=== PATIENT | male | born 1955 | race Caucasian/White ===

== ENCOUNTER → 2016-02-12 19:19 | Outpatient (CLI) | payer MEDICARE ==
[2016-01-29 10:35] VITALS: BMI 32.5
[~2016-02-12 19:19] MED LIST: ACETAMINOPHEN500 M1 PO; ALTACE5 MG PO; ASPIRIN EC81 M1 PO; ASPIRIN EC81 MG PO; ASPIRIN325 MG PO; CARAFATE1 G PO; DULERA 200 MCG8.8 GM INH; DURAGESIC1 PATCH .7 TD; EDARBYCLOR 40-1 EACH PO; EFFIENT10 MG PO; FLORAJEN3 CAPS460 MG PO; FLOVENT DI50 MCG/DIS INH; FLUTICASONE PRO16 GM NASAL; GLUCOPHAGE850 MG PO; HYDROCODONE-APA1 TAB PO; LAMICTAL200 MG PO; LINEZOLID600 MG PO; LOPID600 MG PO; LOPRESSOR25 MG PO; MACROBID100 MG PO; MERREM 1 GM/NS 11 G1 IV; METOPROLOL TART50 MG PO; MULTI-DAY VITAM1 TAB PO; NEURONTIN 300300 MG PO; NITROSTAT0.4 MG; NORCO 10/325 TA1 TA1 PO; NORVASC10 MG PO; PLAVIX75 MG PO; PRAVACHOL40 MG PO; PROTONIX40 MG PO; PROZAC10 MG PO; RANEXA500 MG PO; SINGULAIR10 MG PO; TENORMIN50 MG PO; TRIGLIDE160 MG PO; ZOCOR20 MG PO; ZYLOPRIM100 MG PO
[2016-02-13 09:21] LABS: BASOPHILS 0.2 % (0.0-2.0); EOSINOPHILS 9.2 % (0-7); HEMATOCRIT 37.9 % (42.0-54.0); IMMATURE GRANULOCYTES 0.2 % (0-5); LYMPHOCYTES 25.3 % (15-50); MCH 29.6 pg (26.0-34.0); MCHC 31.7 g/dL (31.0-37.0); MCV 93.6 fL (80.0-100.0); MONOCYTES 9.1 % (2-11); RBC 4.05 10x6/uL (4.20-6.10); RDW 14.3 % (11.5-14.5); WBC 5.7 10x3/uL (4.8-10.8)
[2016-02-13 09:40] LABS: PLATELET COUNT 197 10x3/uL (130-400)
== END | disposition home or self-care (01) ==
LOC: D.LABREF 19:19
PROVIDERS: Student in an Organized Health Care Education/Training Program
DX: N41.0 Acute prostatitis (principal)

== ENCOUNTER 2016-02-13 09:15 | Outpatient (CLI) | payer MEDICARE ==
[~2016-02-13] VITALS: Ht 185.4 cm; Wt 111.4 kg
[~2016-02-13 09:15] MED LIST changes: -EDARBYCLOR 40-1 EACH PO
[2016-02-13] MEDS ORDERED: LOPRESSOR25 MG PO (09:59)
[2016-02-13] MEDS ORDERED: SINGULAIR10 MG PO (10:00)
[2016-02-13 10:06] VITALS: Ht 185.4 cm; Wt 111.4 kg
== END 2016-02-13 10:20 | disposition home or self-care (01) ==
LOC: D.OPS 09:15
DX: N41.0 Acute prostatitis (principal)

== ENCOUNTER 2016-03-02 10:07 | Outpatient (CLI) | payer MEDICARE ==
[~2016-03-02] VITALS: Ht 185.4 cm; Wt 111.4 kg
--- NOTE | ~2016-03-02 | HEMODYNAMI ---
PATIENT:MIN LEWIS MEDICAL RECORD: [id number] : 53 LOCATION:[facility] ADMISSION DATE: 03/02/16 Generatedon:03/02/201613:11 Patient name: MIN LEWIS Patient #: [id number] SSN: [id number] : 1955 Date of study: 03/02/2016 Page: Of Hemodynamic Procedure Report Patient Data Patient Demographics Procedure consent was obtained First Name: MIN Gender: Male Last Name: DEBBIE : 1955 [facility] Initial: Owen Age: 60 year(s) Patient #: [id number] Race: SSN: [id number] Additional ID: [id number] Contact details Address: [place] [address] State: [place] City: [place] Zip code: [address] Past Medical History Allergies Allergen Reaction Date Comments Reported Sulfa drugs 05/26/2014 Penicillins 05/26/2014 Other allergy 03/28/2015 nitroglycerin paste, erthromycin base, Darvocet Sulfa drugs 11/21/2015 Penicillins 11/21/2015 Erythromycin 11/21/2015 Other allergy 11/21/2015 Darvocet Admission Admission Data Admission Date: 03/02/2016 Admission Time: 10:07 Arrival Date: 03/02/2016 Arrival Time: 12:00 Admit Source: Other Insurance Payor: Medicare Height (in.): 73 BSA: 2.35 (m2) Height (cm.): 185.42 BMI: 32.32 (kg/m2) Weight (lbs.): 245 Weight (kg.): 111.13 Lab Results Lab Result Date: 03/02/2016 Lab Result Time: 0:00 Biochemistry Name Units Result Min Max BUN mg/dl 19 --(----)*- 7 18 Creatinine mg/dl 1.3 --(---*)-- 0.6 1.3 CBC Name Units Result Min Max Hemoglobin g/dl 11.8 *-(----)-- 13.5 17.5 Procedure Procedure Types Cath Procedure Diagnostic Procedure [facility] w/Coronaries w/Grafts Procedure Description Procedure Date Procedure Date: 03/02/2016 Procedure Start Time: 13:01 Procedure End Time: 13:08 Procedure Staff Name Function Lv Bradshaw MD Performing Physician Carmen Lange RT Scrub Nydia Mckeon RN Nurse Roberto Seaman RT Line Mover Elizabeth Reynolds RT Monitor Indication Angina Procedure Data Cath Procedure Fluoroscopy Diagnostic fluoroscopy Total fluoroscopy Time: 1 time: 1 min min Diagnostic fluoroscopy Total fluoroscopy dose: 512 dose: 512 mGy mGy Contrast Material Contrast Material Type Amount (ml) Isovue 370 62 Entry Location Entry Primary Successful Side Size Upsize Upsize Entry Closure Succes sful Closure Location (Fr) 1 (Fr) 2 (Fr) Remarks Device Remarks Femoral Right 5 Fr Vascade artery Closure System Estimated blood loss: 5 ml Diagnostic catheters Device Type Used For End Catheter Placement Cordis 5Fr Pigtail LV Angiography Catheter (MP) Cordis 5Fr JL 4.0 Left Coronary Catheter (MP) Angiography Cordis Infinity 5Fr AR 2 Multi-vessel MOD catheter Angiography Procedure Complications No complications Procedure Medications Medication Administration Route Dosage Oxygen NC 2 l/min Heparin Flush Bag added to field 2 bags (1000units/500ml NS) Lidocaine 2% added to field 20 Benadryl I.V. 50 mg Versed I.V. 1 mg Fentanyl I.V. 50 mcg Versed I.V. 1 mg Fentanyl I.V. 50 mcg Hemodynamics Rest BSA: 2.35 (m2) HGB: 11.8 (g/dl) O2 Consumption: Estimated: 266.83 (ml/min) O2 Co nsumption indexed: Estimated:113.54 (ml/min/m) Heart Rate: 60 (bpm) Snapshots Pre Cath Intra NCS Post Cath Vital Signs Time Heart Resp SPO2 NIBP (mmHg) Rhythm Pain Status Sedation Rate (ipm) (%) Level (bpm) 12:48:05 60 16 97 135/81(91) NSR 5 (11) , 10(A) Very distressing 12:52:24 67 16 95 128/76(95) NSR 5 (11) , 10(A) Very distressing 12:56:42 69 16 95 127/76(96) NSR 5 (11) , 10(A) Very distressing 13:00:56 68 16 95 120/68(104) NSR 3 (11) , 10(A) Tolerable 13:05:10 72 16 97 139/81(101) NSR 0 (11) , No 9(A) pain 13:09:07 74 14 97 143/78(112) NSR 0 (11) , No 9(A) pain Medications Time Medication Route Dose Verified Delivered Reason Notes Effec tiveness by by 12:47:11 Oxygen NC 2 Lv Nydia Per l/min Augustine Mckeon RN physician 12:47:26 Heparin Flush added 2 Lv Awan used for Bag to bags Augustine Bradshaw MD procedure (1000units/500ml field NS) 12:47:32 Lidocaine 2% added 20ml Lv Awan used for to vial Augustine Bradshaw MD procedure field 12:47:38 Benadryl I.V. 50 mg Lv [place] Per Augustine Mckeon RN physician 13:00:14 Versed I.V. 1 mg Lv Nydia for Augustine Mckeon RN sedation 13:00:19 Fentanyl I.V. 50 Lv Nydia for mcg Augustine Mckeon RN sedation 13:03:13 Versed I.V. 1 mg Lv Nydia for Augustine Mckeon RN sedation 13:03:21 Fentanyl I.V. 50 Lv Nydia for mcg Augustine Mckeon RN sedation Procedure Log Time Note 12:30:44 Roberto Seaman RT(R) sent for patient. Start room use. 12:46:59 Vital chart was started 12:47:03 Diagnostic Cath Status : Elective 12:47:11 Oxygen 2 l/min NC was given by Nydia Mckeon RN; Per physician; 12:47:22 Indication : Angina 12:47:26 Heparin Flush Bag (1000units/500ml NS) 2 bags added to field was given by Lv Bradshaw MD; used for procedure; 12:47:32 Lidocaine 2% 20ml vial added to field was given by Lv Bradshaw MD; used for procedure; 12:47:37 Informed consent obtained and on chart 12:47:38 Benadryl 50 mg I.V. was given by Nydia Mckeon RN; Per physician; 12:47:52 Time tracking: Regular hours 12:47:56 Plan of Care:Hemodynamics will remain stable., Cardiac rhythm will remain stable., Comfort level will be maintained., Respiratory function will remain adequate., Patient/ family verbilizes understanding of procedure., Procedure tolerated without complication., Recovers from procedure without complications.. 12:48:11 Patient received from Outpatients to CCL 1 Alert and oriented. Tansferred to table in Supine position. 12:48:12 Warm blankets applied, and luisa hugger turned on for patient comfort. 12:48:12 Correct patient and procedure confirmed by team. 12:48:13 ECG and BP/O2 sat monitors applied to patient. 12:48:14 Baseline sample Acquired. 12:48:17 Rhythm: sinus rhythm 12:48:19 Full Disclosure recording started 12:48:49 H&P Date Dictated: 02/27/2016 Within 30 days and on chart., H&P Addendum completed by physician on day of procedure. (MUST COMPLETE FOR ALL OUTPATIENTS). 12:48:56 Pre-procedure instructions explained to patient. 12:48:56 Pre-op teaching completed and patient verbalized understanding. 12:48:58 Family in waiting room. 12:48:59 Patient NPO since Midnight. 12:49:13 Is the patient allergic to Iodine/contrast media? No. 12:49:15 Was the patient premedicated? No 12:49:15 Is patient on blood thinner?Yes 12:49:19 ACC The patient was administered the following blood thiners within the last 24 hours: ACCEffient 12:49:32 Patient diabetic? No. 12:49:41 Previous problem with sedation/anesthesia? No ? 12:49:43 Snore? Yes 12:49:44 Sleep apnea? No 12:49:47 Deviated septum? No 12:49:49 Opens mouth fully? Yes 12:49:51 Sticks out tongue? Yes 12:50:00 Airway obstruction? Yes bronchiectasis 12:50:03 Dentures? No ? 12:50:39 Pre procedure: right dorsailis pedis pulse 1+ Palpable, but thready & weak; easily obliterated 12:50:42 Patient pain scale 0/10 ?. 12:51:07 IV patent on arrival in left forearm with 0.9% NaCl at [facility]. 12:54:36 Lab Result : BUN 19 mg/dl 12:54:36 Lab Result : Creatinine 1.3 mg/dl 12:54:36 Lab Result : Hemoglobin 11.8 g/dl 12:54:42 Lab results completed and on chart. 12:54:48 Right groin area was prepped with chlora-prep and draped in sterile fashion 12:54:49 Alarms reviewed by R. N. 12:54:49 Sharps counted by scrub and verified by R.N. 12:57:54 Zero performed for pressure channel P1 12:57:58 Zero performed for pressure channel P1 12:59:03 Physician arrived 12:59:03 --------ALL STOP TIME OUT------ 12:59:03 Final Timeout: patient, procedure, and site verified with staff and physician. All members of the team are in agreement. 12:59:05 Right groin site verified by team. 12:59:08 Physical assessment completed. ASA score P 2 - A patient with mild systemic disease as per Lv Bradshaw MD. 12:59:11 Sedation plan: IV Moderate Sedation Versed, Fentanyl 12:59:15 Use device set Femoral Dx 12:59:16 Acist Syringe opened to sterile field. 12:59:17 Bag Decanter opened to sterile field. 12:59:17 Cardinal Cath Pack opened to sterile field. 12:59:18 Terumo 5Fr [place] Sheath opened to sterile field. 12:59:18 St Michel 260cm J .035 wire opened to sterile field. 12:59:19 Acist Hand Control opened to sterile field. 12:59:19 Acist Manifold opened to sterile field. 12:59:20 Cordis Infinity 5Fr Multipack catheter opened to sterile field. 12:59:20 Tegaderm 4 x 4 opened to sterile field. 13:00:14 Versed 1 mg I.V. was given by Nydia Mckeon RN; for sedation; 13:00:19 Fentanyl 50 mcg I.V. was given by Nydia Mckeon RN; for sedation; 13:01:38 Procedure started. 13:01:41 Local anesthetic to right femoral artery with Lidocaine 2% by Lv Bradshaw MD.INITIAL ACCESS ONLY 13:01:49 A 5 Fr sheath was inserted into the Right Femoral artery 13:01:54 A Cordis 5Fr Pigtail Catheter (MP) was advanced over the wire and used for LV Angiography. 13:01:57 LV gram done using FRAUSTO 13:02:00 Injector settings: Ml/sec: 5, Volume: 15, 13:02:05 EF : 60 % 13:02:06 Catheter removed. 13:02:13 A Cordis 5Fr JL 4.0 Catheter (MP) was advanced over the wire and used for Left Coronary Angiography. 13:02:16 LCA angiography performed. 13:02:18 Injector settings: Ml/sec: 3, Volume: 6, 13:03:13 Versed 1 mg I.V. was given by Nydia Mckeon RN; for sedation; 13:03:21 Fentanyl 50 mcg I.V. was given by Nydia Mckeon RN; for sedation; 13:03:22 Catheter removed. 13:03:48 A Cordis Infinity 5Fr AR 2 MOD catheter was advanced over the wire and used for Multi-vessel Angiography. 13:03:52 RCA angiography performed. 13:04:10 Injector settings: Ml/sec: 3, Volume: 6, 13:04:46 Catheter removed. 13:06:22 Vascade 5Fr Closure Device opened to sterile field. 13:06:34 Sheath removed intact; hemostasis achieved with Vascade Closure System to the Right Femoral artery. 13:06:36 Procedure ended.(Physican Out) 13:07:10 Fluoroscopy time 01.00 minutes. 13:07:16 Flurop Dose total: 512 13:07:16 Fluoroscopy dose: 512 mGy 13:07:25 Contrast amount:Isovue 370 62ml. 13:07:26 Sharps counted by scrub and verified by R.N. 13:07:34 Insertion/operative site no bleeding no hematoma. 13:07:37 Post-op/insertion site Right Femoral artery dressed using a 4 x 4 and Tegaderm. 13:07:41 Post right femoral artery:stable 13:07:42 Post Procedure Pulses reassessed and unchanged 13:07:45 Post procedure rhythm: unchanged. 13:07:47 Estimated blood loss: 5 ml 13:07:58 Post procedure instruction explained to patient.Patient verbalizes understanding. 13:07:58 Patient needs reinforcement of post procedure teaching. 13:08:08 Procedure type changed to Cath procedure, Diagnostic procedure, LHC, LHC w/Coronaries w/Grafts 13:08:08 Procedure and supply charges have been captured, reviewed, submitted and are correct. 13:08:12 Procedure Complication : No complications 13:08:14 Vital chart was stopped 13:08:15 See physician's report for complete and final results. 13:08:19 Report given to Outpatients. 13:08:22 Patient transfered to Outpatients with Stretcher. 13:08:24 Procedure ended. 13:08:24 Full Disclosure recording stopped 13:08:28 End room use (Document Last) 13:10:22 Admit Source: Other 13:10:32 Patient Height : 185.42 inches 13:10:38 Patient Weight : 111.13 lbs 13:10:39 Insurance Payor : Medicare 13:10:43 Arrival Date: 03/02/2016 12:00:00 PM Device Usage Item Name Manufacture Quantity Catalog Number Hospital Part Current Minimal Lot# / Charge Number Stock Stock Serial# Code Acist Acist 1 [id number] 097250 [id number] 20 Syringe Medical Systems Inc Bag Microtek 1 [id number] [id number] 10707 893102 5 Decanter Medical Inc. Cardinal Cardinal 1 [id number] 970977 31671 001486 5 Cath Pack Health Terumo Terumo 1 [id number] 302183 789395 980662 [address] [facility] Michel 1 [id number] 722256 999533 333977 30 260cm J .035 wire Acist Acist 1 93250 583372 619670 906262 5 Hand Medical Control Systems Inc Acist Acist 1 45194 909299 985850 582075 5 Manifold Medical Systems Inc Cordis Cardinal 1 [id number] 110446 48576 934521 30 Estoreify 5Fr Multipack catheter Tegaderm 3M 1 [id number] 648152 215583 373180 5 4 x 4 Cordis Cardinal 1 [id number] 5 5Fr Health Pigtail Catheter (MP) Cordis Cardinal 1 [id number] 5 5Fr JL Health 4.0 Catheter (MP) Cordis Cardinal 1 [id number] 590834 577069 383942 20 Estoreify 5Fr AR 2 MOD catheter Vascade Cardiva 1 [id number] 034553 43407 [id number] 10 5Fr Medical, Closure Inc. Device Signature Audit [place] Stage Time Signature Unsigned Intra-Procedure 03/02/2016 Elizabeth Reynolds 1:11:32 PM RT(R) Signatures Monitor : Elizabeth Reynolds RT Signature : Date : Time : [address] [place] [address]
[2016-03-02] MEDS ORDERED: EDARBYCLOR 40-1 EACH PO ×2 (10:53→10:54)
[2016-03-02 11:00] VITALS: BP 118/75; Ht 185.4 cm; Wt 111.4 kg
[2016-03-02 11:07] LABS: BASOPHILS 1.2 % (0.0-2.0); EOSINOPHILS 8.9 % (0-7); HEMATOCRIT 37.1 % (42.0-54.0); HEMOGLOBIN 11.8 g/dL (13.5-17.5); IMMATURE GRANULOCYTES 0.2 % (0-5); LYMPHOCYTES 30.8 % (15-50); MCH 28.8 pg (26.0-34.0); MCHC 31.8 g/dL (31.0-37.0); MCV 90.5 fL (80.0-100.0); MEAN PLATELET VOLUME 9.2 fL (7.4-10.4); MONOCYTES 12.4 % (2-11); NEUTROPHILS 46.5 % (40-80); PLATELET COUNT 215 10x3/uL (130-400); RDW 13.8 % (11.5-14.5); WBC 5.7 10x3/uL (4.8-10.8)
[2016-03-02 11:14] LABS: CALCIUM 9.2 mg/dL (8.5-10.1); CARBON DIOXIDE 28.3 mmol/L (21.0-32.0); CREATININE - SERUM 1.3 mg/dL (0.6-1.3); POTASSIUM - SERUM 4.3 mmol/L (3.5-5.1)
--- NOTE | 2016-03-02 12:15 | NUR ---
1130 patient states is having mild chest pain, uses o2 at home when he needs it. will place patient on 2.5l nasal prongs and recheck in a few minutes. 1145 patient states chest pain is better. told to inform if it worsens. 1215 patient called at and states chest pain is worse at #5-6. called laboratory mechanical technician to inform dr wiley, was told he would be informed. o2 increased to 3l. no acute distress noted.
--- NOTE | 2016-03-02 14:13 | NUR ---
Called to outpatient for midline removal. On arival, patient well known to this nurse with left upper arm midline. Line removed with cath intact at 17 cm. Pressure to area x 5 minutes and tegaderm dressing. Site without redness. Coby Gage RN
--- NOTE | 2016-03-02 15:16 | NUR ---
1515 MIDLINE IV HAS BEEN DC'D INTACT PER SHANEL FOUNTAIN RN
--- NOTE | 2016-03-02 18:58 | NUR ---
1535 HI INSTS. 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
--- NOTE | 2016-03-09 14:16 | OP ---
PATIENT NAME: MIN LEWIS MEDICAL RECORD: [id number] :53 LOCATION:D.CAT ADMISSION DATE: SURGEON: FOX GUPTA MD DATE OF OPERATION: 03/02/2016 PROCEDURES: 1. Left heart catheterization. 2. Selective coronary angiography. 3. Left ventriculogram. 4. Vein graft angiography. INDICATION: Angina, coronary artery disease, previous multivessel PTCA stent and bypass surgery. PROCEDURE IN DETAIL: After informed consent was obtained and after detailed explanation of risks, benefits, as well as alternative therapies, the patient elected to proceed with angiogram and heart catheterization. The right femoral area was prepped and draped in normal sterile fashion. The right femoral artery was cannulated via modified Seldinger technique with placement of 5-Kiswahili sheath. All catheters exchanged through this sheath. FINDINGS: Left ventriculogram was performed in the standard 30-degree FRAUSTO view reveals good cardiac wall motion throughout all segments. Overall ejection fraction estimated at 55%. SELECTIVE CORONARY ANGIOGRAPHY: 1. Left main showed no significant angiographic disease. 2. Left anterior descending has moderate irregularities. Previously placed stents are widely patent, no significant restenosis. 3. Vein graft to the LAD diagonal has previously placed stent. This is widely patent with no significant restenosis. No disease elsewise. 4. The left circumflex has moderate irregularities, but no flow-limiting stenosis. 5. The right coronary has moderate irregularities, but no flow-limiting stenosis. OVERALL IMPRESSION: No significant restenosis of any of the previously placed stents, wide patency of the vein graft to the left anterior descending diagonal. Continue medical management of the coronary artery disease and cardiac risk factors. TRANSINT:[id number] Voice Confirmation ID: [id number] DOCUMENT ID: [id number] FOX GUPTA MD at 1416 CC: [id number] DICTATION DATE: 03/02/16 1309 FORESTRY SUPPORT SPECIALIST: 03/02/16 1335 DEP CLI 03/02/[address] [address]
== END 2016-03-02 15:35 | disposition home or self-care (01) ==
LOC: D.CATH 10:07
PROVIDERS: Internal Medicine Interventional Cardiology
DX: I25.119 Atherosclerotic heart disease of native coronary artery with unspecified angina pectoris (principal); Z95.1 Presence of aortocoronary bypass graft; Z95.5 Presence of coronary angioplasty implant and graft

== ENCOUNTER → 2016-03-09 08:48 | Outpatient (CLI) | payer MEDICARE ==
[2016-03-02 11:00] VITALS: BMI 32.3
[~2016-03-09 08:48] MED LIST changes: +EDARBYCLOR 40-1 EACH PO
== END | disposition home or self-care (01) ==
LOC: D.CT 03-06 13:00
DX: R91.1 Solitary pulmonary nodule (principal)

== ENCOUNTER → 2016-03-11 17:24 | Outpatient (CLI) | payer MEDICARE ==
[2016-03-02 11:00] VITALS: BMI 32.3
[2016-03-11 19:07] LABS: APPEARANCE CLEAR (CLEAR); BILIRUBIN NEGATIVE (NEGATIVE); COLOR YELLOW (YELLOW); GLUCOSE NEGATIVE (NEGATIVE); KETONE NEGATIVE (NEGATIVE); LEUKOCYTE ESTERASE NEGATIVE (NEGATIVE); NITRITE NEGATIVE (NEGATIVE); PROTEIN NEGATIVE (NEGATIVE); SPECIFIC GRAVITY 1.015 (1.005-1.020); UROBILINOGEN NORMAL (NORMAL)
== END | disposition home or self-care (01) ==
LOC: D.LABREF 17:24
PROVIDERS: Student in an Organized Health Care Education/Training Program
DX: R30.0 Dysuria (principal)

== ENCOUNTER → 2016-05-28 15:41 | Outpatient (CLI) | payer MEDICARE ==
[2016-03-02 11:00] VITALS: BMI 32.3
== END | disposition home or self-care (01) ==
LOC: D.MRI 15:30
DX: R41.3 Other amnesia (principal)

== ENCOUNTER 2016-07-22 15:51 | Outpatient (CLI) | payer MEDICARE ==
[~2016-07-22] VITALS: Ht 185.4 cm; Wt 127.4 kg
--- NOTE | ~2016-07-22 | HEMODYNAMI ---
PATIENT:MIN LEWIS MEDICAL RECORD: [id number] : 53 LOCATION:[facility].211 ADMISSION DATE: 07/22/16 Generatedon:07/23/20168:21 Patient name: MIN LEWIS Patient #: [id number] SSN: [id number] : 1955 Date of study: 07/23/2016 Page: Of Hemodynamic Procedure Report Patient Data Patient Demographics Procedure consent was obtained First Name: MIN Gender: Male Last Name: DEBBIE : 1955 [facility] Initial: Owen Age: 61 year(s) Patient #: [id number] Race: SSN: [id number] Additional ID: [id number] Contact details Address: [place] [address] State: [place] City: [place] Zip code: [address] Past Medical History Allergies Allergen Reaction Date Comments Reported Sulfa drugs 05/26/2014 Penicillins 05/26/2014 Other allergy 03/28/2015 nitroglycerin paste, erthromycin base, Darvocet Sulfa drugs 11/21/2015 Penicillins 11/21/2015 Erythromycin 11/21/2015 Other allergy 11/21/2015 Darvocet Admission Admission Data Admission Date: 07/22/2016 Admission Time: 16:15 Room #: 2117 Procedure Procedure Types Cath Procedure Diagnostic Procedure LHC LHC w/Coronaries w/Grafts PCI Procedure Coronary Stent Initial Miscellaneous Procedures Moderate Sedation up to 30 minutes Procedure Description Procedure Date Procedure Date: 07/23/2016 Procedure Start Time: 8:03 Procedure End Time: 8:20 Procedure Staff Name Function Lv Bradshaw MD Performing Physician Nydia Mckeon RN Nurse Yg Castillo RT Scrub Yony Ramos RT Monitor Procedure Data Cath Procedure Fluoroscopy Diagnostic fluoroscopy Total fluoroscopy Time: 2 time: 2 min min Diagnostic fluoroscopy Total fluoroscopy dose: 710 dose: 710 mGy mGy Contrast Material Contrast Material Type Amount (ml) Isovue 300 106 Entry Location Entry Primary Successful Side Size Upsize Upsize Entry Closure Succes sful Closure Location (Fr) 1 (Fr) 2 (Fr) Remarks Device Remarks Femoral Right 5 Fr 6 Fr artery Short Estimated blood loss: 10 ml Diagnostic catheters Device Type Used For End Catheter Placement Cordis 5Fr Pigtail Procedure Catheter (MP) Cordis 5Fr JL 4.0 Procedure Catheter (MP) Cordis 5Fr 3DRC Catheter Procedure (MP) Diagnostic Infinity 5Fr Procedure AR 2 MOD catheter Procedure Complications No complications Procedure Medications Medication Administration Route Dosage Effient P.O. 5 mg Oxygen NC 2 l/min Heparin Flush Bag added to field 2 bags (1000units/500ml NS) Lidocaine 2% added to field 20 Fentanyl I.V. 50 mcg Fentanyl I.V. 50 mcg Versed I.V. 0.5 mg Versed I.V. 0.5 mg Fentanyl I.V. 50 mcg Heparin Bolus I.V. 4000 units Hemodynamics Rest Heart Rate: 63 (bpm) Snapshots Pre Cath Intra NCS Post Cath Vital Signs Time Heart Resp SPO2 etCO2 [id number] NIBP (mmHg) Rhythm Pain Status Rosita tion Rate (ipm) (%) (mmHg) (mmHg) Level (bpm) 7:16:18 62 14 96 0 0 173/96(147) NSR 0 (11) , No 10(A ) pain 7:20:38 58 16 95 0 0 150/83(135) NSR 5 (11) , 10(A ) Very distressing 7:24:58 60 17 95 0 0 162/91(109) NSR 0 (11) , No 10(A ) pain 7:29:23 65 19 96 0 0 157/95(128) NSR 0 (11) , No 10(A ) pain 7:33:36 65 18 96 0 0 148/97(123) NSR 0 (11) , No 10(A ) pain 7:37:53 67 17 88 0 0 152/94(125) NSR 0 (11) , No 10(A ) pain 7:42:07 66 17 89 0 0 152/89(130) NSR 0 (11) , No 10(A ) pain 7:46:27 68 16 96 0 0 168/96(141) NSR 0 (11) , No 10(A ) pain 7:50:47 73 16 95 0 0 166/107(123) NSR 0 (11) , No 10(A ) pain 7:55:13 70 17 95 0 0 159/93(140) NSR 0 (11) , No 10(A ) pain 7:59:33 72 14 98 0 0 170/100(114) NSR 0 (11) , No 9(A) pain 8:04:32 72 15 96 0 0 Measuring NSR 0 (11) , No 9(A) pain 8:04:55 71 16 97 0 0 156/93(128) NSR 0 (11) , No 9(A) pain 8:09:11 79 15 95 0 0 162/102(143) NSR 0 (11) , No 9(A) pain 8:13:35 78 16 95 0 0 164/102(135) NSR 0 (11) , No 9(A) pain 8:15:19 77 16 95 0 0 160/109(128) NSR 0 (11) , No 9(A) pain 8:19:29 75 10 92 0 0 144/98(126) NSR 0 (11) , No 9(A) pain Medications Time Medication Route Dose Verified Delivered Reason Notes Effectiveness by by 7:15:09 Effient P.O. 5 mg Lv Nydia for Augustine Mckeon RN antiplatelet therapy 7:20:54 Oxygen NC 2 Lv Nydia Per physician l/min Augustine Mckeon RN 7:21:04 Heparin Flush added 2 Lv Lv used for Bag to bags Augustine Bradshaw MD procedure (1000units/500ml field NS) 7:21:13 Lidocaine 2% added 20ml Lv Lv used for to vial Augustine Bradshaw MD procedure field 7:21:37 Fentanyl I.V. 50 Lv Nydia for back pain mcg Augustine Mckeon RN 7:52:00 Fentanyl I.V. 50 Lv Nydia for sedation mcg Augustine Mckeon RN 7:52:08 Versed I.V. 0.5 Lv Nydia for sedation mg Augustine Mckeon RN 8:00:01 Versed I.V. 0.5 Lv Nydia for sedation mg Augustine Mckeon RN 8:04:57 Fentanyl I.V. 50 Lv Nydia for sedation mcg Augustine Mckeon RN 8:10:23 Heparin Bolus I.V. Cindy Stafford for dose units Augustine Mckeon RN anticoagulation verified [facility] dr bradshaw Procedure Log Time Note 6:50:38 Yony Ramos RT(R) sent for patient. Start room use. 6:53:16 Time tracking: Regular hours 6:53:21 Plan of Care:Hemodynamics will remain stable., Cardiac rhythm will remain stable., Comfort level will be maintained., Respiratory function will remain adequate., Patient/ family verbilizes understanding of procedure., Procedure tolerated without complication., Recovers from procedure without complications.. 7:09:32 Diagnostic Cath status Elective 7:09:55 Patient received from Med II to CCL 1 Alert and oriented. Tansferred to table in Supine position. 7:09:56 Warm blankets applied, and luisa hugger turned on for patient comfort. 7:09:57 Correct patient and procedure confirmed by team. 7:09:58 Signed procedure consent form obtained from patient. 7:09:59 ECG and BP/O2 sat monitors applied to patient. 7:10:08 H&P Date Dictated: 07/22/2016 Within 30 days and on chart.. 7:10:10 Pre-procedure instructions explained to patient. 7:10:10 Pre-op teaching completed and patient verbalized understanding. 7:10:12 Family in patients room. 7:10:13 Patient NPO since Midnight. 7:10:16 Is the patient allergic to Iodine/contrast media? No. 7:10:17 Is patient on blood thinner?Yes 7:10:20 ACC The patient was administered the following blood thiners within the last 24 hours: ACCEffient 7:10:22 Patient diabetic? Yes. 7:10:23 If diabetic: On Metformin? Yes 7:10:26 If on Metformin: Last Dose? 07/22/2016 7:10:30 Previous problem with sedation/anesthesia? No ? 7:10:32 Snore? Yes 7:10:35 Sleep apnea? Yes 7:10:36 Deviated septum? No 7:10:37 Opens mouth fully? Yes 7:10:38 Sticks out tongue? Yes 7:10:40 Airway obstruction? Yes copd 7:10:42 Dentures? No ? 7:15:03 Vital chart was started 7:15:09 Effient 5 mg P.O. was administered by Nydia Mckeon RN; for antiplatelet therapy; 7:20:54 Oxygen 2 l/min NC was administered by Nydia Mckeon RN; Per physician; 7:21:04 Heparin Flush Bag (1000units/500ml NS) 2 bags added to field was administered by Lv Bradshaw MD; used for procedure; 7:21:13 Lidocaine 2% 20ml vial added to field was administered by Lv Bradshaw MD; used for procedure; 7:21:37 Fentanyl 50 mcg I.V. was administered by Nydia Mckeon RN; for back pain; 7:22:02 Pre procedure: right dorsailis pedis pulse 1+ Palpable, but thready & weak; easily obliterated 7:22:04 Patient pain scale 0/10 ?. 7:22:09 IV patent on arrival in right forearm with 0.9% NaCl at [facility]. 7:23:26 Lab Result : Creatinine 1.2 mg/dl 7:23:26 Lab Result : BUN 15 mg/dl 7:23:26 Lab Result : Hemoglobin 12 g/dl 7:23:26 Lab Result : Hematocrit 36.6 % 7:24:04 Lab results completed and on chart. 7:24:08 Right groin area was prepped with chlora-prep and draped in sterile fashion 7:24:10 Alarms reviewed by R. N. 7:24:10 Sharps counted by scrub and verified by R.N. 7:24:13 Use device set Femoral Dx 7:24:14 Tegaderm 4 x 4 opened to sterile field. 7:24:15 Acist Manifold opened to sterile field. 7:24:15 Acist Hand Control opened to sterile field. 7:24:17 Acist Syringe opened to sterile field. 7:24:17 Bag Decanter opened to sterile field. 7:24:18 Medline Cath Pack opened to sterile field. 7:24:18 Terumo 5Fr [place] Sheath opened to sterile field. 7:24:18 St Michel 260cm J .035 wire opened to sterile field. 7:24:20 Diagnostic Infinity 5Fr Multipack catheter opened to sterile field. 7:24:26 Baseline sample Acquired. 7:24:29 Rhythm: sinus rhythm 7:24:32 Full Disclosure recording started 7:24:39 Physician paged 7:43:57 Zero performed for pressure channel P1 7:51:07 Physician arrived 7:51:08 --------ALL STOP TIME OUT------ 7:51:09 Final Timeout: patient, procedure, and site verified with staff and physician. All members of the team are in agreement. 7:51:10 Right groin site verified by team. 7:51:12 Physical assessment completed. ASA score P 2 - A patient with mild systemic disease as per Lv Bradshaw MD. 7:51:17 Sedation plan: IV Moderate Sedation Versed, Fentanyl 7:52:00 Fentanyl 50 mcg I.V. was administered by Nydia Mckeon RN; for sedation; 7:52:08 Versed 0.5 mg I.V. was administered by Nydia Mckeon RN; for sedation; 8:00:01 Versed 0.5 mg I.V. was administered by Nydia Mckeon RN; for sedation; 8:03:21 Procedure started. 8:03:23 Local anesthetic to right femoral artery with Lidocaine 2% by Lv Bradshaw MD.INITIAL ACCESS ONLY 8:03:31 A 5 Fr sheath was inserted into the Right Femoral artery 8:04:47 A Cordis 5Fr Pigtail Catheter (MP) was advanced over the wire and used for Procedure. 8:04:57 Fentanyl 50 mcg I.V. was administered by Nydia Mckeon RN; for sedation; 8:05:05 LV gram done using FRAUSTO 8:05:08 Injector settings: Ml/sec: 10, Volume: 20, 8:05:32 EF : 55 % 8:05:34 Catheter exchanged over wire. 8:05:39 A Cordis 5Fr JL 4.0 Catheter (MP) was advanced over the wire and used for Procedure. 8:05:40 LCA angiography performed. 8:06:41 Gamida Cell BasixCompak Inflation Kit opened to sterile field. 8:06:48 Ayala Whisper J 300cm 0.014 guide wire opened to sterile field. 8:06:48 Merit BasixCompak Inflation Kit opened to sterile field. 8:06:49 Terumo 6Fr [place] Sheath opened to sterile field. 8:07:26 A Cordis 5Fr 3DRC Catheter (MP) was advanced over the wire and used for Procedure. 8:07:30 RCA angiography performed. 8:08:13 Catheter exchanged over wire. 8:08:22 A Diagnostic Infinity 5Fr AR 2 MOD catheter was advanced over the wire and used for Procedure. 8:08:58 SVG to Diag occluded. 8:09:13 Cordis 6FR XBLAD 3.5 guide catheter opened to sterile field. 8:09:50 Sheath upsized to a 6 Fr Short. 8:09:57 6 Fr XBLAD 3.5 guide catheter was inserted over the wire 8:10:23 Heparin Bolus 4000 units I.V. was administered by Nydia Mckeon RN; for anticoagulation; dose verified wt dr bradshaw 8:10:51 WHISPER wire advanced. 8:12:05 Wire advanced across lesion. 8:12:08 Inflation Number: 1 A Medtronic Resolute 3.5 X 12 stent was prepped and advanced across the Mid LAD. The stent was deployed at 21 MONICA for 0:10 (min:sec). 8:12:14 Cordis 6Fr Exoseal opened to sterile field. 8:12:17 Stent catheter was removed intact over wire. 8:12:18 Wire removed. 8:12:18 Guide catheter removed. 8:12:39 Procedure ended.(Physican Out) 8:16:10 Fluoroscopy time 02.00 minutes. 8:16:13 Flurop Dose total: 710 8:16:13 Fluoroscopy dose: 710 mGy 8:16:19 Contrast amount:Isovue 300 106ml. 8:16:20 Sharps counted by scrub and verified by R.N. 8:16:21 Insertion/operative site no bleeding no hematoma. 8:16:23 Post-op/insertion site Right Femoral artery dressed using a 4 x 4 and Tegaderm. 8:16:27 Post right femoral artery:stable, soft, clean and dry 8:16:29 Post Procedure Pulses reassessed and unchanged 8:16:32 Post-procedure physical assessment completed. ASA score P 2 - A patient with mild systemic disease as per Lv Bradshaw MD. 8:16:34 Post procedure rhythm: unchanged. 8:16:36 Estimated blood loss: 10 ml 8:16:37 Post procedure instruction explained to patient.Patient verbalizes understanding. 8:16:39 Patient needs reinforcement of post procedure teaching. 8:18:25 Procedure type changed to Cath procedure, Diagnostic procedure, [facility], [facility] w/Coronaries w/Grafts, PCI procedure, Coronary Stent Initial, Miscellaneous Procedures, Moderate Sedation up to 30 minutes 8:20:04 Procedure and supply charges have been captured, reviewed, submitted and are correct. 8:20:06 Procedure Complication : No complications 8:20:10 Vital chart was stopped 8:20:12 See physician's report for complete and final results. 8:20:17 Report given to PCU. 8:20:20 Patient transfered to PCU with Stretcher. 8:20:22 Procedure ended. 8:20:22 Full Disclosure recording stopped 8:20:28 End room use (Document Last) Intervention Summary Intervention Notes Time ActionType Lesion and Equipment Action# Pressure Duration Attributes Used 8:12:08 Place stent Mid LAD Medtronic 1 21 00:10 Resolute 3.5 X 12 stent Device Usage Item Name Manufacture Quantity Catalog Hospital Part Current Minimal Lot# / Number Charge Number Stock Stock Serial# Code Tegaderm 4 1 1626W 374393 174186 765071 5 x 4 Acist Acist 1 35554 526018 327515 902651 5 Manifold Medical Systems Urbantech Acist Hand Acist 1 70489 257664 666979 883596 5 Control Medical Systems Inc Acist Acist 1 26795 397826 718897 211455 20 Syringe Medical Systems Inc Bag Microtek 1 2002S 588111 01177 802505 5 DecStartup Wise Gu[employer] Inc. Medline Cardinal 1 [id number] 870930 54376 607755 5 Cath Pack Health Terumo 5Fr Terumo 1 [id number] 241199 316733 838390 [address] [facility] Michel 1 425008 221547 490168 336884 30 260cm J .035 wire Diagnostic Cardinal 1 [id number] 846501 78147 119874 30 Infinity Health 5Fr Multipack catheter Cordis 5Fr Cardinal 1 001342 5 Pigtail Health Catheter (MP) Cordis 5Fr Cardinal 1 777601 5 JL 4.0 Health Catheter (MP) Merit Merit 2 EP0758 365524 796014 217687 15 BasixCompak Medical Inflation Kit Ayala Ayala 1 [id number] 354145 500194 081934 5 Whisper J Vascular 300cm 0.014 guide wire Terumo 6Fr Terumo 1 [id number] 414558 158072 566917 40 [place] Sheath Cordis 5Fr Cardinal 1 065938 5 3D Health Catheter (MP) Diagnostic Cardinal 1 [id number] 667682 700884 052563 20 Kriyari Health 5Fr AR 2 MOD catheter Cordis 6FR Cardinal 1 [id number] 052894 967713 706011 10 XBLAD 3.5 Health guide catheter Medtronic Medtronic 1 [id number] 866426 932015 7 [id number] Resolute 3.5 X 12 stent Cordis 6Fr Cardinal 1 EX600 916050 901848 964710 10 [facility] Signature Audit [place] Stage Time Signature Unsigned Intra-Procedure 07/23/2016 Yony Ramos 8:21:00 AM RT(R) Signatures Monitor : Yony Ramos RT Signature : Date : Time : [id number] [place] [address]
[2016-07-22 16:01] LABS: BASOPHILS 0.3 % (0-2); EOSINOPHILS 5.2 % (0-7); HEMATOCRIT 36.6 % (42.0-54.0); IMMATURE GRANULOCYTES 0.1 % (0-5); LYMPHOCYTES 35.8 % (15-50); MCH 29.8 pg (26.0-34.0); MCHC 32.8 g/dL (31.0-37.0); MCV 90.8 fL (80.0-100.0); MEAN PLATELET VOLUME 9.6 fL (7.4-10.4); MONOCYTES 7.8 % (2-11); NEUTROPHILS 50.8 % (40-80); PLATELET COUNT 224 10x3/uL (130-400); RBC 4.03 10x6/uL (4.20-6.10); RDW 12.8 % (11.5-14.5); WBC 7.5 10x3/uL (4.8-10.8)
[2016-07-22 16:15] LABS: ALBUMIN 3.8 g/dL (3.4-5.0); ALKALINE PHOSPHATASE 53 U/L (46-116); ALT (SGPT) 67 U/L (10-68); BILIRUBIN - TOTAL 0.39 mg/dL (0.2-1.3); CALC OSMOLALITY 280 mosm/kg (275-300); CALCIUM 9.6 mg/dL (8.5-10.1); CHLORIDE - SERUM 103 mmol/L (98-107); CREATININE - SERUM 1.2 mg/dL (0.6-1.3); GLUCOSE 167 mg/dL (74-106); POTASSIUM - SERUM 4.3 mmol/L (3.5-5.1); PROTEIN - SERUM 7.7 g/dL (6.4-8.2); SODIUM 138 mmol/L (136-145); UREA NITROGEN 15 mg/dL (7-18); eGFR NON AFRICAN AMERICAN 65 mL/min (90-120)
[2016-07-22 16:27] LABS: CKMB 0.8 U/L (0.0-3.6); CREATINE KINASE 169 UL (21-232); PRO BNP 315 pg/mL (0-125)
[2016-07-22 16:30] LABS: TROPONIN-I < 0.017 ng/mL (0.000-0.060)
--- NOTE | 2016-07-22 17:12 | NUR ---
TRANSFER FROM ER BY W/C. MICHAELINTED TO ROOM. CALL LIGHT IN REACH. WILL CONT. PLAN OF CARE.
[2016-07-22] MEDS ORDERED: ALTACE5 MG PO (17:22)
[2016-07-22 17:33] VITALS: BP 125/86; BMI 33.4
--- NOTE | 2016-07-22 19:15 | NUR ---
RESUMED CARE OF PT, LYING IN BED RESPIRATIONS EVEN AND UNLABORED ON 2LPM VIA NC. 74 SR ON TELEMETRY. RIGHT FOREARM INFUSING NS @ 20. STATES CHEST PAIN IS STARTING TO COME BACK. WILL CONTINUE TO MONITOR. SEE NURSE ASSESSMENT.
[2016-07-22 21:40] VITALS: BP 138/96
--- NOTE | 2016-07-23 01:09 | NUR ---
PINKING MACHINE OPERATOR AT BEDSIDE TO OBTAIN VITALS, CALL LIGHT IN REACH. WILL CONTINUE WITH PLAN OF CARE.
[2016-07-23 01:21] VITALS: BP 119/69
[2016-07-23 04:47] VITALS: BP 106/49
--- NOTE | 2016-07-23 06:42 | NUR ---
PREOP MEDS GIVEN, NPO. CALL LIGHT IN REACH.
--- NOTE | 2016-07-23 07:05 | NUR ---
LEAVING FOR PROPERTY DEVELOPER BY BED. WILL CONT. PLAN OF CARE.
[2016-07-23 07:19] VITALS: Ht 185.4 cm; Wt 127.4 kg
[2016-07-23 08:40] VITALS: BP 174/84
--- NOTE | 2016-07-23 08:49 | HP ---
PATIENT: MIN LEWIS MEDICAL RECORD: [id number] ACCOUNT: [id number] LOCATION:[facility].2117 : 53 ADMISSION DATE: 07/22/16 HISTORY AND PHYSICAL EXAMINATION ADMITTING DIAGNOSES: 1. Angina. 2. Coronary artery disease. 3. Status post multivessel angioplasty. 4. Hypertension. 5. Hyperlipidemia. HISTORY OF PRESENT ILLNESS: This is a gentleman well known to us with multivessel angioplasty, last being 10 months ago, presents with anginal symptomatology since 4:00 a.m., unrelieved with multiple sublingual nitros, unrelieved with multiple GI medications. PHYSICAL EXAMINATION: GENERAL APPEARANCE: Well-nourished, well-developed, appears stated age. Level of distress, comfortable. PSYCHIATRIC: Mental status, alert, normal affect. Orientation, oriented to time, place and person. EYES: Lids and conjunctiva, noninjected. No discharge, no pallor. ENT: Lips, teeth, gums, normal dentition. Oropharynx, no cyanosis, no pallor. NECK: Carotid arteries, bilateral normal upstroke, no bruits, no thrills. JUGULAR VEINS: No jugular venous pressure or distention. CERVICAL LYMPH NODES: Nontender, nonenlarged. THYROID: Not enlarged. Nontender. No nodules. LUNGS: Respiratory effort, unlabored. CHEST: Normal curvature. No thoracic deformity. No chest wall tenderness. Percussion, resonant. Auscultation, clear. No wheezes, no rales, no rhonchi. CARDIOVASCULAR: Precordial exam, nondisplaced. No heaves or pericardial thrills. Rate and rhythm, regular. Heart sounds, normal S1, normal S2. No S3, no gallop, no rub. Systolic murmur, not heard. Diastolic murmur, not heard. EXTREMITIES: No cyanosis, no edema. Peripheral pulses, full and equal in all extremities, except as noted. No bruits appreciated. ABDOMEN: Soft, nondistended. Normal aorta. No bruit. Nontender. No masses. Liver, nontender, no hepatomegaly. Spleen, nontender, no splenomegaly. MUSCULOSKELETAL: No joint tenderness. No joint swelling. No erythema. NEUROLOGICAL: Normal gait, normal strength, normal tone. SKIN: Warm and dry. REVIEW OF SYSTEMS: The patient reports easy bruising but reports no swollen glands. The patient reports no fever, no night sweats, no significant weight gain, no significant weight loss. No significant exercise tolerance. The patient reports no dry eyes, no irritation, no vision change. Patient reports no difficulty hearing and no ear pain. Patient reports no frequent nose bleeds or nose and sinus problems. Patient reports on arm pain on exertion. No shortness of breath while lying down. No history of heart murmur. Patient reports no cough, no wheezing or coughing up blood. Patient reports no abdominal pain, no vomiting. Normal appetite. No diarrhea and not vomiting blood. No nausea and no constipation. Patient reports no incontinence. No difficulty urinating. No hematuria. No increased frequency. Patient reports no muscle aches. No weakness, no arthralgias, no back pain. No swelling of the extremities. Patient reports no abnormal mole, no jaundice, no rashes. Reports HISTORY AND PHYSICAL [id number] LEWIS,DON G no loss of consciousness. No weakness and no numbness. No seizures, dizziness, or headaches. The patient reports no depression, no sleep disturbance, feeling safe in a relationship and no alcohol abuse. Patient reports on fatigue. Reports no runny nose or sinus pressure. No itching, no hives, and no frequent sneezing. OVERALL IMPRESSION: Anginal symptomatology in an unstable fashion, most likely significant coronary artery disease. We will proceed with coronary angiography in the a.m. Further care depends upon the findings of the angiography. TRANSINT:[id number] Voice Confirmation ID: [id number] DOCUMENT ID: [id number] FOX GUPTA MD at 0849 CC: [id number] DICTATION DATE: 07/22/16 1552 CAPSULE INSPECTOR: 07/22/16 1614 [facility] [place] [id number] [place] [id number]
--- NOTE | 2016-07-23 08:50 | NUR ---
BACK FROM NAILHEAD SETTER. VS WNL. RIGHT GROIN STABLE WITHOUT BLEEDING OR HEMATOMA NOTED. WILL MONITOR.
--- NOTE | 2016-07-23 11:59 | NUR ---
BED REST UP. GROIN STABLE.
--- NOTE | 2016-07-23 12:24 | NUR ---
IV AND TELEMETRY DCD. DC PLANS GIVEN. UNDERSTANDING VOICED. ESCORTED TO CAR BY W/C.
--- NOTE | 2016-07-27 10:11 | OP ---
PATIENT NAME: MIN LEWIS MEDICAL RECORD: [id number] :53 LOCATION:D.M2 D.2117 ADMISSION DATE:07/22/16 SURGEON: FOX GUPTA MD DATE OF OPERATION: 07/23/2016 PROCEDURES: 1. PTCA stent LAD. 2. Left heart catheterization. 3. Selective coronary angiography. 4. Vein graft angiography. 5. Left ventriculogram. INDICATION: Angina and coronary artery disease. PROCEDURE IN DETAIL: After informed consent was obtained and after detailed explanation of risks, benefits as well as alternative therapies, the patient elected to proceed with angiogram and angioplasty. The right femoral area was prepped and draped in normal sterile fashion. The right femoral artery was cannulated via modified Seldinger technique with placement of 6-Turkish sheath. All catheters exchanged through this sheath. FINDINGS: Left ventriculogram was performed in standard 30-degree FRAUSTO view, reveals preserved cardiac wall motion, ejection fraction 55%. SELECTIVE CORONARY ANGIOGRAPHY: 1. Left main is with no significant angiographic disease. 2. Left anterior descending has previously placed stents. There is 80% in-stent restenosis in the mid vessel. 3. Vein graft to the LAD diagonal is widely patent. 4. Left circumflex has moderate irregularities, but no flow-limiting stenosis. 5. The right coronary has moderate irregularities, but no flow-limiting stenosis. PTCA STENT OF THE LAD: The stent used is a 3.5 x 12 mm Resolute. Result was 0% residual stenosis. OVERALL IMPRESSION: Successful percutaneous transluminal coronary angioplasty stent of the left anterior descending going from 80% in-stent restenosis to 0% residual. TRANSINT:[id number] Voice Confirmation ID: [id number] DOCUMENT ID: [id number] FOX GUPTA MD at 1011 CC: [id number] DICTATION DATE: 07/23/16 0818 MANUFACTURING INSPECTOR: 07/23/16 1311 DIS IN 07/23/16 [place] [address] [place] [address]
--- NOTE | 2016-07-27 10:11 | DS ---
PATIENT:MIN LEWIS :53 MEDICAL RECORD: [id number] DISCHARGE SUMMARY ADMISSION DATE: 07/22/16 DISCHARGE DATE: 07/23/16 DISCHARGE DIAGNOSES: 1. Unstable angina. 2. Coronary artery disease. 3. Percutaneous transluminal coronary angioplasty stent left anterior descending this admission. HISTORY: This is a gentleman who presents with unstable anginal symptomatology, was found to have significant in-stent restenosis to the LAD, underwent successful PTCA stent of the LAD, was discharged home with no change in medications as he is already on Effient and aspirin. He will follow up with [facility] in 1 month. TRANSINT:[id number] Voice Confirmation ID: [id number] DOCUMENT ID: [id number] FOX GUPTA MD at 1011 CC: [id number] DICTATION DATE: 07/23/16815 LEAD SHAREPOINT DEVELOPER: 07/24/16 0546 DIS IN 07/23/16 [facility] [address] [place] [address]
== END 2016-07-23 12:33 | disposition home or self-care (01) ==
LOC: OBSVTIME → D.OPS 15:51 → D.M2 16:15 → OBSVTIME 16:15 → D.ER 16:15 → D.M2 16:15 → EDSTATUS 07-23 08:30 → D.M2 07-23 12:33 → D.OPS 07-23 12:33
PROVIDERS: Emergency Medicine
DX: I25.110 Atherosclerotic heart disease of native coronary artery with unstable angina pectoris (principal); I10 Essential (primary) hypertension; E78.5 Hyperlipidemia, unspecified
CPT/HCPCS: 93459; C9600

== ENCOUNTER → 2016-08-27 13:31 | Outpatient (CLI) | payer MEDICARE ==
[2016-07-23 07:19] VITALS: BMI 37.0
== END | disposition home or self-care (01) ==
LOC: D.CT 08:30
DX: R06.02 Shortness of breath (principal)

== ENCOUNTER 2016-10-18 16:00 | Observation (INO) | payer MEDICARE ==
[~2016-10-18] VITALS: Ht 185.4 cm; Wt 113.4 kg
--- NOTE | ~2016-10-18 | HEMODYNAMI ---
PATIENT:MIN LEWIS MEDICAL RECORD: [id number] : 53 LOCATION:[facility] D.2116 ADMISSION DATE: 10/18/16 Generatedon:10/19/201610:32 Patient name: MIN LEWIS Patient #: [id number] SSN: [id number] : 1955 Date of study: 10/19/2016 Page: Of Hemodynamic Procedure Report Patient Data Patient Demographics Procedure consent was obtained First Name: MIN Gender: Male Last Name: DEBBIE : 1955 [facility] Initial: Owen Age: 61 year(s) Patient #: [id number] Race: SSN: [id number] Additional ID: [id number] Contact details Address: [address] [address] State: [place] City: [place] Zip code: [address] Past Medical History Allergies Allergen Reaction Date Comments Reported Sulfa drugs 05/26/2014 Penicillins 05/26/2014 Other allergy 03/28/2015 nitroglycerin paste, erthromycin base, Darvocet Sulfa drugs 11/21/2015 Penicillins 11/21/2015 Erythromycin 11/21/2015 Other allergy 11/21/2015 Darvocet Other allergy 10/19/2016 Sulfa, Nitrobid, Penicillin, DCN, Isosorbide, Erythromycin Admission Admission Data Admission Date: 10/18/2016 Admission Time: 18:01 Room #: D.2116 Lab Results Lab Result Date: 10/19/2016 Lab Result Time: 0:00 Biochemistry Name Units Result Min Max BUN mg/dl 24 --(----)-* 7 18 Creatinine mg/dl 1.4 --(----)*- 0.6 1.3 CBC Name Units Result Min Max Hemoglobin g/dl 11.9 *-(----)-- 13.5 17.5 Procedure Procedure Types Cath Procedure Diagnostic Procedure LHC LHC w/Coronaries w/Grafts Miscellaneous Procedures Procedure Description Procedure Date Procedure Date: 10/19/2016 Procedure Start Time: 9:58 Procedure End Time: 10:29 Procedure Staff Name Function Blake Whitehead MD Performing Physician Carmen Lange RT Scrub Elizabeth Reynolds RT Monitor Natalie Parker RN Nurse Procedure Data Cath Procedure Fluoroscopy Diagnostic fluoroscopy Total fluoroscopy Time: 3.6 time: 3.6 min min Diagnostic fluoroscopy Total fluoroscopy dose: dose: 1547 mGy 1547 mGy Contrast Material Contrast Material Type Amount (ml) Isovue 300 99 Entry Location Entry Primary Successful Side Size Upsize Upsize Entry Closure Succes sful Closure Location (Fr) 1 (Fr) 2 (Fr) Remarks Device Remarks Femoral Right 5 Fr Exoseal artery Estimated blood loss: 5 ml Diagnostic catheters Device Type Used For End Catheter Placement Cordis 5Fr JL 4.0 Left Coronary Catheter (MP) Angiography Cordis 5Fr 3DRC Catheter Right Coronary (MP) Angiography Cordis 5Fr Pigtail LV Angiography Catheter (MP) Diagnostic Infinity 5Fr Multi-vessel JL 5 catheter Angiography Procedure Complications No complications Procedure Medications Medication Administration Route Dosage Oxygen NC 2 l/min Heparin Flush Bag added to field 2 bags (1000units/500ml NS) Lidocaine 2% added to field 20 Versed I.V. 1 mg Hemodynamics Rest HGB: 11.9 (g/dl) Heart Rate: 52 (bpm) Pressure Samples Time Site Value (mmHg) Purpose Heart Use Rate(bpm) 10:15 LV 135/7,26 Snapshot 72 10:15 LV 140/-1,17 EDP 75 10:15 AO 125/72(96) Pullback 77 10:15 LV 122/12,9 Pullback 77 Gradients Valve Time Site 1 Site 2 Mean SEP/DFP Peak To Heart Use (mmHg) (sec/min) Peak Rate (mmHg) (bpm) Aortic 10:15 LV AO 0 19 0 77 122/12,9 125/72(96) Calculations Valve P-P Mean Valve Index Valve Source Name Gradient Area Flow (cm2) Aortic 0 0 0 0 Snapshots Pre Cath Intra NCS Post Cath Vital Signs Time Heart Resp SPO2 NIBP (mmHg) Rhythm Pain Sedation Rate (ipm) (%) Status Level (bpm) 9:33:12 56 19 95 145/80(114) NSR 0 (11) 10(A) , No pain 9:37:36 74 16 97 154/80(135) NSR 0 (11) 10(A) , No pain 9:41:56 75 16 94 126/73(107) NSR 0 (11) 10(A) , No pain 9:46:19 65 19 92 127/65(91) NSR 0 (11) 10(A) , No pain 9:50:39 69 21 92 130/68(96) NSR 0 (11) 10(A) , No pain 9:54:57 63 21 92 131/68(91) NSR 0 (11) 10(A) , No pain 9:59:09 69 16 96 130/75(94) NSR 0 (11) 9(A) , No pain 10:03:31 72 18 93 133/69(104) NSR 0 (11) 9(A) , No pain 10:07:51 71 20 93 130/75(101) NSR 0 (11) 9(A) , No pain 10:12:07 73 16 94 137/84(112) NSR 0 (11) 9(A) , No pain 10:16:29 66 17 94 135/78(90) NSR 0 (11) 9(A) , No pain 10:20:49 68 16 95 142/77(109) NSR 0 (11) 9(A) , No pain 10:25:12 77 20 96 124/82(100) NSR 0 (11) 9(A) , No pain 10:29:29 71 10 94 139/69(92) NSR 0 (11) 9(A) , No pain Medications Time Medication Route Dose Verified Delivered Reason Notes Effect iveness by by 9:42:05 Oxygen NC 2 Natalie Natalie used for l/min Parker Parker slot attendant RN 9:42:11 Heparin Flush added 2 Natalie Natalie used for Bag to bags Parker Parker procedure (1000units/500ml RN RN NS) 9:42:20 Lidocaine 2% added 20ml Natalie Natalie used for to vial Parker Parker procedure field RAMOS RN 9:59:40 Versed I.V. 1 mg Natalie Natalie for Parker Parker sedation RN advanced manufacturing engineer Log Time Note 8:40:58 Natalie Parker RN sent for patient. Start room use. 8:50:00 Informed consent obtained and on chart 8:50:05 Diagnostic Cath Status : Elective 8:51:09 Time tracking: Regular hours 8:51:14 Plan of Care:Hemodynamics will remain stable., Cardiac rhythm will remain stable., Comfort level will be maintained., Respiratory function will remain adequate., Patient/ family verbilizes understanding of procedure., Procedure tolerated without complication., Recovers from procedure without complications.. 9:25:19 Patient received from Med II to CCL 2 Alert and oriented. Tansferred to table in Supine position. 9:25:20 Warm blankets applied, and luisa hugger turned on for patient comfort. 9:25:21 Correct patient and procedure confirmed by team. 9:25:21 ECG and BP/O2 sat monitors applied to patient. 9:31:57 Vital chart was started 9:31:59 Baseline sample Acquired. 9:32:05 Rhythm: sinus rhythm 9:32:07 Full Disclosure recording started 9:32:10 H&P Date Dictated: 10/19/2016 New H&P dictated by physician.. 9:32:13 Pre-procedure instructions explained to patient. 9:32:13 Pre-op teaching completed and patient verbalized understanding. 9:32:14 Family in waiting room. 9:32:15 Patient NPO since Midnight. 9:33:29 Patient allergic to Other allergySulfa, Nitrobid, Penicillin, DCN, Isosorbide, Erythromycin 9:33:34 Is the patient allergic to Iodine/contrast media? No. 9:33:47 Was the patient premedicated? No 9:33:48 Is patient on blood thinner?Yes 9:33:50 ACC The patient was administered the following blood thiners within the last 24 hours: ACCEffient 9:33:53 Patient diabetic? Yes. 9:33:54 If diabetic: On Metformin? Yes 9:34:06 If on Metformin: Last Dose? 10/18/2016 9:34:10 Previous problem with sedation/anesthesia? No ? 9:34:11 Snore? Yes 9:34:12 Sleep apnea? No 9:34:13 Deviated septum? No 9:34:14 Opens mouth fully? Yes 9:34:14 Sticks out tongue? Yes 9:34:21 Airway obstruction? Yes copd 9:34:24 Dentures? No ? 9:34:28 Pre procedure: right dorsailis pedis pulse 1+ Palpable, but thready & weak; easily obliterated 9:34:30 Patient pain scale 0/10 ?. 9:34:36 IV patent on arrival in left forearm with 0.9% NaCl at [facility]. 9:36:49 Lab Result : BUN 24 mg/dl 9:36:49 Lab Result : Creatinine 1.4 mg/dl 9:36:49 Lab Result : Hemoglobin 11.9 g/dl 9:36:54 Lab results completed and on chart. 9:36:58 Right groin area was prepped with chlora-prep and draped in sterile fashion 9:36:59 Alarms reviewed by R. N. 9:37:00 Sharps counted by scrub and verified by R.N. 9:42:05 Oxygen 2 l/min NC was administered by Natalie Parker RN; used for procedure; 9:42:11 Heparin Flush Bag (1000units/500ml NS) 2 bags added to field was administered by Natalie Parker RN; used for procedure; 9:42:20 Lidocaine 2% 20ml vial added to field was administered by Natalie Parker RN; used for procedure; 9:49:20 Use device set Femoral Dx 9:49:21 Acist Syringe opened to sterile field. 9:49:21 Bag Decanter opened to sterile field. 9:49:22 Medline Cath Pack opened to sterile field. 9:49:23 Terumo 5Fr Bracey Sheath opened to sterile field. 9:49:23 St Michel 260cm J .035 wire opened to sterile field. 9:49:24 Acist Hand Control opened to sterile field. 9:49:25 Acist Manifold opened to sterile field. 9:49:25 Diagnostic Infinity 5Fr Multipack catheter opened to sterile field. 9:49:26 Tegaderm 4 x 4 opened to sterile field. 9:49:39 Cook 18G 7cm Percutaneous Entry needle opened to sterile field. 9:49:40 Cook 4Fr Micropuncture Set ([id number]) opened to sterile field. 9:52:09 Zero performed for pressure channel P1 9:55:57 Physician arrived 9:55:57 --------ALL STOP TIME OUT------ 9:55:57 Final Timeout: patient, procedure, and site verified with staff and physician. All members of the team are in agreement. 9:55:59 Right groin site verified by team. 9:56:02 Physical assessment completed. ASA score P 2 - A patient with mild systemic disease as per Blake Whitehead MD. 9:56:05 Sedation plan: IV Moderate Sedation Versed, Fentanyl 9:56:28 Procedure type changed to Cath procedure, Diagnostic procedure, LHC, LHC w/Coronaries w/Grafts, Miscellaneous Procedures 9:58:24 Procedure started. 9:58:40 Local anesthetic to right femoral artery with Lidocaine 2% by Blake Whitehead MD.INITIAL ACCESS ONLY 9:59:18 initial access gained with 4F micropuncture 9:59:40 Versed 1 mg I.V. was administered by Natalie Parker RN; for sedation; 10:02:27 A 5 Fr sheath was inserted into the Right Femoral artery 10:02:44 A Cordis 5Fr JL 4.0 Catheter (MP) was advanced over the wire and used for Left Coronary Angiography. 10:02:52 LCA angiography performed. 10:02:55 Injector settings: Ml/sec: 3, Volume: 6, 10:06:18 Catheter removed. 10:06:31 A Cordis 5Fr 3DRC Catheter (MP) was advanced over the wire and used for Right Coronary Angiography. 10:06:32 RCA angiography performed. 10:12:35 SVG to Diag angiography performed. 10:14:44 Catheter removed. 10:14:50 A Cordis 5Fr Pigtail Catheter (MP) was advanced over the wire and used for LV Angiography. 10:15:27 LV hemodynamics recorded. 10:15:33 LV gram done using FRAUSTO 10:16:16 Catheter removed. 10:16:56 A Diagnostic Infinity 5Fr JL 5 catheter was advanced over the wire and used for Multi-vessel Angiography. 10:18:17 LCA angiography performed. 10:24:02 Catheter removed. 10:24:46 Cordis 5Fr Exoseal opened to sterile field. 10:25:06 Sheath removed intact; hemostasis achieved with Exoseal to the Right Femoral artery. 10:25:08 Procedure ended.(Physican Out) 10:25:14 Fluoroscopy time 03.60 minutes. 10:25:19 Flurop Dose total: 1547 10:25:19 Fluoroscopy dose: 1547 mGy 10:26:00 Contrast amount:Isovue 300 99ml. 10:26:01 Sharps counted by scrub and verified by R.N. 10:26:03 Insertion/operative site no bleeding no hematoma. 10:26:05 Post-op/insertion site Right Femoral artery dressed using a 4 x 4 and Tegaderm. 10:26:13 Post right femoral artery:stable 10:26:36 Post Procedure Pulses reassessed and unchanged 10:27:04 Post procedure rhythm: unchanged. 10:29:07 Estimated blood loss: 5 ml 10:29:10 Post procedure instruction explained to patient.Patient verbalizes understanding. 10:29:11 Patient needs reinforcement of post procedure teaching. 10:29:12 Procedure and supply charges have been captured, reviewed, submitted and are correct. 10:29:17 Procedure Complication : No complications 10:29:20 Vital chart was stopped 10:29:20 See physician's report for complete and final results. 10:29:28 Report given to Med II. 10:29:31 Patient transfered to Med II with Stretcher. 10:29:33 Procedure ended. 10:29:33 Full Disclosure recording stopped 10:29:37 End room use (Document Last) Device Usage Item Name Manufacture Quantity Catalog Hospital Part Current Minimal Lot# / Number Charge Number Stock Stock Serial# Code Acist Syringe Acist 1 52212 529308 252448 588271 20 [employer] Inc Bag Decanter Microtek 1 2002S 659641 24289 985713 5 Medical Inc. Medline Cath Cardinal 1 [id number] 744234 04688 404562 5 Pack Health Terumo 5Fr Terumo 1 [id number] 337179 010293 773561 [address] Michel [address] Michel 1 223575 758735 317386 734501 30 J .035 wire Acist Hand Acist 1 73540 865912 862098 849075 5 Control Medical Systems Inc Acist Acist 1 94409 084894 749794 733450 5 Manifold Medical Systems Inc Diagnostic Cardinal 1 QW5170 627639 97839 900841 30 Infinity 5Fr Health Multipack catheter Tegaderm 4 x 3M 1 1626W 411130 136309 744644 5 4 Cook 18G 7cm Hybrid Paytech 1 M58068 357472 64118 412888 5 Percutaneous Entry needle Cook 4Fr Hybrid Paytech 1 N32171 443793 318362 062867 5 Micropuncture Set ([id number]) Cordis 5Fr JL Cardinal 1 825827 5 4.0 Catheter Health () Cordis 5Fr Cardinal 1 173715 5 3DRC Catheter Health () Cordis 5Fr Cardinal 1 147970 5 Pigtail Health Catheter () Diagnostic Cardinal 1 [id number] 209227 083537 991853 5 Infinity 5Fr Health JL 5 catheter Cordis 5Fr Cardinal 1 EX500 496980 249625 480508 10 [facility] Signature Audit [place] Stage Time Signature Unsigned Intra-Procedure 10/19/2016 Elizabeth Reynolds 10:32:12 AM RT(R) Signatures Monitor : Elizabeth Reynolds RT Signature : Date : Time : [address] [place] [address]
[2016-10-18 16:59] LABS: BASOPHILS 0.5 % (0-2); HEMATOCRIT 34.8 % (42.0-54.0); HEMOGLOBIN 11.6 g/dL (13.5-17.5); LYMPHOCYTES 37.2 % (15-50); MCH 30.4 pg (26.0-34.0); MCHC 33.3 g/dL (31.0-37.0); MCV 91.1 fL (80.0-100.0); MONOCYTES 7.5 % (2-11); NEUTROPHILS 49.8 % (40-80); PLATELET COUNT 215 10x3/uL (130-400); RBC 3.82 10x6/uL (4.20-6.10); RDW 13.8 % (11.5-14.5); WBC 6.2 10x3/uL (4.8-10.8)
[2016-10-18 17:13] LABS: ALBUMIN 3.4 g/dL (3.4-5.0); ALKALINE PHOSPHATASE 49 U/L (46-116); ALT (SGPT) 60 U/L (10-68); BILIRUBIN - TOTAL 0.23 mg/dL (0.2-1.3); CALC OSMOLALITY 284 mosm/kg (275-300); CALCIUM 9.2 mg/dL (8.5-10.1); CARBON DIOXIDE 22.8 mmol/L (21.0-32.0); CHLORIDE - SERUM 107 mmol/L (98-107); CREATININE - SERUM 1.2 mg/dL (0.6-1.3); GLUCOSE 139 mg/dL (74-106); POTASSIUM - SERUM 4.3 mmol/L (3.5-5.1); PROTEIN - SERUM 7.3 g/dL (6.4-8.2); SODIUM 141 mmol/L (136-145); UREA NITROGEN 17 mg/dL (7-18); eGFR NON AFRICAN AMERICAN 65 mL/min (90-120)
[2016-10-18 17:28] LABS: CHOL - HDL RATIO 4.8 ratio (2.3-4.9); CHOLESTEROL, TOTAL 159 mg/dL (0-200); CKMB 0.8 U/L (0.0-3.6); CREATINE KINASE 214 UL (21-232); HDL CHOLESTEROL 33 mg/dL (32-96); LDL CHOLESTEROL 71 mg/dL (0-100); LDL-HDL RATIO 2.2 ratio (1.5-3.5); TRIGLYCERIDE 278 mg/dL (30-200)
[2016-10-18 17:29] LABS: TROPONIN-I < 0.017 ng/mL (0.000-0.060)
[2016-10-18 18:06] LABS: CREATINE KINASE 210 UL (21-232)
[2016-10-18 18:08] LABS: TROPONIN-I < 0.017 ng/mL (0.000-0.060)
--- NOTE | 2016-10-18 19:15 | NUR ---
PT ARRIVES TO FLOOR VIA STRETCHER ACCOMPANIED BY SPOUSE AND ER NURSE. MEDICATIONS RECONCILED AT THE BEDSIDE. ADMISSION ASSESSMENT AND HISTORY COMPLETED. VSS, AFEBRILE. POC AND UNIT ROUTINE/PROTOCOLS DISCUSSED WITH PT AND SPOUSE. THEY BOTH VERBALIZE UNDERSTANDING. CALL LIGHT PLACED WITHIN REACH. INSTRUCTED ON BEING NPO AT MIDNIGHT UNTIL SEEN BY PHYSICIAN IN THE AM. WILL CONT TO MONITOR.
[2016-10-18 20:00] VITALS: BP 118/58
[2016-10-18 20:32] VITALS: BMI 33.0
--- NOTE | 2016-10-18 21:04 | NUR ---
PT C/O NAUSEA AND CHEST PAIN, RATES @ 8/10 ON PAIN SCALE. ORDER FROM ER TO START DILAUDID SALES ENGAGEMENT EXECUTIVE 0.2MG Q10 MIN WITH A 4 MG IN 4 HOUR LOCKOUT. PT ABLE TO HAVE A 0.4 MG BOLUS Q3H PRN BREAKTHROUGH PAIN. PT GIVEN 0.4 MG LOADING DOSE AND INSTRUCTED ON SALES ENGAGEMENT EXECUTIVE USE. INSTRUCTED SPOUSE THAT PT IS THE ONLY PERSON TO PUSH SALES ENGAGEMENT EXECUTIVE BUTTON TO PREVENT ACCIDENTAL OVERDOSE. PT AND SPOUSE VERBALIZED UNDERSTANDING. ZOFRAN 4 MG IV ALSO GIVEN AT THIS TIME. WILL CONT TO MONITOR.
[2016-10-18] MEDS ORDERED: LAMISIL250 MG PO (22:19)
[2016-10-19] VITALS: BP 107/47
[2016-10-19] MEDS ORDERED: TOUJEO SOL300 UNIT/1 SC (00:06)
--- NOTE | 2016-10-19 00:07 | NUR ---
PT INSTRUCTED ON NPO STATUS AFETR MIDNIGHT. PT REPORTS AFTER ARRIVAL TO THE FLOOR THAT HE TOOK HIS OWN TOUJEO INSULIN 80 UNITS SQ. ACCU CHECK DONE AT THIS TIME, RESULTED 241. INSTRUCTED PT WE WILL CHECK IT AGAIN IN THE AM.
[2016-10-19 00:08] LABS: CREATINE KINASE 213 UL (21-232)
[2016-10-19 00:14] LABS: TROPONIN-I < 0.017 ng/mL (0.000-0.060)
[2016-10-19 04:00] VITALS: BP 46/50
[2016-10-19 07:14] LABS: CKMB 1.4 U/L (0.0-3.6); CREATINE KINASE 174 UL (21-232); TROPONIN-I < 0.017 ng/mL (0.000-0.060)
[2016-10-19 08:00] VITALS: BP 111/66
[2016-10-19 08:47] LABS: BASOPHILS 0.1 % (0-2); EOSINOPHILS 0 % (0-7); HEMATOCRIT 36.4 % (42.0-54.0); HEMOGLOBIN 11.9 g/dL (13.5-17.5); IMMATURE GRANULOCYTES 0.1 % (0-5); LYMPHOCYTES 13.3 % (15-50); MCH 30.2 pg (26.0-34.0); MCHC 32.7 g/dL (31.0-37.0); MCV 92.4 fL (80.0-100.0); MEAN PLATELET VOLUME 9.7 fL (7.4-10.4); MONOCYTES 2.6 % (2-11); NEUTROPHILS 83.9 % (40-80); PLATELET COUNT 246 10x3/uL (130-400); RBC 3.94 10x6/uL (4.20-6.10); RDW 13.6 % (11.5-14.5)
[2016-10-19 08:52] LABS: ANION GAP 12.9 mmol/L (8-16); CARBON DIOXIDE 25.8 mmol/L (21.0-32.0); CREATININE - SERUM 1.4 mg/dL (0.6-1.3)
[2016-10-19 08:57] LABS: POTASSIUM - SERUM 5.7 mmol/L (3.5-5.1); WBC 8.9 10x3/uL (4.8-10.8)
--- NOTE | 2016-10-19 10:58 | NUR ---
RETURN TO ROOM VIA BED FROM JOB ANALYSIS MANAGER. CLEAN CATH. ALERT AND ORIENTED X4. FAMILY AT BEDSIDE. RT GROIN DRESSING CLEAN DRY INTACT. NO BLEEDING. FREE FROM HEMATOMA. SINUS RHTHYM 75bpm ON TELEMETRY. DENIES SOB. COMPLAINS OF CHRONIC BACK PAIN. RESTART DILAUDID GREASE REMOVER ORDERED. CONTINUE PLAN OF CARE. BED LOCKED AND LOW. CALL LIGHT IN REACH. TWO SIDERAILS UP. REFUSE SCDs.
[2016-10-19 12:12] VITALS: Ht 185.4 cm; Wt 113.4 kg
--- NOTE | 2016-10-19 16:28 | NUR ---
ALERT AND ORIENTED X4. FAMILY AT BEDSIDE. DC LT FA IV TIP INTACT. RT GROIN DRESSING CLEAN DRY INTACT. FREE FROM BLEEDING. FREE FROM HEMATOMA. DISCHARGE PAPERS SIGNED IN CHART. ESCORT TO RIDE VIA WHEELCHAIR. REMAINS FREE FROM INJURY.
== END 2016-10-19 16:53 | disposition home or self-care (01) ==
LOC: D.ER 16:00 → D.M2 18:01 → OBSVTIME 18:01 → D.M2 10-19 10:41
PROVIDERS: Emergency Medicine; Internal Medicine Cardiovascular Disease; ADMIT Emergency Medicine
DX: R07.89 Other chest pain (principal); I25.10 Atherosclerotic heart disease of native coronary artery without angina pectoris; Z95.5 Presence of coronary angioplasty implant and graft; Z95.1 Presence of aortocoronary bypass graft; I10 Essential (primary) hypertension; E78.5 Hyperlipidemia, unspecified; Z86.73 Personal history of transient ischemic attack (TIA), and cerebral infarction without residual deficits; E11.65 Type 2 diabetes mellitus with hyperglycemia; E11.40 Type 2 diabetes mellitus with diabetic neuropathy, unspecified; F41.9 Anxiety disorder, unspecified; F32.9 Major depressive disorder, single episode, unspecified; T82.855A Stenosis of coronary artery stent, initial encounter; Y83.8 Other surgical procedures as the cause of abnormal reaction of the patient, or of later complication, without mention of misadventure at the time of the procedure

== ENCOUNTER → 2016-11-18 08:08 | Outpatient (CLI) | payer MEDICARE ==
[2016-10-19 12:12] VITALS: BMI 32.9
[~2016-11-18 08:08] MED LIST changes: +LAMISIL250 MG PO; +TOUJEO SOL300 UNIT/1 SC
== END | disposition home or self-care (01) ==
LOC: D.NM 08:08
DX: R10.9 Unspecified abdominal pain (principal); R11.0 Nausea

== ENCOUNTER 2017-01-10 13:51 | Emergency (ER) | payer MEDICARE ==
[2016-10-19 12:12] VITALS: BMI 32.9
[2017-01-10 14:27] LABS: BASOPHILS 0.5 % (0-2); EOSINOPHILS 5.2 % (0-7); HEMATOCRIT 37.7 % (42.0-54.0); HEMOGLOBIN 12.4 g/dL (13.5-17.5); IMMATURE GRANULOCYTES 0.1 % (0-5); LYMPHOCYTES 35.1 % (15-50); MCH 29.6 pg (26.0-34.0); MCHC 32.9 g/dL (31.0-37.0); MEAN PLATELET VOLUME 9.3 fL (7.4-10.4); NEUTROPHILS 51.1 % (40-80); PLATELET COUNT 234 10x3/uL (130-400); RBC 4.19 10x6/uL (4.20-6.10); RDW 13.3 % (11.5-14.5); WBC 7.3 10x3/uL (4.8-10.8)
[2017-01-10 14:44] LABS: ALBUMIN 3.9 g/dL (3.4-5.0); ALKALINE PHOSPHATASE 58 U/L (46-116); ALT (SGPT) 41 U/L (10-68); CALC OSMOLALITY 282 mosm/kg (275-300); CALCIUM 9.5 mg/dL (8.5-10.1); CARBON DIOXIDE 27.5 mmol/L (21.0-32.0); CHLORIDE - SERUM 102 mmol/L (98-107); CREATININE - SERUM 1.4 mg/dL (0.6-1.3); POTASSIUM - SERUM 4.3 mmol/L (3.5-5.1); PROTEIN - SERUM 7.9 g/dL (6.4-8.2); SODIUM 140 mmol/L (136-145); UREA NITROGEN 20 mg/dL (7-18); eGFR NON AFRICAN AMERICAN 54 mL/min (90-120)
[2017-01-10 14:45] LABS: GLUCOSE 110 mg/dL (74-106)
[2017-01-10 14:55] LABS: CHOL - HDL RATIO 3.8 ratio (2.3-4.9); CHOLESTEROL, TOTAL 156 mg/dL (0-200); CKMB 1.6 U/L (0.0-3.6); CREATINE KINASE 324 UL (21-232); HDL CHOLESTEROL 41 mg/dL (32-96); LDL CHOLESTEROL 80 mg/dL (0-100); TRIGLYCERIDE 176 mg/dL (30-200)
[2017-01-10 14:56] LABS: TROPONIN-I < 0.017 ng/mL (0.000-0.060)
== END 2017-01-10 19:47 | disposition home or self-care (01) ==
LOC: D.ER 13:51
PROVIDERS: Emergency Medicine
DX: R07.9 Chest pain, unspecified (principal); I25.10 Atherosclerotic heart disease of native coronary artery without angina pectoris; E11.9 Type 2 diabetes mellitus without complications; I10 Essential (primary) hypertension

== ENCOUNTER 2017-03-15 11:14 | Day surgery (SDC) | payer MEDICARE ==
[~2017-03-15] VITALS: Ht 185.4 cm; Wt 109.1 kg
--- NOTE | ~2017-03-15 | OP ---
PATIENT NAME: MIN LEWIS MEDICAL RECORD: [id number] :53 LOCATION:[facility] ADMISSION DATE: SURGEON: YO KHAN DO DATE OF OPERATION: 03/15/2017 PROCEDURE: Colonoscopy. 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 His last colonoscopy was in December 2015. He also has altered bowel function consisting of fluctuating constipation and diarrhea. His final indication is left-sided abdominal pain. SCOPE: Olympus video pediatric colonoscope. MEDICATIONS: Propofol 300 mg IV per anesthesia. WITHDRAWAL TIME: 14 minutes. ESTIMATED BLOOD LOSS: None. COMPLICATIONS: None. FINDINGS: Informed consent was given. The patient was made comfortable with the above medication. After reaching an adequate level of sedation by slow IV push, the patient was placed on his left side. A digital rectal examination was performed and revealed a firm prostate without nodules or focal abnormalities. The midline groove was present. The endoscope was then advanced under direct visualization through the rectum to the cecum with visualization of the appendiceal orifice and ileocecal valve. The scope was slowly withdrawn and the mucosa was carefully examined. The prep quality was good. There were no polyps visualized on today's examination. The descending colon was looked at extensively as that was the site of the previous tubulovillous adenoma with high-grade dysplasia. There was no residual polyp seen. Of note, there was some mild to moderate diverticulosis mainly in the left side of the colon. In the mid to distal descending colon, there were 2 diverticular sites which appeared to have exudates and inflammation surrounding those sites with some granularity and erythema. In the setting of his left-sided abdominal pain, this could be consistent with diverticulitis. Retroflexion was performed in the rectum with visualization of grade II internal hemorrhoids without bleeding. The endoscope was then withdrawn from the patient. The patient tolerated the procedure well and there were no complications. IMPRESSION: 1. Grade II internal hemorrhoids. 2. Diverticulosis with findings that can be consistent with diverticulitis. PLAN AND RECOMMENDATIONS: 1. Discharge home when recovery parameters are met. 2. Continue current diet. 3. Continue current medications. 4. We will give a 7-week course of Cipro 500 mg b.i.d. and Flagyl 500 mg t.i.d. to treatment potential diverticulitis. 5. We will provide a prescription for dicyclomine 20mg tablets b.i.d. p.r.n. loose stools or abdominal pain for fluctuating bowel habits and abdominal pain. 6. Recommend a repeat colonoscopy in 3 years for continued surveillance of high OPERATIVE REPORT [id number] MIN LEWIS risk adenomatous polyps with high-grade dysplasia. TRANSINT:[id number] Voice Confirmation ID: [id number] DOCUMENT ID: [id number] YO KHAN DO CC: [id number] DICTATION DATE: 03/15/17 1434 BUILDING MAINTENANCE TECHNICIAN: 03/15/17 1515 [facility] [address] [place] [address]
[2017-03-15 11:58] LABS: HEMATOCRIT 40.7 % (42.0-54.0); HEMOGLOBIN 13.4 g/dL (13.5-17.5); MCH 29.5 pg (26.0-34.0); MCHC 32.9 g/dL (31.0-37.0); MCV 89.5 fL (80.0-100.0); MEAN PLATELET VOLUME 9.6 fL (7.4-10.4); RBC 4.55 10x6/uL (4.20-6.10); RDW 13.9 % (11.5-14.5); WBC 9.1 10x3/uL (4.8-10.8)
[2017-03-15 12:10] VITALS: BP 111/69; Ht 185.4 cm; Wt 109.1 kg
[2017-03-15 12:16] LABS: ANION GAP 17.9 mmol/L (8-16); CALCIUM 9.8 mg/dL (8.5-10.1); CARBON DIOXIDE 22.5 mmol/L (21.0-32.0); CREATININE - SERUM 1.5 mg/dL (0.6-1.3); POTASSIUM - SERUM 4.4 mmol/L (3.5-5.1)
== END 2017-03-15 15:30 | disposition home or self-care (01) ==
LOC: D.OPS 11:14
PROVIDERS: Anesthesiology
DX: K64.1 Second degree hemorrhoids (principal); K57.30 Diverticulosis of large intestine without perforation or abscess without bleeding; Z86.010 Personal history of colon polyps; Z01.812 Encounter for preprocedural laboratory examination

== ENCOUNTER 2017-04-24 19:30 | Observation (INO) | payer MEDICARE ==
[~2017-04-24] VITALS: Ht 185.4 cm; Wt 109.1 kg
--- NOTE | ~2017-04-24 | DS ---
PATIENT:MIN PELAYO :53 MEDICAL RECORD: [id number] DISCHARGE SUMMARY ADMISSION DATE: 04/24/17 DISCHARGE DATE: 04/26/17 DISCHARGE DIAGNOSES: 1. Unstable angina. 2. Coronary artery disease. 3. Percutaneous transluminal coronary angioplasty stent, right coronary artery, laser atherectomy of LAD this admission. 4. Hyperlipidemia. 5. Hypertension. HOSPITAL COURSE: Mr. Pelayo presents with unstable anginal symptomatology, found to have significant disease of the RCA and LAD, underwent successful PTCA stent and laser atherectomy of both territories and was discharged home with the addition of Effient to his medical regimen. We will follow up with [facility] in 1 month. TRANSINT:[id number] Voice Confirmation ID: [id number] DOCUMENT ID: [id number] FOX GUPTA MD at 1140 CC: [id number] DICTATION DATE: 04/26/17 1023 WINDOWS SERVER ENGINEER: 04/26/17 1302 DIS IN 04/26/17 [address] [place] [address]
--- NOTE | ~2017-04-24 | OP ---
PATIENT NAME: MIN LEWIS MEDICAL RECORD: [id number] :53 LOCATION:D. D.2121 ADMISSION DATE:04/24/17 SURGEON: FOX GUPTA MD DATE OF OPERATION: 04/25/2017 PROCEDURES: 1. PTCA with stent to RCA. 2. Intravascular ultrasound. 3. Left heart catheterization. 4. Selective coronary angiography. 5. Left ventriculogram. 6. Vein graft angiography. INDICATION: Angina and coronary artery disease. PROCEDURE IN DETAIL: After informed consent was obtained and after a detailed explanation of risks, benefits as well as alternative therapies, the patient elected to proceed with angiogram and angioplasty. The right femoral area was prepped and draped in normal sterile fashion. The right femoral artery was cannulated via modified Seldinger technique with placement of 6-[place] sheath. All catheters exchanged through this sheath. FINDINGS: The left ventriculogram was performed in the standard 30-degree FRAUSTO view reveals preserved cardiac wall motion, ejection fraction 50%. SELECTIVE CORONARY ANGIOGRAPHY: 1. Left main is with no significant angiographic disease. 2. Left anterior descending has multiple previously placed stents. There are 2 areas with about 70% in-stent restenosis. 3. The left circumflex shows moderate irregularities but no flow-limiting stenosis. 4. Right coronary has a 70% stenosis in the mid vessel confirmed by intravascular ultrasound. 5. Vein graft to the LAD diagonal is widely patent. PTCA AND STENT OF THE RCA: The stent used is a 3.5 x 15 mm [facility], result was 0% residual stenosis. OVERALL IMPRESSION: Successful percutaneous transluminal coronary angioplasty stent of the right coronary artery going from 70% initial stenosis to 0% residual, plan for laser atherectomy of the LAD in the a.m. TRANSINT:[id number] Voice Confirmation ID: [id number] DOCUMENT ID: [id number] FOX GUPTA MD at 1202 CC: [id number] DICTATION DATE: 04/25/17 1304 PHOTOGRAPHY MANAGER: 04/25/17 2319 ADM IN [facility] [address] [id number]
--- NOTE | ~2017-04-24 | HEMODYNAMI ---
PATIENT:MIN LEWIS MEDICAL RECORD: [id number] : 53 LOCATION:[address] ADMISSION DATE: 04/24/17 Generatedon:04/26/201710:23 Patient name: MIN LEWIS Patient #: [id number] SSN: [id number] : 1955 Date of study: 04/26/2017 Page: Of Hemodynamic Procedure Report Patient Data Patient Demographics Procedure consent was obtained First Name: MIN Gender: Male Last Name: DEBBIE : 1955 [facility] Initial: Owen Age: 61 year(s) Patient #: [id number] Race: SSN: [id number] Additional ID: [id number] Contact details Address: [place] [address] State: [place] City: [place] Zip code: [address] Past Medical History Allergies Allergen Reaction Date Comments Reported Sulfa drugs 05/26/2014 Penicillins 05/26/2014 Other allergy 03/28/2015 nitroglycerin paste, erthromycin base, Darvocet Sulfa drugs 11/21/2015 Penicillins 11/21/2015 Erythromycin 11/21/2015 Other allergy 11/21/2015 Darvocet Other allergy 10/19/2016 Sulfa, Nitrobid, Penicillin, DCN, Isosorbide, Erythromycin Other allergy 04/26/2017 PCN, Sulfa Admission Admission Data Admission Date: 04/24/2017 Admission Time: 22:20 Room #: D.2121 Lab Results Lab Result Date: 04/24/2017 Lab Result Time: 19:00 Biochemistry Name Units Result Min Max BUN mg/dl 26 --(----)-* 7 18 Creatinine mg/dl 1.2 --(---*)-- 0.6 1.3 CBC Name Units Result Min Max Hematocrit % 35.3 *-(----)-- 42 54 Hemoglobin g/dl 11.6 *-(----)-- 13.5 17.5 Procedure Procedure Types Cath Procedure PCI Procedure Coronary Atherectomy Atherectomy w/PTCA Coronary Initial Procedure Description Procedure Date Procedure Date: 04/26/2017 Procedure Start Time: 9:59 Procedure End Time: 10:22 Procedure Staff Name Function Lv Bradshaw MD Performing Physician Helio Da Silva RN Nurse Elizabeth Reynolds RT Scrub Carmen Lange RT Monitor Procedure Data Cath Procedure Fluoroscopy Diagnostic fluoroscopy Total fluoroscopy Time: 7.8 time: 7.8 min min Diagnostic fluoroscopy Total fluoroscopy dose: dose: 1085 mGy 1085 mGy Contrast Material Contrast Material Type Amount (ml) Isovue 300 63 Entry Location Entry Primary Successful Side Size Upsize Upsize Entry Closure Succes sful Closure Location (Fr) 1 (Fr) 2 (Fr) Remarks Device Remarks Femoral Right 6 Fr Exoseal artery Short Estimated blood loss: 10 ml Procedure Complications No complications Procedure Medications Medication Administration Route Dosage Effient P.O. 10 mg Oxygen NC 2 l/min Lidocaine 2% added to field 20 Heparin Flush Bag added to field 2 bags (1000units/500ml NS) 0.9% NaCl I.V. 100 ml/hr Fentanyl I.V. 100 mcg Versed I.V. 2 mg Fentanyl I.V. 50 mcg Versed I.V. 1 mg Fentanyl I.V. 50 mcg Versed I.V. 1 mg Fentanyl I.V. 50 mcg Versed I.V. 1 mg Fentanyl I.V. 50 mcg Heparin Bolus I.V. 4000 units Versed I.V. 1 mg Hemodynamics Rest HGB: 11.6 (g/dl) Heart Rate: 73 (bpm) Snapshots Pre Cath Intra NCS Post Cath Vital Signs Time Heart Resp SPO2 etCO2 NIBP (mmHg) Rhythm Pain Sedation Rate (ipm) (%) (mmHg) Status Level (bpm) 8:48:53 68 16 98 32.4 129/67(117) NSR 0 (11) 10(A) , No pain 8:53:05 68 19 99 19.1 143/79(116) NSR 0 (11) 10(A) , No pain 8:57:19 72 19 99 47.1 151/81(115) NSR 0 (11) 10(A) , No pain 9:01:33 78 16 98 49.3 147/82(127) NSR 0 (11) 10(A) , No pain 9:05:45 81 17 98 38.3 155/89(133) NSR 0 (11) 10(A) , No pain 9:10:03 82 15 99 26.5 159/92(130) NSR 0 (11) 10(A) , No pain 9:14:21 82 15 99 44.9 160/94(123) NSR 0 (11) 10(A) , No pain 9:18:41 87 16 96 42.7 171/103(128) NSR 0 (11) 10(A) , No pain 9:23:04 80 15 97 41.2 174/97(144) NSR 0 (11) 10(A) , No pain 9:27:28 83 16 97 22 175/107(138) NSR 0 (11) 10(A) , No pain 9:31:44 88 14 95 21.3 168/102(151) NSR 0 (11) 10(A) , No pain 9:36:06 88 15 95 25 180/99(146) NSR 0 (11) 10(A) , No pain 9:40:35 87 16 96 43.4 168/93(137) NSR 0 (11) 10(A) , No pain 9:44:52 86 16 95 22.9 171/96(145) NSR 0 (11) 10(A) , No pain 9:50:16 88 15 93 40.5 161/100(144) NSR 0 (11) 10(A) , No pain 9:54:30 90 16 92 28 163/103(146) NSR 0 (11) 9(A) , No pain 9:58:44 91 15 93 45.6 159/87(130) NSR 0 (11) 9(A) , No pain 10:02:56 94 14 94 2.9 156/106(137) NSR 0 (11) 9(A) , No pain 10:08:10 95 14 94 50 158/97(128) NSR 0 (11) 9(A) , No pain 10:12:29 96 15 95 2.9 157/90(132) NSR 0 (11) 9(A) , No pain 10:16:46 98 15 95 44.2 152/94(136) NSR 0 (11) 10(A) , No pain 10:21:02 97 13 93 48.6 167/102(133) NSR 0 (11) 10(A) , No pain Medications Time Medication Route Dose Verified Delivered Reason Notes Effectiveness by by 8:46:21 Effient P.O. 10 mg Lv Buffie for Augustine Da Silva RN antiplatelet therapy 8:48:20 Oxygen NC 2 Lv Buffie used for l/min Augustine Da Silva RN procedure 8:49:17 Lidocaine 2% added 20ml Lv Lv for local to vial Augustine Bradshaw MD anesthetic field 8:49:23 Heparin Flush added 2 Lv Lv used for Bag to bags Augustine Bradshaw MD procedure (1000units/500ml field NS) 8:49:31 0.9% NaCl I.V. 100 Lv Buffie Per physician ml/hr Augustine Da Silva RN 9:08:02 Fentanyl I.V. 100 Lv Buffie for back pain mcg Augustine Da Silva RN 9:47:40 Versed I.V. 2 mg Lv Buffie for sedation Augustine Da Silva RN 9:47:46 Fentanyl I.V. 50 Lv Buffie for back pain mcg Augustine Da Silva RN 9:50:45 Versed I.V. 1 mg Lv Buffie for sedation Augustine Da Silva RN 9:50:50 Fentanyl I.V. 50 Lv Buffie for back pain mcg Augustine Da Silva RN 9:55:11 Versed I.V. 1 mg Lv Buffie for sedation Augustine Da Silva RN 9:55:15 Fentanyl I.V. 50 Lv Buffie for back pain mcg Augustine Da Silva RN 10:00:38 Versed I.V. 1 mg Lv Buffie for sedation Augustine Da Silva RN 10:00:41 Fentanyl I.V. 50 Lv Buffie for back pain mcg Augustine Da Silva RN 10:01:44 Heparin Bolus I.V. 4000 Lv Buffie for verifi ed units Augustine Da Silva RN anticoagulation with dr bradshaw 10:10:02 Versed I.V. 1 mg Lv Buffie for sedation Augustine Da Silva RN Procedure Log Time Note 8:08:58 Diagnostic Cath Status : Elective 8:09:20 Yony Ramos RT(R) sent for patient. Start room use. 8:09:21 Time tracking: Regular hours 8:09:26 Plan of Care:Hemodynamics will remain stable., Cardiac rhythm will remain stable., Comfort level will be maintained., Respiratory function will remain adequate., Patient/ family verbilizes understanding of procedure., Procedure tolerated without complication., Recovers from procedure without complications.. 8:34:06 Patient received from Med II to CCL 2 Alert and oriented. Tansferred to table in Supine position. 8:34:12 Warm blankets applied, and luisa hugger turned on for patient comfort. 8:34:12 Correct patient and procedure confirmed by team. 8:34:13 Signed procedure consent form obtained from patient. 8:34:14 ECG and BP/O2 sat monitors applied to patient. 8:46:21 Effient 10 mg P.O. was administered by Helio Da Silva RN; for antiplatelet therapy; 8:47:50 Vital chart was started 8:47:58 Baseline sample Acquired. 8:48:03 Rhythm: sinus rhythm 8:48:04 Full Disclosure recording started 8:48:20 Oxygen 2 l/min NC was administered by Helio Da Silva RN; used for procedure; 8:48:37 H&P Date Dictated: 04/24/2017 Within 30 days and on chart.. 8:48:38 Pre-procedure instructions explained to patient. 8:48:39 Pre-op teaching completed and patient verbalized understanding. 8:48:45 Family in patients room. 8:48:46 Patient NPO since Midnight. 8:49:08 Patient allergic to Other allergyPCN, Sulfa 8:49:11 Is the patient allergic to Iodine/contrast media? No. 8:49:14 Is patient on blood thinner?Yes 8:49:17 Lidocaine 2% 20ml vial added to field was administered by Lv Bradshaw MD; for local anesthetic; 8:49:23 Heparin Flush Bag (1000units/500ml NS) 2 bags added to field was administered by Lv Bradshaw MD; used for procedure; 8:49:31 0.9% NaCl 100 ml/hr I.V. was administered by Helio Da Silva RN; Per physician; 8:49:41 ACC The patient was administered the following blood thiners within the last 24 hours: ACCEffient 8:49:44 Patient diabetic? No. 8:49:53 Previous problem with sedation/anesthesia? No ? 8:50:03 Snore? Yes 8:50:04 Sleep apnea? No 8:50:05 Deviated septum? No 8:50:05 Opens mouth fully? Yes 8:50:06 Sticks out tongue? Yes 8:50:09 Airway obstruction? Yes copd 8:50:11 Dentures? No ? 8:50:31 Pre procedure: left posterior tibial pulse 2+ Normal; easily identifiable; not easily obliterated 8:50:35 Patient pain scale 0/10 ?. 8:50:39 IV patent on arrival in left antecubital with 0.9% NaCl at [facility]. 8:51:25 Lab Result : BUN 26 mg/dl 8:51:25 Lab Result : Hemoglobin 11.6 g/dl 8:51:25 Lab Result : Creatinine 1.2 mg/dl 8:51:25 Lab Result : Hematocrit 35.3 % 8:51:27 Lab results completed and on chart. 8:51:30 Left groin area was prepped with chlora-prep and draped in sterile fashion 8:51:30 Alarms reviewed by R. N. 8:51:31 Sharps counted by scrub and verified by R.N. 8:51:44 Use device set Acist 8:51:47 ACIST Hand Control (51697) opened to sterile field. 8:51:47 ACIST Manifold (15363) opened to sterile field. 8:51:48 ACIST Syringe (23512) opened to sterile field. 8:52:08 Bag Decanter (2002) opened to sterile field. 8:52:09 Medline Cath Pack ([id number]) opened to sterile field. 8:52:12 DIAGNOSTIC WIRE .035 260cm J wire (481499) opened to sterile field. 8:52:15 Tegaderm 4 x 4 (1626W) opened to sterile field. 8:52:16 PERCUTANEOUS ENTRY 19GA needle opened to sterile field. 8:52:34 SHEATH 6FR Delaplaine (QCY346) opened to sterile field. 8:52:34 INFLATOR Merit BasixCompak (QX6957) opened to sterile field. 8:53:52 IV Extension Set opened to sterile field. 8:55:05 Dr. Bradshaw arrived in room 1 9:06:43 Pt having back pain while on procedure bed. Roll applied under knees and order for pain medication recieved. 9:07:17 Zero performed for pressure channel P1 9:08:02 Fentanyl 100 mcg I.V. was administered by Helio Da Silva RN; for back pain; 9:46:43 Physician arrived 9:46:44 --------ALL STOP TIME OUT------ 9:46:44 Final Timeout: patient, procedure, and site verified with staff and physician. All members of the team are in agreement. 9:46:46 Left groin site verified by team. 9:46:49 Physical assessment completed. ASA score P 2 - A patient with mild systemic disease as per Lv Bradshaw MD. 9:46:52 Sedation plan: IV Moderate Sedation Medication:Versed, Fentanyl 9:47:40 Versed 2 mg I.V. was administered by Helio Da Silva RN; for sedation; 9:47:46 Fentanyl 50 mcg I.V. was administered by Helio Da Silva RN; for back pain; 9:48:00 Use device set Femoral Dx 9:48:03 ACIST Syringe (64648) opened to sterile field. 9:48:03 Bag Decanter (2002S) opened to sterile field. 9:48:06 Medline Cath Pack ([id number]) opened to sterile field. 9:48:08 DIAGNOSTIC WIRE .035 260cm J wire (477035) opened to sterile field. 9:48:10 ACIST Hand Control (10422) opened to sterile field. 9:48:10 ACIST Manifold (81044) opened to sterile field. 9:48:14 Tegaderm 4 x 4 (1626W) opened to sterile field. 9:48:15 PERCUTANEOUS ENTRY 19GA needle opened to sterile field. 9:48:26 SHEATH 6FR Delaplaine (ECP590) opened to sterile field. 9:50:45 Versed 1 mg I.V. was administered by Helio Da Silva RN; for sedation; 9:50:50 Fentanyl 50 mcg I.V. was administered by Helio Da Silva RN; for back pain; 9:55:11 Versed 1 mg I.V. was administered by Helio Da Silva RN; for sedation; 9:55:15 Fentanyl 50 mcg I.V. was administered by Helio Da Silva RN; for back pain; 9:55:41 CHOICE PT Extra Support 182cm wire ([id number]) opened to sterile field. 9:59:13 Procedure started. 9:59:38 GUIDE 6FR XBLAD 3.5 catheter ([id number]) opened to sterile field. 9:59:43 Local anesthetic to right femoral artery with Lidocaine 2% by Lv Bradshaw MD.INITIAL ACCESS ONLY 9:59:53 A 6 Fr Short sheath was inserted into the Right Femoral artery 10:00:26 INFLATOR Merit BasixCompak (CK4378) opened to sterile field. 10:00:38 Versed 1 mg I.V. was administered by Helio Da Silva RN; for sedation; 10:00:41 Fentanyl 50 mcg I.V. was administered by Helio Da Silva RN; for back pain; 10:01:03 6 Fr XBLAD 3.5 guide catheter was inserted over the wire 10:01:44 Heparin Bolus 4000 units I.V. was administered by Helio Da Silva RN; for anticoagulation; verified with dr bradshaw 10:02:57 GUIDE 6FR XBLAD 4.0 catheter ([id number]) opened to sterile field. 10:03:07 Guide catheter removed. 10:03:19 6 Fr XBLAD 4 guide catheter was inserted over the wire 10:04:39 The LASER ELCA 0.9 Rx atherectomy catheter (506749) was advanced and then removed because 10:05:02 Multiple passes made to LAD 10:05:52 Laser catheter removed. 10:07:40 Inflation number: 1 A EUPHORA 3.0 x 20 Balloon ([id number]) was prepped and advanced across the Mid LAD, then inflated to 17 MONICA for 0:00 (min:sec). 10:07:51 Inflation number: 2 The EUPHORA 3.0 x 20 Balloon ([id number]) was reinflated across the Mid LAD, to 17 MONICA for 0:00 (min:sec). 10:08:42 Balloon removed over the wire. 10:09:15 LASER ATHERECTOMY 10:10:02 Versed 1 mg I.V. was administered by Buffie Da Silva RN; for sedation; 10:13:21 Laser catheter removed. 10:13:50 Inflation number: 3 The EUPHORA 3.0 x 20 Balloon ([id number]) was reinflated across the Mid LAD, to 13 MONICA for 0:08 (min:sec). 10:14:01 Inflation number: 4 The EUPHORA 3.0 x 20 Balloon ([id number]) was reinflated across the Mid LAD, to 17 MONICA for 0:05 (min:sec). 10:14:16 Inflation number: 5 The EUPHORA 3.0 x 20 Balloon ([id number]) was reinflated across the Mid LAD, to 17 MONICA for 0:05 (min:sec). 10:14:27 Inflation number: 6 The EUPHORA 3.0 x 20 Balloon ([id number]) was reinflated across the Mid LAD, to 17 MONICA for 0:07 (min:sec). 10:14:40 Inflation number: 7 The EUPHORA 3.0 x 20 Balloon ([id number]) was reinflated across the Mid LAD, to 21 MONICA for 0:06 (min:sec). 10:14:44 Balloon removed over the wire. 10:15:12 Guide catheter removed. 10:15:22 EXOSEAL 6Fr (EX600) opened to sterile field. 10:15:56 Laser pass to mLAD with Fluence of 80 and Rate of 40. 10:16:35 Sheath removed intact; hemostasis achieved with Exoseal to the Right Femoral artery. 10:16:38 Procedure ended.(Physican Out) 10:16:54 Fluoroscopy time 07.80 minutes. 10:17:00 Fluoroscopy dose: 1085 mGy 10:17:00 Flurop Dose total: 1085 10:17:12 Contrast amount:Isovue 300 63ml. 10:17:16 Sharps counted by scrub and verified by R.N. 10:17:20 Insertion/operative site no bleeding no hematoma. 10:17:23 Post-op/insertion site Left Femoral artery dressed using a 4 x 4 and Tegaderm. 10:17:29 Post left femerol artery:stable 10:20:15 Post Procedure Pulses reassessed and unchanged 10:20:22 Post-procedure physical assessment completed. ASA score P 2 - A patient with mild systemic disease as per Lv Bradshaw MD. 10:20:28 Post procedure rhythm: unchanged. 10:20:32 Estimated blood loss: 10 ml 10:20:34 Post procedure instruction explained to patient.Patient verbalizes understanding. 10:21:10 Procedure type changed to Cath procedure, PCI procedure, Coronary Atherectomy, Atherectomy w/PTCA Coronary Initial 10:21:17 Procedure and supply charges have been captured, reviewed, submitted and are correct. 10:22:23 Procedure Complication : No complications 10::26 Vital chart was stopped 10::27 See physician's report for complete and final results. 10:22:31 Report given to [facility]. 10:22:35 Patient transfered to [facility] with Stretcher. 10::44 Procedure ended. 10::44 Full Disclosure recording stopped 10::48 End room use (Document Last) Intervention Summary Intervention Notes Time ActionType Lesion and Equipment Action# Pressure Duration Attributes Used 10:04:39 Discard LASER ELCA Balloon 0.9 Rx atherectomy catheter (541526) 10:07:40 Inflate Mid LAD EUPHORA 3.0 1 17 00:00 balloon x 20 Balloon ([id number]) 10:07:51 Reinflate Mid LAD EUPHORA 3.0 2 17 00:00 balloon x 20 Balloon ([id number]) 10:13:50 Reinflate Mid LAD EUPHORA 3.0 3 13 00:08 balloon x 20 Balloon ([id number]) 10:14:01 Reinflate Mid LAD EUPHORA 3.0 4 17 00:05 balloon x 20 Balloon ([id number]) 10:14:16 Reinflate Mid LAD EUPHORA 3.0 5 17 00:05 balloon x 20 Balloon (UHX5075I) 10:14:27 Reinflate Mid LAD EUPHORA 3.0 6 17 00:07 balloon x 20 Balloon ([id number]) 10:14:40 Reinflate Mid LAD EUPHORA 3.0 7 21 00:06 balloon x 20 Balloon ([id number]) Device Usage Item Name Manufacture Quantity Catalog Number Hospital Part Current Mini mal Lot# / Charge Number Stock Stock Serial# Code ACIST [facility] Acist 2 29295 500283 745442 424091 5 [email or web address] ACIST Acist 2 01386 978354 909189 918057 5 Manifold Medical (44611) Systems Inc ACIST Acist 2 97549 007484 051257 018381 20 Syringe Medical (76843) Systems Inc Bag Decanter Microtek 2 2001S 441865 95315 852087 5 (2001S) Medical Inc. Medline Cath Cardinal 2 [id number] 690389 70702 560501 5 Pack Health ([id number]) DIAGNOSTIC [facility] 2 016107 742928 403119 213602 30 WIRE .035 260cm J wire (768132) Tegaderm 4 x 3M 2 1626W 055933 198513 558774 5 4 (1626W) PERCUTANEOUS Cook Medical 2 P69332 501450 740872 5 ENTRY 19GA needle SHEATH 6FR Terumo 2 OOY826 506089 988211 225065 40 Delaplaine (YMH204) INFLATOR Original 2 UN3117 473550 148938 245110 15 Original Medical BasixCompak (IN9604) IV Extension Hospira 1 75398-04 192333 08660 668058 5 Set CHOICE PT [place] 1 [id number] 627069 831208 434053 5 Extra Scientific Support 182cm wire ([id number]) GUIDE 6FR Cardinal 1 [id number] 306048 380443 047873 10 XBLAD 3.5 Health catheter (25920651) GUIDE 6FR Cardinal 1 [id number] 329676 429466 599378 3 XBLAD 4.0 Health catheter (20529139) LASER ELCA Ruben 1 110-004 505393 125094 334646 5 0.9 Rx Healthcare atherectomy (917593) catheter (289961) EUPHORA 3.0 Medtronic 1 [id number] 994989 875169 063863 5 [id number] x 20 Balloon ([id number]) EXOSEAL 6Fr Cardinal 1 EX600 533111 171250 834798 10 (EX600) Health Signature Audit [place] Stage Time Signature Unsigned Intra-Procedure 04/26/2017 Carmen Lange 10:23:49 AM RT(R) Signatures Monitor : Carmen Lange Signature : RT Date : Time : [address] [place] [address]
--- NOTE | ~2017-04-24 | HP ---
PATIENT: MIN PELAYO MEDICAL RECORD: [id number] ACCOUNT: [id number] LOCATION:[address] : 53 ADMISSION DATE: 04/24/17 HISTORY AND PHYSICAL EXAMINATION ADMITTING DIAGNOSES: 1. Angina. 2. Coronary artery disease. 3. Previous multivessel percutaneous transluminal coronary angioplasty stent. 4. Hyperlipidemia. 5. Hypertension. HISTORY OF PRESENT ILLNESS: Mr. Pelayo presents with anginal symptomatology. He had a past history of multivessel PTCA stent, the last being in October 2016. REVIEW OF SYSTEMS: The patient reports easy bruising but reports no swollen glands. The patient reports no fever, no night sweats, no significant weight gain, no significant weight loss. No significant exercise tolerance. The patient reports no dry eyes, no irritation, no vision change. Patient reports no difficulty hearing and no ear pain. Patient reports no frequent nose bleeds or nose and sinus problems. Patient reports on arm pain on exertion. No shortness of breath while lying down. No history of heart murmur. Patient reports no cough, no wheezing or coughing up blood. Patient reports no abdominal pain, no vomiting. Normal appetite. No diarrhea and not vomiting blood. No nausea and no constipation. Patient reports no incontinence. No difficulty urinating. No hematuria. No increased frequency. Patient reports no muscle aches. No weakness, no arthralgias, no back pain. No swelling of the extremities. Patient reports no abnormal mole, no jaundice, no rashes. Reports no loss of consciousness. No weakness and no numbness. No seizures, dizziness, or headaches. The patient reports no depression, no sleep disturbance, feeling safe in a relationship and no alcohol abuse. Patient reports on fatigue. Reports no runny nose or sinus pressure. No itching, no hives, and no frequent sneezing. PHYSICAL EXAMINATION: GENERAL APPEARANCE: Well-nourished, well-developed, appears stated age. Level of distress, comfortable. PSYCHIATRIC: Mental status, alert, normal affect. Orientation, oriented to time, place and person. EYES: Lids and conjunctiva, noninjected. No discharge, no pallor. ENT: Lips, teeth, gums, normal dentition. Oropharynx, no cyanosis, no pallor. NECK: Carotid arteries, bilateral normal upstroke, no bruits, no thrills. JUGULAR VEINS: No jugular venous pressure or distention. CERVICAL LYMPH NODES: Nontender, nonenlarged. THYROID: Not enlarged. Nontender. No nodules. LUNGS: Respiratory effort, unlabored. CHEST: Normal curvature. No thoracic deformity. No chest wall tenderness. Percussion, resonant. Auscultation, clear. No wheezes, no rales, no rhonchi. CARDIOVASCULAR: Precordial exam, nondisplaced. No heaves or pericardial thrills. Rate and rhythm, regular. Heart sounds, normal S1, normal S2. No S3, no gallop, no rub. Systolic murmur, not heard. Diastolic murmur, not heard. EXTREMITIES: No cyanosis, no edema. Peripheral pulses, full and equal in all extremities, except as noted. No bruits appreciated. ABDOMEN: Soft, nondistended. Normal aorta. No bruit. Nontender. No masses. HISTORY AND PHYSICAL [id number] MIN PELAYO Liver, nontender, no hepatomegaly. Spleen, nontender, no splenomegaly. MUSCULOSKELETAL: No joint tenderness. No joint swelling. No erythema. NEUROLOGICAL: Normal gait, normal strength, normal tone. SKIN: Warm and dry. OVERALL IMPRESSION: Unstable anginal symptomatology. We will proceed with coronary angiography. Further care depends upon the findings of the angiography. TRANSINT:[id number] Voice Confirmation ID: [id number] DOCUMENT ID: [id number] FOX GUPTA MD at 1202 CC: [id number] DICTATION DATE: 04/25/17 1211 BELT BUCKLE MAKER: 04/25/17 1442 ADM [address] [place] [address]
--- NOTE | ~2017-04-24 | HEMODYNAMI ---
PATIENT:MIN LEWIS MEDICAL RECORD: [id number] : 53 [facility] [id number] ADMISSION DATE: 04/24/17 Generatedon:04/25/201712:59 Patient name: MIN LEWIS Patient #: [id number] SSN: [id number] : 1955 Date of study: 04/25/2017 Page: Of Hemodynamic Procedure Report Patient Data Patient Demographics Procedure consent was obtained First Name: MIN Gender: Male Last Name: DEBBIE : 1955 [facility] Initial: Owen Age: 61 year(s) Patient #: [id number] Race: SSN: [id number] Additional ID: [id number] Contact details Address: [place] [address] State: [place] City: [place] Zip code: [address] Past Medical History Allergies Allergen Reaction Date Comments Reported Sulfa drugs 05/26/2014 Penicillins 05/26/2014 Other allergy 03/28/2015 nitroglycerin paste, erthromycin base, Darvocet Sulfa drugs 11/21/2015 Penicillins 11/21/2015 Erythromycin 11/21/2015 Other allergy 11/21/2015 Darvocet Other allergy 10/19/2016 Sulfa, Nitrobid, Penicillin, DCN, Isosorbide, Erythromycin Admission Admission Data Admission Date: 04/24/2017 Admission Time: 22:20 Room #: D.2121 Procedure Procedure Types Cath Procedure Diagnostic Procedure LHC LHC w/Coronaries w/Grafts FFR/IVUS Intra-Coronary IVUS Initial PCI Procedure Coronary Stent Coronary Stent Initial Procedure Description Procedure Date Procedure Date: 04/25/2017 Procedure Start Time: 12:38 Procedure End Time: 12:59 Procedure Staff Name Function Lv Bradshaw MD Performing Physician Bianka Mcdonald RT Monitor Pablo Jha RN Nurse Elizabeth Reynolds RT Scrub Procedure Data Cath Procedure Fluoroscopy Diagnostic fluoroscopy Total fluoroscopy Time: 4.4 time: 4.4 min min Diagnostic fluoroscopy Total fluoroscopy dose: dose: 1080 mGy 1080 mGy Contrast Material Contrast Material Type Amount (ml) Isovue 300 117 Entry Location Entry Primary Successful Side Size Upsize Upsize Entry Closure Succes sful Closure Location (Fr) 1 (Fr) 2 (Fr) Remarks Device Remarks Femoral Right 5 Fr 6 Fr Exoseal artery Short Estimated blood loss: 5 ml Diagnostic catheters Device Type Used For End Catheter Placement MULTIPACK Pigtail 5 Fr LV Angiography catheter MULTIPACK JL 4.0 5Fr Left Coronary catheter Angiography MULTIPACK 3DRC 5Fr Right Coronary catheter Angiography DIAGNOSTIC AR 2 MOD 5 Fr SVG Angiography catheter ([id number]) Procedure Complications No complications Procedure Medications Medication Administration Route Dosage 0.9% NaCl I.V. 100 ml/hr Oxygen NC 2 l/min Heparin Flush Bag added to field 2 bags (1000units/500ml NS) Lidocaine 2% added to field 20 Heparin Bolus I.V. 4000 units Integrilin (Bolus I.V. 9.5 ml 2mg/ml) Integrilin (Bolus wasted 0.5 ml 2mg/ml) Plavix P.O. 600 mg Hemodynamics Rest Heart Rate: 71 (bpm) Snapshots Pre Cath Intra NCS Post Cath Vital Signs Time Heart Resp SPO2 etCO2 NIBP (mmHg) Rhythm Pain Sedation Rate (ipm) (%) (mmHg) Status Level (bpm) 12:23:17 69 18 92 0 140/94(110) NSR 0 (11) 10(A) , No pain 12:28:45 70 14 92 0 141/80(106) NSR 0 (11) 10(A) , No pain 12:34:08 73 12 92 0 143/86(110) NSR 0 (11) 10(A) , No pain 12:39:36 74 14 94 0 125/81(113) NSR 0 (11) 10(A) , No pain 12:44:17 77 19 92 0 134/88(122) NSR 0 (11) 10(A) , No pain 12:48:55 78 12 92 0 131/102(113) NSR 0 (11) 10(A) , No pain 12:53:36 80 19 92 0 133/97(116) NSR 0 (11) 10(A) , No pain 12:58:20 78 10 92 0 130/77(119) NSR 0 (11) 10(A) , No pain Medications Time Medication Route Dose Verified Delivered Reason Notes Effectiveness by by 12:23:02 0.9% NaCl I.V. 100 Pablo Pablo Per physician ml/hr Abhijeet Jha RN, RN 12:23:13 Oxygen NC 2 Pablo Pablo Per physician l/min Abhijeet Jha RN RN 12:23:27 Heparin Flush added 2 Apblo Pablo used for Bag to bags Abhijeet Jha procedure (1000units/500ml field RN RN NS) 12:23:39 Lidocaine 2% added 20ml Pablo Pablo for local to vial Abhijeet Jha anesthetic field RN RN 12:46:59 Heparin Bolus I.V. 4000 Pablo Pablo for units Abhijeet Jha anticoagulation RN RN 12:50:22 Integrilin I.V. 9.5 Pablo Pablo for (Bolus 2mg/ml) ml Abhijeet Jha antiplatelet RN RN therapy 12:50:33 Integrilin wasted 0.5 Pablo Pablo to sharp's (Bolus 2mg/ml) ml Abhijeet Jha RN, RN 12:55:03 Plavix P.O. 600 Pablo Pablo for mg Abhijeet Jha antiplatelet RN RN therapy Procedure Log Time Note 12:06:56 Time tracking: Regular hours 12:07:00 Plan of Care:Hemodynamics will remain stable., Cardiac rhythm will remain stable., Comfort level will be maintained., Respiratory function will remain adequate., Patient/ family verbilizes understanding of procedure., Procedure tolerated without complication., Recovers from procedure without complications.. 12:07:38 Pablo Jha RN sent for patient. Start room use. 12:15:45 Patient received from PCU to CCL 1 Alert and oriented. Tansferred to table in Supine position. 12:15:46 Warm blankets applied, and luisa hugger turned on for patient comfort. 12:15:46 Correct patient and procedure confirmed by team. 12:15:47 Signed procedure consent form obtained from patient. 12:15:48 ECG and BP/O2 sat monitors applied to patient. 12:15:49 Full Disclosure recording started 12:22:23 Vital chart was started 12:22:29 Rhythm: sinus rhythm 12:22:42 H&P Date Dictated: 04/25/2017 New H&P dictated by physician.. 12::43 Pre-procedure instructions explained to patient. 12:22:43 Pre-op teaching completed and patient verbalized understanding. 12:22:45 Family in patients room. 12:22:47 Patient NPO since Midnight. 12:23:02 0.9% NaCl 100 ml/hr I.V. was administered by Pablo Jha RN; Per physician; 12:23:13 Oxygen 2 l/min NC was administered by Pablo Jha RN; Per physician; 12:23:27 Heparin Flush Bag (1000units/500ml NS) 2 bags added to field was administered by Pablo Jha RN; used for procedure; 12:23:39 Lidocaine 2% 20ml vial added to field was administered by Pablo Jha RN; for local anesthetic; 12:24:17 Is the patient allergic to Iodine/contrast media? No. 12:24:19 Is patient on blood thinner?No 12:24:20 Patient diabetic? Yes. 12:24:21 If diabetic: On Metformin? Yes 12:24:22 If on Metformin: Last Dose? 04/25/2017 12:24:26 Previous problem with sedation/anesthesia? No ? 12:24:27 Snore? Yes 12:24:28 Sleep apnea? No 12:24:29 Deviated septum? No 12:24:30 Opens mouth fully? Yes 12:24:30 Sticks out tongue? Yes 12:24:32 Airway obstruction? No ? 12:24:34 Dentures? No ? 12:24:37 Pre procedure: right dorsailis pedis pulse 2+ Normal; easily identifiable; not easily obliterated 12:24:39 Patient pain scale 0/10 ?. 12:24:46 IV patent on arrival in left forearm with 0.9% NaCl at [facility]. 12:28:19 Lab results completed and on chart. 12:28:22 Right groin area was prepped with chlora-prep and draped in sterile fashion 12:28:23 Alarms reviewed by R. N. 12:28:26 Sharps counted by scrub and verified by R.N. 12:29:27 Baseline sample Acquired. 12:29:36 Use device set Femoral Dx 12:29:38 ACIST Syringe (42318) opened to sterile field. 12:29:38 Bag Decanter (2002S) opened to sterile field. 12:29:39 Medline Cath Pack ([id number]) opened to sterile field. 12:29:39 SHEATH 5FR [place] (FEB329) opened to sterile field. 12:29:40 DIAGNOSTIC WIRE .035 260cm J wire (644158) opened to sterile field. 12:29:41 ACIST Hand Control (36905) opened to sterile field. 12:29:41 ACIST Manifold (28832) opened to sterile field. 12:29:43 DIAGNOSTIC Multipack 5Fr catheter set (BC3354) opened to sterile field. 12:29:44 Tegaderm 4 x 4 (1626W) opened to sterile field. 12:29:45 PERCUTANEOUS ENTRY 19GA needle opened to sterile field. 12:30:50 Physician paged 12:34:20 Zero performed for pressure channel P1 12:35:38 Final Timeout: patient, procedure, and site verified with staff and physician. All members of the team are in agreement. 12:35:40 Right groin site verified by team. 12:35:42 Physical assessment completed. ASA score P 2 - A patient with mild systemic disease as per Lv Bradshaw MD. 12:35:45 Sedation plan: IV Moderate Sedation Medication:Versed, Fentanyl 12:37:58 Procedure started. 12:38:02 Local anesthetic to right femoral artery with Lidocaine 2% by Lv Bradshaw MD.INITIAL ACCESS ONLY 12:38:17 A 5 Fr sheath was inserted into the Right Femoral artery 12:38:53 A MULTIPACK Pigtail 5 Fr catheter was advanced over the wire and used for LV Angiography. 12:40:51 LV gram done using FRAUSTO 12:40:54 Injector settings: Ml/sec: 10, Volume: 20, 12:40:55 Catheter removed. 12:41:03 A MULTIPACK JL 4.0 5Fr catheter was advanced over the wire and used for Left Coronary Angiography. 12:42:03 Use device set TAU PCI 12:42:05 INFLATOR Merit BasixCompak (RQ6021) opened to sterile field. 12:42:05 SHEATH 6FR [place] (VXO078) opened to sterile field. 12:42:08 CHOICE PT Extra Support 182cm wire ([id number]) opened to sterile field. 12:42:24 Catheter removed. 12:43:02 A MULTIPACK 3DRC 5Fr catheter was advanced over the wire and used for Right Coronary Angiography. 12:43:24 Catheter removed. 12:44:34 A DIAGNOSTIC AR 2 MOD 5 Fr catheter ([id number]) was advanced over the wire and used for SVG Angiography. 12:45:36 Catheter removed. 12:45:45 GUIDE 6FR AR 2.0 catheter ([id number]) opened to sterile field. 12:45:51 [place] IVUS Catheter (61725I) opened to sterile field. 12:46:01 Sheath upsized to a 6 Fr Short. 12:46:39 6 Fr AR 2.0 guide catheter was inserted over the wire 12:46:59 Heparin Bolus 4000 units I.V. was administered by Pablo Jha RN; for anticoagulation; 12:48:02 CHOICE PT ES wire advanced. 12:48:28 IVUS catheter advanced over wire. 12:50:22 Integrilin (Bolus 2mg/ml) 9.5 ml I.V. was administered by Pablo Jha RN; for antiplatelet therapy; 12:50:33 Integrilin (Bolus 2mg/ml) 0.5 ml wasted was administered by Pablo Jha RN; to sharp's; 12:51:08 IVUS pass to RCA lesion performed. 12:51:10 IVUS catheter removed over wire. 12:52:57 Inflation Number: 1 A PEPPER RX 3.5 x 15 stent ([id number]) was prepped and advanced across the Mid RCA. The stent was deployed at 15 MONICA for 0:07 (min:sec). 12:53:10 Stent catheter was removed intact over wire. 12:53:10 Wire removed. 12:53:10 Guide catheter removed. 12:53:24 Sheath removed intact; hemostasis achieved with Exoseal to the Right Femoral artery. 12:53:26 Procedure ended.(Physican Out) 12:53:47 Fluoroscopy time 04.40 minutes. 12:53:51 Flurop Dose total: 1080 12:53:51 Fluoroscopy dose: 1080 mGy 12:53:58 Contrast amount:Isovue 300 117ml. 12:54:00 Sharps counted by scrub and verified by R.N. 12:54:01 Insertion/operative site no bleeding no hematoma. 12:54:04 Post-op/insertion site Right Femoral artery dressed using a 4 x 4 and Tegaderm. 12:54:08 Post right femoral artery:stable, clean and dry 12:54:09 Post Procedure Pulses reassessed and unchanged 12:54:11 Post-procedure physical assessment completed. ASA score P 2 - A patient with mild systemic disease as per Lv Bradshaw MD. 12:54:13 Post procedure rhythm: unchanged. 12:54:16 Estimated blood loss: 5 ml 12:54:18 Post procedure instruction explained to patient.Patient verbalizes understanding. 12:54:18 Patient needs reinforcement of post procedure teaching. 12:54:32 Procedure type changed to Cath procedure, Diagnostic procedure, LHC, LHC w/Coronaries w/Grafts, FFR/IVUS, Intra-Coronary IVUS Initial, PCI procedure, Coronary Stent, Coronary Stent Initial 12:54:39 EXOSEAL 6Fr (EX600) opened to sterile field. 12:55:03 Plavix 600 mg P.O. was administered by Pablo hJa RN; for antiplatelet therapy; 12:55:15 Procedure Complication : No complications 12:55:17 See physician's report for complete and final results. 12:56:03 Procedure and supply charges have been captured, reviewed, submitted and are correct. 12:59:31 Vital chart was stopped 12:59:34 Report given to PCU. 12:59:39 Patient transfered to PCU with Bed. 12:59:41 Procedure ended. 12:59:41 Full Disclosure recording stopped 12:59:44 End room use (Document Last) Intervention Summary Intervention Notes Time ActionType Lesion and Equipment Used Action# Pressure Duration Attributes 12:52:57 Place stent Mid RCA PEPPER RX 3.5 x 1 15 00:08 15 stent ([id number]) Device Usage Item Name Manufacture Quantity Catalog Number Hospital Part Current M inimal Lot# / Charge Number Stock Stock Serial# Code ACIST Syringe Acist 1 65882 824518 201431 674063 2 0 (23652) Medical Systems Inc Bag Decanter Microtek 1 349171 21951 487463 5 () Medical Inc. Medline Cath Cardinal 1 [id number] 584736 36373 027524 5 Pack Health ([id number]) SHEATH 5FR Terumo 1 HPP187 107874 612304 220347 4 0 [place] (FEI551) DIAGNOSTIC [place] 1 652704 060178 507728 498476 3 0 WIRE .035 260cm J wire (333435) ACIST Hand Acist 1 30824 382120 534083 252368 5 Control Medical (10018) Systems Inc ACIST Manifold Acist 1 27783 833538 704395 778544 5 (89187) Medical Systems Inc DIAGNOSTIC Cardinal 1 LQ0219 338110 40588 617664 3 0 Multipack 5Fr Health catheter set (CP1617) Tegaderm 4 x 4 3M 1 1626W 746658 348603 188802 5 (1626W) PERCUTANEOUS Cook Medical 1 K13717 053473 122446 5 ENTRY 19GA needle MULTIPACK Cardinal 1 082993 5 Pigtail 5 Fr Health catheter MULTIPACK JL Cardinal 1 651883 5 4.0 5Fr Health catheter INFLATOR Merit Merit 1 LQ8093 204442 165286 961462 1 5 ChemDAQ (LA3928) SHEATH 6FR Terumo 1 MOZ438 017242 180591 602260 4 0 [place] (LAH577) CHOICE PT Hayti 1 [id number] 619031 105948 533058 5 Extra Support Scientific 182cm wire ([id number]) MULTIPACK 3DRC Cardinal 1 386930 5 5Fr catheter Health DIAGNOSTIC AR Cardinal 1 [id number] 674574 510622 603852 2 0 2 MOD 5 Fr Health catheter (057116O) GUIDE 6FR AR Medtronic 1 OL3GL33 823926 35166 097712 1 2.0 catheter (OL1UN07) [place] 1 16433A 927035 562429 276618 8 [place] IVUS Catheter (89354R) PEPPER RX 3.5 x Medtronic 1 [id number] 422788 9473448 719782 5 [id number] 15 stent ([id number]) EXOSEAL 6Fr Cardinal 1 EX600 916425 327871 369609 1 0 (EX600) Health Signature Audit [place] Stage Time Signature Unsigned Intra-Procedure 04/25/2017 Bianka 12:59:55 PM Counts RT(R) Signatures Monitor : Bianka Signature : Counts RT Date : Time : [facility] [address] [place] [address]
--- NOTE | ~2017-04-24 | OP ---
PATIENT NAME: MIN LEWIS MEDICAL RECORD: [id number] :53 LOCATION:D.M2 D.2121 ADMISSION DATE:04/24/17 SURGEON: FOX GUPTA MD DATE OF OPERATION: 04/26/2017 PROCEDURES: 1. Laser atherectomy LAD. 2. PTCA LAD. 3. Selective coronary angiography. INDICATION: Angina and coronary artery disease. PROCEDURE IN DETAIL: After informed consent was obtained and after a detailed explanation of the risks, benefits as well as alternative therapies, the patient elected to proceed with angiogram and angioplasty. The left femoral area was prepped and draped in normal sterile fashion. Left femoral artery was cannulated via modified Seldinger technique with placement of 6-Slov[place] sheath. All catheters exchanged through this sheath. FINDINGS: The left anterior descending has 2 areas of greater than 80% in-stent restenosis. Laser atherectomy was performed with coronary 0.9 laser catheter at 40/40 and 80/40. Ballooning was undertaken with a 3.0 balloon. Result was 0% residual stenosis with faith of MADIHA-3 flow. IMPRESSION: Successful KAI WHAKARURUHAU laser atherectomy of the left anterior descending going from 2 areas of greater than 80% initial stenosis to 0% residual. TRANSINT:[id number] Voice Confirmation ID: [id number] DOCUMENT ID: [id number] FOX GUPTA MD at 1140 CC: [id number] DICTATION DATE: 04/26/17 1024 HADOOP SOFTWARE ENGINEER: 04/26/17 1228 DIS IN 04/26/17 [place] [address]
[~2017-04-24 19:30] MED LIST changes: +GLUCOPHAGE1000 MG PO
[2017-04-24 19:57] LABS: BASOPHILS 0.4 % (0-2); EOSINOPHILS 5.1 % (0-7); HEMATOCRIT 35.3 % (42.0-54.0); HEMOGLOBIN 11.6 g/dL (13.5-17.5); IMMATURE GRANULOCYTES 0.1 % (0-5); LYMPHOCYTES 43.7 % (15-50); MCH 29.5 pg (26.0-34.0); MCHC 32.9 g/dL (31.0-37.0); MCV 89.8 fL (80.0-100.0); MEAN PLATELET VOLUME 9.2 fL (7.4-10.4); MONOCYTES 8.7 % (2-11); PLATELET COUNT 220 10x3/uL (130-400); RBC 3.93 10x6/uL (4.20-6.10); RDW 14.1 % (11.5-14.5)
[2017-04-24 20:22] LABS: ALBUMIN 3.8 g/dL (3.4-5.0); ALKALINE PHOSPHATASE 48 U/L (46-116); ALT (SGPT) 39 U/L (10-68); BILIRUBIN - TOTAL 0.29 mg/dL (0.2-1.3); CALC OSMOLALITY 278 mosm/kg (275-300); CARBON DIOXIDE 26.7 mmol/L (21.0-32.0); CHLORIDE - SERUM 100 mmol/L (98-107); CHOL - HDL RATIO 26.2 ratio (2.3-4.9); CHOLESTEROL, TOTAL 157 mg/dL (0-200); CKMB 1.3 U/L (0.0-3.6); CREATINE KINASE 205 UL (21-232); CREATININE - SERUM 1.2 mg/dL (0.6-1.3); GLUCOSE 130 mg/dL (74-106); HDL CHOLESTEROL 6 mg/dL (32-96); LDL CHOLESTEROL 113 mg/dL (0-100); LDL-HDL RATIO 18.8 ratio (1.5-3.5); POTASSIUM - SERUM 3.8 mmol/L (3.5-5.1); SODIUM 136 mmol/L (136-145); TRIGLYCERIDE 193 mg/dL (30-200); UREA NITROGEN 26 mg/dL (7-18); eGFR NON AFRICAN AMERICAN 65 mL/min (90-120)
[2017-04-24 20:23] LABS: PROTEIN - SERUM 6.1 g/dL (6.4-8.2); TROPONIN-I < 0.017 ng/mL (0.000-0.060)
[2017-04-25 04:39] VITALS: BP 139/84; Ht 185.4 cm; Wt 109.1 kg
[2017-04-25] MEDS ORDERED: DULERA 200 MCG8.8 GM INH (05:16)
[2017-04-25] MEDS ORDERED: TOUJEO SOL300 UNIT/1 (05:29)
[2017-04-25] MEDS ORDERED: TRESIBA FL100 UNIT/1 (05:30)
[2017-04-25] MEDS ORDERED: SINGULAIR10 MG PO (05:30)
[2017-04-25 08:22] VITALS: BP 141/71
[2017-04-25 11:55] VITALS: BP 117/58
[2017-04-25 15:42] VITALS: BP 122/72
[2017-04-25 21:53] VITALS: BP 105/61
[2017-04-26 02:40] VITALS: BP 115/49
[2017-04-26 06:44] VITALS: BP 128/73
[2017-04-26 10:17] VITALS: BP 130/75
[2017-04-26] MEDS ORDERED: EFFIENT10 MG PO (15:11)
== END 2017-04-26 16:10 | disposition home or self-care (01) ==
LOC: D.ER 19:30 → D.M2 22:20 → D.EDHOLD 22:20 → OBSVTIME 22:20 → D.M2 04-25 00:26
PROVIDERS: Physician Assistant Medical
DX: I25.110 Atherosclerotic heart disease of native coronary artery with unstable angina pectoris (principal); Z95.5 Presence of coronary angioplasty implant and graft; E78.5 Hyperlipidemia, unspecified; I10 Essential (primary) hypertension
CPT/HCPCS: 93459; 92978; 92924; C9600

== ENCOUNTER → 2017-07-20 07:25 | Outpatient (CLI) | payer MEDICARE ==
[~2017-07-20] VITALS: Ht 185.4 cm; Wt 106.8 kg
--- NOTE | ~2017-07-20 | HEMODYNAMI ---
PATIENT:MIN LEWIS MEDICAL RECORD: [id number] : 53 LOCATION:DSHANTE ADMISSION DATE: 07/20/17 Generatedon:07/20/201710:27 Patient name: MIN LEWIS Patient #: [id number] SSN: [id number] : 1955 Date of study: 07/20/2017 Page: Of Hemodynamic Procedure Report Patient Data Patient Demographics Procedure consent was obtained First Name: MIN Gender: Male Last Name: DEBBIE : 1955 [facility] Initial: Owen Age: 62 year(s) Patient #: [id number] Race: SSN: [id number] Additional ID: [id number] Contact details Address: [place] [address] State: [place] City: [place] Zip code: [address] Past Medical History Allergies Allergen Reaction Date Comments Reported Sulfa drugs 05/26/2014 Penicillins 05/26/2014 Other allergy 03/28/2015 nitroglycerin paste, erthromycin base, Darvocet Sulfa drugs 11/21/2015 Penicillins 11/21/2015 Erythromycin 11/21/2015 Other allergy 11/21/2015 Darvocet Other allergy 10/19/2016 Sulfa, Nitrobid, Penicillin, DCN, Isosorbide, Erythromycin Other allergy 04/26/2017 PCN, Sulfa Other allergy 07/20/2017 IMDUR, PCN, SULFA Admission Admission Data Admission Date: 07/20/2017 Admission Time: 7:25 Procedure Procedure Types Cath Procedure Diagnostic Procedure LHC LHC w/Coronaries w/Grafts Sedation Charges Moderate Sedation up to 15 minutes PCI Procedure Coronary Atherectomy Atherectomy w/PTCA Coronary Initial Procedure Description Procedure Date Procedure Date: 07/20/2017 Procedure Start Time: 10:03 Procedure End Time: 10:25 Procedure Staff Name Function Lv Bradshaw MD Performing Physician Madina Gutierrez RT Monitor Pablo Jha RN Nurse Yony Ramos RT Scrub Dario Polo RN Plywood Layup Line Back Feeder Procedure Data Cath Procedure Fluoroscopy Diagnostic fluoroscopy Total fluoroscopy Time: 0 time: 0 min min Diagnostic fluoroscopy Total fluoroscopy dose: 753 dose: 753 mGy mGy Contrast Material Contrast Material Type Amount (ml) Isovue 300 87 Entry Location Entry Primary Successful Side Size Upsize Upsize Entry Closure Succes sful Closure Location (Fr) 1 (Fr) 2 (Fr) Remarks Device Remarks Femoral Right 6 Fr Exoseal artery Short Estimated blood loss: 10 ml Diagnostic catheters Device Type Used For End Catheter Placement MULTIPACK Pigtail 5 Fr Procedure catheter MULTIPACK JL 4.0 5Fr Procedure catheter MULTIPACK 3DRC 5Fr Procedure catheter DIAGNOSTIC AR 2 MOD 5 Fr Procedure catheter ([id number]) Procedure Complications No complications Procedure Medications Medication Administration Route Dosage 0.9% NaCl I.V. 100 ml/hr Oxygen etCO2 Nasal cannula 2 l/min Heparin Flush Bag added to field 2 bags (1000units/500ml NS) Lidocaine 2% added to field 20 Zofran I.V. 4 mg Versed I.V. 1 mg Fentanyl I.V. 50 mcg Versed I.V. 1 mg Fentanyl I.V. 50 mcg Heparin Bolus I.V. 4000 units Versed I.V. 1 mg Hemodynamics Rest Heart Rate: 62 (bpm) Snapshots Pre Cath Intra NCS Post Cath Vital Signs Time Heart Resp SPO2 etCO2 NIBP (mmHg) Rhythm Pain Sedation Rate (ipm) (%) (mmHg) Status Level (bpm) 9:42:14 66 22 98 0 152/85(120) NSR 0 (11) 10(A) , No pain 9:47:13 59 13 92 1.5 145/76(87) NSR 0 (11) 10(A) , No pain 9:52:08 56 14 95 18 141/78(97) NSR 0 (11) 10(A) , No pain 9:57:03 58 12 96 22.5 133/77(104) NSR 0 (11) 10(A) , No pain 10:02:53 60 14 96 20.2 132/76(100) NSR 0 (11) 10(A) , No pain 10:07:54 66 19 94 15 118/72(98) NSR 0 (11) 9(A) , No pain 10:16:10 65 23 96 31.5 134/73(109) NSR 0 (11) 9(A) , No pain 10:20:57 65 10 93 28.5 136/76(106) NSR 0 (11) 10(A) , No pain 10:25:41 63 20 87 21 140/81(130) NSR 0 (11) 10(A) , No pain Medications Time Medication Route Dose Verified Delivered Reason Notes Effectiveness by by 9:47:28 0.9% NaCl I.V. 100 Pablo Pablo Per physician ml/hr Abhijeet Jha RN RN 9:47:38 Oxygen etCO2 2 Pablo Pablo Per physician Nasal l/min Abhijeet Jha cannula RN RN 9:47:50 Heparin Flush added 2 Pablo Pablo used for Bag to bags Abhijeet Jha procedure (1000units/500ml RN RN NS) 9:48:05 Lidocaine 2% added 20ml Pablo Pablo for local to vial Lorkevin Jha anesthetic field RAMOS RN 9:48:40 Zofran I.V. 4 mg Pablo Pablo for nausea Abhijeet Jha RN RN 9:58:46 Versed I.V. 1 mg Pablo Pablo for sedation Abhijeet Jha RN RN 9:58:55 Fentanyl I.V. 50 Pablo Pablo for anxiety mcg Abhijeet Jha RN RN 10:03:03 Versed I.V. 1 mg Pablo Pablo for sedation Abhijeet Jha RN RN 10:03:10 Fentanyl I.V. 50 Pablo Pablo for anxiety mcg Abhijeet Jha RN RN 10:11:22 Heparin Bolus I.V. 4000 Pablo Pablo for units Abhijeet Jha anticoagulation RN RN 10:15:33 Versed I.V. 1 mg Pablo Pablo for sedation Abhijeet Jha RN manager business process Log Time Note 9:34:16 Dario Polo RN sent for patient. Start room use. 9:35:05 Time tracking: Regular hours (M-F 7:00 - 5:00) 9:35:09 Plan of Care:Hemodynamics will remain stable., Cardiac rhythm will remain stable., Comfort level will be maintained., Respiratory function will remain adequate., Patient/ family verbilizes understanding of procedure., Procedure tolerated without complication., Recovers from procedure without complications.. 9:36:31 Signed procedure consent form obtained from patient. 9:36:35 Patient received from Pre/Post Procedure Room to [facility] 1 Alert and oriented. Tansferred to table in Supine position. 9:36:37 Warm blankets applied, and luisa hugger turned on for patient comfort. 9:36:37 Correct patient and procedure confirmed by team. 9:36:38 ECG and BP/O2 sat monitors applied to patient. 9:36:47 H&P Date Dictated: 07/19/2017 Within 30 days and on chart., H&P Addendum completed by physician on day of procedure. (MUST COMPLETE FOR ALL OUTPATIENTS). 9:37:05 Patient allergic to Other allergyIMDUR, PCN, SULFA 9:38:53 Full Disclosure recording started 9:38:56 Pre-procedure instructions explained to patient. 9:38:56 Pre-op teaching completed and patient verbalized understanding. 9:38:59 Family in patients room. 9:39:01 Patient NPO since Midnight. 9:39:04 Is the patient allergic to Iodine/contrast media? No. 9:40:18 Is patient on blood thinner?Yes 9:40:24 ACC The patient was administered the following blood thiners within the last 24 hours: ACCAspirin, ACCEffient 9:40:25 Patient diabetic? Yes. 9:40:26 If diabetic: On Metformin? Yes 9:40:28 If on Metformin: Last Dose? 07/19/2017 9:40:31 Previous problem with sedation/anesthesia? No ? 9:40:32 Snore? Yes 9:40:33 Sleep apnea? No 9:40:34 Deviated septum? No 9:40:35 Opens mouth fully? Yes 9:40:35 Sticks out tongue? Yes 9:40:38 Airway obstruction? Yes copd 9:40:41 Dentures? No ? 9:40:49 Pre procedure: right dorsailis pedis pulse 2+ Normal; easily identifiable; not easily obliterated 9:40:52 Patient pain scale 0/10 ?. 9:41:00 IV patent on arrival in left hand with 0.9% NaCl at KVO. 9:41:05 Vital chart was started 9:41:12 Rhythm: sinus bradycardia 9:41:18 Lab results completed and on chart. 9:41:21 Right groin area was prepped with chlora-prep and draped in sterile fashion 9:41:22 Alarms reviewed by R. N. 9:41:23 Sharps counted by scrub and verified by R.N. 9:41:28 Use device set Femoral Dx 9:41:29 ACIST Syringe (14686) opened to sterile field. 9:41:30 Bag Decanter (2002S) opened to sterile field. 9:41:31 Medline Cath Pack ([id number]) opened to sterile field. 9:41:32 DIAGNOSTIC WIRE .035 260cm J wire (448804) opened to sterile field. 9:41:32 ACIST Hand Control (30711) opened to sterile field. 9:41:33 ACIST Manifold (96194) opened to sterile field. 9:41:34 DIAGNOSTIC Multipack 5Fr catheter set ([id number]) opened to sterile field. 9:41:34 Tegaderm 4 x 4 (1626W) opened to sterile field. 9:41:35 PERCUTANEOUS ENTRY 19GA needle opened to sterile field. 9:41:36 SHEATH Prelude 5Fr 0.035 (DNA-5X-76-035) opened to sterile field. 9:42:18 Baseline sample Acquired. 9:47:28 0.9% NaCl 100 ml/hr I.V. was administered by Pablo Jha RN; Per physician; 9:47:38 Oxygen 2 l/min etCO2 Nasal cannula was administered by Pablo Jha RN; Per physician; 9:47:50 Heparin Flush Bag (1000units/500ml NS) 2 bags added to field was administered by Pablo Jha RN; used for procedure; 9:48:05 Lidocaine 2% 20ml vial added to field was administered by Pablo Jha RN; for local anesthetic; 9:48:31 Zero performed for pressure channel P1 9:48:40 Zofran 4 mg I.V. was administered by Pablo Jha RN; for nausea; 9:51:43 Zero performed for pressure channel P1 9:57:40 --------ALL STOP TIME OUT------ 9:57:40 Final Timeout: patient, procedure, and site verified with staff and physician. All members of the team are in agreement. 9:57:42 Right groin site verified by team. 9:57:45 Physical assessment completed. ASA score P 2 - A patient with mild systemic disease as per Lv Bradshaw MD. 9:57:48 Sedation plan: IV Moderate Sedation Medication:Versed, Fentanyl 9:58:46 Versed 1 mg I.V. was administered by Pablo Jha RN; for sedation; 9:58:55 Fentanyl 50 mcg I.V. was administered by Pablo Jha RN; for anxiety; 10:02:51 SHEATH 6FR [place] (HVW594) opened to sterile field. 10:02:56 Procedure started. 10:03:01 Local anesthetic to right femoral artery with Lidocaine 2% by Lv Bradshaw MD.INITIAL ACCESS ONLY 10:03:03 Versed 1 mg I.V. was administered by Pablo Jha RN; for sedation; 10:03:10 Fentanyl 50 mcg I.V. was administered by Pablo Jha RN; for anxiety; 10:03:44 A 6 Fr Short sheath was inserted into the Right Femoral artery 10:04:01 A MULTIPACK Pigtail 5 Fr catheter was advanced over the wire and used for Procedure. 10:04:33 Injector settings: Ml/sec: 10, Volume: 20, 10:04:35 LV gram done using FRAUSTO 10:04:44 EF : 50 % 10:04:47 A MULTIPACK JL 4.0 5Fr catheter was advanced over the wire and used for Procedure. 10:05:45 LCA angiography performed. 10:06:09 Catheter removed. 10:06:41 A MULTIPACK 3DRC 5Fr catheter was advanced over the wire and used for Procedure. 10:07:00 RCA angiography performed. 10:07:21 Catheter removed. 10:07:36 A DIAGNOSTIC AR 2 MOD 5 Fr catheter ([id number]) was advanced over the wire and used for Procedure. 10:08:32 SVG to Circ angiography performed. 10:08:33 Catheter removed. 10:09:08 INFLATOR Merit BasixCompak (AN7817) opened to sterile field. 10:09:10 LASER ELCA 1.4 Rx atherectomy catheter (440433) opened to sterile field. 10:09:20 GUIDE 6FR EBU 3.5 catheter ([id number]) opened to sterile field. 10:10:04 CHOICE PT Extra Support 182cm wire ([id number]) opened to sterile field. 10:10:18 6 Fr EBU 3.5 guide catheter was inserted over the wire 10:10:54 CHOICE ES 182 wire advanced. 10:11:22 Heparin Bolus 4000 units I.V. was administered by Pablo Jha RN; for anticoagulation; 10:11:32 Wire advanced across lesion. 10:12:33 Laser pass to mLAD with Fluence of 60 and Rate of 40. 10:15:12 Laser catheter removed. 10:15:13 Laser total treatment time: 0 minutes 25 seconds 10:15:13 Laser total pulses delivered: 1000 10:15:33 Versed 1 mg I.V. was administered by Pablo Jha RN; for sedation; 10:16:55 Inflate balloon Inflation number: 1 A EUPHORA 3.5 x 20 Balloon ([id number]) was prepped and advanced across the Mid LAD, then inflated to 21 MONICA for 0:10 (min:sec). 10:17:13 Balloon removed over the wire. 10:17:13 Wire removed. 10:17:16 Guide catheter removed. 10:17:23 EXOSEAL 6Fr (EX600) opened to sterile field. 10:18:40 Sheath removed intact; hemostasis achieved with Exoseal to the Right Femoral artery. 10:18:41 Procedure ended.(Physican Out) 10:18:52 Fluoroscopy time 00.00 minutes. 10:18:56 Flurop Dose total: 753 10:18:56 Fluoroscopy dose: 753 mGy 10:19:09 Contrast amount:Isovue 300 87ml. 10:19:10 Sharps counted by scrub and verified by R.N. 10:19:13 Post-op/insertion site Right Femoral artery dressed using a 4 x 4 and Tegaderm. 10:19:18 Post right femoral artery:stable, soft, clean and dry 10:19:23 Post-procedure physical assessment completed. ASA score P 2 - A patient with mild systemic disease as per Lv Bradshaw MD. 10:19:34 Post procedure: right dorsailis pedis pulse 2+ Normal; easily identifiable; not easily obliterated. 10:19:38 Post procedure rhythm: unchanged. 10:19:40 Estimated blood loss: 10 ml 10:19:42 Post procedure instruction explained to patient.Patient verbalizes understanding. 10:19:42 Patient needs reinforcement of post procedure teaching. 10:21:15 Procedure type changed to Cath procedure, Diagnostic procedure, LHC, LHC w/Coronaries w/Grafts, Sedation Charges, Moderate Sedation up to 15 minutes, PCI procedure, Coronary Atherectomy, Atherectomy w/PTCA Coronary Initial 10:24:54 Procedure and supply charges have been captured, reviewed, submitted and are correct. 10:24:56 Procedure Complication : No complications 10:24:58 Vital chart was stopped 10:24:58 See physician's report for complete and final results. 10:25:00 Report given to Pre/Post Procedure Room. 10:25:03 Patient transfered to Pre/Post Procedure Room with Bed. 10:25:04 Procedure ended. 10:25:04 Full Disclosure recording stopped 10:25:07 End room use (Document Last) Intervention Summary Intervention Notes Time ActionType Lesion and Equipment Action# Pressure Duration Attributes Used 10:16:55 Inflate Mid LAD EUPHORA 1 21 00:10 balloon 3.5 x 20 Balloon ([id number]) Device Usage Item Name Manufacture Quantity Catalog Number Hospital Part Current M inimal Lot# / Charge Number Stock Stock Serial# Code ACIST Syringe Acist 1 40821 798373 399937 005521 2 0 (80724) Medical Systems Inc Bag Decanter Microtek 1 2001S 497265 47219 104902 5 (2001S) Medical Inc. Medline Cath Cardinal 1 [id number] 589189 00633 531661 5 Pack Health ([id number]) DIAGNOSTIC WIRE [place] 1 986656 551824 188380 825373 3 0 .035 260cm J wire (094237) ACIST Hand Acist 1 55331 860600 977113 927227 5 Control (44531) Medical Systems Inc ACIST Manifold Acist 1 45985 288323 988605 217119 5 (92938) Medical Systems Inc DIAGNOSTIC Cardinal 1 JV5279 080915 80884 131360 3 0 Multipack 5Fr Health catheter set (HG2894) Tegaderm 4 x 4 3M 1 1626W 440798 046640 134268 5 (1626W) PERCUTANEOUS Cook Medical 1 B90670 697972 168740 5 ENTRY 19GA needle SHEATH Prelude Merit 1 WQO-8S-37-035 129106 567236 268804 5 5Fr 0.035 Medical (DPS-7Z-95-035) SHEATH 6FR Terumo 1 JKT621 614499 602959 004450 4 0 [place] (GYI124) MULTIPACK Cardinal 1 312452 5 Pigtail 5 Fr Health catheter MULTIPACK JL Cardinal 1 718496 5 4.0 5Fr Health catheter MULTIPACK 3DRC Cardinal 1 424838 5 5Fr catheter Health DIAGNOSTIC AR 2 Cardinal 1 [id number] 744144 596649 298155 2 0 MOD 5 Fr Health catheter (398734D) INFLATOR Merit Merit 1 KX3980 694195 863007 517608 1 5 Ze-gen (II3472) LASER ELCA 1.4 Ruben 1 114-009 574421 256816 058347 5 Rx atherectomy Healthcare catheter (077964) (263537) GUIDE 6FR EBU Medtronic 1 QP9QXS03 602568 72143 341709 3 3.5 catheter (ND5ASG70) CHOICE PT Extra Niles 1 [id number] 764927 140711 655551 5 Support 182cm Scientific wire (1398465H6) EUPHORA 3.5 x Medtronic 1 [id number] 685853 294927 329284 5 [id number] 20 Balloon (VMS3801T) EXOSEAL 6Fr Cardinal 1 EX600 187461 298499 925581 1 0 (EX600) Health Signature Audit [place] Stage Time Signature Unsigned Intra-Procedure 07/20/2017 Madina Gutierrez 10:27:09 AM RT(R) Signatures Monitor : Madina Gutierrez Signature : RT Date : Time : [facility] [address] [place] [address]
--- NOTE | ~2017-07-20 | OP ---
PATIENT NAME: MIN LEWIS MEDICAL RECORD: [id number] :53 LOCATION:D.CAT ADMISSION DATE: SURGEON: FOX GUPTA MD DATE OF OPERATION: 07/20/2017 PROCEDURES: 1. Laser atherectomy LAD. 2. PTCA, LAD. 3. Left heart catheterization. 4. Selective coronary angiography. 5. Left ventriculogram. 6. Vein graft angiography. INDICATION: Angina and coronary artery disease. PROCEDURE IN DETAIL: After informed consent was obtained and after a detailed description of the risks, benefits as well as alternative therapies, the patient elected to proceed with angiogram and angioplasty. The right femoral area was prepped and draped in normal sterile fashion. Right femoral artery was cannulated via modified Seldinger technique with placement of 6-Filipino sheath. All catheters exchanged through this sheath. FINDINGS: Left ventriculogram was performed in standard 30-degree FRAUSTO view, reveals good cardiac wall motion throughout all segments. Overall ejection fraction estimated at 50%. SELECTIVE CORONARY ANGIOGRAPHY: 1. Left main is with no significant angiographic disease. 2. Left anterior descending has multiple previously placed stents. There is 70% in-stent restenosis in the mid vessel. 3. Left circumflex has moderate irregularities, but no flow-limiting stenosis. 4. Right coronary has moderate irregularities, but no flow-limiting stenosis. 5. Vein graft to the LAD diagonal is widely patent. The distal LAD diagonal was small, diffusely diseased, but widely patent. LASER ATHERECTOMY, PTCA OF THE LAD: A 1.4 laser catheter was used. Multiple passes were made at maximum fluency. This was followed by PTCA with a 3.5 balloon to 21 atmospheres. Result was 0% residual stenosis. OVERALL IMPRESSION: Successful laser atherectomy, PTCA of the LAD going from 70% initial stenosis to 0% residual. TRANSINT:[id number] Voice Confirmation ID: [id number] DOCUMENT ID: [id number] FOX GUPTA MD at 1705 CC: [id number] DICTATION DATE: 07/20/17 1022 WIND OPERATIONS MANAGER: 07/20/17 1314 DEP CLI 07/20/17 [place] [address]
[~2017-07-20 07:25] MED LIST changes: +PERCOCET 5-3251 TAB PO; +TOUJEO SOL300 UNIT/1; +TRESIBA FL100 UNIT/1
[2017-07-20 07:59] VITALS: BP 120/71; Ht 185.4 cm; Wt 106.8 kg
[2017-07-20 08:12] LABS: BASOPHILS 0.5 % (0-2); HEMOGLOBIN 12.1 g/dL (13.5-17.5); IMMATURE GRANULOCYTES 0.2 % (0-5); LYMPHOCYTES 36.3 % (15-50); MCH 29.6 pg (26.0-34.0); MCHC 32.7 g/dL (31.0-37.0); MCV 90.5 fL (80.0-100.0); MEAN PLATELET VOLUME 8.9 fL (7.4-10.4); MONOCYTES 9.1 % (2-11); NEUTROPHILS 48.9 % (40-80); PLATELET COUNT 234 10x3/uL (130-400); RBC 4.09 10x6/uL (4.20-6.10); RDW 13.3 % (11.5-14.5); WBC 6.1 10x3/uL (4.8-10.8)
[2017-07-20 08:34] LABS: ANION GAP 14.8 mmol/L (8-16); CARBON DIOXIDE 25.8 mmol/L (21.0-32.0); CREATININE - SERUM 1.1 mg/dL (0.6-1.3); POTASSIUM - SERUM 4.6 mmol/L (3.5-5.1)
== END | disposition home or self-care (01) ==
LOC: D.CATH 07:25
PROVIDERS: Internal Medicine Interventional Cardiology
DX: I25.119 Atherosclerotic heart disease of native coronary artery with unspecified angina pectoris (principal); Z95.1 Presence of aortocoronary bypass graft; Z01.812 Encounter for preprocedural laboratory examination

== ENCOUNTER 2017-08-27 14:54 | Emergency (ER) | payer MEDICARE ==
[~2017-08-27] VITALS: Ht 185.4 cm; Wt 108.2 kg
--- NOTE | ~2017-08-27 | CN ---
PATIENT NAME:MIN PELAYO MEDICAL RECORD: [id number] : 53 LOCATION:D.ER ADMIT DATE: ACCOUNT: [id number] CONSULTING PHYSICIAN: FOX GUPTA MD REFERRING PHYSICIAN: MARLY MALCOLM MD DATE OF CONSULTATION: 08/27/2017 ADMITTING DIAGNOSES: 1. Chest pain. 2. Coronary artery disease. 3. Previous multivessel percutaneous transluminal coronary angioplasty stent. 4. Previous coronary artery bypass graft surgery. 5. Hypertension. 6. Hyperlipidemia. HISTORY OF PRESENT ILLNESS: Mr. Pelayo presents with pain that is somewhat different than his previous cardiac pain, many similar symptoms to his previous cardiac pain. His last cardiac intervention was 2 weeks ago; it was laser atherectomy, PTCA stent for in-stent restenosis. He did well up until today. He woke up with the pain, but it is more centered around his left shoulder and there is a positional component to it, suggestive of a musculoskeletal nature of the pain. He has some left arm pain with his normal angina as well, and he is having some chest pain that has developed during the day. His EKG is with no changes. PHYSICAL EXAMINATION: GENERAL APPEARANCE: Well-nourished, well-developed, appears stated age. Level of distress, comfortable. PSYCHIATRIC: Mental status, alert, normal affect. Orientation, oriented to time, place and person. EYES: Lids and conjunctiva, noninjected. No discharge, no pallor. ENT: Lips, teeth, gums, normal dentition. Oropharynx, no cyanosis, no pallor. NECK: Carotid arteries, bilateral normal upstroke, no bruits, no thrills. JUGULAR VEINS: No jugular venous pressure or distention. CERVICAL LYMPH NODES: Nontender, nonenlarged. THYROID: Not enlarged. Nontender. No nodules. LUNGS: Respiratory effort, unlabored. CHEST: Normal curvature. No thoracic deformity. No chest wall tenderness. Percussion, resonant. Auscultation, clear. No wheezes, no rales, no rhonchi. CARDIOVASCULAR: Precordial exam, nondisplaced. No heaves or pericardial thrills. Rate and rhythm, regular. Heart sounds, normal S1, normal S2. No S3, no gallop, no rub. Systolic murmur, not heard. Diastolic murmur, not heard. EXTREMITIES: No cyanosis, no edema. Peripheral pulses, full and equal in all extremities, except as noted. No bruits appreciated. ABDOMEN: Soft, nondistended. Normal aorta. No bruit. Nontender. No masses. Liver, nontender, no hepatomegaly. Spleen, nontender, no splenomegaly. MUSCULOSKELETAL: No joint tenderness. No joint swelling. No erythema. NEUROLOGICAL: Normal gait, normal strength, normal tone. SKIN: Warm and dry. REVIEW OF SYSTEMS: The patient reports easy bruising but reports no swollen glands. The patient reports no fever, no night sweats, no significant weight gain, no significant weight loss. No significant exercise tolerance. The patient reports no dry eyes, no irritation, no vision change. Patient reports no difficulty hearing and no ear pain. Patient reports no frequent nose bleeds CONSULT REPORT [id number] MIN PELAYO or nose and sinus problems. Patient reports on arm pain on exertion. No shortness of breath while lying down. No history of heart murmur. Patient reports no cough, no wheezing or coughing up blood. Patient reports no abdominal pain, no vomiting. Normal appetite. No diarrhea and not vomiting blood. No nausea and no constipation. Patient reports no incontinence. No difficulty urinating. No hematuria. No increased frequency. Patient reports no muscle aches. No weakness, no arthralgias, no back pain. No swelling of the extremities. Patient reports no abnormal mole, no jaundice, no rashes. Reports no loss of consciousness. No weakness and no numbness. No seizures, dizziness, or headaches. The patient reports no depression, no sleep disturbance, feeling safe in a relationship and no alcohol abuse. Patient reports on fatigue. Reports no runny nose or sinus pressure. No itching, no hives, and no frequent sneezing. OVERALL IMPRESSION: Chest pain and shoulder pain, difficult to say whether this is musculoskeletal in nature or anginal in nature. His last cardiac intervention was 2 weeks ago, did not feel that we need to el into the medical laboratory technicians. He has no acute changes on his EKG. We will try to make him pain free with analgesics and see if the pain returns. At this time, we will just admit for observation. TRANSINT:[id number] Voice Confirmation ID: [id number] DOCUMENT ID: [id number] FOX GUPTA MD at 1325 CC: [id number] DICTATION DATE: 08/27/17 1545 BUILDING EQUIPMENT OPERATOR: 08/27/17 1618 DEP ER 08/27/17 [place] [id number] [place] [id number]
[~2017-08-27 14:54] MED LIST changes: -PERCOCET 5-3251 TAB PO
[2017-08-27 14:58] VITALS: Ht 185.4 cm; Wt 108.2 kg
[2017-08-27 15:28] LABS: BASOPHILS 0.7 % (0-2); EOSINOPHILS 4.7 % (0-7); HEMATOCRIT 36.3 % (42.0-54.0); IMMATURE GRANULOCYTES 0.1 % (0-5); LYMPHOCYTES 37.3 % (15-50); MCH 29.5 pg (26.0-34.0); MCHC 33.1 g/dL (31.0-37.0); MCV 89.2 fL (80.0-100.0); MEAN PLATELET VOLUME 9.2 fL (7.4-10.4); MONOCYTES 10.4 % (2-11); NEUTROPHILS 46.8 % (40-80); PLATELET COUNT 238 10x3/uL (130-400); RBC 4.07 10x6/uL (4.20-6.10); RDW 13.5 % (11.5-14.5); WBC 7.4 10x3/uL (4.8-10.8)
[2017-08-27 15:43] LABS: ALBUMIN 3.9 g/dL (3.4-5.0); ANION GAP 15.6 mmol/L (8-16); BILIRUBIN - TOTAL 0.32 mg/dL (0.2-1.3); CALCIUM 9.5 mg/dL (8.5-10.1); CARBON DIOXIDE 24.5 mmol/L (21.0-32.0); CREATININE - SERUM 1.1 mg/dL (0.6-1.3); POTASSIUM - SERUM 4.1 mmol/L (3.5-5.1); PROTEIN - SERUM 7.9 g/dL (6.4-8.2)
[2017-08-27 16:12] LABS: CKMB 1.3 U/L (0.0-3.6); CREATINE KINASE 151 UL (21-232); TROPONIN-I < 0.017 ng/mL (0.000-0.060)
[2017-08-27] MEDS ORDERED: PERCOCET 5-3251 TAB PO (16:35)
[2017-08-27 16:40] VITALS: BP 123/74
== END 2017-08-27 16:41 | disposition home or self-care (01) ==
LOC: D.ER 14:54
PROVIDERS: Emergency Medicine
DX: M79.602 Pain in left arm (principal); I25.10 Atherosclerotic heart disease of native coronary artery without angina pectoris; E11.9 Type 2 diabetes mellitus without complications; I10 Essential (primary) hypertension

== ENCOUNTER 2017-10-10 18:12 | Observation (INO) | payer MEDICARE ==
[~2017-10-10] VITALS: Ht 185.4 cm; Wt 109.1 kg
--- NOTE | ~2017-10-10 | DS ---
PATIENT:MIN PELAYO :53 MEDICAL RECORD: [id number] DISCHARGE SUMMARY ADMISSION DATE: 10/10/17 DISCHARGE DATE: 10/11/17 DATE OF DISCHARGE: 10/11/2017. DIAGNOSES: 1. Angina. 2. PTCA stent LAD this admission. 3. Hypertension. 4. Hyperlipidemia. 5. Previous bypass surgery. 6. Previous multivessel PTCA stent. HOSPITAL COURSE: Mr. Pelayo presents with anginal symptomatology, found to have in-stent restenosis of the LAD, underwent successful PTCA stent of the LAD, discharged home with no change in his medications as he is already on aspirin and Plavix. He will follow up with [facility] as previously scheduled. TRANSINT:[id number] Voice Confirmation ID: [id number] DOCUMENT ID: [id number] FOX GUPTA MD at 1950 CC: [id number] DICTATION DATE: 10/11/17 1148 CIRCUS RIDER: 10/11/17 1227 DIS IN 10/11/17 [place] [id number] [place] [address]
--- NOTE | ~2017-10-10 | OP ---
PATIENT NAME: MIN LEWIS MEDICAL RECORD: [id number] :53 LOCATION:D.M2 D.2120 ADMISSION DATE:10/10/17 SURGEON: FOX GUPTA MD DATE OF OPERATION: 10/11/2017 PROCEDURES: 1. PTCA stent LAD. 2. Left heart catheterization. 3. Selective coronary angiography. 4. Vein graft angiography. 5. Left ventriculogram. INDICATION: Angina and coronary artery disease. PROCEDURE IN DETAIL: After informed consent was obtained and after a detailed description of risks, benefits as well as alternative therapies, the patient elected to proceed with angiogram and angioplasty. The right femoral area was prepped and draped in normal sterile fashion. The right femoral artery was cannulated via modified Seldinger technique with placement of 6-Indian sheath. All catheters exchanged through this sheath. FINDINGS: Left ventriculogram was performed in standard 30-degree FRAUSTO view, reveals good cardiac wall motion throughout all segments. Overall ejection fraction estimated 60%. SELECTIVE CORONARY ANGIOGRAPHY: 1. Left main is with no significant angiographic disease. 2. Left anterior descending has multiple previously placed stents. There is 75% in-stent restenosis in the mid vessel. 3. The left circumflex has moderate irregularities, but no flow-limiting stenosis. 4. The right coronary artery has previously placed stent that is widely patent with no significant restenosis. No disease elsewise throughout the RCA or its branches. 5. There is a vein graft to the circumflex first obtuse marginal. This is widely patent. Multiple previously placed stents show no significant restenosis. PTCA STENT OF THE LAD: The stent used was a 3.5 x 12 mm Gregg. Result was 0% residual stenosis. OVERALL IMPRESSION: Successful percutaneous transluminal coronary angioplasty stent of the left anterior descending going from 75% initial stenosis that was in-stent restenosis to 0% residual stenosis. TRANSINT:[id number] Voice Confirmation ID: [id number] DOCUMENT ID: [id number] OPERATIVE REPORT [id number] MIN LEWIS FOX GUPTA MD at 1951 CC: [id number] DICTATION DATE: 10/11/17 1150 [facility] COORDINATOR: 10/11/17 1206 DIS IN 10/11/17 [place] [address]
--- NOTE | ~2017-10-10 | HEMODYNAMI ---
PATIENT:MIN LEWIS MEDICAL RECORD: [id number] : 53 [id number] ADMISSION DATE: 10/10/17 Generatedon:10/11/201711:51 Patient name: MIN LEWIS Patient #: [id number] SSN: [id number] : 1955 Date of study: 10/11/2017 Page: Of Hemodynamic Procedure Report Patient Data Patient Demographics Procedure consent was obtained First Name: MIN Gender: Male Last Name: DEBBIE : 1955 [facility] Initial: Owen Age: 62 year(s) Patient #: [id number] Race: SSN: [id number] Additional ID: [id number] Contact details [address]: [address] [place] [address] State: [place] City: [place] Zip code: [address] Past Medical History Allergies Allergen Reaction Date Comments Reported Sulfa drugs 05/26/2014 Penicillins 05/26/2014 Other allergy 03/28/2015 nitroglycerin paste, erthromycin base, Darvocet Sulfa drugs 11/21/2015 Penicillins 11/21/2015 Erythromycin 11/21/2015 Other allergy 11/21/2015 Darvocet Other allergy 10/19/2016 Sulfa, Nitrobid, Penicillin, DCN, Isosorbide, Erythromycin Other allergy 04/26/2017 PCN, Sulfa Other allergy 07/20/2017 IMDUR, PCN, SULFA Admission Admission Data Admission Date: 10/10/2017 Admission Time: 20:51 Room #: D.2120 Height (in.): 72.83 BSA: 2.32 (m2) Height (cm.): 185 BMI: 31.85 (kg/m2) Weight (lbs.): 240.31 Weight (kg.): 109 Lab Results Lab Result Date: 10/11/2017 Lab Result Time: 0:00 Biochemistry Name Units Result Min Max BUN mg/dl 20 --(----)*- 7 18 Creatinine mg/dl 1.3 --(---*)-- 0.6 1.3 CBC Name Units Result Min Max Hemoglobin g/dl 11.9 *-(----)-- 13.5 17.5 Procedure Procedure Types Cath Procedure Diagnostic Procedure LHC LH w/Coronaries w/Grafts Sedation Charges Moderate Sedation up to 15 minutes PCI Procedure Coronary Stent Coronary Stent Initial Procedure Description Procedure Date Procedure Date: 10/11/2017 Procedure Start Time: 11:35 Procedure End Time: 11:49 Procedure Staff Name Function Carmen Lange RT Monitor Helio Da Silva RN Nurse Elizabeth Reynolds RT Scrub Lv Bradshaw MD Performing Physician Procedure Data Cath Procedure Fluoroscopy Diagnostic fluoroscopy Total fluoroscopy Time: 2.4 time: 2.4 min min Diagnostic fluoroscopy Total fluoroscopy dose: dose: 1076 mGy 1076 mGy Contrast Material Contrast Material Type Amount (ml) Isovue 300 76 Entry Location Entry Primary Successful Side Size Upsize Upsize Entry Closure Succes sful Closure Location (Fr) 1 (Fr) 2 (Fr) Remarks Device Remarks Femoral Right 6 Fr Exoseal artery Short Estimated blood loss: 10 ml Diagnostic catheters Device Type Used For End Catheter Placement MULTIPACK Pigtail 5 Fr Procedure catheter MULTIPACK JL 4.0 5Fr Procedure catheter MULTIPACK 3DRC 5Fr Procedure catheter MULTIPACK 3DRC 5Fr SVG Angiography catheter Procedure Complications No complications Procedure Medications Medication Administration Route Dosage Oxygen etCO2 Nasal cannula 2 l/min Lidocaine 2% added to field 20 Heparin Flush Bag added to field 2 bags (1000units/500ml NS) 0.9% NaCl I.V. 100 ml/hr Versed I.V. 1 mg Fentanyl I.V. 50 mcg Versed I.V. 1 mg Fentanyl I.V. 50 mcg Heparin Bolus I.V. 4000 units Hemodynamics Rest BSA: 2.32 (m2) HGB: 11.9 (g/dl) O2 Consumption: Estimated: 268.57 (ml/min) O2 Co nsumption indexed: Estimated:115.76 (ml/min/m) Heart Rate: 67 (bpm) Snapshots Pre Cath Intra NCS Post Cath Vital Signs Time Heart Resp SPO2 etCO2 NIBP (mmHg) Rhythm Pain Sedation Rate (ipm) (%) (mmHg) Status Level (bpm) 11:19:45 67 13 94 0 137/84(112) NSR 0 (11) 10(A) , No pain 11:24:44 65 13 96 50.5 134/86(114) NSR 0 (11) 10(A) , No pain 11:29:41 73 19 92 26.3 136/88(113) NSR 0 (11) 10(A) , No pain 11:34:38 75 15 94 49.7 129/90(106) NSR 0 (11) 9(A) , No pain 11:39:31 75 15 96 55.7 133/83(112) NSR 0 (11) 9(A) , No pain 11:44:28 82 18 94 56.5 141/80(126) NSR 0 (11) 9(A) , No pain 11:49:27 79 17 94 56.5 137/91(120) NSR 0 (11) 10(A) , No pain Medications Time Medication Route Dose Verified Delivered Reason Notes Effectiveness by by 11:21:37 Oxygen etCO2 2 Lv Cadet used for Nasal l/min Augustine Da Silva RN procedure cannula 11:21:45 Lidocaine 2% added 20ml Lv Lv for local to vial Augustine Bradshaw MD anesthetic field 11:21:51 Heparin Flush added 2 Lv Lv used for Bag to bags Augustine Bradshaw MD procedure (1000units/500ml field NS) 11:21:59 0.9% NaCl I.V. 100 Lv Buffie Per physician ml/hr Augustine Da Silva RN 11:29:45 Versed I.V. 1 mg Lv Parkerie for sedation Augustine Da Silva RN 11:29:50 Fentanyl I.V. 50 Lv Buffie for sedation mcg Augustine Da Silva RN 11:35:52 Versed I.V. 1 mg Lv Buffie for sedation Augustine Da Silva RN 11:35:56 Fentanyl I.V. 50 Lv Parkerie for sedation mcg Augustine Da Silva RN 11:41:39 Heparin Bolus I.V. 4000 Lv Parkerie for verif ied units Augustine Da Silva RN anticoagulation with dr bradshaw Procedure Log Time Note 10:55:32 Patient Height : 72.83 inches 10:55:35 Patient Weight : 240.31 lbs 10:56:11 Lab Result : BUN 20 mg/dl 10:56:11 Lab Result : Hemoglobin 11.9 g/dl 10:56:11 Lab Result : Creatinine 1.3 mg/dl 10:57:10 Diagnostic Cath status Elective 11:00:56 Helio Da Silva RN sent for patient. Start room use. 11:00:58 Time tracking: Call back (After hours or weekends) 11:01:04 Plan of Care:Hemodynamics will remain stable., Cardiac rhythm will remain stable., Comfort level will be maintained., Respiratory function will remain adequate., Patient/ family verbilizes understanding of procedure., Procedure tolerated without complication., Recovers from procedure without complications.. 11:18:05 Patient received from Med II to CCL 1 Alert and oriented. Tansferred to table in Supine position. 11:18:09 Warm blankets applied, and luisa hugger turned on for patient comfort. 11:18:10 Correct patient and procedure confirmed by team. 11:18:12 Signed procedure consent form obtained from patient. 11:18:14 ECG and BP/O2 sat monitors applied to patient. 11:18:15 Vital chart was started 11:18:19 Baseline sample Acquired. 11:18:24 Rhythm: sinus rhythm 11:18:26 Full Disclosure recording started 11:18:34 H&P Date Dictated: 10/10/2017 Within 30 days and on chart.. 11:18:38 Pre-procedure instructions explained to patient. 11:18:40 Family in waiting room. 11:18:42 Patient NPO since Midnight. 11:18:51 Is the patient allergic to Iodine/contrast media? No. 11:18:52 Was the patient premedicated? Yes 11:18:54 Is patient on blood thinner?Yes 11:18:57 ACC The patient was administered the following blood thiners within the last 24 hours: ACCEffient 11:19:00 Patient diabetic? Yes. 11:19:01 If diabetic: On Metformin? Yes 11:19:05 If on Metformin: Last Dose? 10/10/2017 11:19:11 Previous problem with sedation/anesthesia? No ? 11:19:13 Snore? Yes 11:19:14 Sleep apnea? No 11:19:19 Dentures? No ? 11:19:24 Patient pain scale 0/10 ?. 11:19:38 IV patent on arrival in left hand, right antecubital with 0.9% NaCl at O. 11:19:50 Right groin area was prepped with chlora-prep and draped in sterile fashion 11::52 Alarms reviewed by R. N. 11::53 Sharps counted by scrub and verified by R.N. 11:21:37 Oxygen 2 l/min etCO2 Nasal cannula was administered by Helio Da Silva RN; used for procedure; 11::45 Lidocaine 2% 20ml vial added to field was administered by Lv Bradshaw MD; for local anesthetic; 11::51 Heparin Flush Bag (1000units/500ml NS) 2 bags added to field was administered by Lv Bradshaw MD; used for procedure; 11::59 0.9% NaCl 100 ml/hr I.V. was administered by Helio Da Silva RN; Per physician; 11::27 Physician responded to page. 11::28 Physician arrived 11::30 --------ALL STOP TIME OUT------ ::30 Final Timeout: patient, procedure, and site verified with staff and physician. All members of the team are in agreement. 11:28:35 Right groin site verified by team. 11::41 Physical assessment completed. ASA score P 2 - A patient with mild systemic disease as per Lv Bradshaw MD. 11:28:46 Sedation plan: IV Moderate Sedation Medication:Versed, Fentanyl 11:28:51 Use device set Femoral Dx 11:28:53 ACIST Syringe (63683) opened to sterile field. 11:28:53 Bag Decanter () opened to sterile field. 11:28:54 Medline Cath Pack ([id number]) opened to sterile field. 11:28:54 DIAGNOSTIC WIRE .035 260cm J wire (243085) opened to sterile field. 11:28:56 ACIST Hand Control (11683) opened to sterile field. 11:28:56 ACIST Manifold (02015) opened to sterile field. 11:29:00 DIAGNOSTIC Multipack 5Fr catheter set ([id number]) opened to sterile field. 11:29:01 Tegaderm 4 x 4 (1626W) opened to sterile field. 11:29:02 PERCUTANEOUS ENTRY 19GA needle opened to sterile field. 11:29:45 Versed 1 mg I.V. was administered by Buffie Da Silva RN; for sedation; 11:29:50 Fentanyl 50 mcg I.V. was administered by Helio Da Silva RN; for sedation; 11:29:50 SHEATH Prelude 6Fr 0.035 (JLB-3A-27-035) opened to sterile field. 11:33:09 Zero performed for pressure channel P1 11:34:13 Procedure started. 11:35:34 Local anesthetic to right femoral artery with Lidocaine 2% by Lv Bradshaw MD.INITIAL ACCESS ONLY 11:35:46 A 6 Fr Short sheath was inserted into the Right Femoral artery 11:35:52 Versed 1 mg I.V. was administered by Helio Da Silva RN; for sedation; 11:35:56 Fentanyl 50 mcg I.V. was administered by Helio Da Silva RN; for sedation; 11:36:47 A MULTIPACK Pigtail 5 Fr catheter was advanced over the wire and used for Procedure. 11:37:30 LV gram done using FRAUSTO 11:37:46 Catheter removed. 11:37:53 EF : 55 % 11:38:03 A MULTIPACK JL 4.0 5Fr catheter was advanced over the wire and used for Procedure. 11:38:10 LCA angiography performed. 11:40:00 A MULTIPACK 3DRC 5Fr catheter was advanced over the wire and used for Procedure. 11:40:12 RCA angiography performed. 11:41:30 Catheter removed. 11:41:39 Heparin Bolus 4000 units I.V. was administered by Helio Da Silva RN; for anticoagulation; verified with dr bradshaw 11:41:40 GUIDE 6FR XBLAD 4.0 catheter ([id number]) opened to sterile field. 11:41:48 Proceeding to intervention. 11:42:02 INFLATOR Merit BasixCompak (JT0854) opened to sterile field. 11:42:04 CHOICE PT Extra Support 182cm wire ([id number]) opened to sterile field. 11:42:25 6 Fr xblad4 guide catheter was inserted over the wire 11:42:33 choice pt ex wire advanced. 11:42:36 Wire advanced across lesion. 11:43:44 Place stent Inflation Number: 1 A PEPPER RX 3.5 x 12 stent ([id number]) was prepped and advanced across the Mid LAD. The stent was deployed at 21 MONICA for 0:07 (min:sec). 11:45:27 Stent catheter was removed intact over wire. 11:45:28 Wire removed. 11:45:29 Guide catheter removed. 11:45:58 A MULTIPACK 3DRC 5Fr catheter was advanced over the wire and used for SVG Angiography. 11:46:22 SVG angiography performed. 11:46:26 Catheter removed. 11:46:37 Sheath removed intact; hemostasis achieved with Exoseal to the Right Femoral artery. 11:47:25 Procedure ended.(Physican Out) 11:47:36 Fluoroscopy time 02.40 minutes. 11:47:41 Fluoroscopy dose: 1076 mGy 11:47:41 Flurop Dose total: 1076 11:47:52 Contrast amount:Isovue 300 76ml. 11:47:54 Sharps counted by scrub and verified by R.N. 11:47:56 Insertion/operative site no bleeding no hematoma. 11:47:57 Post Procedure Pulses reassessed and unchanged 11:48:01 Post-procedure physical assessment completed. ASA score P 2 - A patient with mild systemic disease as per Carmen Lange RT(R). 11:48:05 Post procedure rhythm: unchanged. 11:48:10 Estimated blood loss: 10 ml 11:48:13 Post procedure instruction explained to patient.Patient verbalizes understanding. 11:48:36 Procedure type changed to Cath procedure, Diagnostic procedure, LHC, LHC w/Coronaries w/Grafts, Sedation Charges, Moderate Sedation up to 15 minutes, PCI procedure, Coronary Stent, Coronary Stent Initial 11:48:39 Procedure and supply charges have been captured, reviewed, submitted and are correct. 11:49:25 Procedure Complication : No complications 11:49:29 Vital chart was stopped 11:49:30 See physician's report for complete and final results. 11:49:33 Report given to [facility]. 11:49:37 Patient transfered to [facility] with Bed. 11:49:39 Procedure ended. 11:49:39 Full Disclosure recording stopped Intervention Summary Intervention Notes Time ActionType Lesion and Equipment Used Action# Pressure Duration Attributes 11:43:44 Place stent Mid LAD PEPPER RX 3.5 x 1 21 00:07 12 stent ([id number]) Device Usage Item Name Manufacture Quantity Catalog Number Hospital Part Current Minimal Lot# / Charge Number Stock Stock Serial# Code ACIST Syringe Acist 1 24457 089548 917738 [id number] 20 (80853) [employer] Bag Decanter Microtek 1 2001S 630073 14897 798350 5 (2001S) Medical Inc. Medline Cath Cardinal 1 [id number] 899934 [address] [facility] ([id number]) DIAGNOSTIC WIRE [facility] 1 458091 628601 299939 601897 30 .035 260cm J wire (302525) ACIST Hand Acist 1 35264 676052 895207 721848 5 Control (94294) [employer] Inc ACIST Manifold Acist 1 18841 765648 911267 139085 5 (13915) [employer] Inc DIAGNOSTIC Cardinal 1 [id number] 073859 48895 381962 30 Multipack 5Fr Health catheter set (NS5088) Tegaderm 4 x 4 3M 1 1626W 374679 868535 100104 5 (1626W) PERCUTANEOUS Cook Medical 1 [id number] 794618 333069 5 ENTRY 19GA needle SHEATH Prelude Merit 1 FAL-[id number] 196453 1494580 661368 5 6Fr 0.035 Medical (THA-0F-21-035) MULTIPACK Cardinal 1 553881 5 Pigtail 5 Fr Health catheter MULTIPACK JL Cardinal 1 955042 5 4.0 5Fr Health catheter MULTIPACK 3DRC Cardinal 1 281550 5 5Fr catheter Health GUIDE 6FR XBLAD Cardinal 1 [id number] 055665 964528 822233 3 4.0 catheter Health ([id number]) INFLATOR Merit Merit 1 OR4126 262619 157064 229459 [facility] (OQ[facility] CHOICE PT Extra Skippack 1 [id number] 887409 090225 410665 5 Support 182cm Scientific wire (2550372P5) PEPPER RX 3.5 x Medtronic 1 [id number] 306117 7082539 975301 5 [id number] 12 stent ([id number]) Signature Audit [place] Stage Time Signature Unsigned Intra-Procedure 10/11/2017 Carmen Lange 11:51:51 AM RT(R) Signatures Monitor : Carmen Lange Signature : RT Date : Time : [facility] [address] [place] [address]
[~2017-10-10 18:12] MED LIST changes: +PERCOCET 5-3251 TAB PO
[2017-10-10 18:40] LABS: BASOPHILS 0.4 % (0-2); EOSINOPHILS 4.3 % (0-7); HEMATOCRIT 35.8 % (42.0-54.0); HEMOGLOBIN 11.9 g/dL (13.5-17.5); IMMATURE GRANULOCYTES 0.3 % (0-5); LYMPHOCYTES 39.5 % (15-50); MCH 29.8 pg (26.0-34.0); MCHC 33.2 g/dL (31.0-37.0); MCV 89.5 fL (80.0-100.0); MEAN PLATELET VOLUME 9.1 fL (7.4-10.4); MONOCYTES 7.5 % (2-11); PLATELET COUNT 243 10x3/uL (130-400); RDW 13.8 % (11.5-14.5); WBC 7.6 10x3/uL (4.8-10.8)
[2017-10-10 18:50] LABS: ALBUMIN 3.7 g/dL (3.4-5.0); ALKALINE PHOSPHATASE 49 U/L (46-116); ALT (SGPT) 54 U/L (10-68); BILIRUBIN - TOTAL 0.22 mg/dL (0.2-1.3); CALC OSMOLALITY 276 mosm/kg (275-300); CALCIUM 8.8 mg/dL (8.5-10.1); CARBON DIOXIDE 24.4 mmol/L (21.0-32.0); CHLORIDE - SERUM 103 mmol/L (98-107); CREATININE - SERUM 1.3 mg/dL (0.6-1.3); GLUCOSE 141 mg/dL (74-106); POTASSIUM - SERUM 4.1 mmol/L (3.5-5.1); PROTEIN - SERUM 7.6 g/dL (6.4-8.2); SODIUM 136 mmol/L (136-145); UREA NITROGEN 20 mg/dL (7-18); eGFR NON AFRICAN AMERICAN 59 mL/min (90-120)
[2017-10-10 19:02] LABS: CKMB 1.2 U/L (0.0-3.6); CREATINE KINASE 191 UL (21-232); PRO BNP 91 pg/mL (0-125)
[2017-10-10 19:08] LABS: TROPONIN-I < 0.017 ng/mL (0.000-0.060)
[2017-10-10 19:39] VITALS: BP 138/76
[2017-10-10 21:29] VITALS: BP 129/71
[2017-10-10 23:29] VITALS: BP 124/74; Ht 185.4 cm; Wt 109.1 kg
[2017-10-11 04:30] VITALS: BP 126/75
[2017-10-11 07:42] VITALS: BP 132/76
[2017-10-11 11:28] VITALS: BP 138/64
[2017-10-11 15:40] VITALS: BP 132/75
== END 2017-10-11 16:10 | disposition home or self-care (01) ==
LOC: D.ER 18:12 → OBSVTIME 20:51 → D.M2 20:51
PROVIDERS: Emergency Medicine
DX: I25.119 Atherosclerotic heart disease of native coronary artery with unspecified angina pectoris (principal); Z95.1 Presence of aortocoronary bypass graft; Z95.5 Presence of coronary angioplasty implant and graft; I10 Essential (primary) hypertension; E78.5 Hyperlipidemia, unspecified

== ENCOUNTER 2017-10-22 13:36 | Emergency (ER) | payer MEDICARE ==
[~2017-10-22] VITALS: Ht 185.4 cm; Wt 108.9 kg
[2017-10-22 13:42] VITALS: Ht 185.4 cm; Wt 108.9 kg
[2017-10-22 14:15] LABS: BASOPHILS 0.7 % (0-2); EOSINOPHILS 4.7 % (0-7); HEMATOCRIT 35.6 % (42.0-54.0); HEMOGLOBIN 11.9 g/dL (13.5-17.5); IMMATURE GRANULOCYTES 0.3 % (0-5); LYMPHOCYTES 40.3 % (15-50); MCH 29.8 pg (26.0-34.0); MCHC 33.4 g/dL (31.0-37.0); MCV 89.2 fL (80.0-100.0); MEAN PLATELET VOLUME 9.3 fL (7.4-10.4); MONOCYTES 6.7 % (2-11); NEUTROPHILS 47.3 % (40-80); PLATELET COUNT 243 10x3/uL (130-400); RBC 3.99 10x6/uL (4.20-6.10); RDW 13.6 % (11.5-14.5); WBC 7.3 10x3/uL (4.8-10.8)
[2017-10-22 14:28] LABS: ALBUMIN 3.7 g/dL (3.4-5.0); ALKALINE PHOSPHATASE 48 U/L (46-116); ALT (SGPT) 49 U/L (10-68); APTT 28.6 SECONDS (22.8-39.4); BILIRUBIN - TOTAL 0.22 mg/dL (0.2-1.3); CALC OSMOLALITY 281 mosm/kg (275-300); CALCIUM 9.2 mg/dL (8.5-10.1); CARBON DIOXIDE 22.2 mmol/L (21.0-32.0); CHLORIDE - SERUM 102 mmol/L (98-107); CREATININE - SERUM 1.3 mg/dL (0.6-1.3); GLUCOSE 136 mg/dL (74-106); INR 0.93 (0.85-1.17); POTASSIUM - SERUM 4.3 mmol/L (3.5-5.1); PROTEIN - SERUM 7.8 g/dL (6.4-8.2); SODIUM 137 mmol/L (136-145); UREA NITROGEN 28 mg/dL (7-18); eGFR NON AFRICAN AMERICAN 59 mL/min (90-120)
[2017-10-22 14:39] LABS: CKMB 1.5 U/L (0.0-3.6)
[2017-10-22 14:41] LABS: TROPONIN-I < 0.017 ng/mL (0.000-0.060)
[2017-10-22 15:43] VITALS: BP 136/81
== END 2017-10-22 15:40 | disposition home or self-care (01) ==
LOC: D.ER 13:36
PROVIDERS: Family Medicine
DX: R07.9 Chest pain, unspecified (principal); Z86.73 Personal history of transient ischemic attack (TIA), and cerebral infarction without residual deficits; E11.9 Type 2 diabetes mellitus without complications; I10 Essential (primary) hypertension; I73.9 Peripheral vascular disease, unspecified; Z85.828 Personal history of other malignant neoplasm of skin; N42.9 Disorder of prostate, unspecified

== ENCOUNTER → 2018-01-07 08:44 | Outpatient (CLI) | payer MEDICARE ==
[2017-10-22 13:42] VITALS: BMI 31.7
== END | disposition home or self-care (01) ==
LOC: D.MRI 08:44
DX: N40.1 Benign prostatic hyperplasia with lower urinary tract symptoms (principal)

== ENCOUNTER 2018-01-20 16:04 | Observation (INO) | payer MEDICARE ==
[~2018-01-20] VITALS: Ht 185.4 cm; Wt 109.1 kg
--- NOTE | ~2018-01-20 | DS ---
PATIENT:ROHIT PELAYO :53 MEDICAL RECORD: [id number] DISCHARGE SUMMARY ADMISSION DATE: 01/20/18 DISCHARGE DATE: 01/21/18 DIAGNOSES: 1. Angina. 2. Coronary artery disease. 3. Percutaneous transluminal coronary angioplasty stent of the left circumflex on this admission. HOSPITAL COURSE: Rohit Pelayo presents with unstable anginal symptomatology, found to have significant disease of the left circumflex, underwent successful PTCA stent of the left circumflex, discharged home with no change in the medications as he is already on Effient and aspirin. He will follow up with [facility] in 1 month. TRANSINT:[id number] Voice Confirmation ID: [id number] DOCUMENT ID: [id number] FOX GUPTA MD CC: [id number] DICTATION DATE: 01/21/18844 MEDIA SERVICES DIRECTOR: 01/21/182111 DIS IN 01/21/18 [facility] [address] [place] [address]
--- NOTE | ~2018-01-20 | HEMODYNAMI ---
PATIENT:MIN LEWIS MEDICAL RECORD: [id number] : 53 LOCATION:[facility].2114 ADMISSION DATE: 01/20/18 Generatedon:01/21/20188:45 Patient name: MIN LEWIS Patient #: [id number] SSN: [id number] : 1955 Date of study: 01/21/2018 Page: Of Hemodynamic Procedure Report Patient Data Patient Demographics Procedure consent was obtained First Name: MIN Gender: Male Last Name: DEBBIE : 1955 [facility] Initial: Owen Age: 62 year(s) Patient #: [id number] Race: SSN: [id number] Additional ID: [id number] Contact details [address]: [address] [place] [address] State: [place] City: [place] Zip code: [address] Past Medical History Allergies Allergen Reaction Date Comments Reported Sulfa drugs 05/26/2014 Penicillins 05/26/2014 Other allergy 03/28/2015 nitroglycerin paste, erthromycin base, Darvocet Sulfa drugs 11/21/2015 Penicillins 11/21/2015 Erythromycin 11/21/2015 Other allergy 11/21/2015 Darvocet Other allergy 10/19/2016 Sulfa, Nitrobid, Penicillin, DCN, Isosorbide, Erythromycin Other allergy 04/26/2017 PCN, Sulfa Other allergy 07/20/2017 IMDUR, PCN, SULFA Admission Admission Data Admission Date: 01/20/2018 Admission Time: 16:04 Room #: D.2114 Procedure Procedure Types Cath Procedure Diagnostic Procedure LHC LHC w/Coronaries w/Grafts FFR/IVUS Intra-Coronary IVUS Initial Intra-Coronary IVUS Additional Sedation Charges Moderate Sedation up to 15 minutes PCI Procedure Coronary Stent Coronary Stent Initial Procedure Description Procedure Date Procedure Date: 01/21/2018 Procedure Start Time: 8:26 Procedure End Time: 8:41 Procedure Staff Name Function Lv Bradshaw MD Performing Physician Pablo Jha RN Nurse Elizabeth Reynolds RT Monitor Carmen Nazario RT Scrub Procedure Data Cath Procedure Fluoroscopy Diagnostic fluoroscopy Total fluoroscopy Time: 4 time: 4 min min Diagnostic fluoroscopy Total fluoroscopy dose: dose: 1415 mGy 1415 mGy Contrast Material Contrast Material Type Amount (ml) Isovue 300 95 Entry Location Entry Primary Successful Side Size Upsize Upsize Entry Closure Succes sful Closure Location (Fr) 1 (Fr) 2 (Fr) Remarks Device Remarks Femoral Right 5 Fr 6 Fr Exoseal artery Short Estimated blood loss: 5 ml Diagnostic catheters Device Type Used For End Catheter Placement MULTIPACK Pigtail 5 Fr LV Angiography catheter MULTIPACK JL 4.0 5Fr Left Coronary catheter Angiography DIAGNOSTIC AR2 MOD 5 Fr Multi-vessel catheter ([id number]) Angiography Procedure Complications No complications Procedure Medications Medication Administration Route Dosage 0.9% NaCl I.V. 100 ml/hr Oxygen etCO2 Nasal cannula 2 l/min Heparin Flush Bag added to field 2 bags (1000units/500ml NS) Lidocaine 2% added to field 20 Versed I.V. 2 mg Fentanyl I.V. 100 mcg Heparin Bolus I.V. 4000 units Hemodynamics Rest Heart Rate: 86 (bpm) Pressure Samples Time Site Value (mmHg) Purpose Heart Use Rate(bpm) 8:28 LV 112/65,77 Snapshot 94 Snapshots Pre Cath Intra NCS Post Cath Vital Signs Time Heart Resp SPO2 etCO2 NIBP (mmHg) Rhythm Pain Sedation Rate (ipm) (%) (mmHg) Status Level (bpm) 7:56:23 86 16 90 0 149/88(122) NSR 0 (11) 10(A) , No pain 8:00:35 90 14 73 46.2 156/104(121) NSR 0 (11) 10(A) , No pain 8:04:51 89 12 93 39.5 172/96(143) NSR 0 (11) 10(A) , No pain 8:09:11 89 12 93 35.8 158/91(130) NSR 0 (11) 10(A) , No pain 8:13:25 90 13 94 29.8 169/106(129) NSR 0 (11) 10(A) , No pain 8:17:43 90 13 95 38.7 155/100(131) NSR 0 (11) 10(A) , No pain 8:22:40 93 14 94 17.9 149/103(122) NSR 0 (11) 10(A) , No pain 8:26:54 97 13 92 24.6 170/118(139) NSR 0 (11) 9(A) , No pain 8:31:08 97 14 92 32.1 167/106(142) NSR 0 (11) 9(A) , No pain 8:35:27 98 14 94 17.1 160/102(127) NSR 0 (11) 9(A) , No pain 8:40:50 97 13 93 40.3 148/98(135) NSR 0 (11) 10(A) , No pain Medications Time Medication Route Dose Verified Delivered Reason Notes Effectiveness by by 7:58:52 0.9% NaCl I.V. 100 Pablo Pablo Per physician ml/hr Abhijeet Jha RN RN 7:59:02 Oxygen etCO2 2 Pablo Pablo Per physician Nasal l/min Abhijeet Jha cannula RN RN 7:59:13 Heparin Flush added 2 Pablo Pablo used for Bag to bags Abhijeet Jha procedure (1000units/500ml RN RN NS) 7:59:25 Lidocaine 2% added 20ml Pablo Pablo for local to vial Abhijeet Jha anesthetic RN RN 8:20:01 Versed I.V. 2 mg Pablo Pablo for sedation Abhijeet Jha RN RN 8:20:11 Fentanyl I.V. 100 Pablo Pablo for sedation mcg Abhijeet Jha RN RN 8:38:14 Heparin Bolus I.V. 4000 Pablo Pablo for units Abhijeet Jha anticoagulation RN welt wheeler Log Time Note 7:35:45 Pablo Jha RN sent for patient. Start room use. 7:48:46 Time tracking: Regular hours (M-F 7:00 - 5:00) 7:48:50 Plan of Care:Hemodynamics will remain stable., Cardiac rhythm will remain stable., Comfort level will be maintained., Respiratory function will remain adequate., Patient/ family verbilizes understanding of procedure., Procedure tolerated without complication., Recovers from procedure without complications.. 7:49:03 Patient received from Med II to [facility] 2 Alert and oriented. Tansferred to table in Supine position. 7:49:04 Warm blankets applied, and luisa hugger turned on for patient comfort. 7:49:04 Correct patient and procedure confirmed by team. 7:49:05 Signed procedure consent form obtained from patient. 7:55:19 ECG and BP/O2 sat monitors applied to patient. 7:55:21 Vital chart was started 7:56:41 Baseline sample Acquired. 7:56:46 Rhythm: sinus rhythm 7:56:47 Full Disclosure recording started 7:56:54 H&P Date Dictated: 01/21/2018 New H&P dictated by physician.. 7:56:56 Pre-procedure instructions explained to patient. 7:56:56 Pre-op teaching completed and patient verbalized understanding. 7:56:57 Family in waiting room. 7:56:59 Patient NPO since Midnight. 7:57:01 Is the patient allergic to Iodine/contrast media? No. 7:57:02 Was the patient premedicated? No 7:57:03 Is patient on blood thinner?Yes 7:57:06 ACC The patient was administered the following blood thiners within the last 24 hours: ACCEffient 7:57:08 Patient diabetic? Yes. 7:57:08 If diabetic: On Metformin? Yes 7:57:12 If on Metformin: Last Dose? 01/20/2018 7:57:18 Previous problem with sedation/anesthesia? No ? 7:57:22 Snore? Yes 7:57:22 Sleep apnea? Yes 7:57:24 Deviated septum? No 7:57:24 Opens mouth fully? Yes 7:57:25 Sticks out tongue? Yes 7:57:29 Airway obstruction? Yes copd 7:57:32 Dentures? No ? 7:57:39 Pre procedure: right dorsailis pedis pulse 2+ Normal; easily identifiable; not easily obliterated 7:57:42 Pre procedure: left dorsailis pedis pulse 2+ Normal; easily identifiable; not easily obliterated 7:57:44 Patient pain scale 0/10 ?. 7:57:48 IV patent on arrival in left forearm with 0.9% NaCl at O. 7:57:50 Lab results completed and on chart. 7:58:10 Right groin area was prepped with chlora-prep and draped in sterile fashion 7:58:11 Alarms reviewed by R. N. 7:58:12 Sharps counted by scrub and verified by R.N. 7:58:52 0.9% NaCl 100 ml/hr I.V. was administered by Pablo Jha RN; Per physician; 7:59:02 Oxygen 2 l/min etCO2 Nasal cannula was administered by Pablo Jha RN; Per physician; 7:59:13 Heparin Flush Bag (1000units/500ml NS) 2 bags added to field was administered by Pablo Jha RN; used for procedure; 7:59:25 Lidocaine 2% 20ml vial added to field was administered by Pablo Jha RN; for local anesthetic; 8:19:06 Physician arrived 8:19:07 --------ALL STOP TIME OUT------ 8:19:07 Final Timeout: patient, procedure, and site verified with staff and physician. All members of the team are in agreement. 8:19:09 Right groin site verified by team. 8:19:13 Physical assessment completed. ASA score P 2 - A patient with mild systemic disease as per Lv Bradshaw MD. 8:19:17 Sedation plan: IV Moderate Sedation Medication:Versed, Fentanyl 8:19:29 Zero performed for pressure channel P1 8:19:47 Use device set Femoral Dx 8:19:48 ACIST Syringe (58124) opened to sterile field. 8:19:49 Bag Decanter (2002S) opened to sterile field. 8:19:49 Medline Cath Pack ([id number]) opened to sterile field. 8:19:50 DIAGNOSTIC WIRE .035 260cm J wire (829072) opened to sterile field. 8:19:51 ACIST Hand Control (57446) opened to sterile field. 8:19:51 ACIST Manifold (49076) opened to sterile field. 8:19:52 DIAGNOSTIC Multipack 5Fr catheter set (DU0311) opened to sterile field. 8:19:52 Tegaderm 4 x 4 (1626W) opened to sterile field. 8:19:53 SHEATH 5FR Ridgeway (KSZ569) opened to sterile field. 8:20:01 Versed 2 mg I.V. was administered by Pablo Jha RN; for sedation; 8:20:11 Fentanyl 100 mcg I.V. was administered by Pablo Jha RN; for sedation; 8:26:15 Procedure started. 8:26:52 Local anesthetic to right femoral artery with Lidocaine 2% by Lv Bradshaw MD.INITIAL ACCESS ONLY 8:27:18 A 5 Fr sheath was inserted into the Right Femoral artery 8:28:06 A MULTIPACK Pigtail 5 Fr catheter was advanced over the wire and used for LV Angiography. 8:28:20 LV hemodynamics recorded. 8:28:21 LV gram done using FRAUSTO 8:28:23 Injector settings: Ml/sec: 5, Volume: 15, 8:28:33 EF : 55 % 8:28:37 Catheter removed. 8:28:43 A MULTIPACK JL 4.0 5Fr catheter was advanced over the wire and used for Left Coronary Angiography. 8:30:13 LCA angiography performed. 8:30:16 Injector settings: Ml/sec: 3, Volume: 6, 8:30:19 Catheter removed. 8:30:59 A DIAGNOSTIC AR2 MOD 5 Fr catheter ([id number]) was advanced over the wire and used for Multi-vessel Angiography. 8:31:35 RCA angiography performed. 8:31:38 Injector settings: Ml/sec: 3, Volume: 6, 8:32:08 SHEATH 6FR [place] (AGS413) opened to sterile field. 8:32:09 INFLATOR Merit BasixCompak (VY9014) opened to sterile field. 8:32:09 CHOICE PT Extra Support 182cm wire ([id number]) opened to sterile field. 8:32:10 Lingle Ugashik Eagleye IVUS Catheter (11140K) opened to sterile field. 8:32:20 SVG angiography performed. 8:32:57 GUIDE 6FR XBLAD 3.5 catheter ([id number]) opened to sterile field. 8:33:02 Catheter removed. 8:33:04 Proceeding to intervention. 8:33:11 Sheath upsized to a 6 Fr Short. 8:33:16 6 Fr xblad 3.5 guide catheter was inserted over the wire 8:33:21 choice pt wire advanced. 8:33:23 Wire advanced across lesion. 8:33:28 IVUS catheter advanced over wire. 8:35:44 IVUS pass to LAD lesion performed. 8:35:48 Wire redirected to lcx. 8:35:54 IVUS catheter advanced over wire. 8:37:12 IVUS pass to Circ lesion performed. 8:37:13 IVUS catheter removed over wire. 8:38:14 Heparin Bolus 4000 units I.V. was administered by Pablo Jah RN; for anticoagulation; 8:38:33 Place stent Inflation Number: 1 A PEPPER RX 3.0 x 12 stent ([id number]) was prepped and advanced across the Mid CX. The stent was deployed at 11 MONICA for 0:10 (min:sec). 8:38:56 Stent catheter was removed intact over wire. 8:38:56 Wire removed. 8:38:57 Guide catheter removed. 8:39:10 EXOSEAL 6Fr (EX600) opened to sterile field. 8:39:20 Sheath removed intact; hemostasis achieved with Exoseal to the Right Femoral artery. 8:39:22 Procedure ended.(Physican Out) 8:40:45 Fluoroscopy time 04.00 minutes. 8:40:49 Flurop Dose total: 1415 8:40:49 Fluoroscopy dose: 1415 mGy 8:40:53 Contrast amount:Isovue 300 95ml. 8:40:54 Sharps counted by scrub and verified by R.N. 8:40:56 Insertion/operative site no bleeding no hematoma. 8:40:58 Post-op/insertion site Right Femoral artery dressed using a 4 x 4 and Tegaderm. 8:41:01 Post right femoral artery:stable 8:41:02 Post Procedure Pulses reassessed and unchanged 8:41:04 Post procedure rhythm: unchanged. 8:41:07 Estimated blood loss: 5 ml 8:41:08 Post procedure instruction explained to patient.Patient verbalizes understanding. 8:41:09 Patient needs reinforcement of post procedure teaching. 8:41:35 Procedure type changed to Cath procedure, Diagnostic procedure, LHC, LHC w/Coronaries w/Grafts, FFR/IVUS, Intra-Coronary IVUS Initial, Intra-Coronary IVUS Additional, Sedation Charges, Moderate Sedation up to 15 minutes, PCI procedure, Coronary Stent, Coronary Stent Initial 8:41:35 Procedure and supply charges have been captured, reviewed, submitted and are correct. 8:41:42 Procedure Complication : No complications 8:41:45 Vital chart was stopped 8:41:46 See physician's report for complete and final results. 8:41:48 Report given to [facility]. 8:41:50 Patient transfered to [facility] with Stretcher. 8:41:52 Procedure ended. 8:41:52 Full Disclosure recording stopped 8:42:00 ACC-PCI Only Patient was given prescriptions, or instructed by Lv Bradshaw MD to start/continue the following medications upon discharge: Effient 8:42:02 End room use (Document Last) Intervention Summary Intervention Notes Time ActionType Lesion and Equipment Used Action# Pressure Duration Attributes 8:38:33 Place stent Mid CX PEPPER RX 3.0 x 1 11 00:10 12 stent ([id number]) Device Usage Item Name Manufacture Quantity Catalog Number Hospital Part Current M inimal Lot# / Charge Number Stock Stock Serial# Code ACIST Syringe Acist 1 80127 934826 373067 863506 2 0 (38077) Medical Systems Inc Bag Decanter Microtek 1 020750 42446 349119 5 () Medical Inc. Medline Cath Medline 1 [id number] 439344 06768 605859 5 Pack ([id number]) DIAGNOSTIC [place] 1 079537 179669 703683 629104 3 0 WIRE .035 260cm J wire (585513) ACIST Hand Acist 1 54456 809974 849417 098811 5 Control Medical (84642) Systems Inc ACIST Manifold Acist 1 84802 836182 901630 509799 5 (48927) Medical Systems Inc DIAGNOSTIC Cardinal 1 AD9939 475664 32240 514395 3 0 Multipack 5Fr Health catheter set (NT4182) Tegaderm 4 x 4 3M 1 1626W 883262 271155 327249 5 (1626W) SHEATH 5FR Terumo 1 JNQ245 001816 842443 155597 5 Ridgeway (TPW784) MULTIPACK Cardinal 1 784314 5 Pigtail 5 Fr Health catheter MULTIPACK JL Cardinal 1 000349 5 4.0 5Fr Health catheter DIAGNOSTIC AR2 Cardinal 1 [id number] 572308 526449 779868 2 0 MOD 5 Fr Health catheter (836465V) SHEATH 6FR Terumo 1 ZWB964 612517 137746 356934 4 0 [place]way (FGW140) INFLATOR Merit Merit 1 FJ3437 745332 284408 601407 1 5 GoldenSUN (EC7930) CHOICE PT [place] 1 [id number] 286757 606189 940209 5 Extra Support Scientific 182cm wire ([id number]) Lingle Lingle 1 06520N 147134 537105 894432 8 Ugashik Eagleye IVUS Catheter (26430X) GUIDE 6FR Cardinal 1 10070712 591110 516314 986986 1 0 XBLAD 3.5 Health catheter (84761476) PEPPER RX 3.0 x Medtronic 1 [id number] 524194 7840397 240277 5 [id number] 12 stent ([id number]) EXOSEAL 6Fr Cardinal 1 EX600 488039 482959 991490 1 0 (EX600) Health Signature Audit [place] Stage Time Signature Unsigned Intra-Procedure 01/21/2018 Elizabeth Reynolds 8:45:21 AM RT(R) Signatures Monitor : Elizabeth Reynolds RT Signature : Date : Time : [id number] [place] [address]
--- NOTE | ~2018-01-20 | OP ---
PATIENT NAME: MIN LEWIS MEDICAL RECORD: [id number] :53 LOCATION:[facility] ADMISSION DATE:01/20/18 SURGEON: FOX GUPTA MD DATE OF OPERATION: 01/21/2018 PROCEDURES: 1. PTCA stent left circumflex. 2. Intravascular ultrasound of left circumflex. 3. Intravascular ultrasound of the LAD. 4. Left heart catheterization. 5. Selective coronary angiography. 6. Vein graft angiography. 7. Left ventriculogram. INDICATION: Angina and coronary artery disease. PROCEDURE IN DETAIL: After informed consent was obtained and after detailed description of risks, benefits as well as alternative therapies, the patient elected to proceed with angiogram and angioplasty. The right femoral area was prepped and draped in normal sterile fashion. The right femoral artery was cannulated via modified Seldinger technique with placement of 6-Filipino sheath. All catheters exchanged through this sheath. FINDINGS: Left ventriculogram was performed in standard 30-degree FRAUSTO view, reveals good cardiac wall motion throughout all segments. Overall ejection fraction estimated at 60%. SELECTIVE CORONARY ANGIOGRAPHY: 1. Left main is with no significant angiographic disease. 2. Left anterior descending has multiple previously placed stents. These are widely patent confirmed by angiography and intravascular ultrasound. 3. The left circumflex has greater than 80% stenosis in the mid vessel confirmed by intravascular ultrasound. 4. The right coronary has mild irregularities, but no flow-limiting stenosis. Previously placed stent in the RCA has no significant restenosis. PTCA STENT OF THE LEFT CIRCUMFLEX: The stent used was a 3.0 x 12 mm Gregg. Result was 0% residual stenosis. OVERALL IMPRESSION: Successful PTCA stent of the left circumflex going from greater than 80% initial stenosis to 0% residual. TRANSINT:[id number] Voice Confirmation ID: [id number] DOCUMENT ID: [id number] FOX GUPTA MD CC: [id number] DICTATION DATE: 01/21/18 0844 CAMPAIGN ASSOCIATE: 01/21/18 0937 ADM IN [place] [place] [address]
[~2018-01-20 16:04] MED LIST changes: -ASPIRIN EC81 M1 PO; +LOW DOSE ASPIRI81 M1 PO; -PROZAC10 MG PO; +PROZAC20 MG PO
[2018-01-20 16:45] VITALS: BP 136/75; Ht 185.4 cm; Wt 109.1 kg
[2018-01-20 18:02] LABS: BASOPHILS 0.4 % (0-2); EOSINOPHILS 5.3 % (0-7); HEMATOCRIT 35.8 % (42.0-54.0); HEMOGLOBIN 11.7 g/dL (13.5-17.5); IMMATURE GRANULOCYTES 0.3 % (0-5); LYMPHOCYTES 40.7 % (15-50); MCH 29.2 pg (26.0-34.0); MCHC 32.7 g/dL (31.0-37.0); MCV 89.3 fL (80.0-100.0); MEAN PLATELET VOLUME 9.1 fL (7.4-10.4); MONOCYTES 7.8 % (2-11); NEUTROPHILS 45.5 % (40-80); PLATELET COUNT 260 10x3/uL (130-400); RBC 4.01 10x6/uL (4.20-6.10); RDW 13.5 % (11.5-14.5); WBC 7.8 10x3/uL (4.8-10.8)
[2018-01-20 18:06] LABS: CALCIUM 9.3 mg/dL (8.5-10.1); CARBON DIOXIDE 23.2 mmol/L (21.0-32.0); CREATININE - SERUM 1.1 mg/dL (0.6-1.3); POTASSIUM - SERUM 4.2 mmol/L (3.5-5.1)
[2018-01-20 20:00] VITALS: BP 108/70
[2018-01-21 04:00] VITALS: BP 110/68
[2018-01-21 08:34] LABS: BASOPHILS 0.4 % (0-2); EOSINOPHILS 6.3 % (0-7); HEMATOCRIT 37.1 % (42.0-54.0); IMMATURE GRANULOCYTES 0.1 % (0-5); LYMPHOCYTES 27.2 % (15-50); MCH 29.2 pg (26.0-34.0); MCHC 32.3 g/dL (31.0-37.0); MCV 90.3 fL (80.0-100.0); MEAN PLATELET VOLUME 9.1 fL (7.4-10.4); MONOCYTES 7.6 % (2-11); NEUTROPHILS 58.4 % (40-80); PLATELET COUNT 228 10x3/uL (130-400); RBC 4.11 10x6/uL (4.20-6.10); RDW 13.5 % (11.5-14.5); WBC 6.7 10x3/uL (4.8-10.8)
[2018-01-21 08:45] LABS: ANION GAP 18.3 mmol/L (8-16); CARBON DIOXIDE 23.4 mmol/L (21.0-32.0); CREATININE - SERUM 1.1 mg/dL (0.6-1.3); POTASSIUM - SERUM 4.7 mmol/L (3.5-5.1)
== END 2018-01-21 12:41 | disposition home or self-care (01) ==
LOC: OBSVTIME 16:04 → D.M2 16:04 → D.CLR 16:04 → D.M2 16:04 → D.CLR 01-21 08:47
PROVIDERS: Internal Medicine Interventional Cardiology
DX: I25.119 Atherosclerotic heart disease of native coronary artery with unspecified angina pectoris (principal)

== ENCOUNTER 2018-02-07 10:56 | Outpatient (CLI) | payer MEDICARE ==
[~2018-02-07] VITALS: Ht 185.4 cm; Wt 109.1 kg
--- NOTE | ~2018-02-07 | HEMODYNAMI ---
PATIENT:MIN ELWIS MEDICAL RECORD: [id number] : 53 [id number] ADMISSION DATE: 02/07/18 Generatedon:02/07/201812:38 Patient name: MIN LEWIS Patient #: [id number] SSN: [id number] : 1955 Date of study: 02/07/2018 Page: Of Hemodynamic Procedure Report Patient Data Patient Demographics Procedure consent was obtained First Name: MIN Gender: Male Last Name: DEBBIE : 1955 [facility] Initial: Owen Age: 62 year(s) Patient #: [id number] Race: SSN: [id number] Additional ID: [id number] Contact details [address]: [address] [place] [address] State: [place] City: [place] Zip code: [address] Past Medical History Allergies Allergen Reaction Date Comments Reported Sulfa drugs 05/26/2014 Penicillins 05/26/2014 Other allergy 03/28/2015 nitroglycerin paste, erthromycin base, Darvocet Sulfa drugs 11/21/2015 Penicillins 11/21/2015 Erythromycin 11/21/2015 Other allergy 11/21/2015 Darvocet Other allergy 10/19/2016 Sulfa, Nitrobid, Penicillin, DCN, Isosorbide, Erythromycin Other allergy 04/26/2017 PCN, Sulfa Other allergy 07/20/2017 IMDUR, PCN, SULFA Admission Admission Data Admission Date: 02/07/2018 Admission Time: 10:56 Admit Source: Emergency department Procedure Procedure Types Cath Procedure Diagnostic Procedure LHC LHC w/Coronaries w/Grafts FFR/IVUS Intra-Coronary IVUS Initial Sedation Charges Moderate Sedation up to 15 minutes PCI Procedure Coronary Stent Coronary Stent Initial Procedure Description Procedure Date Procedure Date: 02/07/2018 Procedure Start Time: 12:14 Procedure End Time: 12:34 Procedure Staff Name Function Lv Bradshaw MD Performing Physician Alber Mccoy RT Scrub Helio Da Silva RN Nurse Elizabeth Reynolds RT Monitor Procedure Data Cath Procedure Fluoroscopy Diagnostic fluoroscopy Total fluoroscopy Time: 5.6 time: 5.6 min min Diagnostic fluoroscopy Total fluoroscopy dose: 529 dose: 529 mGy mGy Contrast Material Contrast Material Type Amount (ml) Isovue 300 99 Entry Location Entry Primary Successful Side Size Upsize Upsize Entry Closure Acosta ccessful Closure Location (Fr) 1 (Fr) 2 (Fr) Remarks Device Remarks Radial Right 6 Fr Mechanical artery Short Compression Estimated blood loss: 5 ml Diagnostic catheters Device Type Used For End Catheter Placement DIAGNOSTIC [place] 110cm 5 Multi-vessel Fr catheter ([id number]) Angiography Procedure Complications No complications Procedure Medications Medication Administration Route Dosage Oxygen etCO2 Nasal cannula 2 l/min Lidocaine 2% added to field 20 Heparin Flush Bag added to field 2 bags (1000units/500ml NS) 0.9% NaCl I.V. 100 ml/hr Radial Cocktail I.A. 1 syringe (Verapomil 2mg/Nitro 400mcg/Heparin 1500units) Versed I.V. 2 mg Fentanyl I.V. 100 mcg Fentanyl I.V. 50 mcg Heparin Bolus I.V. 4000 units Hemodynamics Rest Heart Rate: 73 (bpm) Pressure Samples Time Site Value (mmHg) Purpose Heart Use Rate(bpm) 12:16 LV 147/100,94 Snapshot 80 Snapshots Pre Cath Intra NCS Post Cath Vital Signs Time Heart Resp SPO2 etCO2 NIBP (mmHg) Rhythm Pain Sedation Rate (ipm) (%) (mmHg) Status Level (bpm) 12:04:39 69 10 95 11.9 166/103(144) NSR 0 (11) 10(A) , No pain 12:09:12 74 12 96 28.2 178/99(143) NSR 0 (11) 10(A) , No pain 12:13:36 73 11 93 0 170/100(132) NSR 0 (11) 9(A) , No pain 12:17:50 79 10 94 37.9 135/85(114) NSR 0 (11) 9(A) , No pain 12:22:06 78 11 94 20.8 150/91(126) NSR 0 (11) 9(A) , No pain 12:26:28 77 11 93 23 154/94(127) NSR 0 (11) 9(A) , No pain 12:30:57 78 13 94 32.7 153/86(118) NSR 0 (11) 9(A) , No pain 12:34:58 76 12 93 32.7 146/86(118) NSR 0 (11) 10(A) , No pain Medications Time Medication Route Dose Verified Delivered Reason Not es Effectiveness by by 11:59:37 Oxygen etCO2 2 l/min Lv Cadet used for Nasal Augustine Da Silva RN procedure cannula 11:59:44 Lidocaine 2% added 20ml Lv Awan for local to vial Augustine Bradshaw MD anesthetic field 11:59:49 Heparin Flush added 2 bags Lv Awan used for Bag to Augustine Bradshaw MD procedure (1000units/500ml field NS) 11:59:59 0.9% NaCl I.V. 100 Lv Cadet Per physician ml/hr Augustine Da Silva RN 12:10:40 Versed I.V. 2 mg Lv Cadet for sedation Augustine Da Silva RN 12:10:46 Fentanyl I.V. 100 mcg Lv Cadet for sedation Augustine Da Silva RN 12:15:15 Radial Cocktail I.A. 1 Lv Awan for (Verapomil syringe Augustine Bradshaw MD vasodilation 2mg/Nitro 400mcg/Heparin 1500units) 12:16:32 Fentanyl I.V. 50 mcg Lv Cadet for sedation Augustine Da Silva RN 12:24:05 Heparin Bolus I.V. 4000 Lv Cadet for danilo ified units Augustine Da Silva RN anticoagulation with dr bradshaw Procedure Log Time Note 11:40:52 Informed consent obtained and on chart 11:41:04 Diagnostic Cath Status : Urgent 11:42:03 Admit Source: Emergency department 11:42:11 Alber Mccoy RT(R) (CV) sent for patient. Start room use. 11:42:16 Time tracking: Regular hours (M-F 7:00 - 5:00) 11:42:23 Plan of Care:Hemodynamics will remain stable., Cardiac rhythm will remain stable., Comfort level will be maintained., Respiratory function will remain adequate., Patient/ family verbilizes understanding of procedure., Procedure tolerated without complication., Recovers from procedure without complications.. 11:52:28 Patient received from ED to CCL 3 Alert and oriented. Tansferred to table in Supine position. 11:52:29 Warm blankets applied, and luisa hugger turned on for patient comfort. 11:52:30 Correct patient and procedure confirmed by team. 11:52:30 ECG and BP/O2 sat monitors applied to patient. 11:52:31 Full Disclosure recording started 11:52:46 H&P Date Dictated: 02/07/2018 ER History on chart.. 11:52:48 Pre-procedure instructions explained to patient. 11:52:48 Pre-op teaching completed and patient verbalized understanding. 11:52:50 Family in waiting room. 11:52:53 Patient NPO since Midnight. 11:53:43 Is the patient allergic to Iodine/contrast media? No. 11:53:45 Is patient on blood thinner?No 11:54:19 Patient diabetic? Yes. 11:54:20 If diabetic: On Metformin? Yes 11:54:24 If on Metformin: Last Dose? 02/07/2018 11:54:29 Previous problem with sedation/anesthesia? No ? 11:54:30 Snore? Yes 11:55:05 Sleep apnea? Yes 11:55:06 Deviated septum? No 11:55:07 Opens mouth fully? Yes 11:55:07 Sticks out tongue? Yes 11:55:12 Airway obstruction? Yes COPD 11:55:14 Dentures? No ? 11:55:17 Pre procedure: right dorsailis pedis pulse 2+ Normal; easily identifiable; not easily obliterated 11:55:19 Modified Tacho's test Ulnar < 7 seconds 11:55:21 Patient pain scale 0/10 ?. 11:55:28 IV patent on arrival in left antecubital with 0.9% NaCl at KVO. 11:55:30 Lab results completed and on chart. 11:55:34 Right Radial & Right Groin area was prepped with chlora-prep and draped in sterile fashion 11:55:35 Alarms reviewed by R. N. 11:55:35 Sharps counted by scrub and verified by R.N. 11:55:38 Use device set Radial Dx or PCI 11:55:39 ACIST Syringe (25000) opened to sterile field. 11:55:39 Medline Cath Pack ([id number]) opened to sterile field. 11:55:39 Bag Decanter (2002S) opened to sterile field. 11:55:40 DIAGNOSTIC WIRE .035 260cm J wire (607561) opened to sterile field. 11:55:40 ACIST Hand Control (33417) opened to sterile field. 11:55:41 ACIST Manifold (53475) opened to sterile field. 11:55:41 Tegaderm 4 x 4 (1626W) opened to sterile field. 11:55:42 MBrace Wrist Support ([id number]) opened to sterile field. 11:55:43 SHEATH 6FR Slender (92-1757) opened to sterile field. 11:59:37 Oxygen 2 l/min etCO2 Nasal cannula was administered by Helio Da Silva RN; used for procedure; 11:59:44 Lidocaine 2% 20ml vial added to field was administered by Lv Bradshaw MD; for local anesthetic; 11:59:49 Heparin Flush Bag (1000units/500ml NS) 2 bags added to field was administered by Lv Bradshaw MD; used for procedure; 11:59:59 0.9% NaCl 100 ml/hr I.V. was administered by Helio Da Silva RN; Per physician; 12:03:09 Vital chart was started 12::31 Physician arrived 12::31 --------ALL STOP TIME OUT------ 12:09:32 Final Timeout: patient, procedure, and site verified with staff and physician. All members of the team are in agreement. 12:09:34 Right Radial & Right Groin site verified by team. 12:09:38 Physical assessment completed. ASA score P 2 - A patient with mild systemic disease as per Lv Bradshaw MD. 12:09:42 Sedation plan: IV Moderate Sedation Medication:Versed, Fentanyl 12:10:23 Baseline sample Acquired. 12::27 Rhythm: sinus rhythm 12:10:40 Versed 2 mg I.V. was administered by Helio Da Silva RN; for sedation; 12:10:46 Fentanyl 100 mcg I.V. was administered by Helio Da Silva RN; for sedation; 12:14:18 Procedure started. 12:14:25 Local anesthetic to right radial artery with Lidocaine 2% by Lv Bradshaw MD.INITIAL ACCESS ONLY 12:14:49 A 6 Fr Short sheath was inserted into the Right Radial artery 12:15:10 A DIAGNOSTIC Skytop 110cm 5 Fr catheter ([id number]) was advanced over the wire and used for Multi-vessel Angiography. 12:15:15 Radial Cocktail (Verapomil 2mg/Nitro 400mcg/Heparin 1500units) 1 syringe I.A. was administered by Lv Bradshaw MD; for vasodilation; 12:16:32 Fentanyl 50 mcg I.V. was administered by Helio Da Silva RN; for sedation; 12:16:40 LV hemodynamics recorded. 12:16:41 LV gram done using FRAUSTO 12:16:44 Injector settings: Ml/sec: 5, Volume: 15, 12:16:50 EF : 60 % 12:17:28 SVG to Diag angiography performed. 12:18:08 RCA angiography performed. 12:18:11 Injector settings: Ml/sec: 3, Volume: 6, 12:18:40 Catheter removed. 12:19:08 GUIDE 6FR XBLAD 3.5 catheter ([id number]) opened to sterile field. 12:19:33 6 Fr XBLAD 3.5 guide catheter was inserted over the wire 12:20:03 LCA angiography performed. 12:20:06 Injector settings: Ml/sec: 3, Volume: 6, 12:22:08 INFLATOR Merit BasixCompak (AQ5964) opened to sterile field. 12:22:08 CHOICE PT Extra Support 182cm wire ([id number]) opened to sterile field. 12:22:09 Mcintire [place] IVUS Catheter (43673I) opened to sterile field. 12:22:48 CHOICE PT wire advanced. 12:23:56 IVUS catheter advanced over wire. 12:24:05 Heparin Bolus 4000 units I.V. was administered by Helio Da Silva RN; for anticoagulation; verified with dr bradshaw 12:24:50 IVUS pass to LAD lesion performed. 12:24:51 IVUS catheter removed over wire. 12:25:02 Wire redirected to LCX. 12:29:08 Inflate balloon Inflation number: 1 A EUPHORA 3.0 x 15 Balloon ([id number]) was prepped and advanced across the Prox CX, then inflated to 17 MONICA for 0:10 (min:sec). 12:29:32 Balloon removed over the wire. 12:30:56 Place stent Inflation Number: 1 A PEPPER RX 3.0 x 12 stent ([id number]) was prepped and advanced across the Mid CX. The stent was deployed at 15 MONICA for 0:10 (min:sec). 12:31:05 Stent catheter was removed intact over wire. 12:: Wire removed. 12:: Guide catheter removed. 12::59 Sheath removed intact; hemostasis achieved with Mechanical Compression to the Right Radial artery. 12:32:02 Procedure ended.(Physican Out) 12:33: Fluoroscopy time 05.60 minutes. 12:33:07 Flurop Dose total: 529 12:33: Fluoroscopy dose: 529 mGy 12:33:23 Contrast amount:Isovue 300 99ml. 12:33:31 TR BAND Large ([id number]) opened to sterile field. 12:33:37 TR band inflated with 12cc of air. 12:33:39 Insertion/operative site no bleeding no hematoma. 12:33:51 Post right radial artery:stable 12:33:52 Post Procedure Pulses reassessed and unchanged 12:33:56 Post procedure rhythm: unchanged. 12:33:59 Estimated blood loss: 5 ml 12:34: Post procedure instruction explained to patient.Patient verbalizes understanding. 12:34:02 Patient needs reinforcement of post procedure teaching. 12:34:19 Procedure type changed to Cath procedure, Diagnostic procedure, LHC, LHC w/Coronaries w/Grafts, FFR/IVUS, Intra-Coronary IVUS Initial, Sedation Charges, Moderate Sedation up to 15 minutes, PCI procedure, Coronary Stent, Coronary Stent Initial 12:34:20 Procedure and supply charges have been captured, reviewed, submitted and are correct. 12:34:25 Procedure Complication : No complications 12:: Vital chart was stopped 12:: See physician's report for complete and final results. 12:: Report given to Pre/Post Procedure Room. 12:34:34 Patient transfered to Pre/Post Procedure Room with Stretcher. 12:34:36 Procedure ended. 12:34:36 Full Disclosure recording stopped 12::43 ACC-PCI Only Patient was given prescriptions, or instructed by vL Bradshaw MD to start/continue the following medications upon discharge: Effient 12:34:45 End room use (Document Last) Intervention Summary Intervention Notes Time ActionType Lesion and Equipment Used Action# Pressure Duration Attributes 12:29:08 Inflate Prox CX EUPHORA 3.0 x 1 17 00:10 balloon 15 Balloon ([id number]) 12:30:56 Place stent Mid CX PEPPER RX 3.0 x 1 15 00:10 12 stent ([id number]) Device Usage Item Name Manufacture Quantity Catalog Number Hospital Part Current M inimal Lot# / Charge Number Stock Stock Serial# Code ACIST Syringe Acist 1 53847 489033 688209 [id number] 2 0 (94408) Medical Systems Inc Medline Cath Medline 1 [id number] 548702 29381 443897 5 Pack ([id number]) Bag Decanter Microtek 1 2001S 845910 05240 050175 5 (2001S) Medical Inc. DIAGNOSTIC [place] 1 489211 708091 324167 033172 3 0 WIRE .035 260cm J wire (921402) ACIST Hand Acist 1 96761 449803 744674 137146 5 Control Medical (22153) Systems Inc ACIST Manifold Acist 1 78521 925676 147161 027122 5 (25450) Medical Systems Inc Tegaderm 4 x 4 3M 1 1626W 510777 413549 732102 5 (1626W) MBrace Wrist Advanced 1 140-0250-00 217190 05609 189802 5 Support Vascular (109736084) Dynamics SHEATH 6FR Terumo 1 [id number] 150058 579459 685086 5 Slender (80-1060) DIAGNOSTIC Terumo 1 40-7513 079606 212818 882891 5 Skytop 110cm 5 Fr catheter (421656) GUIDE 6FR Cardinal 1 16148381 836943 524796 325497 1 0 XBLAD 3.5 Health catheter (05366758) INFLATOR Merit Merit 1 JE4098 040506 788713 322611 1 5 [employer] (ZK0480) CHOICE PT [place] 1 [id number] 286130 951959 493916 5 Extra Support Scientific 182cm wire ([id number]) Mcintire Mcintire 1 66605S 450636 887601 717429 8 [place] IVUS Catheter (07556D) EUPHORA 3.0 x Medtronic 1 [id number] 504865 062455 381494 5 [id number] 15 Balloon ([id number]) PEPPER RX 3.0 x Medtronic 1 [id number] 429676 2581361 692736 5 [id number] 12 stent ([id number]) TR BAND Large Terumo 1 [id number] 921908 436171 875011 4 0 ([id number]) Signature Audit [place] Stage Time Signature Unsigned Intra-Procedure 02/07/2018 Elizabeth Reynolds 12:38:50 PM RT(R) Signatures Monitor : Elizabeth Reynolds RT Signature : Date : Time : [id number] [place] [address]
--- NOTE | ~2018-02-07 | OP ---
PATIENT NAME: MIN LEWIS MEDICAL RECORD: [id number] :53 LOCATION:[facility] ADMISSION DATE: SURGEON: FOX GUPTA MD DATE OF OPERATION: 02/07/2018 PROCEDURES: 1. PTCA and stent, left circumflex. 2. Intravascular ultrasound. 3. Vein graft angiography. 4. Left ventriculogram. 5. Selective coronary angiography. 6. Left heart catheterization. INDICATION: Angina and coronary artery disease. PROCEDURE IN DETAIL: After informed consent was obtained with detailed description of risks and benefits as well as alternative therapies, the patient elected to proceed with angiogram and angioplasty. The right radial area was prepped and draped in normal sterile fashion. Right radial artery was cannulated via modified Seldinger technique with placement of 6-Estonian sheath. All catheters were exchanged through this sheath. FINDINGS: Left ventriculogram performed in standard 30-degree FRAUSTO view reveals good cardiac wall motion throughout all segments. Overall ejection fraction is estimated at 60%. SELECTIVE CORONARY ANGIOGRAPHY: 1. Left main has no significant angiographic disease. 2. Left anterior descending has previously placed stents that are widely patent, confirmed by intravascular ultrasound. 3. Left circumflex has a new 75% stenosis that appears to be an ulcerative plaque in the mid vessel. This is new from previous angiography. 4. Vein graft to the circumflex obtuse marginal is widely patent. 5. Right coronary is widely patent. PTCA AND STENT OF THE AV GROOVE CIRCUMFLEX: The stent used was 3.0 x 12-mm Bolton. Result was 0% residual stenosis. OVERALL IMPRESSION: Successful PTCA and stent of the left circumflex, going from 75% hazy stenosis to 0% residual. TRANSINT:[id number] Voice Confirmation ID: [id number] DOCUMENT ID: [id number] FOX GUPTA MD CC: [id number] DICTATION DATE: 02/07/18 1234 SOFTWARE QA SYSTEM SPECIALIST: 02/07/18 1639 [facility] CLI 02/07/18 [place] [address]
[2018-02-07 10:59] VITALS: Ht 185.4 cm; Wt 109.1 kg
[2018-02-07 11:22] LABS: BASOPHILS 0.6 % (0-2); EOSINOPHILS 7.6 % (0-7); HEMOGLOBIN 11.2 g/dL (13.5-17.5); IMMATURE GRANULOCYTES 0.1 % (0-5); LYMPHOCYTES 38.3 % (15-50); MCH 28.6 pg (26.0-34.0); MCV 89.3 fL (80.0-100.0); MEAN PLATELET VOLUME 9.1 fL (7.4-10.4); MONOCYTES 8.5 % (2-11); NEUTROPHILS 44.9 % (40-80); PLATELET COUNT 237 10x3/uL (130-400); RBC 3.92 10x6/uL (4.20-6.10); RDW 13.6 % (11.5-14.5); WBC 6.7 10x3/uL (4.8-10.8)
[2018-02-07 11:30] LABS: APTT 28.5 SECONDS (22.8-39.4); PROTIME 12.7 SECONDS (11.6-15.0)
[2018-02-07 11:33] LABS: ALBUMIN 3.6 g/dL (3.4-5.0); ALKALINE PHOSPHATASE 45 U/L (46-116); ALT (SGPT) 69 U/L (10-68); BILIRUBIN - TOTAL 0.31 mg/dL (0.2-1.3); CALC OSMOLALITY 282 mosm/kg (275-300); CALCIUM 9.1 mg/dL (8.5-10.1); CARBON DIOXIDE 25.7 mmol/L (21.0-32.0); CHLORIDE - SERUM 103 mmol/L (98-107); CREATININE - SERUM 1.2 mg/dL (0.6-1.3); GLUCOSE 162 mg/dL (74-106); POTASSIUM - SERUM 4.3 mmol/L (3.5-5.1); PROTEIN - SERUM 7.7 g/dL (6.4-8.2); SODIUM 139 mmol/L (136-145); UREA NITROGEN 16 mg/dL (7-18); eGFR NON AFRICAN AMERICAN 65 mL/min (90-120)
[2018-02-07 11:45] LABS: CKMB 1.2 U/L (0.0-3.6); CREATINE KINASE 159 UL (21-232); MAGNESIUM - SERUM 1.5 mg/dL (1.8-2.4); TROPONIN-I < 0.017 ng/mL (0.000-0.060)
[2018-02-07 11:50] VITALS: BP 201/100
--- NOTE | 2018-02-07 14:36 | CN ---
PATIENT NAME:MIN PELAYO MEDICAL RECORD: [id number] : 53 [facility]ATION:[facility] ADMIT DATE: ACCOUNT: [id number] CONSULTING PHYSICIAN: FOX GUPTA MD REFERRING PHYSICIAN: JEN MONTERO MD DATE OF CONSULTATION: 02/07/2018 DIAGNOSES: 1. Unstable angina. 2. Coronary artery disease. 3. Previous coronary bypass graft surgery. 4. Previous multivessel PTCA and stent. 5. Hypertension. 6. Hyperlipidemia. HISTORY OF PRESENT ILLNESS: Mr. Pelayo had acute onset of chest discomfort at 5:30 this morning. He has taken multiple sublingual nitro at home. He continues to have the pain in an escalating fashion. PHYSICAL EXAMINATION: GENERAL APPEARANCE: Well-nourished, well-developed, appears stated age. Level of distress, comfortable. PSYCHIATRIC: Mental status, alert, normal affect. Orientation, oriented to time, place and person. EYES: Lids and conjunctiva, noninjected. No discharge, no pallor. ENT: Lips, teeth, gums, normal dentition. Oropharynx, no cyanosis, no pallor. NECK: Carotid arteries, bilateral normal upstroke, no bruits, no thrills. JUGULAR VEINS: No jugular venous pressure or distention. CERVICAL LYMPH NODES: Nontender, nonenlarged. THYROID: Not enlarged. Nontender. No nodules. LUNGS: Respiratory effort, unlabored. CHEST: Normal curvature. No thoracic deformity. No chest wall tenderness. Percussion, resonant. Auscultation, clear. No wheezes, no rales, no rhonchi. CARDIOVASCULAR: Precordial exam, nondisplaced. No heaves or pericardial thrills. Rate and rhythm, regular. Heart sounds, normal S1, normal S2. No S3, no gallop, no rub. Systolic murmur, not heard. Diastolic murmur, not heard. EXTREMITIES: No cyanosis, no edema. Peripheral pulses, full and equal in all extremities, except as noted. No bruits appreciated. ABDOMEN: Soft, nondistended. Normal aorta. No bruit. Nontender. No masses. Liver, nontender, no hepatomegaly. Spleen, nontender, no splenomegaly. MUSCULOSKELETAL: No joint tenderness. No joint swelling. No erythema. NEUROLOGICAL: Normal gait, normal strength, normal tone. SKIN: Warm and dry. OVERALL IMPRESSION: Unstable angina. We will proceed with coronary angiography. Further care depends upon findings of the angiography. TRANSINT:[id number] Voice Confirmation ID: [id number] DOCUMENT ID: [id number] CONSULT REPORT [id number] MIN PELAYO JEFFREY MD at 1436 CC: [id number] DICTATION DATE: 02/07/18 1108 MANAGER OF REVENUE: 02/07/18 1253 [place] [id number]
== END 2018-02-07 14:35 | disposition home or self-care (01) ==
LOC: D.CLR 10:56 → D.ER 10:56 → D.CLR 12:58 → D.ER 12:58 → D.CLR 14:35 → EDSTATUS 16:35
PROVIDERS: Emergency Medicine
DX: R07.9 Chest pain, unspecified (principal)

== ENCOUNTER 2018-02-12 15:24 | Observation (INO) | payer MEDICARE ==
[~2018-02-12] VITALS: Ht 185.4 cm; Wt 112.0 kg
--- NOTE | ~2018-02-12 | HEMODYNAMI ---
PATIENT:MIN LEWIS MEDICAL RECORD: [id number] : 53 [id number] ADMISSION DATE: 02/12/18 Generatedon:02/14/201816:03 Patient name: MIN LEWIS Patient #: [id number] SSN: [id number] : 1955 Date of study: 02/14/2018 Page: Of Hemodynamic Procedure Report Patient Data Patient Demographics Procedure consent was obtained First Name: MIN Gender: Male Last Name: DEBBIE : 1955 Middle Initial: Owen Age: 62 year(s) Patient #: [id number] Race: SSN: [id number] Additional ID: [id number] Contact details [address]: [address] [place] [address] State: [place] City: [place] Zip code: [address] Past Medical History Allergies Allergen Reaction Date Comments Reported Sulfa drugs 05/26/2014 Penicillins 05/26/2014 Other allergy 03/28/2015 nitroglycerin paste, erthromycin base, Darvocet Sulfa drugs 11/21/2015 Penicillins 11/21/2015 Erythromycin 11/21/2015 Other allergy 11/21/2015 Darvocet Other allergy 10/19/2016 Sulfa, Nitrobid, Penicillin, DCN, Isosorbide, Erythromycin Other allergy 04/26/2017 PCN, Sulfa Other allergy 07/20/2017 IMDUR, PCN, SULFA Other allergy 02/14/2018 SULFA, NITRO-BID, PCN, VALIUM, IMDUR, DARVOCET-N 100, ERYTHROMYCINBASE Admission Admission Data Admission Date: 02/12/2018 Admission Time: 17:23 Room #: D.2119 Procedure Procedure Types Cath Procedure Diagnostic Procedure LHC LHC w/Coronaries w/Grafts Procedure Description Procedure Date Procedure Date: 02/14/2018 Procedure Start Time: 15:48 Procedure End Time: 16:01 Procedure Staff Name Function Cristopher Zuleta MD Performing Physician Madina Gutierrez RT Monitor Elizabeth Reynolds RT Scrub Helio Da Silva RN Nurse Dario Polo RN Field Marketing Lead Procedure Data Cath Procedure Fluoroscopy Diagnostic fluoroscopy Total fluoroscopy Time: 4.7 time: 4.7 min min Diagnostic fluoroscopy Total fluoroscopy dose: 984 dose: 984 mGy mGy Contrast Material Contrast Material Type Amount (ml) Isovue 300 97 Entry Location Entry Primary Successful Side Size Upsize Upsize Entry Closure Acosta ccessful Closure Location (Fr) 1 (Fr) 2 (Fr) Remarks Device Remarks Radial Right 6 Fr Mechanical artery Short Compression Estimated blood loss: 5 ml Diagnostic catheters Device Type Used For End Catheter Placement DIAGNOSTIC [place] 110cm 5 Procedure Fr catheter ([id number]) DIAGNOSTIC Pigtail 5Fr Procedure catheter ([id number]) Procedure Complications No complications Procedure Medications Medication Administration Route Dosage Oxygen etCO2 Nasal cannula 2 l/min Lidocaine 2% added to field 20 Heparin Flush Bag added to field 2 bags (1000units/500ml NS) 0.9% NaCl I.V. 100 ml/hr Radial Cocktail I.A. 1 syringe (Verapomil 2mg/Nitro 400mcg/Heparin 1500units) Versed I.V. 1 mg Fentanyl I.V. 50 mcg Fentanyl I.V. 50 mcg Hemodynamics Rest Heart Rate: 66 (bpm) Pressure Samples Time Site Value (mmHg) Purpose Heart Use Rate(bpm) 15:58 LV 97/13,16 Snapshot 73 15:58 AO 81/47(55) Pullback 75 15:58 LV 93/17,20 Pullback 75 Gradients Valve Time Site 1 Site 2 Mean SEP/DFP Peak To Heart Use (mmHg) (sec/min) Peak Rate (mmHg) (bpm) Aortic 15:58 LV AO 21 22 12 75 93/17,20 81/47(55) Calculations Valve P-P Mean Valve Index Valve Source Name Gradient Area Flow (cm2) Aortic 12 21 12 21 Snapshots Pre Cath Intra NCS Post Cath Vital Signs Time Heart Resp SPO2 etCO2 NIBP (mmHg) Rhythm Pain Sedation Rate (ipm) (%) (mmHg) Status Level (bpm) 15:33:30 63 10 96 35.1 133/83(95) NSR 0 (11) 10(A) , No pain 15:37:32 68 26 93 14.2 121/85(104) NSR 0 (11) 10(A) , No pain 15:41:42 68 26 93 31.4 122/77(102) NSR 0 (11) 10(A) , No pain 15:45:52 68 19 93 32.9 134/78(108) NSR 0 (11) 10(A) , No pain 15:50:06 73 18 94 30.6 129/72(112) NSR 0 (11) 9(A) , No pain 15:54:22 74 24 92 17.9 120/71(98) NSR 0 (11) 9(A) , No pain 15:58:34 75 17 94 37.4 110/73(85) NSR 0 (11) 9(A) , No pain 16:01:59 71 19 94 36.7 126/75(95) NSR 0 (11) 10(A) , No pain Medications Time Medication Route Dose Verified Delivered Reason Notes Effectiveness by by 15:33:31 Oxygen etCO2 2 l/min Cristopher Cadet used for Nasal St Zach Da Silva RN procedure cannula 15:33:38 Lidocaine 2% added 20ml Cristopher Nicholas for local to vial [facility] anesthetic field MD GREGORY 15:33:44 Heparin Flush added 2 bags Cristopher Nicholas used for Bag to [facility] procedure (1000units/500ml field MD GREGORY NS) 15:33:54 0.9% NaCl I.V. 100 Cristopher Cadet Per ml/hr St Zach Da Silva RN physician 15:34:00 Radial Cocktail I.A. 1 Cristopher Nicholas for (Verapomil syringe [facility] vasodilation 2mg/Nitro MD GREGORY 400mcg/Heparin 1500units) 15:48:35 Versed I.V. 1 mg Cristopher Cadet for sedation St Zach Da Silva RN, MD 15:48:41 Fentanyl I.V. 50 mcg Cristopher Cadet for sedation St Zach Da Silva RN, MD 15:54:04 Fentanyl I.V. 50 mcg Cristopher Cadet for sedation St Zach Da Silva RN, MD Procedure Log Time Note 15:14:25 Dario Polo RN sent for patient. Start room use. 15:14:26 Diagnostic Cath status Elective 15:14:27 Time tracking: Regular hours (M-F 7:00 - 5:00) 15:14:32 Plan of Care:Hemodynamics will remain stable., Cardiac rhythm will remain stable., Comfort level will be maintained., Respiratory function will remain adequate., Patient/ family verbilizes understanding of procedure., Procedure tolerated without complication., Recovers from procedure without complications.. 15:14:33 Signed procedure consent form obtained from patient. 15:23:47 Patient received from Med II to CCL 2 Alert and oriented. Tansferred to table in Supine position. 15:23:48 Warm blankets applied, and luisa hugger turned on for patient comfort. 15:23:49 Correct patient and procedure confirmed by team. 15:23:52 ECG and BP/O2 sat monitors applied to patient. 15:32:28 Vital chart was started 15:32:29 Baseline sample Acquired. 15:32:31 Rhythm: sinus rhythm 15:32:32 Full Disclosure recording started 15:32:33 Pre-procedure instructions explained to patient. 15:32:34 Pre-op teaching completed and patient verbalized understanding. 15:32:35 Family in patients room. 15:32:36 Patient NPO since Midnight. 15:32:44 Is patient on blood thinner?Yes 15:32:47 ACC The patient was administered the following blood thiners within the last 24 hours: ACCEffient 15:32:48 Patient diabetic? Yes. 15:32:49 If diabetic: On Metformin? Yes 15:32:50 If on Metformin: Last Dose? 02/14/2018 15:32:53 Previous problem with sedation/anesthesia? No ? 15:32:53 Snore? Yes 15:32:54 Sleep apnea? Yes 15:32:55 Deviated septum? No 15:32:56 Opens mouth fully? Yes 15:32:56 Sticks out tongue? Yes 15:32:59 Airway obstruction? Yes COPD 15:33:02 Dentures? No ? 15:33:03 Modified Tacho's test Ulnar < 7 seconds 15:33:06 Patient pain scale 0/10 ?. 15:33:16 IV patent on arrival in left forearm with 0.9% NaCl at [facility]. 15:33:19 Lab results completed and on chart. 15:33:21 Right Radial & Right Groin area was prepped with chlora-prep and draped in sterile fashion 15:33:22 Alarms reviewed by R. N. 15:33:22 Sharps counted by scrub and verified by R.N. 15:33:31 Oxygen 2 l/min etCO2 Nasal cannula was administered by Helio Da Silva RN; used for procedure; 15:33:38 Lidocaine 2% 20ml vial added to field was administered by Cristopher Zuleta MD; for local anesthetic; 15:33:44 Heparin Flush Bag (1000units/500ml NS) 2 bags added to field was administered by Cristopher Zuleta MD; used for procedure; 15:33:54 0.9% NaCl 100 ml/hr I.V. was administered by Helio Da Silva RN; Per physician; 15:34:00 Radial Cocktail (Verapomil 2mg/Nitro 400mcg/Heparin 1500units) 1 syringe I.A. was administered by Cristopher Zuleta MD; for vasodilation; 15:39:03 Patient allergic to Other allergySULFA, NITRO-BID, PCN, VALIUM, IMDUR, DARVOCET-N 100, ERYTHROMYCINBASE 15:43:15 Zero performed for pressure channel P1 15:47:07 --------ALL STOP TIME OUT------ 15:47:07 Final Timeout: patient, procedure, and site verified with staff and physician. All members of the team are in agreement. 15:47:09 Right Radial & Right Groin site verified by team. 15:47:12 Physical assessment completed. ASA score P 2 - A patient with mild systemic disease as per Cristopher Zuleta MD. 15:47:15 Sedation plan: IV Moderate Sedation Medication:Versed, Fentanyl 15:47:19 Procedure started. 15:47:28 Use device set Radial Dx or PCI 15:47:29 ACIST Syringe (69334) opened to sterile field. 15:47:30 Bag Decanter () opened to sterile field. 15:47:31 ACIST Hand Control (66829) opened to sterile field. 15:47:31 ACIST Manifold (38776) opened to sterile field. 15:47:32 Tegaderm 4 x 4 (1626W) opened to sterile field. 15:47:33 Medline Cath Pack ([id number]) opened to sterile field. 15:47:33 DIAGNOSTIC WIRE .035 260cm J wire (828459) opened to sterile field. 15:47:34 MBrace Wrist Support ([id number]) opened to sterile field. 15:47:35 SHEATH 6FR Slender (39-9666) opened to sterile field. 15:48:17 Local anesthetic to right radial artery with Lidocaine 2% by Cristopher Zuleta MD.INITIAL ACCESS ONLY 15:48:35 Versed 1 mg I.V. was administered by Helio Da Silva RN; for sedation; 15:48:41 Fentanyl 50 mcg I.V. was administered by Helio Da Silva RN; for sedation; 15:48:43 A 6 Fr Short sheath was inserted into the Right Radial artery 15:48:55 A DIAGNOSTIC [place] 110cm 5 Fr catheter ([id number]) was advanced over the wire and used for Procedure. 15:52:00 SVG to Diag angiography performed. 15:54:04 Fentanyl 50 mcg I.V. was administered by Helio Da Silva RN; for sedation; 15:54:09 RCA angiography performed. 15:54:55 LCA angiography performed. 15:55:44 Catheter exchanged over wire. 15:56:33 A DIAGNOSTIC Pigtail 5Fr catheter ([id number]) was advanced over the wire and used for Procedure. 15:57:06 LV gram done using FRAUSTO 15:57:41 Injector settings: Ml/sec: 10, Volume: 20, 15:58:13 LV hemodynamics recorded. 15:58:18 EF : 55 % 15:58:28 Catheter removed. 15:58:32 TR BAND Standard ([id number]) opened to sterile field. 15:59:03 Procedure ended.(Physican Out) 15:59:30 Sheath removed intact; hemostasis achieved with Mechanical Compression to the Right Radial artery. 15:59:46 Fluoroscopy time 04.70 minutes. 15:59:49 Flurop Dose total: 984 15:59:49 Fluoroscopy dose: 984 mGy 15:59:52 Contrast amount:Isovue 300 97ml. 15:59:54 Sharps counted by scrub and verified by R.N. 15:59:56 TR band inflated with 10cc of air. 16:00:00 Post-procedure physical assessment completed. ASA score P 2 - A patient with mild systemic disease as per Cristopher Zuleta MD. 16:00:22 Post procedure rhythm: sinus rhythm 16:00:24 Estimated blood loss: 5 ml 16:00:25 Post procedure instruction explained to patient.Patient verbalizes understanding. 16:00:25 Patient needs reinforcement of post procedure teaching. 16:01:19 Procedure and supply charges have been captured, reviewed, submitted and are correct. 16:01:25 Procedure Complication : No complications 16:01:27 Vital chart was stopped 16:01:28 See physician's report for complete and final results. 16:01:30 Report given to PCU. 16:01:33 Patient transfered to PCU with Bed. 16:01:36 Procedure ended. 16:01:36 Full Disclosure recording stopped 16:01:40 End room use (Document Last) Device Usage Item Name Manufacture Quantity Catalog Hospital Part Current Minimal Lot# / Number Charge Number Stock Stock Serial# Code ACIST Acist 1 67984 689192 211796 644514 20 Syringe Medical (19521) Systems Inc Bag Microtek 1 2001S 653285 29635 729789 5 Decanter Medical Inc. () ACIST Hand Acist 1 13307 972714 702045 726727 5 Control Medical (03310) Systems Inc ACIST Acist 1 09518 098621 326662 430112 5 Manifold Medical (86013) Systems Inc Tegaderm 4 3M 1 1626W 385088 486464 697890 5 x 4 (1626W) Medline Medline 1 [id number] 578826 47207 769002 5 Cath Pack ([id number]) DIAGNOSTIC St Michel 1 050959 096534 348967 491927 30 WIRE .035 260cm J wire (466482) MBrace Advanced 1 140-0250-00 891859 33096 767317 5 Wrist Vascular Support Dynamics (076920390) SHEATH 6FR Terumo 1 [id number] 693660 842381 539415 5 Slender (80-1060) DIAGNOSTIC Terumo 1 40-5013 247505 151186 900771 5 [place] 110cm 5 Fr catheter (810279) DIAGNOSTIC Cardinal 1 276724X 587615 759298 265377 5 Pigtail 5Fr Health catheter (132322A) TR BAND Terumo 1 [id number] 726285 038850 688172 40 Standard ([id number]) Signature Audit [place] Stage Time Signature Unsigned Intra-Procedure 02/14/2018 Madina Gutierrez 4:03:24 PM RT(R) Signatures Monitor : Madina Gutierrez Signature : RT Date : Time : [address] [place] [address]
[2018-02-12 15:47] LABS: BASOPHILS 0.3 % (0-2); EOSINOPHILS 4.4 % (0-7); HEMATOCRIT 36.7 % (42.0-54.0); HEMOGLOBIN 12.1 g/dL (13.5-17.5); IMMATURE GRANULOCYTES 0.3 % (0-5); LYMPHOCYTES 24.3 % (15-50); MCH 29.4 pg (26.0-34.0); MCV 89.1 fL (80.0-100.0); MEAN PLATELET VOLUME 8.9 fL (7.4-10.4); MONOCYTES 9.1 % (2-11); NEUTROPHILS 61.6 % (40-80); PLATELET COUNT 263 10x3/uL (130-400); RBC 4.12 10x6/uL (4.20-6.10); RDW 13.9 % (11.5-14.5); WBC 10.9 10x3/uL (4.8-10.8)
[2018-02-12 16:01] LABS: ALBUMIN 3.8 g/dL (3.4-5.0); ALKALINE PHOSPHATASE 61 U/L (46-116); ALT (SGPT) 86 U/L (10-68); BILIRUBIN - TOTAL 0.33 mg/dL (0.2-1.3); CALC OSMOLALITY 283 mosm/kg (275-300); CALCIUM 9.6 mg/dL (8.5-10.1); CHLORIDE - SERUM 103 mmol/L (98-107); CREATININE - SERUM 1.2 mg/dL (0.6-1.3); GLUCOSE 164 mg/dL (74-106); POTASSIUM - SERUM 4.4 mmol/L (3.5-5.1); SODIUM 139 mmol/L (136-145); UREA NITROGEN 19 mg/dL (7-18); eGFR NON AFRICAN AMERICAN 65 mL/min (90-120)
[2018-02-12 16:13] LABS: CKMB 0.5 U/L (0.0-3.6); CREATINE KINASE 134 UL (21-232)
[2018-02-12 16:16] LABS: TROPONIN-I < 0.017 ng/mL (0.000-0.060)
[2018-02-12 20:23] VITALS: BP 123/78
[2018-02-13] VITALS (7 sets, daily range): BP systolic 111–146; BP diastolic 50–84; BMI 31.7
[2018-02-13 22:55] LABS: APPEARANCE HAZY (CLEAR); BILIRUBIN NEGATIVE (NEGATIVE); COLOR YELLOW (YELLOW); GLUCOSE NEGATIVE (NEGATIVE); KETONE NEGATIVE (NEGATIVE); NITRITE NEGATIVE (NEGATIVE); PROTEIN NEGATIVE (NEGATIVE); SPECIFIC GRAVITY 1.015 (1.005-1.020); UROBILINOGEN NORMAL (NORMAL)
[2018-02-14] VITALS (7 sets, daily range): BP systolic 85–167; BP diastolic 41–83; Ht 185.4 cm; Wt 112.0 kg
[2018-02-14 11:29] LABS: BASOPHILS 0.5 % (0-2); EOSINOPHILS 7.5 % (0-7); HEMATOCRIT 39.9 % (42.0-54.0); HEMOGLOBIN 12.7 g/dL (13.5-17.5); IMMATURE GRANULOCYTES 0.1 % (0-5); LYMPHOCYTES 30.5 % (15-50); MCH 28.9 pg (26.0-34.0); MCHC 31.8 g/dL (31.0-37.0); MCV 90.9 fL (80.0-100.0); MEAN PLATELET VOLUME 9.3 fL (7.4-10.4); NEUTROPHILS 54.4 % (40-80); PLATELET COUNT 278 10x3/uL (130-400); RBC 4.39 10x6/uL (4.20-6.10); RDW 13.9 % (11.5-14.5); WBC 8.7 10x3/uL (4.8-10.8)
[2018-02-14 11:45] LABS: ANION GAP 15.7 mmol/L (8-16); CALCIUM 9.7 mg/dL (8.5-10.1); CREATININE - SERUM 1.4 mg/dL (0.6-1.3); POTASSIUM - SERUM 4.6 mmol/L (3.5-5.1)
[2018-02-14 11:48] LABS: CARBON DIOXIDE 28.9 mmol/L (21.0-32.0)
--- NOTE | 2018-02-15 08:34 | MORECARE ---
CASE MANAGEMENT DISCHARGE SUMMARY PATIENT: MIN LEWIS UNIT: [id number] ADM DATE: 02/12/18 AGE: 62 : 53 SEX: M ROOM/BED: D.6490 AUTHOR: JUAN KRUSE PHYSICIAN: REFERRING PHYSICIAN: LEONID CHRIS MD DATE OF SERVICE: 02/15/18 Discharge Plan Patient Name: MIN LEWIS [facility] [facility] 1955 Planned Disposition: Home Anticipated Discharge Date: 02/14/18 Discharge Date: 02/14/2018 Expected LOS: 2 Initial Reviewer: [email or web address] Initial Review Date: 02/15/2018 Generated: 02/15/18 9:34 am Coverage Notice Reviewer: [email or web address] Georgi Vazquez Notice Issued Date-Time: 02/13/2018 19:45 Notice Type: Medicare Outpatient Observation Notice Notice Delivered To: Patient Relationship to Patient: Fur Mixer Operator Name: Delivery Method: HAND - Hand Delivered Crissy Days: Prior Verbal Notification: Recipient Understood Notice: Yes Recipient Signature: Yes Med Rec Note Co-signed by Attending: Coverage Notice Comment: CM met with the patient at the bedside. Discussed Medicare Outpatient Observation Notice. He understands as he states he has been OBS status previous admits. Had no questions. Copy to the patient . Signed copy to the chart Patient Name: MIN LEWIS Page [phone] at 0834 All edits/amendments must be made on the electronic document DICTATION DATE: 02/15/18832 THIOKOL OPERATOR: CLARKE 02/15/18832 RPT#: [id number] DC DATE:02/14/18 STATUS: DIS IN [facility] [address] [place] [address] END OF REPORT
--- NOTE | 2018-02-17 13:30 | OP ---
PATIENT NAME: MIN LEWIS MEDICAL RECORD: [id number] :53 LOCATION:D.M2 D.2119 ADMISSION DATE:02/12/18 SURGEON: CHRISSY DILL MD DATE OF OPERATION: 02/14/2018 PROCEDURE: Left heart catheterization, selective coronary angiography, right radial approach. CATHETERS: Radial sheath and [place] catheter. The procedure was well tolerated. The patient was returned to the [place]. Sheath was removed. TR band was placed. FINDINGS: Left ventriculography in 30-degree FRAUSTO view: Normal wall motion. Normal LV systolic function. CORONARY ANATOMY: LEFT MAIN: Left main is free of disease. LAD: Free of disease. No evidence of restenosis. No evidence of acute stent thrombosis. CIRCUMFLEX: Good-size circumflex, is free of disease. No evidence of restenosis or stent thrombosis. RIGHT CORONARY: Widely patent. Again, no evidence of thrombosis, restenosis, or progression of [place] disease. SAPHENOUS VEIN GRAFT TO DIAGONAL: Widely patent. IMPRESSION: Widely patent stents. No evidence of edge dissection, acute thrombosis, or other acute ischemic pathology. TRANSINT:[id number] Voice Confirmation ID: [id number] DOCUMENT ID: [id number] CHRISSY DILL MD at 1330 CC: [id number] DICTATION DATE: 02/14/18 1608 SYSTEMS SUPPORT OFFICER: 02/14/18 1808 DIS IN 02/14/18 [facility] [address] [place] [address]
== END 2018-02-14 20:30 | disposition home or self-care (01) ==
LOC: D.ER 15:24 → OBSVTIME 17:23 → D.EDHOLD 17:23 → D.M2 17:23
PROVIDERS: Family Medicine; Internal Medicine Interventional Cardiology; ADMIT Internal Medicine Nephrology
DX: R07.89 Other chest pain (principal); I25.10 Atherosclerotic heart disease of native coronary artery without angina pectoris; D64.9 Anemia, unspecified; N17.9 Acute kidney failure, unspecified; Z86.73 Personal history of transient ischemic attack (TIA), and cerebral infarction without residual deficits; E11.40 Type 2 diabetes mellitus with diabetic neuropathy, unspecified; E11.51 Type 2 diabetes mellitus with diabetic peripheral angiopathy without gangrene; I10 Essential (primary) hypertension; E78.5 Hyperlipidemia, unspecified; Z72.89 Other problems related to lifestyle; J47.9 Bronchiectasis, uncomplicated

== ENCOUNTER 2018-04-21 16:23 | Outpatient (CLI) | payer MEDICARE ==
[~2018-04-21] VITALS: Ht 185.4 cm; Wt 113.4 kg
--- NOTE | ~2018-04-21 | DS ---
PATIENT:MIN PELAYO :53 MEDICAL RECORD: [id number] DISCHARGE SUMMARY ADMISSION DATE: 04/21/18 DISCHARGE DATE: 04/22/18 DISCHARGE DIAGNOSES: 1. Angina. 2. Coronary artery disease. 3. Percutaneous transluminal coronary angioplasty stent of left circumflex this admission. 4. Hypertension. 5. Hyperlipidemia. HISTORY: Mr. Pelayo presents with anginal symptomatology, found to have significant disease of circumflex, underwent successful PTCA stent of the circumflex, discharged home to continue his current medications, follow up with [facility] in 1 month. TRANSINT:[id number] Voice Confirmation ID: [id number] DOCUMENT ID: [id number] FOX GUPTA MD CC: [id number] DICTATION DATE: 04/22/18 1551 LEASE BUYER: 04/23/18 0912 [facility] CLI 04/22/18 [facility] [address] [place] [address]
--- NOTE | ~2018-04-21 | DS ---
PATIENT:MIN PELAYO :53 MEDICAL RECORD: [id number] DISCHARGE SUMMARY ADMISSION DATE: 04/21/18 DISCHARGE DATE: 04/22/18 DIAGNOSES: 1. Angina. 2. Coronary artery disease. 3. PTCA and stent of left circumflex this admission. HOSPITAL COURSE: Mr. Pelayo presents with anginal symptomatology. He was admitted through the ER as an inpatient. Underwent PTCA and stent of the left circumflex. Discharged home with no change in her medications as he is already on aspirin and Plavix. He will follow up with [facility] in 1 month. TRANSINT:[id number] Voice Confirmation ID: [id number] DOCUMENT ID: [id number] FOX GUPTA MD CC: [id number] DICTATION DATE: 04/22/18 162 BUTTON TACKER: 04/23/18 0934 [facility] CLI 04/22/18 [facility] [address] [place] [address]
--- NOTE | ~2018-04-21 | OP ---
PATIENT NAME: MIN LEWIS MEDICAL RECORD: [id number] :53 LOCATION:D.CAT ADMISSION DATE: SURGEON: FOX GUPTA MD DATE OF OPERATION: 04/22/2018 PROCEDURES: 1. PTCA and stent of left circumflex. 2. Intravascular ultrasound. 3. Left heart catheterization. 4. Selective coronary angiography. 5. Vein graft angiography. 6. Left ventriculogram. INDICATIONS: Angina and coronary artery disease. PROCEDURE IN DETAIL: After informed consent was obtained and after detailed explanation of risks, benefits, as well as alternative therapies, the patient elected to proceed with angiogram and angioplasty. The right radial area was prepped and draped in normal sterile fashion. Right radial artery was cannulated via modified Seldinger technique with placement of 6-Uzbek sheath. All catheters exchanged through this sheath. FINDINGS: Left ventriculogram was performed in standard 30-degree FRAUSTO view, reveals good cardiac wall motion throughout all segments. Overall ejection fraction estimated at 65%. SELECTIVE CORONARY ANGIOGRAPHY: 1. Left main showed no significant angiographic disease. 2. Left anterior descending has previously placed stents. These are widely patent with no significant restenosis. No disease elsewise throughout the LAD or its branches. 3. The left circumflex has greater than 80% stenosis proximally confirmed by intravascular ultrasound. 4. The right coronary artery has mild irregularities, but no flow-limiting stenosis. Previously placed stents widely are patent. 5. Vein graft to the LAD diagonal is patent. The previously placed stents are widely patent. PTCA AND STENT OF THE LEFT CIRCUMFLEX: The stent used was a 4.0 x 8-mm [place]. The result was 0% residual stenosis. OVERALL IMPRESSION: Successful PTCA and stent of the left circumflex going from 80% initial stenosis to 0% residual. TRANSINT:[id number] Voice Confirmation ID: [id number] DOCUMENT ID: [id number] FOX GUPTA MD CC: [id number] DICTATION DATE: 04/22/18 1550 MED SURG NURSE: 04/22/18 2331 [facility] CLI 04/22/18 [place] [id number]
--- NOTE | ~2018-04-21 | HEMODYNAMI ---
PATIENT:MIN LEWIS MEDICAL RECORD: [id number] : 53 LOCATION:[address] ADMISSION DATE: 04/21/18 Generatedon:04/22/201815:48 Patient name: MIN LEWIS Patient #: [id number] SSN: [id number] : 1955 Date of study: 04/22/2018 Page: Of Hemodynamic Procedure Report Patient Data Patient Demographics Procedure consent was obtained First Name: MIN Gender: Male Last Name: DEBBIE : 1955 [facility] Initial: Owen Age: 62 year(s) Patient #: [id number] Race: SSN: [id number] Additional ID: [id number] Contact details [address]: [address] [place] [address] State: [place] City: [place] Zip code: [address] Past Medical History Allergies Allergen Reaction Date Comments Reported Sulfa drugs 05/26/2014 Penicillins 05/26/2014 Other allergy 03/28/2015 nitroglycerin paste, erthromycin base, Darvocet Sulfa drugs 11/21/2015 Penicillins 11/21/2015 Erythromycin 11/21/2015 Other allergy 11/21/2015 Darvocet Other allergy 10/19/2016 Sulfa, Nitrobid, Penicillin, DCN, Isosorbide, Erythromycin Other allergy 04/26/2017 PCN, Sulfa Other allergy 07/20/2017 IMDUR, PCN, SULFA Other allergy 02/14/2018 SULFA, NITRO-BID, PCN, VALIUM, IMDUR, DARVOCET-N 100, ERYTHROMYCINBASE Admission Admission Data Admission Date: 04/21/2018 Admission Time: 16:23 Room #: D.2121 Weight (lbs.): 250.45 Weight (kg.): 113.6 Procedure Procedure Types Cath Procedure Diagnostic Procedure LHC LHC w/Coronaries w/Grafts FFR/IVUS Intra-Coronary IVUS Initial Sedation Charges Moderate Sedation up to 15 minutes PCI Procedure Coronary Stent Coronary Stent Initial Procedure Description Procedure Date Procedure Date: 04/22/2018 Procedure Start Time: 15:29 Procedure End Time: 15:46 Procedure Staff Name Function Lv Bradshaw MD Performing Physician Yg Castillo RT Monitor Dafne Figueroa RN Nurse Kirt Seaman RT Scrub Yony Ramos RT Monitor Procedure Data Cath Procedure Fluoroscopy Diagnostic fluoroscopy Total fluoroscopy Time: 4.1 time: 4.1 min min Diagnostic fluoroscopy Total fluoroscopy dose: dose: 428.46 mGy 428.46 mGy Contrast Material Contrast Material Type Amount (ml) Isovue 300 118 Entry Location Entry Primary Successful Side Size Upsize Upsize Entry Closure Acosta ccessful Closure Location (Fr) 1 (Fr) 2 (Fr) Remarks Device Remarks Radial Right 6 Fr Mechanical artery Short Compression Estimated blood loss: 10 ml Diagnostic catheters Device Type Used For End Catheter Placement DIAGNOSTIC [place] 110cm 5 Procedure Fr catheter ([id number]) Procedure Complications No complications Procedure Medications Medication Administration Route Dosage 0.9% NaCl I.V. 100 ml/hr Oxygen etCO2 Nasal cannula 2 l/min Lidocaine 2% added to field 20 Heparin Flush Bag added to field 2 bags (1000units/500ml NS) Radial Cocktail added to field 1 syringe (Verapomil 2mg/Nitro 400mcg/Heparin 1500units) Effient P.O. 5 mg Versed I.V. 2 mg Fentanyl I.V. 50 mcg Heparin Bolus I.V. 4000 units Hemodynamics Rest Heart Rate: 91 (bpm) Snapshots Pre Cath Intra NCS Post Cath Vital Signs Time Heart Resp SPO2 etCO2 NIBP (mmHg) Rhythm Pain Sedation Rate (ipm) (%) (mmHg) Status Level (bpm) 15:16:02 91 15 95 30.2 167/99(134) NSR 0 (11) 10(A) , No pain 15:20:43 91 11 96 46.1 153/95(123) NSR 0 (11) 10(A) , No pain 15:25:20 96 13 96 40 162/110(141) NSR 0 (11) 10(A) , No pain 15:30:00 96 10 94 43 156/99(134) NSR 0 (11) 9(A) , No pain 15:35:42 103 10 90 42.3 125/87(114) NSR 0 (11) 9(A) , No pain 15:40:07 101 11 92 35.5 133/99(119) NSR 0 (11) 9(A) , No pain 15:45:46 98 11 94 39.2 136/86(102) NSR 0 (11) 10(A) , No pain Medications Time Medication Route Dose Verified Delivered Reason Not es Effectiveness by by 15:20:09 0.9% NaCl I.V. 100 Lv Dafne used for ml/hr Augustine Figueroa process helper 15:20:16 Oxygen etCO2 2 l/min Lv Dafne used for Nasal Augustine Figueroa procedure cannula RN 15:20:23 Lidocaine 2% added 20ml Lv Lv for local to vial Augustine Bradshaw MD anesthetic field 15:20:27 Heparin Flush added 2 bags Lv Lv used for Bag to Augustine Bradshaw MD procedure (1000units/500ml field NS) 15:20:33 Radial Cocktail added 1 Lv Lv used for (Verapomil to syringe Augustine Bradshaw MD procedure 2mg/Nitro field 400mcg/Heparin 1500units) 15:24:26 Effient P.O. 5 mg Lv Dafne for Augustine Figueroa antiplatelet RN therapy 15:28:50 Versed I.V. 2 mg Lv Dfane for sedation Augustine Figueroa RN 15:28:56 Fentanyl I.V. 50 mcg Lv Dafne for sedation Augustine Figueroa RN 15:40:45 Heparin Bolus I.V. 4000 Lv Dafne for danilo ified units Augustine Figueroa anticoagulation with dr RICHARD bradshaw Procedure Log Time Note 14:48:07 Yg Castillo RT(R) sent for patient. Start room use. 14:48:08 Time tracking: Regular hours (M-F 7:00 - 5:00) 14:48:12 Plan of Care:Hemodynamics will remain stable., Cardiac rhythm will remain stable., Comfort level will be maintained., Respiratory function will remain adequate., Patient/ family verbilizes understanding of procedure., Procedure tolerated without complication., Recovers from procedure without complications.. 15:04:24 Patient received from Med II to [facility] 3 Alert and oriented. Tansferred to table in Supine position. 15:04:25 Warm blankets applied, and luisa hugger turned on for patient comfort. 15:04:26 Correct patient and procedure confirmed by team. 15:04:28 Signed procedure consent form obtained from patient. 15:04:29 ECG and BP/O2 sat monitors applied to patient. 15:14:24 Vital chart was started 15:20:09 0.9% NaCl 100 ml/hr I.V. was administered by Dafne Figueroa RN; used for procedure; 15:20:16 Oxygen 2 l/min etCO2 Nasal cannula was administered by Dafne Figueroa RN; used for procedure; 15:20:23 Lidocaine 2% 20ml vial added to field was administered by Lv Bradshaw MD; for local anesthetic; 15:20:27 Heparin Flush Bag (1000units/500ml NS) 2 bags added to field was administered by Lv Bradshaw MD; used for procedure; 15:20:33 Radial Cocktail (Verapomil 2mg/Nitro 400mcg/Heparin 1500units) 1 syringe added to field was administered by Lv Bradshaw MD; used for procedure; 15:21:31 Baseline sample Acquired. 15:21:35 Rhythm: sinus rhythm 15:21:44 Full Disclosure recording started 15:22:26 H&P Date Dictated: 04/22/2018 Within 30 days and on chart.. 15:22:27 Pre-procedure instructions explained to patient. 15:22:27 Pre-op teaching completed and patient verbalized understanding. 15:22:32 Family in patients room. 15:22:33 Patient NPO since Midnight. 15:22:34 Is the patient allergic to Iodine/contrast media? No. 15:22:43 Is patient on blood thinner?Yes 15:23:03 ACC The patient was administered the following blood thiners within the last 24 hours: ACCEffient 15:23:06 Patient diabetic? Yes. 15:23:11 If diabetic: On Metformin? Yes 15:23:18 If on Metformin: Last Dose? 04/21/2018 15:23:21 Previous problem with sedation/anesthesia? No ? 15:23:22 Snore? Yes 15:23:24 Sleep apnea? No 15:23:25 Deviated septum? No 15:23:25 Opens mouth fully? Yes 15:23:26 Sticks out tongue? Yes 15:23:27 Airway obstruction? No ? 15:23:32 Dentures? No ? 15:23:42 Pre procedure: right dorsailis pedis pulse 1+ Palpable, but thready & weak; easily obliterated 15:24:00 Patient pain scale 0/10 ?. 15:24:26 Effient 5 mg P.O. was administered by Dafne Figueroa RN; for antiplatelet therapy; 15:24:31 IV patent on arrival in left forearm with 0.9% NaCl at [facility]. 15:24:33 Lab results completed and on chart. 15:24:38 Right Radial & Right Groin area was prepped with chlora-prep and draped in sterile fashion 15:24:38 Alarms reviewed by R. N. 15:24:39 Sharps counted by scrub and verified by R.N. 15:24:42 Use device set Radial Dx or PCI 15:24:44 Tegaderm 4 x 4 ([id number]) opened to sterile field. 15:24:45 ACIST Manifold (50352) opened to sterile field. 15:24:45 ACIST Hand Control (10819) opened to sterile field. 15:24:47 ACIST Syringe (65798) opened to sterile field. 15:24:47 Medline Cath Pack ([id number]) opened to sterile field. 15:24:48 Bag Decanter (2002S) opened to sterile field. 15:24:48 DIAGNOSTIC WIRE .035 260cm J wire (276005) opened to sterile field. 15:24:49 MBrace Wrist Support ([id number]) opened to sterile field. 15:24:50 SHEATH 6FR Slender (21-9590) opened to sterile field. 15:27:46 Physician arrived 15:27:46 --------ALL STOP TIME OUT------ 15:27:46 Final Timeout: patient, procedure, and site verified with staff and physician. All members of the team are in agreement. 15:27:47 Right Radial & Right Groin site verified by team. 15:27:51 Maximum allowable Isovue 300 dose 300ml. Physician notified. (300ml for normal creatinines. For patients with creatinine of 1.7 or higher multiply weight(kg) x 5 divided by creatinine.) 15:27:54 Fire Safety Assessment: A--An alcohol-based skin anteseptic being used preoperatively., C--Open oxygen or nitrous oxide is being used., D--An ESU, laser, or fiber-optic light is being used. 15:27:57 Physical assessment completed. ASA score P 2 - A patient with mild systemic disease as per Lv Bradshaw MD. 15:28:00 Sedation plan: IV Moderate Sedation Medication:Versed, Fentanyl 15:28:24 Patient Weight : 250.45 lbs 15:28:35 Zero performed for pressure channel P1 15::38 Zero performed for pressure channel P1 15::50 Versed 2 mg I.V. was administered by Dafne Figueroa RN; for sedation; 15::56 Fentanyl 50 mcg I.V. was administered by Danfe Figueroa RN; for sedation; 15::47 Procedure started. 15:29:50 Local anesthetic to right radial artery with Lidocaine 2% by Lv Bradshaw MD.INITIAL ACCESS ONLY 15:29:56 A 6 Fr Short sheath was inserted into the Right Radial artery 15:31:25 A DIAGNOSTIC [place] 110cm 5 Fr catheter ([id number]) was advanced over the wire and used for Procedure. 15:31:49 LV gram done using FRAUSTO 15:31:52 Injector settings: Ml/sec: 5, Volume: 15, 15:32:12 LV hemodynamics recorded. 15:32:32 EF : 65 % 15:32:42 LCA angiography performed. 15:34:23 RCA angiography performed. 15:35:11 SVG to Diag angiography performed. 15:35:30 INFLATOR Merit BasixCompak (RP7816) opened to sterile field. 15:35:31 CHOICE PT Extra Support 182cm wire ([id number]) opened to sterile field. 15:35:36 [place] IVUS Catheter (13296H) opened to sterile field. 15:36:11 GUIDE 6FR XBLAD 3.5 catheter ([id number]) opened to sterile field. 15:36:20 6 Fr xblad 3.5 guide catheter was inserted over the wire 15:36:26 choice pt es wire advanced. 15:39:58 IVUS catheter advanced over wire. 15:40:02 IVUS pass to Circ lesion performed. 15:40:03 IVUS catheter removed over wire. 15:40:45 Heparin Bolus 4000 units I.V. was administered by Dafne Figueroa RN; for anticoagulation; verified with dr bradshaw 15:42:59 Place stent Inflation Number: 1 A PEPPER RX 4.0 x 08 stent ([id number]) was prepped and advanced across the Prox CX. The stent was deployed at 13 MONICA for 0:10 (min:sec). 15:43:04 TR BAND Large ([id number]) opened to sterile field. 15:43:21 Stent catheter was removed intact over wire. 15:43:21 Wire removed. 15:43:22 Guide catheter removed. 15:43:29 Sheath removed intact; hemostasis achieved with Mechanical Compression to the Right Radial artery. 15:43:30 Procedure ended.(Physican Out) 15:43:40 Fluoroscopy time 04.10 minutes. 15:43:46 Flurop Dose total: 428.46 15:43:46 Fluoroscopy dose: 428.46 mGy 15:43:49 Contrast amount:Isovue 300 118ml. 15:43:50 Sharps counted by scrub and verified by R.N. 15:44:55 TR band inflated with 11cc of air. 15:44:56 Insertion/operative site no bleeding no hematoma. 15:45:00 Post right radial artery:stable, soft, clean and dry 15:45:01 Post Procedure Pulses reassessed and unchanged 15:45:03 Post-procedure physical assessment completed. ASA score P 2 - A patient with mild systemic disease as per Lv Bradshaw MD. 15:45:05 Post procedure rhythm: unchanged. 15:45:07 Estimated blood loss: 10 ml 15:45:08 Post procedure instruction explained to patient.Patient verbalizes understanding. 15:45:09 Patient needs reinforcement of post procedure teaching. 15:45:30 Procedure type changed to Cath procedure, Diagnostic procedure, LHC, LHC w/Coronaries w/Grafts, FFR/IVUS, Intra-Coronary IVUS Initial, Sedation Charges, Moderate Sedation up to 15 minutes, PCI procedure, Coronary Stent, Coronary Stent Initial 15:45:59 Procedure and supply charges have been captured, reviewed, submitted and are correct. 15:46:01 Procedure Complication : No complications 15:46:03 Vital chart was stopped 15:46:03 See physician's report for complete and final results. 15:46:06 Report given to PCU. 15:46:08 Patient transfered to PCU with Stretcher. 15:46:10 Procedure ended. 15:46:10 Full Disclosure recording stopped 15:46:13 End room use (Document Last) Intervention Summary Intervention Notes Time ActionType Lesion and Equipment Used Action# Pressure Duration Attributes 15:42:59 Place stent Prox CX PEPPER RX 4.0 x 1 13 00:10 08 stent ([id number]) Device Usage Item Name Manufacture Quantity Catalog Number Hospital Part Current M inimal Lot# / Charge Number Stock Stock Serial# Code Tegaderm 4 x 4 3M 1 [id number] 343116 400424 5 (1626W) ACIST Manifold Acist 1 36053 836923 845954 758225 5 (51948) Medical Systems Inc ACIST Hand Acist 1 88559 494039 204486 002414 5 Control Medical (37877) Systems Inc ACIST Syringe Acist 1 42482 846802 804734 480085 2 0 (41708) Medical Systems Inc Medline Cath Medline 1 [id number] 470955 10769 771770 5 Pack ([id number]) Bag Decanter Microtek 1 2001S 808228 97334 191983 5 (2001S) Medical Inc. DIAGNOSTIC [place] 1 371376 184227 353063 374031 3 0 WIRE .035 260cm J wire (110156) MBrace Wrist Advanced 1 140-0250-00 786442 25316 817992 5 Support Vascular ([id number]) Dynamics SHEATH 6FR Terumo 1 [id number] 855691 400343 149213 5 Slender (80-1060) DIAGNOSTIC Terumo 1 40-5013 139337 376164 552358 5 [place] 110cm 5 Fr catheter (446881) INFLATOR Merit Merit 1 SM3494 668116 337573 415725 1 5 Next 2 [facility]ness[facility] HospitalFuture Drinks [facility] (ZY4973) CHOICE PT [place] 1 [id number] 808130 105471 349652 5 Extra Support Scientific 182cm wire ([id number]) [place] 1 73996C 904325 335412 394836 8 [place] IVUS Catheter (08590U) GUIDE 6FR Cardinal 1 [id number] 255938 500221 696137 1 0 XBLAD 3.5 Health catheter (73528859) PEPPER RX 4.0 x Medtronic 1 [id number] 555894 0620680 407935 5 [id number] 08 stent ([id number]) TR BAND Large Terumo 1 [id number] 277737 463138 603724 4 0 ([id number]) Signature Audit [place] Stage Time Signature Unsigned Intra-Procedure 04/22/2018 Yony Ramos 3:48:53 PM RT(R) Signatures Monitor : Yg Castillo RT Signature : Date : Time : Monitor : Yony Ramos RT Signature : Date : Time : [address] [address]
[~2018-04-21 16:23] MED LIST changes: +LIPITOR40 MG PO
[2018-04-21] MEDS ORDERED: SYMBICORT 80-10.2 GM INH (16:28)
[2018-04-21 17:09] LABS: BASOPHILS 0.6 % (0-2); HEMOGLOBIN 10.7 g/dL (13.5-17.5); IMMATURE GRANULOCYTES 0.2 % (0-5); LYMPHOCYTES 38.6 % (15-50); MCH 27.8 pg (26.0-34.0); MCHC 31.5 g/dL (31.0-37.0); MCV 88.3 fL (80.0-100.0); MONOCYTES 9.8 % (2-11); NEUTROPHILS 44.8 % (40-80); PLATELET COUNT 248 10x3/uL (130-400); RBC 3.85 10x6/uL (4.20-6.10); RDW 14.5 % (11.5-14.5); WBC 6.5 10x3/uL (4.8-10.8)
[2018-04-21 17:20] LABS: APTT 27.9 SECONDS (22.8-39.4); PROTIME 12.7 SECONDS (11.6-15.0)
[2018-04-21 17:26] LABS: ALBUMIN 3.5 g/dL (3.4-5.0); ALKALINE PHOSPHATASE 61 U/L (46-116); ALT (SGPT) 77 U/L (10-68); BILIRUBIN - TOTAL 0.25 mg/dL (0.2-1.3); CALC OSMOLALITY 284 mosm/kg (275-300); CALCIUM 9.3 mg/dL (8.5-10.1); CARBON DIOXIDE 26.5 mmol/L (21.0-32.0); CHLORIDE - SERUM 104 mmol/L (98-107); CREATININE - SERUM 1.3 mg/dL (0.6-1.3); POTASSIUM - SERUM 4.4 mmol/L (3.5-5.1); PROTEIN - SERUM 7.3 g/dL (6.4-8.2); SODIUM 139 mmol/L (136-145); UREA NITROGEN 17 mg/dL (7-18); eGFR NON AFRICAN AMERICAN 59 mL/min (90-120)
[2018-04-21 17:31] LABS: GLUCOSE 180 mg/dL (74-106)
[2018-04-21 17:44] LABS: CKMB 1.4 U/L (0.0-3.6); CREATINE KINASE 229 UL (21-232); MAGNESIUM - SERUM 1.7 mg/dL (1.8-2.4); TROPONIN-I < 0.017 ng/mL (0.000-0.060)
--- NOTE | 2018-04-21 20:10 | NUR ---
PT ARRIVED TO 2120 PT IS AAO. UP AD JJ. DENIES ANY CHEST PAIN AT THIS TIME. 2L O2 NC. LEFT WRIST 20G S/L QUICK START AND MED REC COMPLETE. AT BEDSIDE. PT SITTING ON SIDE OF BED. DENIES ANY NEEDS. NO S/S OF DISTRESS. WILL CPOC
--- NOTE | 2018-04-21 22:28 | NUR ---
PT COMPLAINS OF PAIN IN CHEST. FEELS LIKE CRUSHING. DILAUDID GIVEN ORDERED. PT BEDLOW AND CALL LIGHT IN REACH. WILL CPOC
--- NOTE | 2018-04-21 23:32 | NUR ---
SPOKE WITH PT ABOUT BEING NPO AFTER MIDNIGHT FOR A POSSIBLE HEART CATH. PT VERBALIZED UNDERSTANDING. PT IS AAO. DENIES ANY NEEDS NO S/S OF DISTRESS. FAMILY AT BEDSIDE. WILL CPOC
[2018-04-22] VITALS: BP 133/65
[2018-04-22 00:54] VITALS: BP 129/78; BMI 33.0
--- NOTE | 2018-04-22 03:42 | NUR ---
DILAUDID GIVEN FOR CHEST PAIN, PT COMPLAINS OF A HEADACHE. ONE TIME DOSE OF TYLENOL GIVEN ORDERED. PT COMPLAINS OF SOB. DENIES ANY UPDRAFT MEDICATIONS. STATES THEY DONT WORK. PT BEDLOW AND CALL LIGHT IN REACH. WILL CPOC
[2018-04-22 04:00] VITALS: BP 133/71
--- NOTE | 2018-04-22 05:54 | NUR ---
CONSENTS FOR HEART CATH SIGNED. PT DENIES ANY QUESTIONS OR CONCERNS. PT COMPLAINS THAT HIS HEAD IS STILL HURTING BADLY. PT IS DIAPHORETIC. FIXED HEART MONITOR. PT IS SR 70 PT STATES THAT VALUIM MAKES HIM ANGERY BUT HE STILL TAKES IT FOR HEART CATHS. REMOVED IT OFF OF ALLERGY LIST. PT AT BEDSIDE. PT HAS BEEN NPO SINCE MIDNIGHT. PT BEDLOW AND CALL LIGHT IN REACH. WILL CPOC
--- NOTE | 2018-04-22 06:01 | NUR ---
PT IS DIAPHORETIC AND FLUSHED. PT TELEMETRY IS NORMAL SINUS 76 CHECKED FSBS DUE TO HISTORY OF BEING DIABETIC. FSBS IS 147 STATES WHEN HE IS NEEDING STENTS OR HAS ANY HEART DIFFICULTY PT TURNS RED AND SWEATS. PT HAS NO S/S OF DISTRESS. BEDLOW AND CALL LIGHT IN REACH. WILL CPOC
--- NOTE | 2018-04-22 06:46 | NUR ---
PT COMPLAINS OF CHEST PAIN AND A SEVERE HEADACHE. PT GIVEN DILAUDID AND ZOFRAN. WILL CPOC
--- NOTE | 2018-04-22 07:25 | NUR ---
ASSESSMENT COMPLETED. AWAKE AND ALERT. HEAD ACHE BETTER SINCE VALIUM GIVEN, TELEMERTY SHOWS SR. 02 AT 2 L/M PER NC SL TO LEFT WRIST.NPO FOR CATH TODAY. FAMILY AT BEDSIDE
[2018-04-22 08:13] VITALS: BP 132/73
--- NOTE | 2018-04-22 10:39 | NUR ---
NORCO 10 GIVEN FOR HEAD ACHE. WILL MONITOR
[2018-04-22 11:05] VITALS: BP 136/68
--- NOTE | 2018-04-22 14:50 | NUR ---
AGREE WITH PROPERTY ASSISTANT ASSESSMENT
--- NOTE | 2018-04-22 14:58 | HP ---
PATIENT: MIN LEWIS MEDICAL RECORD: [id number] ACCOUNT: [id number] LOCATION:[address] : 53 ADMISSION DATE: 04/21/18 PCP: MOHIT ZULETA MD HISTORY AND PHYSICAL EXAMINATION DATE OF SERVICE: 04/22/2018 DIAGNOSES: 1. Unstable angina. 2. Coronary artery disease. 3. Previous multivessel PTCA and stent. 4. Hypertension. 5. Hyperlipidemia. HISTORY OF PRESENT ILLNESS: This is a gentleman well known to us with a past history of coronary artery disease, multivessel PTCA and stent, who presents with unstable anginal symptomatology. PHYSICAL EXAMINATION: GENERAL APPEARANCE: Well-nourished, well-developed, appears stated age. Level of distress, comfortable. PSYCHIATRIC: Mental status, alert, normal affect. Orientation, oriented to time, place and person. EYES: Lids and conjunctiva, noninjected. No discharge, no pallor. ENT: Lips, teeth, gums, normal dentition. Oropharynx, no cyanosis, no pallor. NECK: Carotid arteries, bilateral normal upstroke, no bruits, no thrills. JUGULAR VEINS: No jugular venous pressure or distention. CERVICAL LYMPH NODES: Nontender, nonenlarged. THYROID: Not enlarged. Nontender. No nodules. LUNGS: Respiratory effort, unlabored. CHEST: Normal curvature. No thoracic deformity. No chest wall tenderness. Percussion, resonant. Auscultation, clear. No wheezes, no rales, no rhonchi. CARDIOVASCULAR: Precordial exam, nondisplaced. No heaves or pericardial thrills. Rate and rhythm, regular. Heart sounds, normal S1, normal S2. No S3, no gallop, no rub. Systolic murmur, not heard. Diastolic murmur, not heard. EXTREMITIES: No cyanosis, no edema. Peripheral pulses, full and equal in all extremities, except as noted. No bruits appreciated. ABDOMEN: Soft, nondistended. Normal aorta. No bruit. Nontender. No masses. Liver, nontender, no hepatomegaly. Spleen, nontender, no splenomegaly. MUSCULOSKELETAL: No joint tenderness. No joint swelling. No erythema. NEUROLOGICAL: Normal gait, normal strength, normal tone. SKIN: Warm and dry. OVERALL IMPRESSION: Unstable angina. We will proceed with coronary angiography. Further care depends upon findings of the angiography. TRANSINT:[id number] Voice Confirmation ID: [id number] DOCUMENT ID: [id number] HISTORY AND PHYSICAL [id number] MIN LEWIS JEFFREY MD at 1458 CC: [id number] DICTATION DATE: 04/22/18399 BODY DESIGNER: 04/22/18 0411 [facility] [address] [id number]
[2018-04-22 15:10] VITALS: Ht 185.4 cm; Wt 113.4 kg
--- NOTE | 2018-04-22 16:06 | NUR ---
PT BACK FROM BUSINESS INSURANCE AGENT. SEDATED BUT AWAKENS EASILY. TR BAND TO RIGHT ARM. FINGERS WARM.TELEMERTY SHOWS SR. FAMILY AT BEDSIDE.
--- NOTE | 2018-04-22 20:49 | NUR ---
PT LEFT HAND IV REMOVED WITH CATH INTACT. TELEMETRY REMOVED AND RETURNED TO MOTOR POLARIZER. RIGHT TR BAND REMOVED, NO BLEEDING OR HEMATOMA DISCHARGE PAPERS SIGNED PT/FAMILY DENIES ANY QUESTIONS OR CONCERNS. PT TAKEN TO VEHICLE BY WHEEL CHAIR.
== END 2018-04-22 20:46 | disposition home or self-care (01) ==
LOC: D.M2 16:23 → D.CATH 16:23 → D.ER 16:23 → EDSTATUS 18:44 → D.M2 19:50 → D.CATH 04-22 20:46
PROVIDERS: Family Medicine; ATTEND Internal Medicine Interventional Cardiology
DX: I25.110 Atherosclerotic heart disease of native coronary artery with unstable angina pectoris (principal); Z95.5 Presence of coronary angioplasty implant and graft; I10 Essential (primary) hypertension; E78.5 Hyperlipidemia, unspecified; Z01.812 Encounter for preprocedural laboratory examination
CPT/HCPCS: 92978; 93459; C9600

== ENCOUNTER → 2018-06-09 12:32 | Outpatient (CLI) | payer MEDICARE ==
[2018-04-22 15:10] VITALS: BMI 32.9
[~2018-06-09 12:32] MED LIST changes: +SYMBICORT 80-10.2 GM INH
== END | disposition home or self-care (01) ==
LOC: D.RT 12:32
PROVIDERS: ATTEND Internal Medicine Pulmonary Disease
DX: R06.09 Other forms of dyspnea (principal)

== ENCOUNTER → 2018-06-27 09:19 | Outpatient (CLI) | payer MEDICARE ==
[2018-04-22 15:10] VITALS: BMI 32.9
[2018-06-27 10:00] LABS: BASOPHILS 0.5 % (0-2); EOSINOPHILS 4.1 % (0-7); HEMATOCRIT 34.9 % (42.0-54.0); HEMOGLOBIN 11.2 g/dL (13.5-17.5); IMMATURE GRANULOCYTES 0.2 % (0-5); LYMPHOCYTES 36.2 % (15-50); MCH 27.6 pg (26.0-34.0); MCHC 32.1 g/dL (31.0-37.0); MEAN PLATELET VOLUME 9.2 fL (7.4-10.4); PLATELET COUNT 278 10x3/uL (130-400); RBC 4.06 10x6/uL (4.20-6.10); RDW 14.1 % (11.5-14.5); WBC 6.5 10x3/uL (4.8-10.8)
== END | disposition home or self-care (01) ==
LOC: D.LAB 09:19
PROVIDERS: ATTEND Family Medicine
DX: K62.5 Hemorrhage of anus and rectum (principal)

== ENCOUNTER 2018-07-11 13:33 | Day surgery (SDC) | payer MEDICARE | END 2018-07-11 17:36 | disposition home or self-care (01) | LOC: D.OPS 13:33 | DX: K92.1 Melena (principal); K21.0 Gastro-esophageal reflux disease with esophagitis; R19.7 Diarrhea, unspecified; R19.4 Change in bowel habit; K64.1 Second degree hemorrhoids; D12.2 Benign neoplasm of ascending colon; D12.3 Benign neoplasm of transverse colon ==

== ENCOUNTER 2018-07-27 15:15 | Outpatient (CLI) | payer MEDICARE ==
[~2018-07-27] VITALS: Ht 185.4 cm; Wt 118.2 kg
--- NOTE | ~2018-07-27 | HEMODYNAMI ---
PATIENT:MIN LEWIS MEDICAL RECORD: [id number] : 53 [id number] ADMISSION DATE: 07/27/18 Generatedon:07/27/201817:46 Patient name: MIN LEWIS Patient #: [id number] SSN: [id number] : 1955 Date of study: 07/27/2018 Page: Of Hemodynamic Procedure Report Patient Data Patient Demographics Procedure consent was obtained First Name: MIN Gender: Male Last Name: DEBBIE : 1955 [facility] Initial: Owen Age: 63 year(s) Patient #: [id number] Race: SSN: [id number] Additional ID: [id number] Contact details Address: [address] [place] [address] State: [place] City: [place] Zip code: [address] Past Medical History Allergies Allergen Reaction Date Comments Reported Sulfa drugs 05/26/2014 Penicillins 05/26/2014 Other allergy 03/28/2015 nitroglycerin paste, erthromycin base, Darvocet Sulfa drugs 11/21/2015 Penicillins 11/21/2015 Erythromycin 11/21/2015 Other allergy 11/21/2015 Darvocet Other allergy 10/19/2016 Sulfa, Nitrobid, Penicillin, DCN, Isosorbide, Erythromycin Other allergy 04/26/2017 PCN, Sulfa Other allergy 07/20/2017 IMDUR, PCN, SULFA Other allergy 02/14/2018 SULFA, NITRO-BID, PCN, VALIUM, IMDUR, DARVOCET-N 100, ERYTHROMYCINBASE Other allergy 07/27/2018 pcn, sulfa Admission Admission Data Admission Date: 07/27/2018 Admission Time: 15:15 Lab Results Lab Result Date: 07/27/2018 Lab Result Time: 16:22 Biochemistry Name Units Result Min Max BUN mg/dl 24 --(----)-* 7 18 Creatinine mg/dl 1.2 --(---*)-- 0.6 1.3 CBC Name Units Result Min Max Hematocrit % 33.2 *-(----)-- 42 54 Hemoglobin g/dl 10.6 *-(----)-- 13.5 17.5 Procedure Procedure Types Cath Procedure Diagnostic Procedure [facility] w/Coronaries w/Grafts PCI Procedure Coronary Atherectomy Atherectomy w/PTCA Coronary Initial Procedure Description Procedure Date Procedure Date: 07/27/2018 Procedure Start Time: 17:18 Procedure End Time: 17:44 Procedure Staff Name Function Lv Bradshaw MD Performing Physician Helio Da Silva RN Nurse Madina Gutierrez RT Scrub Yony Ramos RT Monitor Procedure Data Cath Procedure Fluoroscopy Diagnostic fluoroscopy Total fluoroscopy Time: 7.5 time: 7.5 min min Diagnostic fluoroscopy Total fluoroscopy dose: dose: 2071 mGy 2071 mGy Contrast Material Contrast Material Type Amount (ml) Isovue 300 132 Entry Location Entry Primary Successful Side Size Upsize Upsize Entry Closure Succes sful Closure Location (Fr) 1 (Fr) 2 (Fr) Remarks Device Remarks Radial Right 6 Fr Exoseal artery Short Estimated blood loss: 10 ml Procedure Complications No complications Procedure Medications Medication Administration Route Dosage Oxygen etCO2 Nasal cannula 2 l/min Lidocaine 2% added to field 20 Heparin Flush Bag added to field 2 bags (1000units/500ml NS) 0.9% NaCl I.V. 100 ml/hr Radial Cocktail I.A. 1 syringe (Verapamil 2mg/Nitro 400mcg/Heparin 1500units) Versed I.V. 2 mg Fentanyl I.V. 100 mcg Heparin Bolus I.V. 4000 units Versed I.V. 2 mg Fentanyl I.V. 100 mcg Versed I.V. 1 mg Fentanyl I.V. 50 mcg Hemodynamics Rest HGB: 10.6 (g/dl) Heart Rate: 87 (bpm) Snapshots Pre Cath Intra NCS Post Cath Vital Signs Time Heart Resp SPO2 etCO2 NIBP (mmHg) Rhythm Pain Sedation Rate (ipm) (%) (mmHg) Status Level (bpm) 17:12:01 80 20 98 0 156/93(119) NSR 0 (11) 10(A) , No pain 17:16:27 84 29 93 0 157/95(139) NSR 0 (11) 10(A) , No pain 17:20:44 94 16 94 0 134/85(98) NSR 0 (11) 9(A) , No pain 17:25:04 89 19 95 0 140/88(123) NSR 0 (11) 9(A) , No pain 17:29:24 96 13 94 0 164/107(149) NSR 0 (11) 9(A) , No pain 17:33:54 98 16 95 0 168/98(141) NSR 0 (11) 9(A) , No pain 17:38:27 102 25 92 0 178/106(151) NSR 0 (11) 9(A) , No pain 17:43:03 104 26 93 0 178/99(154) NSR 0 (11) 10(A) , No pain Medications Time Medication Route Dose Verified Delivered Reason Not es Effectiveness by by 17:10:51 Oxygen etCO2 2 l/min Lv Parkerie used for Nasal Augustine Da Silva RN procedure cannula 17:10:58 Lidocaine 2% added 20ml Lvshala Awan for local to vial Augustine Bradshaw MD anesthetic field 17:11:04 Heparin Flush added 2 bags Lv Awan used for Bag to Augustine Bradshaw MD procedure (1000units/500ml field NS) 17:11:50 0.9% NaCl I.V. 100 Lv Cadet used for ml/hr Augustine Da Silva RN procedure 17:12:04 Radial Cocktail I.A. 1 Lv Awan for (Verapamil syringe Augustine Bradshaw MD vasodilation 2mg/Nitro 400mcg/Heparin 1500units) 17:17:41 Versed I.V. 2 mg Lv Cadet for sedation Augustine Da Silva RN 17:17:47 Fentanyl I.V. 100 mcg Lv Cadet for sedation Augustine Da Silva RN 17:22:03 Fentanyl I.V. 100 mcg Lv Cadet for sedation Augustine Da Silva RN 17:22:59 Versed I.V. 2 mg Lv Parkerie for sedation Augustine Da Silva RN 17:26:53 Heparin Bolus I.V. 4000 Lv Buffie for danilo ified units Augustine Da Silva RN anticoagulation with dr bradshaw 17:36:48 Versed I.V. 1 mg Lv Cadet for sedation Augustine Da Silva RN 17:36:52 Fentanyl I.V. 50 mcg Lv Cadet for sedation Augustine Da Silva RN Procedure Log Time Note 16:39:41 Signed procedure consent form obtained from patient. 16:39:42 Diagnostic Cath status Urgent 16:39:43 Time tracking: Stay late (Procedures after 5:00pm) 16:39:47 Plan of Care:Hemodynamics will remain stable., Cardiac rhythm will remain stable., Comfort level will be maintained., Respiratory function will remain adequate., Patient/ family verbilizes understanding of procedure., Procedure tolerated without complication., Recovers from procedure without complications.. 16:40:11 Helio Da Silva RN sent for patient. Start room use. 16:59:17 Patient received from ED to CCL 1 Alert and oriented. Tansferred to table in Supine position. 16:59:18 Warm blankets applied, and luisa hugger turned on for patient comfort. 16:59:18 Correct patient and procedure confirmed by team. 16:59:19 ECG and BP/O2 sat monitors applied to patient. 16:59:23 H&P Date Dictated: 07/27/2018 Within 30 days and on chart.. 16:59:24 Pre-procedure instructions explained to patient. 16:59:25 Pre-op teaching completed and patient verbalized understanding. 16:59:27 Family in waiting room. 16:59:29 Patient NPO since Lunch. 17:10:45 Vital chart was started 17:10:51 Oxygen 2 l/min etCO2 Nasal cannula was administered by Helio Da Silva RN; used for procedure; 17:10:58 Lidocaine 2% 20ml vial added to field was administered by Lv Bradshaw MD; for local anesthetic; 17:11:04 Heparin Flush Bag (1000units/500ml NS) 2 bags added to field was administered by Lv Bradshaw MD; used for procedure; 17:11:50 0.9% NaCl 100 ml/hr I.V. was administered by Helio Da Silva RN; used for procedure; 17:12:04 Radial Cocktail (Verapamil 2mg/Nitro 400mcg/Heparin 1500units) 1 syringe I.A. was administered by Lv Bradshaw MD; for vasodilation; 17:15:41 Patient allergic to Other allergypcn, sulfa 17:15:44 Is the patient allergic to Iodine/contrast media? No. 17:15:46 Is patient on blood thinner?Yes 17:15:48 ACC The patient was administered the following blood thiners within the last 24 hours: ACCEffient 17:15:49 Patient diabetic? Yes. 17:15:50 If diabetic: On Metformin? Yes 17:15:53 If on Metformin: Last Dose? 07/26/2018 17:15:56 Previous problem with sedation/anesthesia? No ? 17:15:56 Snore? Yes 17:15:57 Sleep apnea? No 17:15:58 Deviated septum? No 17:15:59 Opens mouth fully? Yes 17:15:59 Sticks out tongue? Yes 17:16:01 Airway obstruction? No ? 17:16:02 Dentures? No ? 17:16:05 Pre procedure: right dorsailis pedis pulse 2+ Normal; easily identifiable; not easily obliterated 17:16:10 Patient pain scale 8/10 CHEST . 17:16:16 Modified Tacho's test Ulnar < 7 seconds 17:16:21 IV patent on arrival in left forearm with 0.9% NaCl at [facility]. 17:16:47 Lab Result : BUN 24 mg/dl 17:16:47 Lab Result : Creatinine 1.2 mg/dl 17:16:47 Lab Result : Hemoglobin 10.6 g/dl 17:16:47 Lab Result : Hematocrit 33.2 % 17:16:49 Lab results completed and on chart. 17:16:54 Right Radial & Right Groin area was prepped with chlora-prep and draped in sterile fashion 17:16:54 Alarms reviewed by R. N. 17:16:55 Sharps counted by scrub and verified by R.N. 17:16:57 Use device set Radial Dx or PCI 17:17:02 ACIST Hand Control (24749) opened to sterile field. 17:17:02 ACIST Manifold (96685) opened to sterile field. 17:17:03 Tegaderm 4 x 4 (1626W) opened to sterile field. 17:17:03 MBrace Wrist Support ([id number]) opened to sterile field. 17:17:03 DIAGNOSTIC WIRE .035 260cm J wire (556198) opened to sterile field. 17:17:05 SHEATH 6FR Slender (89-1060) opened to sterile field. 17:17:13 Baseline sample Acquired. 17:17:16 Rhythm: sinus rhythm 17:17:18 Full Disclosure recording started 17:17: Physician arrived 17:17: --------ALL STOP TIME OUT------ 17:17: Final Timeout: patient, procedure, and site verified with staff and physician. All members of the team are in agreement. 17:17:29 Right Radial & Right Groin site verified by team. 17:17:31 Maximum allowable Isovue 300 dose 300ml. Physician notified. (300ml for normal creatinines. For patients with creatinine of 1.7 or higher multiply weight(kg) x 5 divided by creatinine.) 17:17:35 Fire Safety Assessment: A--An alcohol-based skin anteseptic being used preoperatively., C--Open oxygen or nitrous oxide is being used., D--An ESU, laser, or fiber-optic light is being used. 17:17:38 Physical assessment completed. ASA score P 2 - A patient with mild systemic disease as per Lv Bradshaw MD. 17:17:40 Sedation plan: IV Moderate Sedation Medication:Versed, Fentanyl 17:17:41 Versed 2 mg I.V. was administered by Helio Da Silva RN; for sedation; 17:17:47 Fentanyl 100 mcg I.V. was administered by Helio Da Silva RN; for sedation; 17:17:54 Use device set Radial Dx or PCI 17:18:10 ACIST Syringe (56073) opened to sterile field. 17:18:10 Medline Cath Pack ([id number]) opened to sterile field. 17:18:11 Bag Decanter () opened to sterile field. 17:18:12 DIAGNOSTIC WIRE .035 260cm J wire (894944) opened to sterile field. 17:18:16 Procedure started. 17:18:21 Local anesthetic to right radial artery with Lidocaine 2% by Lv Bradshaw MD.INITIAL ACCESS ONLY 17:18:29 A 6 Fr Short sheath was inserted into the Right Radial artery 17:18:38 Zero performed for pressure channel P1 17:18:40 Zero performed for pressure channel P1 17:18:42 Zero performed for pressure channel P1 17:18:56 Zero performed for pressure channel P1 17:19:12 Zero performed for pressure channel P1 17:19:52 LV gram done using FRAUSTO 17:19:54 Injector settings: Ml/sec: 5, Volume: 15, 17:19:55 LV hemodynamics recorded. 17:20:00 EF : 60 % 17:20:04 RCA angiography performed. 17:20:22 GUIDE 6FR XBLAD 3.5 catheter ([id number]) opened to sterile field. 17:22:03 Fentanyl 100 mcg I.V. was administered by Helio Da Silva RN; for sedation; 17:22:59 Versed 2 mg I.V. was administered by Helio Da Silva RN; for sedation; 17:23:37 Catheter exchanged over wire. 17:23:49 6 Fr XBLAD 3.5 guide catheter was inserted over the wire 17:24:18 LCA angiography performed. 17:25:37 INFLATOR Merit BasixCompak (NE2508) opened to sterile field. 17:26:53 Heparin Bolus 4000 units I.V. was administered by Helio Da Silva RN; for anticoagulation; verified with dr bradshaw 17:27:49 CHOICE PT Extra Support 182cm wire ([id number]) opened to sterile field. 17:28:37 LASER ELCA 0.9 Rx atherectomy catheter (045025) opened to sterile field. 17:28:52 CHOICE PT ES wire advanced. 17:28:57 Wire advanced across lesion. 17:29:23 ELCA 0.9 Rx laser advanced over wire. 17:29:57 Laser pass to pLAD with Fluence of 80 and Rate of 40. 17:31:31 Laser catheter removed. 17:33:31 Inflate balloon Inflation number: 3 A EUPHORA 3.0 x 15 Balloon ([id number]) was prepped and advanced across the Prox LAD , then inflated to 7 MONICA for 0:10 (min:sec) . 17:33:51 Inflation number: 1 The EUPHORA 3.0 x 15 Balloon ([id number]) was reinflated across the Prox LAD , to 23 MONICA for 0:10 (min:sec) . 17:34:30 Inflation number: 2 The EUPHORA 3.0 x 15 Balloon ([id number]) was reinflated across the Prox LAD , to 23 MONICA for 0:10 (min:sec) . 17:34:55 Inflation number: 4 The EUPHORA 3.0 x 15 Balloon ([id number]) was reinflated across the Prox LAD , to 23 MONICA for 0:10 (min:sec) . 17:35:05 Inflation number: 5 The EUPHORA 3.0 x 15 Balloon ([id number]) was reinflated across the Prox LAD , to 23 MONICA for 0:10 (min:sec) . 17:35:42 Balloon removed over the wire. 17:36:48 Versed 1 mg I.V. was administered by Helio Da Silva RN; for sedation; 17:36:49 Inflate balloon Inflation number: 6 A NC EUPHORA 3.5 x 15 balloon ([id number]) was prepped and advanced across the Prox LAD , then inflated to 11 MONICA for 0:10 (min:sec) . 17:36:52 Fentanyl 50 mcg I.V. was administered by Helio Da Silva RN; for sedation; 17:37:01 Inflation number: 7 The NC EUPHORA 3.5 x 15 balloon ([id number]) was reinflated across the Prox LAD , to 13 MONICA for 0:10 (min:sec) . 17:37:37 Balloon removed over the wire. 17:37:46 Wire removed. 17:37:47 Guide catheter removed. 17:37:53 EXOSEAL 6Fr (EX600) opened to sterile field. 17:38:01 Sheath removed intact; hemostasis achieved with Exoseal to the Right Radial artery. 17:38:02 Procedure ended.(Physican Out) 17:39:26 TR BAND Large ([id number]) opened to sterile field. 17:41:06 Fluoroscopy time 07.50 minutes. 17:41:10 Flurop Dose total: 2070 17:41:10 Fluoroscopy dose: 2071 mGy 17:41:24 Contrast amount:Isovue 300 132ml. 17:41:26 Sharps counted by scrub and verified by R.N. 17:41:29 TR band inflated with 12cc of air. 17:41:30 Insertion/operative site no bleeding no hematoma. 17:41:45 Post right radial artery:stable, soft, clean and dry 17:41:46 Post Procedure Pulses reassessed and unchanged 17:42:13 Post-procedure physical assessment completed. ASA score P 2 - A patient with mild systemic disease as per Lv Bradshaw MD. 17:42:15 Post procedure rhythm: unchanged. 17:42:30 Estimated blood loss: 10 ml 17:42:32 Post procedure instruction explained to patient.Patient verbalizes understanding. 17:42:44 Patient needs reinforcement of post procedure teaching. 17:43:02 Procedure type changed to Cath procedure, Diagnostic procedure, LHC, LHC w/Coronaries w/Grafts, PCI procedure, Coronary Atherectomy, Atherectomy w/PTCA Coronary Initial 17:43:15 Laser total pulses delivered: 2372 17:43:19 Laser total treatment time: 0 minutes 59 seconds 17:44:18 Procedure and supply charges have been captured, reviewed, submitted and are correct. 17:44:20 Procedure Complication : No complications 17:44:22 Vital chart was stopped 17:44:22 See physician's report for complete and final results. 17:44:42 Report given to PCU. 17:44:44 Patient transfered to PCU with Stretcher. 17:44:47 Procedure ended. 17:44:47 Full Disclosure recording stopped 17:44:54 End room use (Document Last) Intervention Summary Intervention Notes Time ActionType Lesion and Equipment Action# Pressure Duration Attributes Used 17:33:31 Inflate Prox LAD EUPHORA 3.0 3 7 00:10 balloon x 15 Balloon ([id number]) 17:33:51 Reinflate Prox LAD EUPHORA 3.0 1 23 00:10 balloon x 15 Balloon ([id number]) 17:34:30 Reinflate Prox LAD EUPHORA 3.0 2 23 00:10 balloon x 15 Balloon ([id number]) 17:34:55 Reinflate Prox LAD EUPHORA 3.0 4 23 00:10 balloon x 15 Balloon ([id number]) 17:35:05 Reinflate Prox LAD EUPHORA 3.0 5 23 00:10 balloon x 15 Balloon ([id number]) 17:36:49 Inflate Prox LAD NC EUPHORA 6 11 00:10 balloon 3.5 x 15 balloon ([id number]) 17:37:01 Reinflate Prox LAD NC EUPHORA 7 13 00:10 balloon 3.5 x 15 balloon ([id number]) Device Usage Item Name Manufacture Quantity Catalog Number Hospital Part Current Mini [facility] Lot# / Charge Number Stock Stock Serial# Code ACIST [facility] Acist 1 13018 252382 950781 782175 5 Force10 [id number] ACIST Acist 1 75712 712967 430278 275089 5 Manifold Medical (28648) Systems Inc Tegaderm 4 x 3M 1 1626W 951234 908211 261532 5 4 (1626W) MBrace Wrist Advanced 1 140-0250-00 249060 48275 051217 5 Support Vascular (969375453) Dynamics DIAGNOSTIC [facility] 2 270937 221264 774534 812870 30 WIRE .035 260cm J wire (733263) SHEATH 6FR Terumo 1 [id number] 099669 715520 722655 5 Slender (80-1060) ACIST Acist 1 92454 992470 129246 071762 20 Syringe Medical (66239) Systems Inc Medline Cath Medline 1 [id number] 672607 53931 132562 5 Pack ([id number]) Bag Decanter Microtek 1 2001S 386553 61131 661761 5 (2001S) Medical Inc. GUIDE 6FR Cardinal 1 [id number] 864725 519028 301485 10 XBLAD 3.5 Health catheter (76779226) CHOICE PT Royal 1 [id number] 546655 875560 986288 5 Extra Scientific Support 182cm wire ([id number]) LASER ELCA Ruben 1 110-004 579723 256250 460047 5 0.9 Rx Healthcare atherectomy (051277) catheter (200465) EUPHORA 3.0 Medtronic 1 [id number] 537395 213169 972595 5 [id number] x 15 Balloon (IES4135F) NC EUPHORA Medtronic 1 [id number] 823256 302538 508387 1 [id number] 3.5 x 15 balloon ([id number]) EXOSEAL 6Fr Cardinal 1 EX600 002579 534685 619397 10 (EX600) Health TR BAND Terumo 1 KJY52-INZ 437699 963198 771583 40 Large ([id number]) INFLATOR Merit 1 ZJ3883 656976 414836 577743 15 [facility] Medical BasixCompak (RS1955) Signature Audit Kenner Stage Time Signature Unsigned Intra-Procedure 07/27/2018 Yony Ramos 5:46:06 PM RT(R) Signatures Monitor : Yony Ramos RT Signature : Date : Time : [address] [place] [address]
[2018-07-27 16:29] LABS: BASOPHILS 0.3 % (0-2); EOSINOPHILS 5.3 % (0-7); HEMATOCRIT 33.2 % (42.0-54.0); HEMOGLOBIN 10.6 g/dL (13.5-17.5); IMMATURE GRANULOCYTES 0.3 % (0-5); LYMPHOCYTES 32.5 % (15-50); MCH 27.1 pg (26.0-34.0); MCHC 31.9 g/dL (31.0-37.0); MCV 84.9 fL (80.0-100.0); MEAN PLATELET VOLUME 8.7 fL (7.4-10.4); MONOCYTES 10.3 % (2-11); NEUTROPHILS 51.3 % (40-80); PLATELET COUNT 242 10x3/uL (130-400); RBC 3.91 10x6/uL (4.20-6.10); RDW 14.6 % (11.5-14.5); WBC 7.2 10x3/uL (4.8-10.8)
[2018-07-27 16:38] LABS: APTT 28.7 SECONDS (22.8-39.4); INR 1.04 (0.85-1.17); PROTIME 13.1 SECONDS (11.6-15.0)
[2018-07-27 16:46] LABS: ALBUMIN 3.6 g/dL (3.4-5.0); ALKALINE PHOSPHATASE 54 U/L (46-116); ALT (SGPT) 85 U/L (10-68); BILIRUBIN - TOTAL 0.32 mg/dL (0.2-1.3); CALC OSMOLALITY 281 mosm/kg (275-300); CALCIUM 9.6 mg/dL (8.5-10.1); CARBON DIOXIDE 22.2 mmol/L (21.0-32.0); CHLORIDE - SERUM 103 mmol/L (98-107); CREATININE - SERUM 1.2 mg/dL (0.6-1.3); GLUCOSE 138 mg/dL (74-106); POTASSIUM - SERUM 4.7 mmol/L (3.5-5.1); PROTEIN - SERUM 7.7 g/dL (6.4-8.2); SODIUM 138 mmol/L (136-145); UREA NITROGEN 24 mg/dL (7-18); eGFR NON AFRICAN AMERICAN 65 mL/min (90-120)
[2018-07-27 16:59] LABS: CKMB 1.2 U/L (0.0-3.6); CREATINE KINASE 147 UL (21-232); MAGNESIUM - SERUM 1.5 mg/dL (1.8-2.4)
[2018-07-27 17:03] LABS: TROPONIN-I < 0.017 ng/mL (0.000-0.060)
--- NOTE | 2018-07-27 17:18 | HP ---
PATIENT: MIN PELAYO MEDICAL RECORD: [id number] ACCOUNT: [id number] LOCATION:[place] : 53 ADMISSION DATE: 07/27/18 PCP: MOHIT ZULETA MD HISTORY AND PHYSICAL EXAMINATION DIAGNOSES: 1. Unstable angina class IV. 2. Coronary artery disease. 3. Status post multivessel percutaneous transluminal coronary angioplasty stent. 4. Hypertension. 5. Hyperlipidemia. HISTORY OF PRESENT ILLNESS: Mr. Pelayo has multivessel coronary artery disease, status post coronary artery bypass graft surgery in the past as well as has been having chest pain since last Wednesday, it has been in an escalating fashion. He has taken multiple sublingual nitro. He continues to have pain. It is escalating. He has rest pain. His current medical therapy is JAYSON inhibitor, Lopressor and long-acting nitrates and despite this he is having escalating pain class IV with episodes of rest pain, it is just like that of his previous angina. PHYSICAL EXAMINATION: GENERAL APPEARANCE: Well-nourished, well-developed, appears stated age. Level of distress, comfortable. PSYCHIATRIC: Mental status, alert, normal affect. Orientation, oriented to time, place and person. EYES: Lids and conjunctiva, noninjected. No discharge, no pallor. ENT: Lips, teeth, gums, normal dentition. Oropharynx, no cyanosis, no pallor. NECK: Carotid arteries, bilateral normal upstroke, no bruits, no thrills. JUGULAR VEINS: No jugular venous pressure or distention. CERVICAL LYMPH NODES: Nontender, nonenlarged. THYROID: Not enlarged. Nontender. No nodules. LUNGS: Respiratory effort, unlabored. CHEST: Normal curvature. No thoracic deformity. No chest wall tenderness. Percussion, resonant. Auscultation, clear. No wheezes, no rales, no rhonchi. CARDIOVASCULAR: Precordial exam, nondisplaced. No heaves or pericardial thrills. Rate and rhythm, regular. Heart sounds, normal S1, normal S2. No S3, no gallop, no rub. Systolic murmur, not heard. Diastolic murmur, not heard. EXTREMITIES: No cyanosis, no edema. Peripheral pulses, full and equal in all extremities, except as noted. No bruits appreciated. ABDOMEN: Soft, nondistended. Normal aorta. No bruit. Nontender. No masses. Liver, nontender, no hepatomegaly. Spleen, nontender, no splenomegaly. MUSCULOSKELETAL: No joint tenderness. No joint swelling. No erythema. NEUROLOGICAL: Normal gait, normal strength, normal tone. SKIN: Warm and dry. OVERALL IMPRESSION: Unstable angina class IV. At this time, we will proceed with coronary angiography. Further care depends upon findings of the angiography. TRANSINT:[id number] Voice Confirmation ID: [id number] DOCUMENT ID: [id number] HISTORY AND PHYSICAL [id number] MIN PELAYO JEFFREY MD at 1718 CC: [id number] DICTATION DATE: 07/27/18 1600 MOTOR VEHICLE EXAMINER: 07/27/18 [id number] [place] [address]
[2018-07-27 18:27] VITALS: BP 137/91; Ht 185.4 cm; Wt 118.2 kg
--- NOTE | 2018-07-27 19:20 | NUR ---
BEDSIDE REPORT RECEIVED. PT IS ALERT, AT BEDSIDE. PT URINATED 300ML PT HAS 2L O2 NC. PT RIGHT WRIST TR BAND INTACT. NO HEMATOMA. PT DENIES ANY NEEDS. NO S/S OF DISTRESS. NAME AND DATE PLACED ON BOARD.WILL CPOC
[2018-07-27 20:00] VITALS: BP 135/83
--- NOTE | 2018-07-27 20:13 | NUR ---
RIGHT WRIST CDI. PULSE +2 NO HEMATOMA. PT IS ASLEEP. AROUSES TO VERBAL STIMULI. AT BEDSIDE. WILL CPOC
--- NOTE | 2018-07-27 22:11 | NUR ---
AIR REMOVED FROM TR BAND. 3ML PT HAS SOME BRUISING NOTED PRIOR TO REMOVAL. SOFT NO HEMATOMA AT THIS TIME. PT HAS NO S/S OF DISTRESS. WILL CPOC
--- NOTE | 2018-07-27 23:26 | NUR ---
ASSISTED PT WITH GETTING CLEANED FOR BED. TYLENOL GIVEN FOR HEADACHE. PT RIGHT ARM TR BAND CDI. SOFT. PULSES +2 REMOVED 3ML
--- NOTE | 2018-07-28 | NUR ---
PT RIGHT ARM TR BAND AIR REMOVED. SOFT. PULSES +2 BRACE STILL ON. PT ASLEEP. BEDLOW AND CALL LIGHT IN REACH. WILL CPOC
--- NOTE | 2018-07-28 01:33 | NUR ---
RIGHT WRIST HAS NO BLEEDING. SOME BRUISING NOTED. SOFT. PT ASLEEP. NO S/S OF DISTRESS. WILL CPOC
[2018-07-28 04:00] VITALS: BP 102/58
--- NOTE | 2018-07-28 05:58 | NUR ---
PT STATES HE IS STILL HAVING SOME CHEST PAIN. STATES HE IS UNSURE IF IT IS FROM THE PROCEDURE YESTURDAY OR NOT. RATES PAIN 09/17 PT DECLINES NORCO. DILAUDID GIVEN, ZOFRAN GIVEN FOR NAUSEA. PT IS AAO, 2L O2 NC. PT DENIES ANY OTHER NEEDS. RIGHT WRIST IS SOFT. NO HEMATOMA. TEGADERM ON SITE. PT WILL CALL FOR ASSIST WHEN NEEDED. WILL CPOC
--- NOTE | 2018-07-28 08:08 | NUR ---
ALERT AND ORIENTED. TELEMERTY SHOWS SR 81. O2 AT 2 L/M PER NC. CATH SITE TO RIGHT WRIST CLEAN AND DRY, NO SWELLING OR BLEEDING. UP AB JJ. SR UP WITH CALL LIGHT IN REACH. WILL MONITOR
[2018-07-28 08:10] VITALS: BP 144/73
--- NOTE | 2018-07-28 11:00 | NUR ---
PT DISCHARGED. IV DCD WITH WITH TIP INTACT. INSTRCTIONS GIVEN TO PT ANDVENANCIOFE.
--- NOTE | 2018-07-28 11:21 | NUR ---
TO PRIVATE CAR PER WHEELCHAIR
[2018-07-28 11:37] VITALS: BP 136/76
--- NOTE | 2018-07-28 12:09 | NUR ---
TO PRIVATE CAR PER WHEEL CHAIR
--- NOTE | 2018-07-29 08:24 | MORECARE ---
CASE MANAGEMENT DISCHARGE SUMMARY PATIENT: MIN LEWIS UNIT: [id number] ADM DATE: 07/27/18 AGE: 63 : 53 SEX: M ROOM/BED: D.2122 AUTHOR: JUAN KRUSE PHYSICIAN: REFERRING PHYSICIAN: FOX GUPTA MD DATE OF SERVICE: 07/29/18 Discharge Plan Patient Name: MIN LEWIS [facility] [facility] 1955 Planned Disposition: Home Anticipated Discharge Date: 07/28/18 Discharge Date: 07/28/2018 Expected LOS: 1 Initial Reviewer: [email or web address] Initial Review Date: 07/29/2018 Generated: 07/29/18 9:24 am Patient Name: MIN LEWIS Page [phone] at 0824 All edits/amendments must be made on the electronic document DICTATION DATE: 07/29/18823 LECTURER OF PORTUGUESE: CLARKE 07/29/18823 RPT#: [id number] DC DATE:07/28/18 STATUS: DIS IN [facility] [address] [place] [address] END OF REPORT
--- NOTE | 2018-07-29 13:25 | OP ---
PATIENT NAME: MIN LEWIS MEDICAL RECORD: [id number] :53 LOCATION:D. D.2 ADMISSION DATE:07/27/18 SURGEON: FOX GUPTA MD DATE OF OPERATION: 07/27/2018 DATE OF SERVICE: 07/27/2018 PROCEDURES: 1. Laser atherectomy, PTCA, LAD. 2. Left heart catheterization. 3. Selective coronary angiography. 4. Left ventriculogram. INDICATION: Angina, unstable angina and coronary artery disease. PROCEDURE IN DETAIL: After informed consent was obtained and after a detailed description of the risks, benefits as well as alternative therapies, the patient elected to proceed with angiogram and angioplasty. The right radial area was prepped and draped in normal sterile fashion. Right radial artery was cannulated via modified Seldinger technique with placement of 6-Portuguese sheath. All catheters exchanged through this sheath. FINDINGS: Left ventriculogram performed in standard 30-degree FRAUSTO view reveals good cardiac wall motion throughout all segments. Overall ejection fraction estimated at 60%. SELECTIVE CORONARY ANGIOGRAPHY: 1. Left main is with no significant angiographic disease. 2. Left anterior descending has multiple previously placed stents with an area of 90% in-stent restenosis in the mid vessel. 3. Left circumflex has moderate irregularities, but no flow-limiting stenosis. 4. Right coronary has moderate irregularities, but no flow-limiting stenosis. 5. Vein graft to the LAD diagonal is widely patent, previously placed stents in this vessel are widely patent. Laser atherectomy, PTCA of the in-stent restenosis of the LAD; multiple passes were made at 80/40 with a laser 0.9 mm catheter. Ballooning was undertaken with a 3.0 and 3.5 high pressure balloon to 23 atmospheres. Result was 0% residual. IMPRESSION: Successful laser atherectomy high pressure percutaneous transluminal coronary angioplasty for in-stent restenosis of the left anterior descending going from 90% initial stenosis to 0% residual. TRANSINT:[id number] Voice Confirmation ID: [id number] DOCUMENT ID: [id number] FOX GUPTA MD at 1325 CC: [id number] DICTATION DATE: 07/27/181741 APPLIANCE SERVICE SUPERVISOR: 07/27/18 1821 DIS IN 07/28/18 [facility] [address] [place] [address]
== END 2018-07-28 12:11 | disposition home or self-care (01) ==
LOC: OBSVTIME → D.ER 15:15 → D.CATH 15:15 → EDSTATUS 18:12 → D.CATH 18:14 → D.M2 18:14 → OBSVTIME 18:14 → D.M2 07-28 12:11 → D.CATH 07-28 12:11 → D.M2 07-28 12:11
PROVIDERS: Family Medicine; ATTEND Internal Medicine Interventional Cardiology
DX: I25.110 Atherosclerotic heart disease of native coronary artery with unstable angina pectoris (principal); I10 Essential (primary) hypertension; E78.5 Hyperlipidemia, unspecified; T82.855A Stenosis of coronary artery stent, initial encounter; Y83.9 Surgical procedure, unspecified as the cause of abnormal reaction of the patient, or of later complication, without mention of misadventure at the time of the procedure

== ENCOUNTER 2018-10-16 09:55 | Inpatient (IN) | payer MEDICARE ==
[~2018-10-16] VITALS: Ht 185.4 cm; Wt 114.1 kg
--- NOTE | ~2018-10-16 | HEMODYNAMI ---
PATIENT:MIN LEWIS MEDICAL RECORD: [id number] : 53 LOCATION:[facility] D.2125 ADMISSION DATE: 10/16/18 Generatedon:10/17/201811:23 Patient name: MIN LEWIS Patient #: [id number] SSN: [id number] : 1955 Date of study: 10/17/2018 Page: Of Hemodynamic Procedure Report Patient Data Patient Demographics Procedure consent was obtained First Name: MIN Gender: Male Last Name: DEBBIE : 1955 Middle Initial: Owen Age: 63 year(s) Patient #: [id number] Race: SSN: [id number] Additional ID: [id number] Contact details [address]: [address] [place] [address] State: [place] City: [place] Zip code: [address] Past Medical History Allergies Allergen Reaction Date Comments Reported Sulfa drugs 05/26/2014 Penicillins 05/26/2014 Other allergy 03/28/2015 nitroglycerin paste, erthromycin base, Darvocet Sulfa drugs 11/21/2015 Penicillins 11/21/2015 Erythromycin 11/21/2015 Other allergy 11/21/2015 Darvocet Other allergy 10/19/2016 Sulfa, Nitrobid, Penicillin, DCN, Isosorbide, Erythromycin Other allergy 04/26/2017 PCN, Sulfa Other allergy 07/20/2017 IMDUR, PCN, SULFA Other allergy 02/14/2018 SULFA, NITRO-BID, PCN, VALIUM, IMDUR, DARVOCET-N 100, ERYTHROMYCINBASE Other allergy 07/27/2018 pcn, sulfa Admission Admission Data Admission Date: 10/16/2018 Admission Time: 19:31 Arrival Date: 10/16/2018 Arrival Time: 19:31 Admit Source: Emergency Insurance Payor: Medicare department Room #: D.2125 Height (in.): 72.83 BSA: 2.37 (m2) Height (cm.): 185 BMI: 33.31 (kg/m2) Weight (lbs.): 251.33 Weight (kg.): 114 Lab Results Lab Result Date: 10/17/2018 Lab Result Time: 0:00 Biochemistry Name Units Result Min Max BUN mg/dl 12 --(-*--)-- 7 18 Creatinine mg/dl 1.1 --(--*-)-- 0.6 1.3 eGFR ml/min 70.46757 *-(----)-- 90 120 NONAFRICAN CBC Name Units Result Min Max Hemoglobin g/dl 9.5 *-(----)-- 13.5 17.5 Procedure Procedure Types Cath Procedure Diagnostic Procedure LHC LHC w/Coronaries w/Grafts FFR/IVUS FFR Initial Sedation Charges Moderate Sedation up to 30 minutes PCI Procedure Coronary Atherectomy Atherectomy w/PTCA Coronary Initial Procedure Description Procedure Date Procedure Date: 10/17/2018 Procedure Start Time: 10:37 Procedure End Time: 11:18 Procedure Staff Name Function Lv Bradshaw MD Performing Physician Elizabeth Reynolds RT Monitor Madnia Gutierrez RT Scrub Dafne Figueroa RN Nurse Procedure Data Cath Procedure Fluoroscopy Diagnostic fluoroscopy Total fluoroscopy Time: time: 13.3 min 13.3 min Diagnostic fluoroscopy Total fluoroscopy dose: dose: 2121 mGy 2121 mGy Contrast Material Contrast Material Type Amount (ml) Isovue 300 80 Entry Location Entry Primary Successful Side Size Upsize Upsize Entry Closure Acosta ccessful Closure Location (Fr) 1 (Fr) 2 (Fr) Remarks Device Remarks Radial Right 6 Fr Mechanical artery Short Compression Estimated blood loss: 5 ml Diagnostic catheters Device Type Used For End Catheter Placement DIAGNOSTIC [place] 110cm 5 Multi-vessel Fr catheter ([id number]) Angiography Procedure Complications No complications Procedure Medications Medication Administration Route Dosage 0.9% NaCl I.V. 100 ml/hr Oxygen etCO2 Nasal cannula 2 l/min Lidocaine 2% added to field 20 Heparin Flush Bag added to field 2 bags (1000units/500ml NS) Radial Cocktail added to field 1 syringe (Verapamil 2mg/Nitro 400mcg/Heparin 1500units) Versed I.V. 2 mg Fentanyl I.V. 50 mcg Heparin Bolus I.V. 4000 units Fentanyl I.V. 25 mcg Hemodynamics Rest BSA: 2.37 (m2) HGB: 9.5 (g/dl) O2 Consumption: Estimated: 279.66 (ml/min) O2 Con sumption indexed: Estimated:118 (ml/min/m) Heart Rate: 73 (bpm) Pressure Samples Time Site Value (mmHg) Purpose Heart Use Rate(bpm) 10:41 LV 88/1,8 Snapshot 83 10:41 LV 73/58,46 Snapshot 76 Snapshots Pre Cath Intra NCS Post Cath Vital Signs Time Heart Resp SPO2 etCO2 NIBP (mmHg) Rhythm Pain Sedation Rate (ipm) (%) (mmHg) Status Level (bpm) 10:18:42 74 12 97 35.3 140/78(98) NSR 0 (11) 10(A) , No pain 10:22:52 73 10 97 22.5 145/84(124) NSR 0 (11) 9(A) , No pain 10:27:06 77 10 98 19.5 142/80(120) NSR 0 (11) 9(A) , No pain 10:31:20 75 10 97 26.3 138/81(108) NSR 0 (11) 9(A) , No pain 10:35:32 75 12 98 18.8 126/83(98) NSR 0 (11) 9(A) , No pain 10:39:40 80 10 97 33 133/79(95) NSR 0 (11) 9(A) , No pain 10:43:50 80 10 97 37.6 134/81(100) NSR 0 (11) 9(A) , No pain 10:48:01 78 11 98 38.3 134/80(115) NSR 0 (11) 9(A) , No pain 10:52:15 77 10 98 38.3 124/77(105) NSR 0 (11) 9(A) , No pain 10:56:25 78 10 98 43.6 140/79(104) NSR 0 (11) 10(A) , No pain 11:00:37 75 10 97 40.6 138/80(105) NSR 0 (11) 9(A) , No pain 11:04:53 78 11 97 37.6 128/79(109) NSR 0 (11) 9(A) , No pain 11:09:05 78 11 97 35.3 139/77(106) NSR 0 (11) 9(A) , No pain 11:13:21 79 10 97 38.3 140/80(113) NSR 0 (11) 9(A) , No pain 11:17:35 78 11 97 24.8 152/85(105) NSR 0 (11) 9(A) , No pain Medications Time Medication Route Dose Verified Delivered Reason Not es Effectiveness by by 10:18:15 0.9% NaCl I.V. 100 Lv Dafne used for ml/hr Augustine Figueroa branch office administrator 10:18:21 Oxygen etCO2 2 l/min Lv Dafne used for Nasal Augustine Figueora procedure cannula RN 10:18:28 Lidocaine 2% added 20ml Lv Lv for local to vial Augustnie Bradshaw MD anesthetic field 10:18:32 Heparin Flush added 2 bags Lv Lv used for Bag to Augustine Bradshaw MD procedure (1000units/500ml field NS) 10:18:37 Radial Cocktail added 1 Lv Lv used for (Verapamil to syringe Augustine Bradshaw MD procedure 2mg/Nitro field 400mcg/Heparin 1500units) 10:19:40 Versed I.V. 2 mg Lv Dafne for sedation Augustine Figueroa RN 10:19:52 Fentanyl I.V. 50 mcg Lv Dafne for sedation Augustine Figueroa RN 10:49:40 Heparin Bolus I.V. 4000 Lv Dafne for danilo ified units Augustine Figueroa anticoagulation with Dr. RICHARD Bradshaw 10:58:59 Fentanyl I.V. 25 mcg Lv Dafne for sedation Augustine Figueroa RN Procedure Log Time Note 9:49:46 Informed consent obtained and on chart 9:49:52 Diagnostic Cath Status : Urgent 9:50:44 Lab Result : Creatinine 1.1 mg/dl 9:50:44 Lab Result : BUN 12 mg/dl 9:50:44 Lab Result : eGFR NONAFRICAN 70.95630 ml/min 9:50:44 Lab Result : Hemoglobin 9.5 g/dl 9:50:47 Dafne Figueroa RN sent for patient. Start room use. 9:50:48 Time tracking: Regular hours (M-F 7:00 - 5:00) 9:50:53 Plan of Care:Hemodynamics will remain stable., Cardiac rhythm will remain stable., Comfort level will be maintained., Respiratory function will remain adequate., Patient/ family verbilizes understanding of procedure., Procedure tolerated without complication., Recovers from procedure without complications.. 9:51:11 2) 60-89 Mildly reduced kidney function, and other findings (as for stage 1) point to kidney disease. 9:53:48 Admit Source: Emergency department 9:54:05 Patient Weight : 251.33 lbs 9:54:09 Patient Height : 72.83 inches 9:54:16 Insurance Payor : Medicare 9:54:21 Arrival Date: 10/16/2018 7:31:00 PM 10:17:33 Patient received from Med II to CCL 2 Alert and oriented. Tansferred to table in Supine position. 10:17:35 Warm blankets applied, and luisa hugger turned on for patient comfort. 10:17:35 Correct patient and procedure confirmed by team. 10:17:36 ECG and BP/O2 sat monitors applied to patient. 10:17:37 Vital chart was started 10:17:38 Baseline sample Acquired. 10:17:42 Rhythm: sinus rhythm 10:17:44 Full Disclosure recording started 10:17:47 H&P Date Dictated: 10/17/2018 New H&P dictated by physician.. 10:17:49 Pre-procedure instructions explained to patient. 10:17:49 Pre-op teaching completed and patient verbalized understanding. 10:17:51 Family in waiting room. 10:17:52 Patient NPO since Midnight. 10:18:01 Is the patient allergic to Iodine/contrast media? No. 10:18:02 Was the patient premedicated? No 10:18:06 Is patient on blood thinner?Yes 10:18:09 ACC The patient was administered the following blood thiners within the last 24 hours: ACCEffient 10:18:12 Patient diabetic? No. 10:18:13 Previous problem with sedation/anesthesia? No ? 10:18:15 0.9% NaCl 100 ml/hr I.V. was administered by Dafne Figueroa RN; used for procedure; 10:18:15 Snore? Yes 10:18:16 Sleep apnea? No 10:18:16 Deviated septum? No 10:18:17 Opens mouth fully? Yes 10:18:19 Sticks out tongue? Yes 10:18:21 Oxygen 2 l/min etCO2 Nasal cannula was administered by Dafne Figueroa RN; used for procedure; 10:18:24 Airway obstruction? Yes copd 10:18:27 Dentures? No ? 10:18:28 Lidocaine 2% 20ml vial added to field was administered by Lv Bradshaw MD; for local anesthetic; 10:18:30 Pre procedure: right dorsailis pedis pulse 2+ Normal; easily identifiable; not easily obliterated 10:18:32 Heparin Flush Bag (1000units/500ml NS) 2 bags added to field was administered by Lv Bradshaw MD; used for procedure; 10:18:32 Pre procedure: left dorsailis pedis pulse 2+ Normal; easily identifiable; not easily obliterated 10:18:33 Patient pain scale 0/10 ?. 10:18:37 Radial Cocktail (Verapamil 2mg/Nitro 400mcg/Heparin 1500units) 1 syringe added to field was administered by Lv Bradshaw MD; used for procedure; 10:18:39 IV patent on arrival in left antecubital with 0.9% NaCl at KVO. 10:18:41 Lab results completed and on chart. 10:18:45 Right Radial & Right Groin area was prepped with chlora-prep and draped in sterile fashion 10:18:46 Alarms reviewed by R. N. 10:18:46 Sharps counted by scrub and verified by R.N. 10:18:47 Physician arrived 10:18:47 --------ALL STOP TIME OUT------ 10:18:48 Final Timeout: patient, procedure, and site verified with staff and physician. All members of the team are in agreement. 10:18:50 Right Radial & Right Groin site verified by team. 10:18:57 Fire Safety Assessment: A--An alcohol-based skin anteseptic being used preoperatively., C--Open oxygen or nitrous oxide is being used., D--An ESU, laser, or fiber-optic light is being used. 10:19:10 Physical assessment completed. ASA score P 2 - A patient with mild systemic disease as per Lv Bradshaw MD. 10:19:14 Maximum allowable contrast dose (3.7 X eGFR X 0.75)197 ml. 10:19:18 Sedation plan: IV Moderate Sedation Medication:Versed, Fentanyl 10:19:28 Use device set Radial Dx or PCI 10:19:29 ACIST Syringe (92946) opened to sterile field. 10:19:29 Medline Cath Pack ([id number]) opened to sterile field. 10:19:30 Bag Decanter (2002S) opened to sterile field. 10:19:30 ACIST Hand Control (15636) opened to sterile field. 10:19:30 ACIST Manifold (95276) opened to sterile field. 10:19:31 Tegaderm 4 x 4 (1626W) opened to sterile field. 10:19:31 MBrace Wrist Support ([id number]) opened to sterile field. 10:19:32 NEEDLE Cook 21G 4cm Radial (A99023) opened to sterile field. 10:19:37 EMERALD Guide Wire (502-152) opened to sterile field. 10:19:38 SHEATH 6FR RAIN (0319861) opened to sterile field. 10:19:40 Versed 2 mg I.V. was administered by Dafne Figueroa RN; for sedation; 10:19:52 Fentanyl 50 mcg I.V. was administered by Dafne Figueroa RN; for sedation; 10:32:26 Zero performed for pressure channel P1 10:37:20 Procedure started. 10:37:30 Local anesthetic to right radial artery with Lidocaine 2% by Lv Bradshaw MD.INITIAL ACCESS ONLY 10:37:49 A 6 Fr Short sheath was inserted into the Right Radial artery 10:38:25 A DIAGNOSTIC [place] 110cm 5 Fr catheter (774974) was advanced over the wire and used for Multi-vessel Angiography. 10:41:35 LV gram done using FRAUSTO 10:41:38 Injector settings: Ml/sec: 5, Volume: 15, 10:41:43 EF : 60 % 10:41:58 SVG angiography performed. 10:42:47 RCA angiography performed. 10:42:51 Injector settings: Ml/sec: 3, Volume: 6, 10:44:08 Injector settings: Ml/sec: 3, Volume: 6, 10:44:10 Catheter removed. 10:44:10 Proceeding to intervention. 10:44:28 GUIDE 6FR XBLAD 4.0 catheter ([id number]) opened to sterile field. 10:44:29 [place] Verrata Plus pressure wire (87675C) opened to sterile field. 10:44:30 INFLATOR Merit BasixCompak (VT1321) opened to sterile field. 10:44:59 6 Fr xblad 4 guide catheter was inserted over the wire 10:45:49 LCA angiography performed. 10:45:52 Injector settings: Ml/sec: 3, Volume: 6, 10:46:17 ACC Pre-intervention MADIHA Flow is 3. 10:46:17 Pre PCI Site: [place] mLAD has 90% stenosis. 10:46:18 FFR/IFR wire advanced. 10:46:26 Baseline FFR 1. 10:48:34 pLAD lesion measured at 0.89 with IFR 10:49:40 Heparin Bolus 4000 units I.V. was administered by Dafne Figueroa RN; for anticoagulation; verified with Dr. Bradshaw 10:49:49 LASER ELCA 0.9 Rx atherectomy catheter (598258) opened to sterile field. 10:53:04 CHOICE PT Extra Support 182cm wire ([id number]) opened to sterile field. 10:53:15 Wire removed. 10:53:24 choice pt wire advanced. 10:54:47 Wire advanced across lesion. 10:55:13 Laser pass to mLAD with Fluence of 80 and Rate of 40. 10:58:59 Fentanyl 25 mcg I.V. was administered by Dafne Figueroa RN; for sedation; 11:01:28 Laser catheter removed. 11:02:06 Inflate balloon Inflation number: 1 A NC EUPHORA 3.0 x 15 balloon ([id number]) was prepped and advanced across the Mid LAD , then inflated to 15 MONICA for 0:10 (min:sec) . 11:02:13 Inflation number: 2 The NC EUPHORA 3.0 x 15 balloon ([id number]) was reinflated across the Mid LAD , to 19 MONICA for 0:10 (min:sec) . 11:02:29 Inflation number: 1 The NC EUPHORA 3.0 x 15 balloon ([id number]) was reinflated across the Prox LAD , to 23 MONICA for 0:10 (min:sec) . 11:03:02 Inflation number: 2 The NC EUPHORA 3.0 x 15 balloon ([id number]) was reinflated across the Prox LAD , to 17 MONICA for 0:10 (min:sec) . 11:03:17 Inflation number: 3 The NC EUPHORA 3.0 x 15 balloon ([id number]) was reinflated across the Mid LAD , to 17 MONICA for 0:10 (min:sec) . 11:03:49 Balloon removed over the wire. 11:03:52 Wire removed. 11:03:55 Guide catheter removed. 11:04:00 GUIDE 6FR AR 2.0 catheter (RB9HW89) opened to sterile field. 11:05:14 ACC Post-intervention MADIHA Flow is 3. 11:05:19 6 Fr ar 2 guide catheter was inserted over the wire 11:08:32 ACT drawn and resulted at 247 seconds. (normal therapeutic range 180-240 seconds). 11:09:11 Guide catheter removed. 11:09:22 GUIDE 6FR AR 1.0 catheter ([id number]) opened to sterile field. 11:09:40 6 Fr ar 1 guide catheter was inserted over the wire 11:10:09 Guide Catheter removed. unable to cannulate vessel. 11:10:55 GUIDE 6Fr [place] 4.0 catheter (572388) opened to sterile field. 11:11:58 Guide Catheter removed. unable to cannulate vessel. 11:12:36 TR BAND Large ([id number]) opened to sterile field. 11:13:40 Sheath removed intact; hemostasis achieved with Mechanical Compression to the Right Radial artery. 11:13:54 Procedure ended.(Physican Out) 11:15:40 Fluoroscopy time 13.30 minutes. 11:15:53 Fluoroscopy dose: 2121 mGy 11:15:53 Flurop Dose total: 2121 11:16:01 Dose Area Product 662109 mGy/cm. 11:16:05 Contrast amount:Isovue 300 80ml. 11:16:07 Sharps counted by scrub and verified by R.N. 11:16:13 [place] band inflated with 12cc of air. 11:16:14 Insertion/operative site no bleeding no hematoma. 11:16:25 Post right radial artery:stable 11:16:26 Post Procedure Pulses reassessed and unchanged 11:16:28 Post procedure rhythm: unchanged. 11:16:31 Estimated blood loss: 5 ml 11:16:32 Post procedure instruction explained to patient.Patient verbalizes understanding. 11:16:33 Patient needs reinforcement of post procedure teaching. 11:17:51 Procedure type changed to Cath procedure, Diagnostic procedure, LHC, LHC w/Coronaries w/Grafts, FFR/IVUS, FFR Initial, Sedation Charges, Moderate Sedation up to 30 minutes, PCI procedure, Coronary Atherectomy, Atherectomy w/PTCA Coronary Initial 11:18:21 Laser total pulses delivered: 6166 11:18:27 Laser total treatment time: 2 minutes 33 seconds 11:18:34 Procedure and supply charges have been captured, reviewed, submitted and are correct. 11:18:38 Procedure Complication : No complications 11:18:40 Vital chart was stopped 11:18:40 See physician's report for complete and final results. 11:18:42 Report given to Pre/Post Procedure Room. 11:18:45 Patient transfered to Pre/Post Procedure Room with Stretcher. 11:18:47 Procedure ended. 11:18:47 Full Disclosure recording stopped 11:18:55 ACC-PCI Only Patient was given prescriptions, or instructed by Lv Bradshaw MD to start/continue the following medications upon discharge: Effient 11:18:56 End room use (Document Last) Intervention Summary Intervention Notes Time ActionType Lesion and Equipment Action# Pressure Duration Attributes Used 11:02:06 Inflate Mid LAD NC EUPHORA 1 15 00:10 balloon 3.0 x 15 balloon ([id number]) 11:02:13 Reinflate Mid LAD NC EUPHORA 2 19 00:10 balloon 3.0 x 15 balloon ([id number]) 11:02:29 Reinflate Prox LAD NC EUPHORA 1 23 00:10 balloon 3.0 x 15 balloon ([id number]) 11:03:02 Reinflate Prox LAD NC EUPHORA 2 17 00:10 balloon 3.0 x 15 balloon ([id number]) 11:03:17 Reinflate Mid LAD NC EUPHORA 3 17 00:10 balloon 3.0 x 15 balloon ([id number]) Device Usage Item Name Manufacture Quantity Catalog Number Hospital Part Current M inimal Lot# / Charge Number Stock Stock Serial# Code ACIST Acist 1 71789 732766 952806 484996 2 0 Syringe Medical (74519) Systems Inc Medline Cath Medline 1 [id number] 983702 91917 132787 5 Pack ([id number]) Bag Decanter Microtek 1 2001S 101830 88975 473969 5 (2001S) Medical Inc. ACIST Hand Acist 1 02146 715272 743571 980463 5 Control Medical (61762) Systems Inc ACIST Acist 1 58213 111430 253359 789607 5 Manifold Medical (12474) Systems Inc Tegaderm 4 x 3M 1 1626W 069217 889851 703236 5 4 (1626W) MBrace Wrist Advanced 1 140-0250-00 838434 94747 528181 5 Support Vascular (745400894) Dynamics NEEDLE Cook Cook Medical 1 F96998 742557 837889 358474 5 21G 4cm Radial (R63034) [facility] Cardinal 1 502-281 723772 442747 701958 5 Guide Wire [facility] (565-735) SHEATH 6FR Cardinal 1 6405490 333907 9324673 391799 5 [facility] (4902439) DIAGNOSTIC Terumo 1 40-5013 020496 233508 349757 5 [place] 110cm 5 Fr catheter (954917) GUIDE 6FR Cardinal 1 00238740 488359 109127 281159 3 XBLAD 4.0 Health catheter (53456431) [place] 1 76940H 801993 841259514 925142 5 Verrata Plus pressure wire (38980H) INFLATOR Merit 1 DS5573 979274 537654 174252 1 5 [facility] Medical BasixCompak (TZ6177) LASER ELCA Ruben 1 110-004 792287 231293 318606 5 0.9 Rx Healthcare atherectomy (361606) catheter (528230) CHOICE PT [place] 1 [id number] 536794 141319 240638 5 Extra Scientific Support 182cm wire (5863806Q3) [place] EU[place]ORA Medtronic 1 [id number] 826869 174324 689557 1 [id number] 3.0 x 15 balloon ([id number]) GUIDE 6FR AR Medtronic 1 VV6OZ05 549656 60601 912191 1 2.0 catheter (QI0EG79) GUIDE 6FR AR Medtronic 1 KA7MG18 567936 40733 516010 1 1.0 catheter (DS2UO28) GUIDE 6Fr Terumo 1 40-8840 653299 301675 071653 1 [place] 4.0 catheter (530414) TR BAND Terumo 1 [id number] 749184 601789 147895 4 0 Large ([id number]) Signature Audit [place] Stage Time Signature Unsigned Intra-Procedure 10/17/2018 Elizabeth Reynolds 11:23:43 AM RT(R) Signatures Performing Physician : Signature : Lv Bradshaw MD Date : Time : Monitor : Elizabeth Reynolds RT Signature : Date : Time : Nurse : Dafne Figueroa RN Signature : Date : Time : [address] [place] [address]
[2018-10-16 10:22] LABS: BASOPHILS 0.2 % (0-2); EOSINOPHILS 4.3 % (0-7); HEMATOCRIT 29.8 % (42.0-54.0); HEMOGLOBIN 9.5 g/dL (13.5-17.5); IMMATURE GRANULOCYTES 0.2 % (0-5); LYMPHOCYTES 34.6 % (15-50); MCH 26.2 pg (26.0-34.0); MCHC 31.9 g/dL (31.0-37.0); MCV 82.3 fL (80.0-100.0); MEAN PLATELET VOLUME 8.9 fL (7.4-10.4); NEUTROPHILS 50.7 % (40-80); PLATELET COUNT 200 10x3/uL (130-400); RBC 3.62 10x6/uL (4.20-6.10); RDW 15.8 % (11.5-14.5); WBC 5.1 10x3/uL (4.8-10.8)
[2018-10-16 10:29] LABS: INR 1.03 (0.85-1.17)
[2018-10-16 10:44] LABS: ALBUMIN 3.2 g/dL (3.4-5.0); ALKALINE PHOSPHATASE 52 U/L (46-116); ALT (SGPT) 46 U/L (10-68); BILIRUBIN - TOTAL 0.26 mg/dL (0.2-1.3); CALC OSMOLALITY 277 mosm/kg (275-300); CALCIUM 8.8 mg/dL (8.5-10.1); CARBON DIOXIDE 24.4 mmol/L (21.0-32.0); CHLORIDE - SERUM 105 mmol/L (98-107); CREATININE - SERUM 1.2 mg/dL (0.6-1.3); GLUCOSE 164 mg/dL (74-106); POTASSIUM - SERUM 4.8 mmol/L (3.5-5.1); PROTEIN - SERUM 6.9 g/dL (6.4-8.2); SODIUM 137 mmol/L (136-145); UREA NITROGEN 12 mg/dL (7-18); eGFR NON AFRICAN AMERICAN 65 mL/min (90-120)
[2018-10-16 10:46] LABS: CKMB 0.9 U/L (0.0-3.6); CREATINE KINASE 107 UL (21-232); MAGNESIUM - SERUM 1.5 mg/dL (1.8-2.4)
[2018-10-16 10:47] LABS: TROPONIN-I < 0.017 ng/mL (0.000-0.060)
[2018-10-16 10:52] VITALS: BP 120/59
[2018-10-16 13:41] VITALS: BP 139/71; Ht 185.4 cm; Wt 114.1 kg
--- NOTE | 2018-10-16 14:39 | NUR ---
ALERT AND ORIENTED X3. RESTING IN BED. ARRIVE TO ROOM AT 1220 ACCOMPANIED BY FAMILY. SINUS RHYTHM 67 ON TELEMETRY. CONSENTS FOR HEARTH SIGNED ON CHART. REFUSE SCDs. UP AD JJ. GAIT STEADY. CONTINUE ADMISSION PROCESS. CONTINUE PLAN OF CARE AND SAFETY PRECAUTIONS.
[2018-10-16 15:52] VITALS: BP 134/69
--- NOTE | 2018-10-16 17:39 | MORECARE ---
CASE MANAGEMENT DISCHARGE SUMMARY PATIENT: MIN LEWIS UNIT: [id number] ADM DATE: 10/16/18 AGE: 63 : 53 SEX: M ROOM/BED: D.4408 AUTHOR: JUAN KRUSE PHYSICIAN: REFERRING PHYSICIAN: FOX GUPTA MD DATE OF SERVICE: 10/16/18 Discharge Plan Patient Name: MIN LEWIS [facility] [facility] 1955 Planned Disposition: Home or Self Care Anticipated Discharge Date: Discharge Date: Expected LOS: 0 Initial Reviewer: [email or web address] Initial Review Date: 10/16/2018 Generated: 10/16/18 6:38 pm External Providers External Provider: OTHER-OTHER Next Contact Date: Service Request Date: Service Type: Resolution: Reviewer: Comments: Patient Name: MIN LEWIS Page [phone] at 1739 All edits/amendments must be made on the electronic document DICTATION DATE: 10/16/181737 ELECTRICAL TROUBLESHOOTER: CLARKE 10/16/181737 RPT#: [id number] DC DATE: STATUS: [facility] [address] [place] [address] END OF REPORT
[2018-10-16 18:36] LABS: CKMB 0.9 U/L (0.0-3.6); CREATINE KINASE 116 UL (21-232)
[2018-10-16 18:39] LABS: TROPONIN-I < 0.017 ng/mL (0.000-0.060)
[2018-10-16 20:00] VITALS: BP 153/66
--- NOTE | 2018-10-16 20:29 | NUR ---
INITAIL ROUNDS COMPLETED AT 1915 HRS. PT STATES JESSICA IS WORKING. ASSESSMENT COMPLETED AT 1950 HRS. SR PER CM HR 70. ALERT AND ORIENTED TO PERSON, PLACE AND TIME. RAO. IV TO LAC SL. LUNGS ESSENTIALLY CTA. HERNIA NOTED. O2 2LNC. AT BEDSIDE. SR UP X2, CALL LIGHT WITHIN REACH.
[2018-10-17 00:01] VITALS: BP 129/72
--- NOTE | 2018-10-17 00:09 | NUR ---
PT RESTING WITH EYES CLOSED. RESP EVEN AND REGULAR. SR UP X2, CALL LIGHT WITHIN REACH.
[2018-10-17 00:39] LABS: CKMB 0.8 U/L (0.0-3.6); CREATINE KINASE 105 UL (21-232)
[2018-10-17 00:41] LABS: TROPONIN-I < 0.017 ng/mL (0.000-0.060)
--- NOTE | 2018-10-17 02:20 | NUR ---
PT RESTING WITH EYES CLOSED. RESP EVEN AND REGULAR. SR UP X2, CALL LIGHT WITHIN REACH.
[2018-10-17 04:00] VITALS: BP 141/75
--- NOTE | 2018-10-17 05:42 | NUR ---
HIBICLENS BATH DONE. PT PREPPED PER ORDERS. PT STAES PAIN LESS INTENSE AFTER DILAUDID AND ZOFRAN ADMINISTRATION. AT BEDSIDE.
[2018-10-17 06:00] LABS: BASOPHILS 0.6 % (0-2); EOSINOPHILS 5.7 % (0-7); HEMATOCRIT 30.8 % (42.0-54.0); HEMOGLOBIN 9.5 g/dL (13.5-17.5); IMMATURE GRANULOCYTES 0.2 % (0-5); LYMPHOCYTES 30.9 % (15-50); MCH 25.8 pg (26.0-34.0); MCHC 30.8 g/dL (31.0-37.0); MCV 83.7 fL (80.0-100.0); MEAN PLATELET VOLUME 8.6 fL (7.4-10.4); MONOCYTES 9.6 % (2-11); PLATELET COUNT 188 10x3/uL (130-400); RBC 3.68 10x6/uL (4.20-6.10); RDW 15.6 % (11.5-14.5); WBC 5.4 10x3/uL (4.8-10.8)
[2018-10-17 06:27] LABS: ALBUMIN 3.2 g/dL (3.4-5.0); ANION GAP 9.8 mmol/L (8-16); BILIRUBIN - TOTAL 0.34 mg/dL (0.2-1.3); CALCIUM 8.5 mg/dL (8.5-10.1); CARBON DIOXIDE 28.7 mmol/L (21.0-32.0); CREATININE - SERUM 1.1 mg/dL (0.6-1.3); POTASSIUM - SERUM 4.5 mmol/L (3.5-5.1)
--- NOTE | 2018-10-17 07:30 | NUR ---
PATIENT IS STABLE AND VSS. RECEIVED PHONE CALL FROM MAIL OPENER TO PREOP PATIENT. PATIENT PREOP PER MAR. AT BS. PATIENT DENIES ANY NEEDS OR PAIN. WILL CONTINUE WOT MONITOR. SR UP X 2 BED IN LOW POSITION AND CALL LIGHT IN REACH.
[2018-10-17 07:38] VITALS: BP 121/68
--- NOTE | 2018-10-17 07:46 | NUR ---
BEDSIDE SHIFT REPORT DONE WITH NIGHT NURSE AND PRESENT. PT CO NAUSEA AND CHEST PAIN. MEDICATED WITH DILAUDID 2 AND ZOFRAN 4 MG IV. MONITOR SHOWS NSR @ 77/
--- NOTE | 2018-10-17 08:10 | NUR ---
PREOP FOR MARKETING CONTENT SPECIALIST.
--- NOTE | 2018-10-17 10:10 | NUR ---
PATIENT IS STABLE AND VSS. PATIENT TO MEAT BLENDER VIA HOSPITAL BED AND MEAT BLENDER PERSONNEL.
--- NOTE | 2018-10-17 11:31 | NUR ---
PT ARRIVED BY STRETCHER. PLACED ON MONITORS. ASSESSMENT COMPLETED. CALL LIGHT WITHIN REACH.
--- NOTE | 2018-10-17 11:45 | NUR ---
RIGHT WRIST TR BAND IN PLACE. NO BLEEDING/HEMATOMA NOTED. CALL LIGHT WITHIN REACH. PT RESTING COMFORTABLY. DENIES PAIN/NAUSEA AT THIS TIME. VSS.
--- NOTE | 2018-10-17 12:15 | NUR ---
PT RESTING COMFORTABLY. VSS. RIGHT RADIAL TR BAND IN PLACE. NO BLEEDING/HEMATOMA NOTED. PT GIVEN URINAL, VOIDED WITHOUT DIFFICULTY. NO OTHER NEEDS AT THIS TIME.
--- NOTE | 2018-10-17 12:16 | NUR ---
PATIENT HAD CLEAN CATH AND DC FROM MANAGER ASSEMBLY RECOVERY.
--- NOTE | 2018-10-17 12:45 | NUR ---
DR. GUPTA ROUNDED AND SPOKE WITH PT AND PT'S FAMILY. THEY VOICED UNDERSTANDING. VSS. RIGHT WRIST TR BAND IN PLACE. NO BLEEDING/HEMATOMA NOTED. NO OTHER NEEDS AT THIS TIME.
--- NOTE | 2018-10-17 13:15 | NUR ---
RIGHT RADIAL TR BAND IN PLACE. NO BLEEDING/HEMATOMA NOTED. VSS. CALL LIGHT WITHIN REACH. FAMILY AT BEDSIDE. PT IS EATING AND DRINKING. DENIES NAUSEA/PAIN. WILL CONTINUE TO MONITOR.
--- NOTE | 2018-10-17 14:03 | NUR ---
3cc OF AIR REMOVED FROM TR BAND. NO BLEEDING/HEMATOMA NOTED. CALL LIGHT WITHIN REACH. FAMILY AT BEDSIDE. VSS.
--- NOTE | 2018-10-17 14:21 | NUR ---
3cc OF AIR REMOVED FROM TR BAND. NO BLEEDING/HEMATOMA NOTED. CALL LIGHT WITHIN REACH. FAMILY AT BEDSIDE.
--- NOTE | 2018-10-17 14:59 | NUR ---
3cc OF AIR REMOVED FROM TR BAND. NO BLEEDING/HEMATOMA NOTED. LEFT AC PIV D/C'D WITH CATH TIP INTACT. TOLERATED WELL. PT'S AT BEDSIDE. PT INSTRUCTED TO GET UP AND DRESSED. NO ASSISTANCE NEEDED AT THIS TIME.
--- NOTE | 2018-10-17 15:00 | NUR ---
RIGHT RADIAL TR BAND REMOVED. DRESSING APPLIED. NO BLEEDING/HEMATOMA NOTED. PT DRESSED AND VOIDED IN URINAL APPROX 550cc OF CLEAR YELLOW URINE. RIGHT WRIST BRACE IN PLACE.
--- NOTE | 2018-10-17 15:10 | NUR ---
DISCUSSED DISCHARGE INSTRUCTIONS WITH PT. HE VOICED UNDERSTANDING.
--- NOTE | 2018-10-17 15:15 | NUR ---
PT TAKEN OUT TO VEHICLE BY WHEELCHAIR. NO S/S OF DISTRESS NOTED. ALL BELONGINGS AND PAPERWORK IN HAND.
--- NOTE | 2018-10-19 14:32 | HP ---
PATIENT: MIN PELAYO MEDICAL RECORD: [id number] ACCOUNT: [id number] LOCATION:[facility] : 53 ADMISSION DATE: 10/16/18 PCP: MOHIT ZULETA MD HISTORY AND PHYSICAL EXAMINATION DIAGNOSES: 1. Unstable angina class IV. 2. Coronary artery disease. 3. Status post multivessel percutaneous transluminal coronary angioplasty stent. 4. Hypertension. 5. Hyperlipidemia. 6. Family history of coronary artery disease. HISTORY OF PRESENT ILLNESS: Mr. Pelayo presents with increasing class IV unstable anginal symptomatology, shortness of breath, diaphoresis, and nausea. This is just like that of his previous angina, status post multivessel PTCA stent in the past. PHYSICAL EXAMINATION: CONSTITUTIONAL/GENERAL APPEARANCE: Well nourished, well developed, appears stated age. EYES: Lids and conjunctivae noninjected. No discharge. No pallor. ENT: Lips within normal limit. No cyanosis. No pallor. NECK: Carotid arteries, bilateral normal upstroke. No bruits. No thrills. No jugular venous pressure or distention. CERVICAL LYMPH NODES: Nontender. Nonenlarged. THYROID: Not enlarged. No nodules. CARDIOVASCULAR: Precordial exam, nondisplaced. No heaves or pericardial thrills. Rate and rhythm, regular. Heart sounds, normal S1, normal S2. No S3, no gallop, no rub. Systolic murmur, not heard. Diastolic murmur, not heard. RESPIRATORY: Respiratory effort, unlabored. Normal curvature. No thoracic deformity. No chest wall tenderness. Percussion, resonant. Auscultation, clear. No wheezes, no rales, no rhonchi. ABDOMEN: Soft, nondistended, nontender. No abdominal pain, no vomiting and normal appetite. MUSCULOSKELETAL: No joint tenderness, normal gait, normal tone. SKIN: Warm and dry. OVERALL IMPRESSION: Unstable angina class IV in a patient with a past history of multivessel coronary artery disease, just like that of his previous angina. We will proceed with coronary angiography in the a.m. Further care depends upon the findings of the angiography. TRANSINT:[id number] Voice Confirmation ID: [id number] DOCUMENT ID: [id number] HISTORY AND PHYSICAL [id number] MIN PELAYO FOX GUPTA MD at 1432 CC: [id number] DICTATION DATE: 10/16/18 1207 QUARTER SUPERVISOR: 10/16/18 1220 DIS IN 10/17/18 [facility] [address] [facility] [place] [address]
--- NOTE | 2018-10-21 14:30 | MORECARE ---
CASE MANAGEMENT DISCHARGE SUMMARY PATIENT: MIN LEWIS UNIT: [id number] ADM DATE: 10/16/18 AGE: 63 : 54 SEX: M ROOM/BED: D.[facility] AUTHOR: JUAN KRUSE PHYSICIAN: REFERRING PHYSICIAN: FOX GUPTA MD DATE OF SERVICE: 10/21/18 Discharge Plan Patient Name: MIN LEWIS [facility] [facility] 1955 Planned Disposition: Home or Self Care Anticipated Discharge Date: Discharge Date: 10/17/2018 Expected LOS: 0 Initial Reviewer: [email or web address] Initial Review Date: 10/16/2018 Generated: 10/21/18 3:30 pm Last DP export: 10/16/18 4:39 pm Patient Name: MIN LEWIS Page [id number] at 1430 All edits/amendments must be made on the electronic document DICTATION DATE: 10/21/18 1430 ATMOSPHERIC PHYSICS PROFESSOR: CLARKE 10/21/18 1430 RPT#: [id number] DC DATE:10/17/18 STATUS: DIS IN [facility] [address] [place] [address] END OF REPORT
--- NOTE | 2018-11-01 13:38 | OP ---
PATIENT NAME: MIN LEWIS MEDICAL RECORD: [id number] :53 LOCATION:[facility] ADMISSION DATE:10/16/18 SURGEON: FOX GUPTA MD DATE OF OPERATION: 10/17/2018 PROCEDURES: 1. Laser atherectomy LAD. 2. PTCA, LAD. 3. IFR. 4. Left heart catheterization. 5. Selective coronary angiography. 6. Left ventriculogram. 7. Vein graft angiography. INDICATION: Unstable angina and coronary artery disease. PROCEDURE IN DETAIL: After informed consent was obtained and after a detailed description of risks, benefits as well as alternative therapies, the patient elected to proceed with angiogram and heart catheterization. The right radial area was prepped and draped in normal sterile fashion. Right radial artery was cannulated via modified Seldinger technique with placement of 6-Mauritian sheath. All catheters exchanged through this sheath. FINDINGS: The left ventriculogram was performed in standard 30-degree FRAUSTO view, reveals good cardiac wall motion, ejection fraction is 60%. SELECTIVE CORONARY ANGIOGRAPHY: 1. Left main is with no significant angiographic disease. 2. Left anterior descending has multiple previously placed stents. There is a 70% in-stent restenosis area in the mid vessel and IFR is abnormal at 0.89. 3. Vein graft to the LAD diagonal is widely patent, previously placed stents in this vein graft are widely patent. 4. Left circumflex is widely patent, previously placed stent in the circumflex is widely patent. 5. Right coronary has moderate irregularities, but no flow-limiting stenosis. Laser atherectomy, PTCA of the LAD with multiple passes were made with a 0.9 laser catheter inflation was made with a 3.0 x 15 Euphora balloon taken to 23 atmospheres. Result was 0% residual stenosis. OVERALL IMPRESSION: Successful laser atherectomy, PTCA of the left anterior descending going from greater than 70% initial stenosis that was in-stent restenosis to 0% residual. TRANSINT:[id number] Voice Confirmation ID: [id number] DOCUMENT ID: [id number] FOX GUPTA MD at 1338 CC: [id number] DICTATION DATE: 10/25/181911 [facility]: 10/25/182141 DIS IN 10/17/18 [facility] [address] [place] [address]
--- NOTE | 2018-11-01 13:38 | DS ---
PATIENT:MIN PELAYO :53 MEDICAL RECORD: [id number] DISCHARGE SUMMARY ADMISSION DATE: 10/16/18 DISCHARGE DATE: 10/17/18 DISCHARGE DIAGNOSES: 1. Unstable angina. 2. Coronary artery disease. 3. Laser atherectomy and PTCA this admission. HOSPITAL COURSE: Mr. Pelayo presents with unstable anginal symptomatology, found to have significant in-stent restenosis of the LAD. Underwent successful laser atherectomy and PTCA of this territory. Discharged home with no change in medications. He is already on aspirin and Plavix. Follow up with [facility] in 1 month. TRANSINT:[id number] Voice Confirmation ID: [id number] DOCUMENT ID: [id number] FOX GUPTA MD at 1338 CC: [id number] DICTATION DATE: 10/25/181912 LINEN WORKER: 10/26/18 0149 DIS IN 10/17/18 [facility] [address] [place] [address]
== END 2018-10-17 15:15 | disposition home or self-care (01) | DRG 251 ==
LOC: D.M2 09:55 → D.OPS 09:55 → D.ER 09:55 → EDSTATUS 11:09 → D.M2 11:10 → D.OPS 19:31 → D.M2 19:31 → D.CLR 10-17 11:29
PROVIDERS: Emergency Medicine; Internal Medicine Nephrology; ADMIT Internal Medicine Interventional Cardiology; ATTEND Internal Medicine Interventional Cardiology
PROC: 4A033BC Measurement of Arterial Pressure, Coronary, Percutaneous Approach (ICD-10-PCS; 2018-10-17)
PROC: B240ZZ3 Ultrasonography of Single Coronary Artery, Intravascular (ICD-10-PCS; 2018-10-17)
PROC: 4A023N7 Measurement of Cardiac Sampling and Pressure, Left Heart, Percutaneous Approach (ICD-10-PCS; 2018-10-17)
PROC: B2121ZZ Fluoroscopy of Single Coronary Artery Bypass Graft using Low Osmolar Contrast (ICD-10-PCS; 2018-10-17)
PROC: B2111ZZ Fluoroscopy of Multiple Coronary Arteries using Low Osmolar Contrast (ICD-10-PCS; 2018-10-17)
PROC: B2151ZZ Fluoroscopy of Left Heart using Low Osmolar Contrast (ICD-10-PCS; 2018-10-17)
PROC: 02703ZZ Dilation of Coronary Artery, One Artery, Percutaneous Approach (ICD-10-PCS; principal; 2018-10-17 09:50)
PROC: 02C03ZZ Extirpation of Matter from Coronary Artery, One Artery, Percutaneous Approach (ICD-10-PCS; 2018-10-17 09:50)
DX: I25.110 Atherosclerotic heart disease of native coronary artery with unstable angina pectoris (principal); I10 Essential (primary) hypertension; E78.5 Hyperlipidemia, unspecified; J44.9 Chronic obstructive pulmonary disease, unspecified; E11.51 Type 2 diabetes mellitus with diabetic peripheral angiopathy without gangrene; K21.9 Gastro-esophageal reflux disease without esophagitis; F32.9 Major depressive disorder, single episode, unspecified; Z86.73 Personal history of transient ischemic attack (TIA), and cerebral infarction without residual deficits

== ENCOUNTER 2018-10-21 16:01 | Inpatient (IN) | payer MEDICARE ==
[~2018-10-21] VITALS: Ht 185.4 cm; Wt 114.5 kg
--- NOTE | ~2018-10-21 | HEMODYNAMI ---
PATIENT:MIN LEWIS MEDICAL RECORD: [id number] : 53 LOCATION:[facility]# [id number] ADMISSION DATE: 10/21/18 Generatedon:10/21/201817:08 Patient name: MIN LEWIS Patient #: [id number] SSN: [id number] : 1955 Date of study: 10/21/2018 Page: Of Hemodynamic Procedure Report Patient Data Patient Demographics Procedure consent was obtained First Name: MIN Gender: Male Last Name: DEBBIE : 1955 [facility] Initial: G Age: 63 year(s) Patient #: [id number] Race: SSN: [id number] Additional ID: [id number] Contact details [address]: [address] [place] [address] State: [place] City: [place] Zip code: [address] Past Medical History Allergies Allergen Reaction Date Comments Reported Sulfa drugs 05/26/2014 Penicillins 05/26/2014 Other allergy 03/28/2015 nitroglycerin paste, erthromycin base, Darvocet Sulfa drugs 11/21/2015 Penicillins 11/21/2015 Erythromycin 11/21/2015 Other allergy 11/21/2015 Darvocet Other allergy 10/19/2016 Sulfa, Nitrobid, Penicillin, DCN, Isosorbide, Erythromycin Other allergy 04/26/2017 PCN, Sulfa Other allergy 07/20/2017 IMDUR, PCN, SULFA Other allergy 02/14/2018 SULFA, NITRO-BID, PCN, VALIUM, IMDUR, DARVOCET-N 100, ERYTHROMYCINBASE Other allergy 07/27/2018 pcn, sulfa Other allergy 10/21/2018 SULFA, PCN, IMDUR, PROPOXYPHENE NAPSYLATE, ERYTHROMYCIN BASE Admission Admission Data Admission Date: 10/21/2018 Admission Time: 16:01 Lab Results Lab Result Date: 10/17/2018 Lab Result Time: 0:00 Biochemistry Name Units Result Min Max BUN mg/dl 12 --(-*--)-- 7 18 Creatinine mg/dl 1.1 --(--*-)-- 0.6 1.3 eGFR ml/min 70.27114 *-(----)-- 90 120 NONAFRICAN CBC Name Units Result Min Max Hemoglobin g/dl 9.5 *-(----)-- 13.5 17.5 Procedure Procedure Types Cath Procedure Diagnostic Procedure LHC LHC w/Coronaries w/Grafts Procedure Description Procedure Date Procedure Date: 10/21/2018 Procedure Start Time: 16:50 Procedure End Time: 17:03 Procedure Staff Name Function Cristopher Zuleta MD Performing Physician Madina Gutierrez RT Monitor Daphne Ruano RT Scrub Dafne Figueroa RN Nurse Yg Castillo RT Scrub Procedure Data Cath Procedure Fluoroscopy Diagnostic fluoroscopy Total fluoroscopy Time: 2.5 time: 2.5 min min Diagnostic fluoroscopy Total fluoroscopy dose: 781 dose: 781 mGy mGy Contrast Material Contrast Material Type Amount (ml) Isovue 300 96 Entry Location Entry Primary Successful Side Size Upsize Upsize Entry Closure Succes sful Closure Location (Fr) 1 (Fr) 2 (Fr) Remarks Device Remarks Femoral Right 6 Fr Exoseal artery Short Estimated blood loss: 10 ml Diagnostic catheters Device Type Used For End Catheter Placement MULTIPACK JL 4.0 5Fr Procedure catheter MULTIPACK 3DRC 5Fr Procedure catheter MULTIPACK Pigtail 5 Fr Procedure catheter DIAGNOSTIC AR MOD 5Fr Procedure Catheter ([id number]) Procedure Complications No complications Procedure Medications Medication Administration Route Dosage 0.9% NaCl I.V. 100 ml/hr Oxygen etCO2 Nasal cannula 2 l/min Lidocaine 2% added to field 20 Heparin Flush Bag added to field 2 bags (1000units/500ml NS) Versed I.V. 2 mg Fentanyl I.V. 100 mcg Hemodynamics Rest HGB: 9.5 (g/dl) Heart Rate: 85 (bpm) Pressure Samples Time Site Value (mmHg) Purpose Heart Use Rate(bpm) 16:57 LV 140/7,16 Snapshot 82 16:57 AO 128/71(102) Pullback 87 16:57 LV 116/14,22 Pullback 87 Gradients Valve Time Site 1 Site 2 Mean SEP/DFP Peak To Heart Use (mmHg) (sec/min) Peak Rate (mmHg) (bpm) Aortic 16:57 LV AO 0 11 0 87 116/14,22 128/71(102) Calculations Valve P-P Mean Valve Index Valve Source Name Gradient Area Flow (cm2) Aortic 0 0 0 0 Snapshots Pre Cath Intra NCS Post Cath Vital Signs Time Heart Resp SPO2 etCO2 NIBP (mmHg) Rhythm Pain Sedation Rate (ipm) (%) (mmHg) Status Level (bpm) 16:41:01 77 20 96 22.5 162/77(124) NSR 0 (11) 10(A) , No pain 16:45:34 76 20 97 24 157/92(119) NSR 0 (11) 10(A) , No pain 16:50:06 84 17 97 30.8 140/88(121) NSR 0 (11) 9(A) , No pain 16:55:05 82 16 97 32.3 Measuring NSR 0 (11) 9(A) , No pain 16:55:34 83 16 97 30.8 151/83(115) NSR 0 (11) 9(A) , No pain 17:00:00 88 17 96 26.2 153/97(123) NSR 0 (11) 10(A) , No pain 17:04:33 81 15 95 30.8 157/83(115) NSR 0 (11) 10(A) , No pain Medications Time Medication Route Dose Verified Delivered Reason Notes Eff ectiveness by by 16:48:57 0.9% NaCl I.V. 100 Cristopher Dafne used for ml/hr [place] Henry procedure MD RAMOS 16:49:03 Oxygen etCO2 2 Cristopher Dafne used for Nasal l/min [place] Henry procedure cannula MD RAMOS 16:49:10 Lidocaine 2% added 20ml Cristopher Nicholas for local to vial [facility] anesthetic field MD GREGORY 16:49:17 Heparin Flush added 2 Cristopher Cristopher used for Bag to bags [facility] procedure (1000units/500ml field MD GREGORY NS) 16:49:40 Versed I.V. 2 mg Cristopher Dafne for [facility] Figueroa sedation MD RAMOS 16:49:47 Fentanyl I.V. 100 Cristopher Dafne for mcg [facility] Figueroa sedation machine taper Log Time Note 16:26:31 Informed consent obtained and on chart 16:27:31 Yg Castillo RT(R) sent for patient. Start room use. 16:29:40 Procedure Status Urgent Heart Cath (IP). 16:29:48 Time tracking: Stay late (Procedures after 5:00pm) 16:29:55 Plan of Care:Hemodynamics will remain stable., Cardiac rhythm will remain stable., Comfort level will be maintained., Respiratory function will remain adequate., Patient/ family verbilizes understanding of procedure., Procedure tolerated without complication., Recovers from procedure without complications.. 16:30:21 H&P Date Dictated: 10/21/2018 ER History on chart.. 16:32:07 Patient allergic to Other allergySULFA, PCN, IMDUR, PROPOXYPHENE NAPSYLATE, ERYTHROMYCIN BASE 16:35:54 Patient received from ED to CCL 1 Alert and oriented. Tansferred to table in Supine position. 16:35:55 Warm blankets applied, and luisa hugger turned on for patient comfort. 16:35:55 Correct patient and procedure confirmed by team. 16:35:55 ECG and BP/O2 sat monitors applied to patient. 16:39:32 Vital chart was started 16:39:33 Baseline sample Acquired. 16:39:40 Rhythm: sinus rhythm 16:39:43 Full Disclosure recording started 16:39:45 Pre-procedure instructions explained to patient. 16:39:45 Pre-op teaching completed and patient verbalized understanding. 16:39:48 Family in patients room. 16:39:51 Patient NPO since Midnight. 16:39:52 Is the patient allergic to Iodine/contrast media? No. 16:39:57 Is patient on blood thinner?Yes 16:40:01 ACC The patient was administered the following blood thiners within the last 24 hours: ACCEffient 16:40:59 Patient diabetic? Yes. 16:41:00 If diabetic: On Metformin? Unknown 16:41:03 Previous problem with sedation/anesthesia? No ? 16:41:04 Snore? Yes 16:41:05 Sleep apnea? No 16:41:06 Deviated septum? No 16:41:06 Opens mouth fully? Yes 16:41:07 Sticks out tongue? Yes 16:41:12 Airway obstruction? Yes COPD 16:41:15 Dentures? No ? 16:41:17 Pre procedure: right dorsailis pedis pulse 1+ Palpable, but thready & weak; easily obliterated 16:41:42 IV patent on arrival in left hand with 0.9% NaCl at O. 16:41:45 Lab results completed and on chart. 16:41:48 Right groin area was prepped with chlora-prep and draped in sterile fashion 16:41:50 Alarms reviewed by R. N. 16:41:50 Sharps counted by scrub and verified by R.N. 16:42:06 Patient pain scale 10/10 ?. 16:42:09 --------ALL STOP TIME OUT------ 16:42:09 Final Timeout: patient, procedure, and site verified with staff and physician. All members of the team are in agreement. 16:42:11 Right groin site verified by team. 16:42:15 Fire Safety Assessment: A--An alcohol-based skin anteseptic being used preoperatively., C--Open oxygen or nitrous oxide is being used., D--An ESU, laser, or fiber-optic light is being used. 16:42:27 Physical assessment completed. ASA score P 3 - A patient with severe systemic disease as per Cristopher Zuleta MD. 16:42:30 Sedation plan: IV Moderate Sedation Medication:Versed, Fentanyl 16:42:34 Use device set Femoral Dx 16:42:34 ACIST Syringe (30109) opened to sterile field. 16:42:35 Bag Decanter (2002S) opened to sterile field. 16:42:36 ACIST Hand Control (39653) opened to sterile field. 16:42:36 ACIST Manifold (47157) opened to sterile field. 16:42:37 Tegaderm 4 x 4 (1626W) opened to sterile field. 16:42:38 Medline Cath Pack ([id number]) opened to sterile field. 16:42:39 DIAGNOSTIC Multipack 5Fr catheter set (YL3285) opened to sterile field. 16:42:40 EMERALD Guide Wire (881-165) opened to sterile field. 16:42:46 SHEATH 6FR [place] (VLG413) opened to sterile field. 16:48:57 0.9% NaCl 100 ml/hr I.V. was administered by Dafne Figueroa RN; used for procedure; 16:49:03 Oxygen 2 l/min etCO2 Nasal cannula was administered by Dafne Figueroa RN; used for procedure; 16:49:10 Lidocaine 2% 20ml vial added to field was administered by Cristopher Zuleta MD; for local anesthetic; 16:49:17 Heparin Flush Bag (1000units/500ml NS) 2 bags added to field was administered by Cristopher Zuleta MD; used for procedure; 16:49:40 Versed 2 mg I.V. was administered by Dafne Figueroa RN; for sedation; 16:49:43 Procedure started. 16:49:47 Fentanyl 100 mcg I.V. was administered by Dafne Figueroa RN; for sedation; 16:50:25 Local anesthetic to right femoral artery with Lidocaine 2% by Cristopher Zuleta MD.INITIAL ACCESS ONLY 16:50:49 Zero performed for pressure channel P1 16:51:06 A 6 Fr Short sheath was inserted into the Right Femoral artery 16:51:36 A MULTIPACK JL 4.0 5Fr catheter was advanced over the wire and used for Procedure. 16:53:29 LCA angiography performed. 16:53:32 Catheter removed. 16:53:48 A MULTIPACK 3DRC 5Fr catheter was advanced over the wire and used for Procedure. 16:55:58 RCA angiography performed. 16:55:59 Catheter removed. 16:56:47 A MULTIPACK Pigtail 5 Fr catheter was advanced over the wire and used for Procedure. 16:56:54 LV gram done using FRAUSTO 16:56:56 Injector settings: Ml/sec: 10, Volume: 20, 16:57:13 LV hemodynamics recorded. 16:57:27 EF : 55 % 16:57:29 Catheter removed. 16:58:16 A DIAGNOSTIC AR MOD 5Fr Catheter (880681P) was advanced over the wire and used for Procedure. 16:59:48 SVG to Diag angiography performed. 16:59:50 Catheter removed. 17:00:00 EXOSEAL 6Fr (EX600) opened to sterile field. 17:00:11 Sheath removed intact; hemostasis achieved with Exoseal to the Right Femoral artery. 17:00:13 Procedure ended.(Physican Out) 17:00:28 Fluoroscopy time 02.50 minutes. 17:00:34 Flurop Dose total: 781 17:00:34 Fluoroscopy dose: 781 mGy 17:00:48 Dose Area Product 52669 mGy/cm. 17:00:52 Contrast amount:Isovue 300 96ml. 17:00:55 Maximum allowable dose exceeded? No. 17:00:56 Sharps counted by scrub and verified by R.N. 17:00:59 Post-op/insertion site Right Femoral artery dressed using a 4 x 4 and Tegaderm. 17:01:07 Post-procedure physical assessment completed. ASA score P 3 - A patient with severe systemic disease as per Cristopher Zuleta MD. 17:01:11 Post procedure rhythm: sinus rhythm 17:01:13 Estimated blood loss: 10 ml 17:01:14 Post procedure instruction explained to patient.Patient verbalizes understanding. 17:01:15 Patient needs reinforcement of post procedure teaching. 17:01:56 Procedure and supply charges have been captured, reviewed, submitted and are correct. 17:02:01 Procedure Complication : No complications 17:03:41 Vital chart was stopped 17:03:41 See physician's report for complete and final results. 17:03:43 Report given to PCU. 17:03:46 Patient transfered to PCU with Bed. 17:03:48 Procedure ended. 17:03:48 Full Disclosure recording stopped 17:03:53 End room use (Document Last) Device Usage Item Name Manufacture Quantity Catalog Hospital Part Current Minimal L ot# / Number Charge Number Stock Stock Serial# Code ACIST Acist 1 60545 407385 573497 619298 20 Syringe Medical (81099) Systems Inc Bag Microtek 1 2001S 588996 74626 594541 5 Decanter Medical Inc. () ACIST Hand Acist 1 91059 740961 749080 756478 5 Control Medical (97583) Systems Inc ACIST Acist 1 39639 762572 613498 772366 5 Manifold Medical (11587) Systems Inc Tegaderm 4 3M 1 1626W 335305 834510 969304 5 x 4 (1626W) Medline Medline 1 [id number] 450660 38460 809649 5 Cath Pack ([id number]) DIAGNOSTIC Cardinal 1 TZ7818 855919 94749 208906 30 Multipack Seeker Wireless 5Fr catheter set (AI4096) EMERALD Cardinal 1 502-455 268284 840449 842639 5 Guide Wire Health (502455) SHEATH 6FR Terumo 1 [id number] 305320 829738 441295 40 [place] (FAR024) MULTIPACK Cardinal 1 850691 5 JL 4.0 5Fr Health catheter MULTIPACK Cardinal 1 481922 5 3DRC 5Fr Health catheter MULTIPACK Cardinal 1 755489 5 Pigtail 5 Health Fr catheter DIAGNOSTIC Cardinal 1 [id number] 449441 048968 758792 15 AR MOD 5Fr Health Catheter (864119I) EXOSEAL 6Fr Cardinal 1 EX600 195654 779371 584821 10 (EX600) Health Signature Audit [place] Stage Time Signature Unsigned Intra-Procedure 10/21/2018 Madina Gutierrez 5:08:55 PM RT(R) Signatures Performing Physician : Signature : Cristopher Zuleta MD Date : Time : Monitor : Madina Gutierrez Signature : RT Date : Time : Nurse : Dafne Figueroa RN Signature : Date : Time : [place] [address] [place] [address]
--- NOTE | 2018-10-21 16:05 | NUR ---
EMS NOTIFIED OF POSSIBLE STEMI AND HIGH RISK CARDIAC PATIENT. CRANE RIGGER NOTIFED VIA DR. SLADE. PER DR. HARRISON, WILL TAKE TO CRANE RIGGER GREGORY. CONSENTS OBTAINED. AT SIDE. VSS, NO DISTRESS.
[2018-10-21 16:07] VITALS: BP 142/78
[2018-10-21 16:27] LABS: BASOPHILS 0.3 % (0-2); HEMATOCRIT 27.2 % (42.0-54.0); HEMOGLOBIN 8.7 g/dL (13.5-17.5); LYMPHOCYTES 26.1 % (15-50); MCH 26.2 pg (26.0-34.0); MCV 81.9 fL (80.0-100.0); MEAN PLATELET VOLUME 8.9 fL (7.4-10.4); MONOCYTES 9.9 % (2-11); NEUTROPHILS 60.7 % (40-80); PLATELET COUNT 193 10x3/uL (130-400); RBC 3.32 10x6/uL (4.20-6.10); RDW 16.3 % (11.5-14.5); WBC 5.9 10x3/uL (4.8-10.8)
--- NOTE | 2018-10-21 16:33 | NUR ---
PREOP PERFORMED. CRTTS LEFT WITH PATIENT AT 1633. VSS. NO DISTRESS. TO WAITING AREA.
[2018-10-21 16:41] LABS: APTT 31.7 SECONDS (22.8-39.4); INR 1.07 (0.85-1.17); PROTIME 13.4 SECONDS (11.6-15.0)
[2018-10-21 16:44] LABS: ALBUMIN 3.1 g/dL (3.4-5.0); ALKALINE PHOSPHATASE 57 U/L (46-116); ALT (SGPT) 31 U/L (10-68); BILIRUBIN - TOTAL 0.28 mg/dL (0.2-1.3); CALC OSMOLALITY 277 mosm/kg (275-300); CALCIUM 8.7 mg/dL (8.5-10.1); CARBON DIOXIDE 25.1 mmol/L (21.0-32.0); CHLORIDE - SERUM 103 mmol/L (98-107); POTASSIUM - SERUM 4.3 mmol/L (3.5-5.1); PROTEIN - SERUM 6.5 g/dL (6.4-8.2); SODIUM 136 mmol/L (136-145); UREA NITROGEN 10 mg/dL (7-18); eGFR NON AFRICAN AMERICAN 80 mL/min (90-120)
[2018-10-21 16:47] LABS: GLUCOSE 223 mg/dL (74-106)
[2018-10-21 17:03] LABS: CREATINE KINASE 112 UL (21-232); MAGNESIUM - SERUM 1.4 mg/dL (1.8-2.4)
[2018-10-21 17:07] LABS: TROPONIN-I 0.192 ng/mL (0.000-0.060)
--- NOTE | 2018-10-21 17:24 | NUR ---
RECEIVED PT FROM EARTH MOVING MACHINE OPERATOR. CURRENT VITAL SIGNS ARE BP 148/72, PULSE 75 AND OXYGEN SATURATION 90% ON 2.5L NASAL CANNULA. PT IS STILL HEAVILY SEDATED. 6 INDONESIAN EXOSEAL TO THE RIGHT GROIN, CATH IS CLEAN. PT IS TO LAY FLAT UNTIL 1920. FAMILY AT BEDSIDE. DENIES ANY NEEDS AT THIS TIME. WILL CTM.
--- NOTE | 2018-10-21 17:37 | NUR ---
PT VITALS ARE STABLE. BP: 147/70, PULSE 76 AND O2 SAT 92% ON 2.5L NC. EXOSEAL SITE IS SOFT, NONTENDER AND NOT BLEEDING. BILATERAL PEDAL PULSES EQUAL AND STRONG. STILL HEAVILY SEDATED. AT BEDSIDE. DENIES ANY NEEDS. WILL CTM.
[2018-10-21 17:56] VITALS: BP 147/70
--- NOTE | 2018-10-21 18:39 | NUR ---
BP 141/70, PULSE 77, O2 92% 2L VIA NASAL CANNULA. INSTRUCTED PT TO TAKE IN DEEP BREATHS THROUGH HIS NOSE AND RELEASE OUT HIS MOUTH. SITE IS STILL CLEAN, DRY, INTACT AND NON TENDER. PEDAL PULSES BILATERALLY STRONG AND EQUAL. PT IS LESS GROGGY AND MORE ALERT AT THIS TIME. FAMILY AT BEDSIDE. DENIES ANY NEEDS. WILL CTM.
--- NOTE | 2018-10-21 18:44 | NUR ---
PROVIDED PT WITH FRESH WATER AND A URINAL.
[2018-10-21 20:00] VITALS: BP 144/71
[2018-10-21 22:42] LABS: CKMB 0.9 U/L (0.0-3.6); CREATINE KINASE 108 UL (21-232); TROPONIN-I 0.213 ng/mL (0.000-0.060)
--- NOTE | 2018-10-21 23:15 | NUR ---
PT RESTING IN BED. EYES CLOSED. NO SIGNS OF DISTRESS. BREATHING EVEN AND UNLABORED. WILL CONTINUE PLAN OF CARE. CALL LIGHT IN REACH. BED LOWERED AND LOCKED. BED RAILS UPX2.
[2018-10-22] VITALS (7 sets, daily range): BP systolic 122–176; BP diastolic 52–90; Ht 185.4 cm; Wt 114.5 kg
[2018-10-22 02:11] LABS: BASOPHILS 0.3 % (0-2); EOSINOPHILS 3.3 % (0-7); HEMATOCRIT 27.3 % (42.0-54.0); HEMOGLOBIN 8.7 g/dL (13.5-17.5); IMMATURE GRANULOCYTES 0.2 % (0-5); LYMPHOCYTES 26.1 % (15-50); MCHC 31.9 g/dL (31.0-37.0); MCV 81.7 fL (80.0-100.0); MEAN PLATELET VOLUME 9.2 fL (7.4-10.4); MONOCYTES 11.5 % (2-11); NEUTROPHILS 58.6 % (40-80); PLATELET COUNT 205 10x3/uL (130-400); RBC 3.34 10x6/uL (4.20-6.10); RDW 16.4 % (11.5-14.5); WBC 6.4 10x3/uL (4.8-10.8)
[2018-10-22 02:46] LABS: CKMB 1.2 U/L (0.0-3.6); CREATINE KINASE 114 UL (21-232)
[2018-10-22 02:47] LABS: TROPONIN-I 0.307 ng/mL (0.000-0.060)
[2018-10-22 02:56] LABS: ALBUMIN 3.1 g/dL (3.4-5.0); ANION GAP 11.5 mmol/L (8-16); BILIRUBIN - TOTAL 0.33 mg/dL (0.2-1.3); CALCIUM 8.8 mg/dL (8.5-10.1); CARBON DIOXIDE 24.5 mmol/L (21.0-32.0); CREATININE - SERUM 1.1 mg/dL (0.6-1.3); MAGNESIUM - SERUM 1.6 mg/dL (1.8-2.4); PHOSPHOROUS 3.6 mg/dL (2.5-4.9); PROTEIN - SERUM 6.9 g/dL (6.4-8.2)
[2018-10-22 02:58] LABS: % SATURATION 7 % (15-55); IRON 29 ug/dl (35-150); TOTAL IRON BIND CAPACITY 390 ug/dl (260-445); UNSAT IRON BIND CAPACITY 361 ug/dl (150-375)
[2018-10-22 07:35] LABS: CKMB 1.7 U/L (0.0-3.6); CREATINE KINASE 110 UL (21-232)
[2018-10-22 07:36] LABS: TROPONIN-I 0.582 ng/mL (0.000-0.060)
--- NOTE | 2018-10-22 13:29 | NUR ---
I have reviewed this patient and I concur with the Shift Assessment completed by the Licensed Practical Nurse today this shift.
[2018-10-23] VITALS: BP 165/87
[2018-10-23 04:00] VITALS: BP 135/63
[2018-10-23 05:00] LABS: BASOPHILS 0.5 % (0-2); EOSINOPHILS 5.9 % (0-7); HEMATOCRIT 29.2 % (42.0-54.0); HEMOGLOBIN 9.2 g/dL (13.5-17.5); IMMATURE GRANULOCYTES 0.2 % (0-5); LYMPHOCYTES 32.2 % (15-50); MCH 26.2 pg (26.0-34.0); MCHC 31.5 g/dL (31.0-37.0); MCV 83.2 fL (80.0-100.0); MEAN PLATELET VOLUME 9.1 fL (7.4-10.4); MONOCYTES 12.3 % (2-11); NEUTROPHILS 48.9 % (40-80); PLATELET COUNT 220 10x3/uL (130-400); RBC 3.51 10x6/uL (4.20-6.10); RDW 16.4 % (11.5-14.5); WBC 5.8 10x3/uL (4.8-10.8)
[2018-10-23 05:17] LABS: ANION GAP 12.4 mmol/L (8-16); CALCIUM 8.9 mg/dL (8.5-10.1); CREATININE - SERUM 1.3 mg/dL (0.6-1.3); MAGNESIUM - SERUM 1.7 mg/dL (1.8-2.4); POTASSIUM - SERUM 4.4 mmol/L (3.5-5.1)
[2018-10-23 07:30] VITALS: BP 144/65
--- NOTE | 2018-10-23 08:27 | NUR ---
PT KNEELING BESIDE COMMODE TRYING TO VOMIT. STATES IT JUST CAME UP IN HIS THROAT SOME BUT IS VERY NAUSEATED. MEDICATED WITH ZOFRAN 4 MG IV ORDERED. ASSISTED UP TO BEDSIDE CHAIR.
[2018-10-23 11:30] VITALS: BP 157/75
--- NOTE | 2018-10-23 14:31 | NUR ---
I have reviewed this patient and I concur with the Shift Assessment completed by the Licensed Practical Nurse today this shift.
[2018-10-23 15:30] VITALS: BP 101/46
--- NOTE | 2018-10-23 17:58 | NUR ---
PT HAD CT HEAD AND CHEST WITH PE PROTOCOL TODAY. DR. WEISS HAD PT AND HIS COME OUT TO DESK AND EXPLAINED RESULTS TO HIM. PT HAS C/O HEADACHE TODAY BUT NO C/O CHEST PAIN. ASSESSMENT DONE EARLIER AND WILL CONTINUE POC. NO REQUESTS FROM PT AT THIS TIME AND STATES PAIN IS ABOUT 5/10 AT THIS TIME. SL PATENT TO L AC AND RIGHT FOREARM WITHOUT REDNESS OR EDEMA. AT BEDSIDE.
[2018-10-23 20:00] VITALS: BP 118/62; BP 132/68
--- NOTE | 2018-10-23 20:41 | NUR ---
PT COMPLAINS OF SOB. O2-SAT 94% PT ON 2LNC. RT NOTIFIED. WILL CONTINUE TO MONITOR.
--- NOTE | 2018-10-23 22:04 | NUR ---
PT COMPLAING OF SOB. DR. WEISS PAAGED AND NEW ORDERS FOR PRN ESTABLISHED. O2-94% ON 3L. WILL CONTINUE TO MONITOR.
--- NOTE | 2018-10-23 22:05 | NUR ---
DR. WEISS OREDERED BIPAP AT 40% IF PT SOB WASN'T GETTING BETTER.
--- NOTE | 2018-10-23 22:14 | NUR ---
PT EXPIERIENCING MODERATE EPISODES OF EXERTIONAL DYPSNEA. BILATERAL C/D BREATH SOUNDS EQUALERTAL EXCURSION ZERO CYANOSIS PRN TX GIVEN PER SOB FIO2 32% SPO2 CURRENTLY 94% NO IMMEDIATE S/S RESP DISTRESS
--- NOTE | 2018-10-23 23:09 | NUR ---
PT COUGHED UP QUARTER ROUND AMOUNT OF GOOEY RED SUBSTANCE. PT VITALS STABLE AT THIS TIME. WILL CONTINUE TO MONITOR. CALL LIGHT WITHIN REACH.
[2018-10-24] VITALS (8 sets, daily range): BP systolic 112–155; BP diastolic 53–79
--- NOTE | 2018-10-24 01:26 | NUR ---
PT ALERT AND ORIENTED LAYING IN BED PLAYING WITH PHONE. PT RR EVEN AND UNLABORED O2-93% ON 3L. NO S/S OF DISTRESS AT THIS TIME. PT TOOK OFF O2 TO USE RESTOROOM AND QUICKLY DESAT'S INTO THE LOW 80'S. WHEN O2 PUT BACK ON PT COMES UP TO 92-94%. EDUCATED PT TO WEAR O2 TO BATHEROOM AND AT ALL TIMES. NO S/S OF DISTRESS AT THIS TIME. BED LOW CALL LIGHT WITHIN REACH. WILL CONTINUE TO MONITOR.
--- NOTE | 2018-10-24 02:31 | NUR ---
PT RESTING IN BED WITH EYES CLOSED. RR EVEN AND UNLABORED AT THIS TIME. BED LOW CALL LIGHT WITHIN REACH. WILL CONTINUE TO MONITOR.
[2018-10-24 04:40] LABS: BASOPHILS 0.4 % (0-2); EOSINOPHILS 4.7 % (0-7); HEMOGLOBIN 8.9 g/dL (13.5-17.5); LYMPHOCYTES 33.7 % (15-50); MCH 26.6 pg (26.0-34.0); MCHC 31.8 g/dL (31.0-37.0); MCV 83.6 fL (80.0-100.0); MEAN PLATELET VOLUME 9.1 fL (7.4-10.4); MONOCYTES 10.6 % (2-11); NEUTROPHILS 50.6 % (40-80); PLATELET COUNT 250 10x3/uL (130-400); RBC 3.35 10x6/uL (4.20-6.10); RDW 16.3 % (11.5-14.5); WBC 5.1 10x3/uL (4.8-10.8)
[2018-10-24 04:54] LABS: ANION GAP 12.7 mmol/L (8-16); CALCIUM 8.9 mg/dL (8.5-10.1); CARBON DIOXIDE 28.7 mmol/L (21.0-32.0); CREATININE - SERUM 1.2 mg/dL (0.6-1.3); MAGNESIUM - SERUM 1.6 mg/dL (1.8-2.4); PHOSPHOROUS 3.6 mg/dL (2.5-4.9); POTASSIUM - SERUM 4.4 mmol/L (3.5-5.1)
--- NOTE | 2018-10-24 06:43 | NUR ---
I have reviewed this patient and I concur with the Shift Assessment completed by the Licensed Practical Nurse today this shift.
--- NOTE | 2018-10-24 09:00 | NUR ---
NOTIFIED RADHIKA MOREIRA APN THAT PT WANTS TO TALK TO DR. GUPTA OR HER REGARDING HIS CLEAN HEART CATH THAT HE HAD ON 10/21.
--- NOTE | 2018-10-24 09:44 | NUR ---
AM MEDS GIVEN AT THIS TIME. ALSO GAVE 1MG OF DILAUDID. PT DENIES ANY OTHER NEEDS AT THIS TIME. PT A/O X4, RESP EVEN AND NONLABORED ON 3L. SPOUSE AT BEDSIDE, CALL LIGHT IN REACH, NAD NOTED,W ILL CONTINUE TO MONITOR.
--- NOTE | 2018-10-24 15:56 | NUR ---
PT WAS ON HIS CALL LIGHT, WENT TO SEE WHAT PT NEEDED. PT STATED THAT EVERY TIME HE GETS UP TO THE BATHROOM HE GETS CHEST PAIN. ASKED FOOD RUNNER WHAT PT WAS DOING IN THE LAST 5MIN, AND SHE STATED THAT HE HAS BEEN SR WITH RATE IN THE 60S. PT JUST HAD PAIN MEDICATION, DENIES ANY OTHER NEEDS AT THIS TIME. CALL LIGHT IN REACH, NAD NOTED. WILL CONTINUE TO MONITOR.
--- NOTE | 2018-10-24 18:17 | NUR ---
PATIENT REPORTS THAT IV IN LEFT FOREARM IS TENDER AND FEELS IRRITATED. THERE IS ALIGHT LEAKAGE AROUND THE SIGHT, AND BECAUSE THE PATIENT REPORTS ITS TENDER, REMOVING THE IT AT THIS TIME. REMOVED IV CATHETER INTACT, PATIENT TOLERATED.
[2018-10-25] VITALS: BP 132/67
[2018-10-25 04:30] VITALS: BP 126/61
[2018-10-25 04:56] LABS: BASOPHILS 0.4 % (0-2); HEMATOCRIT 28.6 % (42.0-54.0); HEMOGLOBIN 8.9 g/dL (13.5-17.5); IMMATURE GRANULOCYTES 0.3 % (0-5); LYMPHOCYTES 24.9 % (15-50); MCH 25.9 pg (26.0-34.0); MCHC 31.1 g/dL (31.0-37.0); MCV 83.1 fL (80.0-100.0); MEAN PLATELET VOLUME 8.8 fL (7.4-10.4); MONOCYTES 11.4 % (2-11); PLATELET COUNT 230 10x3/uL (130-400); RBC 3.44 10x6/uL (4.20-6.10); RDW 16.3 % (11.5-14.5)
[2018-10-25 04:57] LABS: WBC 6.8 10x3/uL (4.8-10.8)
[2018-10-25 05:04] LABS: CALC OSMOLALITY 281 mosm/kg (275-300); CALCIUM 8.8 mg/dL (8.5-10.1); CARBON DIOXIDE 31.4 mmol/L (21.0-32.0); CHLORIDE - SERUM 102 mmol/L (98-107); GLUCOSE 149 mg/dL (74-106); MAGNESIUM - SERUM 1.7 mg/dL (1.8-2.4); PHOSPHOROUS 3.6 mg/dL (2.5-4.9); POTASSIUM - SERUM 4.4 mmol/L (3.5-5.1); SODIUM 140 mmol/L (136-145); UREA NITROGEN 13 mg/dL (7-18); eGFR NON AFRICAN AMERICAN 80 mL/min (90-120)
--- NOTE | 2018-10-25 07:27 | NUR ---
REPORT RECEIVED. WILL CONTINUE WITH POC. PT CURRENTLY LYING ON LEFT SIDE. CALL LIGHT W/I REACH. RR EVEN AND UNLABORED ON 3L 02. L.AC PIV IS SALINE LOCKED. NO S/S OF DISTRESS NOTED. PT DENIES ANY NEEDS. WILL CTM.
--- NOTE | 2018-10-25 09:29 | NUR ---
AM MEDICATIONS ADMININSTERED. PT C/O OF HEADACHE AND REQUESTED DILUADID. OFFERED TYLENOL BUT PT DECLINED. PT REPORTS OF COUGHING UP SMALL AMOUNTS OF THICK DARK RED BLOOD. WILL NOTIFY . WILL CTM.
[2018-10-25 10:03] VITALS: BP 140/73
--- NOTE | 2018-10-25 13:03 | OP ---
PATIENT NAME: MIN LEWIS MEDICAL RECORD: [id number] :53 LOCATION:D. D.2 ADMISSION DATE:10/21/18 SURGEON: CHRISSY DILL MD DATE OF OPERATION: 10/21/2018 PROCEDURE: Left heart catheterization, selective coronary angiography, right femoral artery approach. CATHETERS: A 5-Nepali sheath, 5/4 left and right Christine, 5/4 pig. The procedure was well tolerated. The patient was returned to [place]. Sheath was removed. ExoSeal device was placed. FINDINGS: Left ventriculography in 30-degree FRAUSTO view: Normal wall motion. Normal systolic function. CORONARY ANATOMY: LEFT MAIN: Left main is free of disease. LAD: LAD had an area of previous stenting and is widely patent. 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 It is actually a nice step down distally. CIRCUMFLEX: Free of disease. RIGHT CORONARY ARTERY: Free of disease. Saphenous vein graft widely patent to the diagonal. IMPRESSION: Normal LV systolic function. Patent graft to diagonal. No progression of marshall disease or restenosis or any other cause of cardiac symptomology. TRANSINT:[id number] Voice Confirmation ID: [id number] DOCUMENT ID: [id number] CHRISSY DILL MD at 1303 CC: [id number] DICTATION DATE: 10/21/18 170 STOCK LETTERER: 10/21/18 2141 ADM IN [facility] [address] [facility] [place] [address]
--- NOTE | 2018-10-25 13:03 | CN ---
PATIENT NAME:MIN LEWIS MEDICAL RECORD: [id number] : 53 LOCATION:[facility] D.2112 ADMIT DATE: 10/21/18 ACCOUNT: [id number] CONSULTING PHYSICIAN: CHRISSY DILL MD REFERRING PHYSICIAN: LEONID CHRIS MD DATE OF CONSULTATION: 10/21/2018 HISTORY OF PRESENT ILLNESS: A 63-year-old gentleman with a history of coronary artery disease, status post multiple interventions on multiple occasions, sent to ER with crushing substernal chest pain 11/17 by his report. At his request or his insistence, only thing that work for him is Dilaudid despite multiple attempts at different pain medications. The most recent intervention was the th with a LAD intervention. He does have ST depression. This may just be simply increased over his baseline with some baseline wandering on the ECG, it is 12. He has been brought to floating labor gang supervisor on an urgent basis for revisualization possible revascularization. PAST MEDICAL HISTORY: 1. Hypertension. 2. Hyperlipidemia. 3. Diabetes mellitus. 4. Coronary artery disease as described above. 5. Gastroesophageal reflux disease. ALLERGIES: DARVOCET, PENICILLIN, SULFA, IMDUR, AND ERYTHROMYCIN. MEDICATIONS: Effient 5 mg p.o. daily, atorvastatin 40 mg day, gemfibrozil 600 b.i.d., metoprolol 50 b.i.d., Altace 5 every day, aspirin 81 every day, Neurontin 300 b.i.d., Lamictal 200 every day, Protonix 40 every day, insulin 15 units at bedtime and metformin 1 gram b.i.d. SOCIAL HISTORY: Nonsmoker, does drink socially. No set of exercise program. He is able to take care of all his ADLs despite the intermittent severe angina by his report. REVIEW OF SYSTEMS: The patient reports easy bruising but reports no swollen glands. The patient reports no fever, no night sweats, no significant weight gain, no significant weight loss. No significant exercise tolerance. The patient reports no dry eyes, no irritation, no vision change. Patient reports no difficulty hearing and no ear pain. Patient reports no frequent nose bleeds or nose and sinus problems. Patient reports on arm pain on exertion. No shortness of breath while lying down. No history of heart murmur. Patient reports no cough, no wheezing or coughing up blood. Patient reports no abdominal pain, no vomiting. Normal appetite. No diarrhea and not vomiting blood. No nausea and no constipation. Patient reports no incontinence. No difficulty urinating. No hematuria. No increased frequency. Patient reports no muscle aches. No weakness, no arthralgias, no back pain. No swelling of the extremities. Patient reports no abnormal mole, no jaundice, no rashes. Reports no loss of consciousness. No weakness and no numbness. No seizures, dizziness, or headaches. The patient reports no depression, no sleep disturbance, feeling safe in a relationship and no alcohol abuse. Patient reports on fatigue. Reports no runny nose or sinus pressure. No itching, no hives, and no frequent sneezing. CONSULT REPORT [id number] MIN LEWIS PHYSICAL EXAMINATION: GENERAL: Appears comfortable, no acute distress 142/78. VITAL SIGNS: Pulse 82 and regular. HEENT: Normocephalic, atraumatic. NECK: No JVD or bruit. HEART: Regular. II/ systolic ejection murmur. LUNGS: Good excursion. ABDOMEN: Soft, nontender. EXTREMITIES: Pulses 2+. No edema. DIAGNOSTIC DATA: EKG shows nonspecific ST-T changes with wandering baseline heart, felt this is actually any clinically significant difference. Given symptomology recent intervention, we will plan for angiography intervention based on above. TRANSINT:[id number] Voice Confirmation ID: [id number] DOCUMENT ID: [id number] CHRISSY DILL MD at 1303 CC: [id number] DICTATION DATE: 10/21/181643 NATURAL HISTORY COLLECTIONS CURATOR: 10/21/182108 ADM IN [place] [id number] [place] [address]
--- NOTE | 2018-10-25 14:20 | NUR ---
I have reviewed this patient and I concur with the Shift Assessment completed by the Licensed Practical Nurse today this shift.
[2018-10-25 17:00] VITALS: BP 150/77
--- NOTE | 2018-10-25 17:22 | NUR ---
PT CURRENTLY LYING SEMI FOWLERS. EATING DINNER. NO S/S OF DISTRESS NOTED. CULTURE SENT OFF. PT DENIES ANY NEEDS. WILL CTM.
[2018-10-25 20:00] VITALS: BP 157/74
--- NOTE | 2018-10-25 20:00 | NUR ---
REPORT RECIEVED AND ROUNDING COMPLETE. PATIENT LAYING IN BED IN HIGH FOWLERS. PATIENT STATES HE HAS NO NEEDS AT THIS TIME. PATIENT HAS A LEFT AC THAT IS SALINE LOCKED. PATIENT IS COMPLAING OF A HEADACHE, WILL TREAT PER MAR. PATIENT IS ON 3L O2 VIA NASAL CANNULA. PATIENT IS SHOWING NO S/SX OF DISTRESS AT THIS TIME. CALL LIGHT WITHIN REACH AND BED IN LOWEST POSITION.
[2018-10-26 00:30] VITALS: BP 114/64
--- NOTE | 2018-10-26 02:52 | NUR ---
I have reviewed this patient and I concur with the Shift Assessment completed by the Licensed Practical Nurse today this shift.
[2018-10-26 04:25] LABS: BASOPHILS 0.3 % (0-2); HEMATOCRIT 28.8 % (42.0-54.0); HEMOGLOBIN 9.1 g/dL (13.5-17.5); IMMATURE GRANULOCYTES 0.6 % (0-5); LYMPHOCYTES 25.9 % (15-50); MCHC 31.6 g/dL (31.0-37.0); MCV 82.3 fL (80.0-100.0); MEAN PLATELET VOLUME 9.1 fL (7.4-10.4); MONOCYTES 12.2 % (2-11); PLATELET COUNT 239 10x3/uL (130-400); RDW 16.6 % (11.5-14.5); WBC 6.3 10x3/uL (4.8-10.8)
[2018-10-26 04:30] VITALS: BP 142/78
[2018-10-26 04:53] LABS: CALC OSMOLALITY 274 mosm/kg (275-300); CALCIUM 8.9 mg/dL (8.5-10.1); CARBON DIOXIDE 28.7 mmol/L (21.0-32.0); CHLORIDE - SERUM 100 mmol/L (98-107); CREATININE - SERUM 0.9 mg/dL (0.6-1.3); GLUCOSE 158 mg/dL (74-106); MAGNESIUM - SERUM 1.6 mg/dL (1.8-2.4); PHOSPHOROUS 3.1 mg/dL (2.5-4.9); POTASSIUM - SERUM 4.2 mmol/L (3.5-5.1); SODIUM 136 mmol/L (136-145); UREA NITROGEN 12 mg/dL (7-18); eGFR NON AFRICAN AMERICAN 90 mL/min (90-120)
[2018-10-26 08:35] VITALS: BP 150/70
--- NOTE | 2018-10-26 11:45 | NUR ---
UP AMBULATING HALLWAY WITH RT FOR WALK TEST TO QUALIFY FOR HOME O2. WILL MONITOR.
--- NOTE | 2018-10-26 11:54 | NUR ---
PUT IN TEMPORARY DROPPLET ISOLATION FOR STAFF IN SPUTUM.
[2018-10-26 12:45] VITALS: BP 122/66
--- NOTE | 2018-10-26 15:20 | MORECARE ---
CASE MANAGEMENT DISCHARGE SUMMARY PATIENT: MIN LEWIS UNIT: [id number] ADM DATE: 10/21/18 AGE: 63 : 54 SEX: M ROOM/BED: D.2112 AUTHOR: JUAN KRUSE PHYSICIAN: REFERRING PHYSICIAN: LEONID CHRIS MD DATE OF SERVICE: 10/26/18 Discharge Plan Patient Name: MIN LEWIS [facility] [facility] 1955 Planned Disposition: Home Anticipated Discharge Date: 10/27/18 Discharge Date: Expected LOS: 6 Initial Reviewer: [email or web address] Initial Review Date: 10/26/2018 Generated: 10/26/18 4:19 pm Patient Name: MIN LEWIS Page 35787 at 1520 All edits/amendments must be made on the electronic document DICTATION DATE: 10/26/18 151 CARGO SERVICE AGENT: CLARKE 10/26/18 1519 RPT#: [id number] DC DATE: STATUS: ADM IN [facility] [address] [place] [address] END OF REPORT
--- NOTE | 2018-10-26 15:31 | MORECARE ---
CASE MANAGEMENT DISCHARGE SUMMARY PATIENT: MIN LEWIS UNIT: [id number] ADM DATE: 10/21/18 AGE: 63 : 54 SEX: M ROOM/BED: D.2112 AUTHOR: JUAN KRUSE PHYSICIAN: REFERRING PHYSICIAN: LEONID CHRIS MD DATE OF SERVICE: 10/26/18 Discharge Plan Patient Name: MIN LEWIS Facility: [facility]:[place] : 1955 Planned Disposition: Home Anticipated Discharge Date: 10/27/18 Discharge Date: Expected LOS: 6 Initial Reviewer: [email or web address] Initial Review Date: 10/26/2018 Generated: 10/26/18 4:31 pm DCPIA - Discharge Planning Initial Assessment Updated by [email or web address]: Jc Carpio on 10/26/18 3:24 pm * Is the patient Alert and Oriented? Yes * How many steps to enter\exit or inside your home? * PCP DR. ZULETA * Pharmacy [facility] IN [place] * Preadmission Environment Home with Family * ADLs Independent * Equipment Cane Glucometer Nebulizer Other Oxygen Walker Wheelchair * Other Equipment HOME AND PORTABLE OXYGEN - [facility] * List name and contact numbers for known caregivers / representatives who currently or will assist patient after discharge: GERARDO LEWISDEREJE, * Verbal permission to speak to the caregivers and representatives has been obtained from the patient. Yes * Community resources currently utilized None * Please name any agencies selected above. NONE * Additional services required to return to the preadmission environment? No * Can the patient safely return to the preadmission environment? Yes * Has this patient been hospitalized within the prior 30 days at any hospital? No Last DP export: 10/26/18 2:20 p Patient Name: MIN LEWIS Page 90886 at 1531 All edits/amendments must be made on the electronic document DICTATION DATE: 10/26/181530 TEACHER TUTOR: CLARKE 10/26/181530 RPT#: [id number] DC DATE: STATUS: ADM IN [facility] [address] [place] [address] END OF REPORT
--- NOTE | 2018-10-26 15:40 | MORECARE ---
CASE MANAGEMENT DISCHARGE SUMMARY PATIENT: MIN LEWIS UNIT: [id number] ADM DATE: 10/21/18 AGE: 63 : 53 SEX: M ROOM/BED: D.1092 AUTHOR: AIXADOC PHYSICIAN: REFERRING PHYSICIAN: LEONID CHRIS MD DATE OF SERVICE: 10/26/18 Discharge Plan Patient Name: MIN LEWIS Facility: [facility]:[place] : 1955 Planned Disposition: Home Anticipated Discharge Date: 10/27/18 Discharge Date: Expected LOS: 6 Initial Reviewer: [email or web address] Initial Review Date: 10/26/2018 Generated: 10/26/18 4:39 pm Comments DCP- Discharge Planning Updated by [email or web address]: Jc Carpio on 10/26/18 2:[address] Patient Name: MIN LEWIS Admission Status: ER Accout number: [id number] Admission Date: 10-21-2018 : 1955 Admission Diagnosis:CHEST PAIN, UNSPECIFIED Attending: LEONID CHRIS Current LOS: 5 Anticipated DC Date: 10-27-2018 Planned Disposition: Home Primary Insurance: [facility] MEDICARE SOLUTIONS Discharge Planning Comments: CM RECEIVED OXYGEN TESTING, PT DID NOT QUALIFY FOR HOME AND PORTABLE OXYGEN, LOWEST SATURATION WAS 90%. CM MET WITH PT AND SPOUSE IN ROOM TO DISCUSS DISCHARGE PLANNING AND NEEDS. MIN LEWIS provided verbal consent to discuss current and ongoing needs with/in the presence of: GERARDO LEWIS. PT REPORTS LIVING AT HOME INDEPENDENTLY WITH HIS . PT HAS CANE, GLUCOMETER, NEBULIZER, HOME AND PORTABLE OXYGEN, WALKER, WHEELCHAIR AND PULSE OXIMETER. PT'S MEDICAL EQUIPMENT PROVIDER IS [facility]. PT HAS NO OUTSIDE SERVICES ASSISTING IN THE HOME. CM DISCUSSED AVAILABILITY OF HOME HEALTH, REHAB SERVICES AND MEDICAL EQUIPMENT. PT DENIES DISCHARGE NEEDS, REPORTS HER WILL PICK HIM UP FOR DISCHARGE HOME. IMPORTANT MESSAGE FROM MEDICARE PROVIDED AND EXPLAINED. PT HAS HOME AND PORTABLE OXYGEN AT HOME FROM [facility]. PT DENIES DISCHARGE NEEDS, WILL RETURN HOME WITH FAMILY. SPOUSE TO TRANSPORT HOME AT DISCHARGE. CM TO FOLLOW AND ASSIST IF NEEDED. Loading Machine Tool Setter: Jc Carpio DCPIA - Discharge Planning Initial Assessment Updated by [email or web address]: Jc Carpio on 10/26/18 3:24 pm * Is the patient Alert and Oriented? Yes * How many steps to enter\exit or inside your home? * PCP DR. ZULETA * Pharmacy [facility] IN [place] * Preadmission Environment Home with Family * ADLs Independent * Equipment Cane Glucometer Nebulizer Other Oxygen Walker Wheelchair * Other Equipment HOME AND PORTABLE OXYGEN - [facility] * List name and contact numbers for known caregivers / representatives who currently or will assist patient after discharge: DEREJE CAMPBELL, * Verbal permission to speak to the caregivers and representatives has been obtained from the patient. Yes * Community resources currently utilized None * Please name any agencies selected above. NONE * Additional services required to return to the preadmission environment? No * Can the patient safely return to the preadmission environment? Yes * Has this patient been hospitalized within the prior 30 days at any hospital? No Coverage Notice Reviewer: [id number] Georgi Carpio Notice Issued Date-Time: 10/26/2018 13:15 Notice Type: IM Discharge Notice Notice Delivered To: Patient Relationship to Patient: Thermal Spray Operator Name: Delivery Method: HAND - Hand Delivered Crissy Days: Prior Verbal Notification: Recipient Understood Notice: Yes Recipient Signature: Yes Med Rec Note Co-signed by Attending: Coverage Notice Comment: DC IM 1315, TB Last DP export: 10/26/18 2:31 p Patient Name: MIN LEWIS Page [id number] at 1540 All edits/amendments must be made on the electronic document DICTATION DATE: 10/26/181538 SHELLAC POLISHER: CLARKE 10/26/181538 RPT#: [id number] DC DATE: STATUS: ADM IN [facility] [address] [place] [address] END OF REPORT
[2018-10-26 16:45] VITALS: BP 152/61
--- NOTE | 2018-10-26 20:45 | NUR ---
AWAKE,ALERT,NO COMPLAINTS VOICED. RESP EVEN AND UNALBORED. NO DISTRESS NOTED.O2 @ 3L PER NC ON. SL TO LAC WITHOUT REDNESS OR JOHNSON NOTED. PATIENT IN DROPLET PRECAUTIONS. CL IN REACH
[2018-10-26 21:10] VITALS: BP 148/79
[2018-10-27 01:14] VITALS: BP 133/68
[2018-10-27 05:07] VITALS: BP 131/72
[2018-10-27 05:55] LABS: BASOPHILS 0.4 % (0-2); HEMATOCRIT 30.3 % (42.0-54.0); HEMOGLOBIN 9.6 g/dL (13.5-17.5); IMMATURE GRANULOCYTES 0.8 % (0-5); LYMPHOCYTES 27.3 % (15-50); MCH 26.1 pg (26.0-34.0); MCHC 31.7 g/dL (31.0-37.0); MCV 82.3 fL (80.0-100.0); MEAN PLATELET VOLUME 8.8 fL (7.4-10.4); MONOCYTES 11.2 % (2-11); NEUTROPHILS 55.3 % (40-80); PLATELET COUNT 244 10x3/uL (130-400); RBC 3.68 10x6/uL (4.20-6.10); WBC 7.1 10x3/uL (4.8-10.8)
[2018-10-27 06:20] LABS: ANION GAP 12.9 mmol/L (8-16); CALCIUM 9.4 mg/dL (8.5-10.1); CARBON DIOXIDE 27.2 mmol/L (21.0-32.0); CREATININE - SERUM 1.1 mg/dL (0.6-1.3); MAGNESIUM - SERUM 1.6 mg/dL (1.8-2.4); PHOSPHOROUS 3.4 mg/dL (2.5-4.9); POTASSIUM - SERUM 4.1 mmol/L (3.5-5.1)
--- NOTE | 2018-10-27 07:40 | NUR ---
AM ROUNDS- PT MARBLE POLISHER HAND LIGHT, REQUESTING RESPIRATORY THERAPY, NOTIFIED THERAPIST IN HALLWAY. DENIES OTHER NEEDS AT THIS TIME. RESTING COMFORTABLY IN BED. BED IN LOWEST POSITION, BED RAILS X2, CALL LIGHT WITHIN REACH. WILL CTM. PT IS ON TEMPORARY DROPLET ISOLATION FOR POSSIBLE ORGANISM IN SPUTUM. IV TO THE LEFT AC (SALINE LOCKED), 3L OXYGEN VIA NASAL CANNULA, RUNS SINUS RHYTHM ON TELEMETRY.
[2018-10-27 08:47] VITALS: BP 154/75
--- NOTE | 2018-10-27 09:28 | NUR ---
ADMINISTERED MORNING MEDICATION AT THIS TIME, NO TROUBLE SWALLOWING, ADMINISTERED PRN ZOFRAN FOR PT COMPLAINT OF NAUSEA. DENIES ANY NEEDS AT THIS TIME. FAMILY AT BEDSIDE. RESTING COMFORTABLY. WILL CTM.
--- NOTE | 2018-10-27 11:45 | NUR ---
ADMININSTERED MEDICATION AT THIS TIME, ASSESSED BLOOD SUGAR, READING OF 239. WILL TREAT WITH INSULIN PER SLIDING SCALE. DENIES OTHER NEEDS. AT BEDSIDE. WILL CTM.
--- NOTE | 2018-10-27 11:59 | NUR ---
Nutrition Follow-up: Diet: Diabetic PO intake: 50-100% Wt: 254# Last BM: 10/23 per chart Labs noted: Glu 159, Mg 1.6 Meds noted: Humulin May consider cardiac diabetic diet. RD following.
--- NOTE | 2018-10-27 12:46 | NUR ---
ADMINISTERED INSULIN PER SLIDING SCALE FOR BLOOD SUGAR OF 239.
[2018-10-27 12:51] VITALS: BP 131/70
--- NOTE | 2018-10-27 15:20 | NUR ---
HUNG IV ANTIBIOTICS. PT RESTING COMFORTABLY IN BED. DENIES ANY NEEDS AT THIS TIME. WILL CTM.
--- NOTE | 2018-10-27 16:38 | NUR ---
I have reviewed this patient and I concur with the Shift Assessment completed by the Licensed Practical Nurse today this shift.
[2018-10-27 16:40] VITALS: BP 157/82
--- NOTE | 2018-10-27 17:44 | NUR ---
ADMINISTERED INSULIN PER SLIDING SCALE FOR BLOOD SUGAR OF 343. PRN TYLENOL FOR HEADACHE. DENIES OTHER NEEDS. UP RIGHT EATING DINNER. DENIES OTHER NEEDS AT THIS TIME. WILL CTM.
--- NOTE | 2018-10-27 19:44 | NUR ---
IN DROPLET ISOLATION AT THIS TIME PT IS ALERT AND ORIENTED WITH NO COMPLAINTS EFFORTS MADE TO INCREASE COMFORT AT THIS TIMEBED IS LOW AND LOCKED AND CALL LIGHT IS WITH PT LUNGS ARE CLEAR SKIN WARM AND DRY
[2018-10-27 20:00] VITALS: BP 135/59
[2018-10-28 00:32] VITALS: BP 137/59
--- NOTE | 2018-10-28 03:51 | NUR ---
I have reviewed this patient and I concur with the Shift Assessment completed by the Licensed Practical Nurse today this shift.
[2018-10-28 04:00] VITALS: BP 141/79
[2018-10-28 04:40] LABS: BASOPHILS 0.3 % (0-2); EOSINOPHILS 4.4 % (0-7); HEMATOCRIT 31.8 % (42.0-54.0); IMMATURE GRANULOCYTES 0.7 % (0-5); LYMPHOCYTES 27.6 % (15-50); MCH 26.2 pg (26.0-34.0); MCHC 31.4 g/dL (31.0-37.0); MCV 83.5 fL (80.0-100.0); MONOCYTES 10.9 % (2-11); NEUTROPHILS 56.1 % (40-80); PLATELET COUNT 259 10x3/uL (130-400); RBC 3.81 10x6/uL (4.20-6.10); RDW 17.3 % (11.5-14.5); WBC 7.1 10x3/uL (4.8-10.8)
[2018-10-28 05:09] LABS: ALBUMIN 3.4 g/dL (3.4-5.0); ANION GAP 15.5 mmol/L (8-16); BILIRUBIN - TOTAL 0.23 mg/dL (0.2-1.3); CALCIUM 9.1 mg/dL (8.5-10.1); CARBON DIOXIDE 25.1 mmol/L (21.0-32.0); CREATININE - SERUM 1.1 mg/dL (0.6-1.3); POTASSIUM - SERUM 4.6 mmol/L (3.5-5.1); PROTEIN - SERUM 7.3 g/dL (6.4-8.2)
--- NOTE | 2018-10-28 08:06 | NUR ---
PT RESTING IN BED. DENIES ANY NEEDS. NO S/S OF ACUTE DISTRESS. CL IN PLACE.
[2018-10-28 08:50] VITALS: BP 129/69
--- NOTE | 2018-10-28 08:57 | MORECARE ---
CASE MANAGEMENT DISCHARGE SUMMARY PATIENT: MIN LEWIS UNIT: [id number] ADM DATE: 10/21/18 AGE: 63 : 54 SEX: M ROOM/BED: D.9532 AUTHOR: AIXADOC PHYSICIAN: REFERRING PHYSICIAN: LEONID CHRIS MD DATE OF SERVICE: 10/28/18 Discharge Plan Patient Name: MIN LEWIS Facility: [facility]:[place] : 1955 Planned Disposition: Home Anticipated Discharge Date: 10/29/18 Discharge Date: Expected LOS: 8 Initial Reviewer: [email or web address] Initial Review Date: 10/26/2018 Generated: 10/28/18 9:57 am DCP- Discharge Planning Updated by [email or web address]: Jc Carpio on 10/26/18 2:[address] Patient Name: MIN LEWIS Admission Status: ER Accout number: [id number] Admission Date: 10-21-2018 : 1955 Admission Diagnosis:CHEST PAIN, UNSPECIFIED Attending: LEONID CHRIS Current LOS: 5 Anticipated DC Date: 10-27-2018 Planned Disposition: Home Primary Insurance: [facility] MEDICARE SOLUTIONS Discharge Planning Comments: CM RECEIVED OXYGEN TESTING, PT DID NOT QUALIFY FOR HOME AND PORTABLE OXYGEN, LOWEST SATURATION WAS 90%. CM MET WITH PT AND SPOUSE IN ROOM TO DISCUSS DISCHARGE PLANNING AND NEEDS. MIN LEWIS provided verbal consent to discuss current and ongoing needs with/in the presence of: GERARDO LEWIS. PT REPORTS LIVING AT HOME INDEPENDENTLY WITH HIS . PT HAS CANE, GLUCOMETER, NEBULIZER, HOME AND PORTABLE OXYGEN, WALKER, WHEELCHAIR AND PULSE OXIMETER. PT'S MEDICAL EQUIPMENT PROVIDER IS [facility]. PT HAS NO OUTSIDE SERVICES ASSISTING IN THE HOME. CM DISCUSSED AVAILABILITY OF HOME HEALTH, REHAB SERVICES AND MEDICAL EQUIPMENT. PT DENIES DISCHARGE NEEDS, REPORTS HER WILL PICK HIM UP FOR DISCHARGE HOME. IMPORTANT MESSAGE FROM MEDICARE PROVIDED AND EXPLAINED. PT HAS HOME AND PORTABLE OXYGEN AT HOME FROM [facility]. PT DENIES DISCHARGE NEEDS, WILL RETURN HOME WITH FAMILY. SPOUSE TO TRANSPORT HOME AT DISCHARGE. CM TO FOLLOW AND ASSIST IF NEEDED. Qualified Craft Worker Electrician: Jc Carpio DCPIA - Discharge Planning Initial Assessment Updated by [email or web address]: Jc Carpio on 10/26/18 3:24 pm * Is the patient Alert and Oriented? Yes * How many steps to enter\exit or inside your home? * PCP DR. ZULETA * Pharmacy [facility] IN [place] * Preadmission Environment Home with Family * ADLs Independent * Equipment Cane Glucometer Nebulizer Other Oxygen Walker Wheelchair * Other Equipment HOME AND PORTABLE OXYGEN - [facility] * List name and contact numbers for known caregivers / representatives who currently or will assist patient after discharge: DEREJE CAMPBELL, * Verbal permission to speak to the caregivers and representatives has been obtained from the patient. Yes * Community resources currently utilized None * Please name any agencies selected above. NONE * Additional services required to return to the preadmission environment? No * Can the patient safely return to the preadmission environment? Yes * Has this patient been hospitalized within the prior 30 days at any hospital? No Coverage Notice Reviewer: CINTHYA Carpio Notice Issued Date-Time: 10/26/2018 13:15 Notice Type: IM Discharge Notice Notice Delivered To: Patient Relationship to Patient: Pompom Maker Name: Delivery Method: HAND - Hand Delivered Crissy Days: Prior Verbal Notification: Recipient Understood Notice: Yes Recipient Signature: Yes Med Rec Note Co-signed by Attending: Coverage Notice Comment: DC IM 1315, TB Reviewer: [id number] Carpio Notice Issued Date-Time: 10/28/2018 8:45 Notice Type: IM Discharge Notice Notice Delivered To: Patient Relationship to Patient: Pompom Maker Name: Delivery Method: HAND - Hand Delivered Crissy Days: Prior Verbal Notification: Recipient Understood Notice: Yes Recipient Signature: Yes Med Rec Note Co-signed by Attending: Coverage Notice Comment: Last DP export: 10/26/18 2:40 p Patient Name: MIN LEWIS Page 48128 at 0857 All edits/amendments must be made on the electronic document DICTATION DATE: 10/28/18856 GREENKEEPER: CLARKE 10/28/18856 RPT#: [id number] DC DATE: STATUS: [facility]M [facility] [address] [place] [place] [address] END OF REPORT
--- NOTE | 2018-10-28 09:18 | MORECARE ---
CASE MANAGEMENT DISCHARGE SUMMARY PATIENT: MIN LEWIS UNIT: [id number] ADM DATE: 10/21/18 AGE: 63 : 54 SEX: M ROOM/BED: D.2112 AUTHOR: JUAN KRUSE PHYSICIAN: REFERRING PHYSICIAN: LEONID CHRIS MD DATE OF SERVICE: 10/28/18 Discharge Plan Patient Name: MIN LEWIS Facility: [facility]:[place] : 1955 Planned Disposition: Home Anticipated Discharge Date: 10/29/18 Discharge Date: Expected LOS: 8 Initial Reviewer: [email or web address] Initial Review Date: 10/26/2018 Generated: 10/28/18 10:17 am Comments DCP- Discharge Planning Updated by [email or web address]: Jc Carpio on 10/28/18 8:[address] Patient Name: MIN LEWIS Encounter No: [id number] : 1955 Primary Insurance: [facility] MEDICARE SOLUTIONS Anticipated DC Date: 10-29-2018 Planned Disposition: Home DCP follow-up note: CM REVIEWED CHART, PHYSICIAN PLANS TO DISCHARGE HOME TOMORROW. CM MET WITH PT AND SPOUSE IN ROOM TO DISCUSS DISCHARGE NEEDS AND PLANNING. CM NOTIIFED OF PHYSICIAN DISCHARGE PLAN FOR TOMORROW. CM DISCUSSED AVAILABILITY OF HOME HEALTH, REHAB SERVICES AND MEDICAL EQUIPMENT. PT DENIES DISCHARGE NEEDS. SPOUSE TO TRANSPORT HOME AT DISCHARGE. IMPORTANT MESSAGE FROM MEDICARE PROVIDED AND EXPLAINED. Jc Carpio, CASE MANAGEMENT DCP- Discharge Planning Updated by [email or web address]: Jc Carpio on 10/26/18 2:[address] Patient Name: MIN LEWIS Admission Status: ER Accout number: [id number] Admission Date: 10-21-2018 : 1955 Admission Diagnosis:CHEST PAIN, UNSPECIFIED Attending: LEONID CHRIS Current LOS: 5 Anticipated DC Date: 10-27-2018 Planned Disposition: Home Primary Insurance: [facility] MEDICARE SOLUTIONS Discharge Planning Comments: CM RECEIVED OXYGEN TESTING, PT DID NOT QUALIFY FOR HOME AND PORTABLE OXYGEN, LOWEST SATURATION WAS 90%. CM MET WITH PT AND SPOUSE IN ROOM TO DISCUSS DISCHARGE PLANNING AND NEEDS. MIN LEWIS provided verbal consent to discuss current and ongoing needs with/in the presence of: GERARDO LEWIS. PT REPORTS LIVING AT HOME INDEPENDENTLY WITH HIS . PT HAS CANE, GLUCOMETER, NEBULIZER, HOME AND PORTABLE OXYGEN, WALKER, WHEELCHAIR AND PULSE OXIMETER. PT'S MEDICAL EQUIPMENT PROVIDER IS [facility]. PT HAS NO OUTSIDE SERVICES ASSISTING IN THE HOME. CM DISCUSSED AVAILABILITY OF HOME HEALTH, REHAB SERVICES AND MEDICAL EQUIPMENT. PT DENIES DISCHARGE NEEDS, REPORTS HER WILL PICK HIM UP FOR DISCHARGE HOME. IMPORTANT MESSAGE FROM MEDICARE PROVIDED AND EXPLAINED. PT HAS HOME AND PORTABLE OXYGEN AT HOME FROM [facility]. PT DENIES DISCHARGE NEEDS, WILL RETURN HOME WITH FAMILY. SPOUSE TO TRANSPORT HOME AT DISCHARGE. CM TO FOLLOW AND ASSIST IF NEEDED. Packing Supervisor: Jc Carpio DCPIA - Discharge Planning Initial Assessment Updated by [email or web address]: Jc Carpio on 10/26/18 3:24 pm * Is the patient Alert and Oriented? Yes * How many steps to enter\exit or inside your home? * PCP DR. ZULETA * Pharmacy [facility] IN [place] * Preadmission Environment Home with Family * ADLs Independent * Equipment Cane Glucometer Nebulizer Other Oxygen Walker Wheelchair * Other Equipment HOME AND PORTABLE OXYGEN - [facility] * List name and contact numbers for known caregivers / representatives who currently or will assist patient after discharge: DEREJE CAMPBELL, * Verbal permission to speak to the caregivers and representatives has been obtained from the patient. Yes * Community resources currently utilized None * Please name any agencies selected above. NONE * Additional services required to return to the preadmission environment? No * Can the patient safely return to the preadmission environment? Yes * Has this patient been hospitalized within the prior 30 days at any hospital? No Coverage Notice Reviewer: [email or web address] Georgi Carpio Notice Issued Date-Time: 10/26/2018 13:15 Notice Type: IM Discharge Notice Notice Delivered To: Patient Relationship to Patient: Water Filtration Technician Name: Delivery Method: HAND - Hand Delivered Crissy Days: Prior Verbal Notification: Recipient Understood Notice: Yes Recipient Signature: Yes Med Rec Note Co-signed by Attending: Coverage Notice Comment: NORMA QUICK 1315, TB Reviewer: [email or web address] Georgi Carpio Notice Issued Date-Time: 10/28/2018 8:45 Notice Type: IM Discharge Notice Notice Delivered To: Patient Relationship to Patient: Water Filtration Technician Name: Delivery Method: HAND - Hand Delivered Crissy Days: Prior Verbal Notification: Recipient Understood Notice: Yes Recipient Signature: Yes Med Rec Note Co-signed by Attending: Coverage Notice Comment: Last DP export: 10/28/18 7:57 a Patient Name: MIN LEWIS Page 23583 at 0918 All edits/amendments must be made on the electronic document DICTATION DATE: 10/28/18916 PASSENGER SCREENER: CLARKE 10/28/18916 RPT#: [id number] DC DATE: STATUS: ADM IN [facility] [address] [place] [address] END OF REPORT
[2018-10-28 12:21] VITALS: BP 120/69
--- NOTE | 2018-10-28 12:52 | EC ---
PATIENT:MIN LEWIS DATE OF SERVICE: 10/21/18 SEX: M MEDICAL RECORD: [id number] DATE OF : 53 LOCATION:D.M2 D.211 AGE OF PATIENT: 63 ADMISSION DATE: 10/21/18 REFERRING PHYSICIAN: INTERPRETING PHYSICIAN: CHRISSY DILL MD ECHOCARDIOGRAM REPORT ECHO CHARGES 4 ECHO COMPLETE Date: 10/25/18 CLINICAL DIAGNOSIS: ANGINA HX CAD ECHOCARDIOGRAPHIC MEASUREMENTS (adult normal given) AC root (d.<3.7cm) 3.3 cm LV Septum d (<1.2 cm> 1.3 cm Valve Excursion 1.8 cm LV Septum (systole) 1.6 cm Left Atria (s.<4.0cm> 4.1 cm LVPW d(<1.2cm) 1.3 cm RV (d.<2.3cm) 4.3 cm LVPW (sytole) 2.0 cm LV diastole(<5.6CM) 6.2 cm MV E-F(>70mm/sec) cm LV systole 4.1 cm LVOT Diameter 2.0 cm MV exc.(>10mm) 2.0 cm Est.ejection fraction (50-75%) % DOPPLER: LVIT cm/sec A 82.0 cm/sec E 95.0 cm/sec LA cm/sec RVSP 35 mmHg LVOT 150 cm/sec AOP1/2T m/s Asc. Ao 169 cm/sec RVOT 95 cm/sec RA cm/sec PA 139 cm/sec AV Gradient Peak 11.42mmHg AV Mean 7.27 mmHg AV Area 2.8 cm MV Gradient Peak 3.81 mmHg MV Mean 1.66 mmHg MV Area cm COMMENTS: Mechanic Helper: 2 SOHA RUIZ [employer] Manager: 3 Dr. Melchor TAPE# PACS Pericardial Effusion N DATE OF SERVICE: 10/27/2018 Adequate 2D echo, color flow imaging, spectral Doppler, and M-Mode. Borderline LVH. LV internal dimensions are normal. Wall motion is normal. EF is greater than or equal to 55%. Aortic valve is tricuspid. No evidence of stenosis by Doppler interrogation. Left atrium is upper limits of normal to mildly dilated at 4.1 cm. Mitral valve shows no prolapse. Trace MR. Right-sided chambers are grossly normal. Trace TR. ECHOCARDIOGRAM REPORT [id number] MIN LEWIS TRANSINT:[id number] Voice Confirmation ID: [id number] DOCUMENT ID: [id number] CHRISSY DILL MD at 1252 CC: [id number] DICTATION DATE: 10/27/18 1343 SENIOR PRODUCTION SUPERVISOR: 10/27/18 1431 ADM IN [facility] [address] [place] [address]
[2018-10-28 16:50] VITALS: BP 134/72
--- NOTE | 2018-10-28 19:00 | NUR ---
PT RESTING IN BED. NO S/S OF ACUTE DISTRESS. CL IN PLACE.
--- NOTE | 2018-10-28 19:28 | NUR ---
RECEIVED REPORT, WILL ASSUME CARE OF PT, ASKING FOR A TOWEL/GOWN(PROVIDED), DENIES ANY OTHER NEEDS, BED IS LOW, SRX2, CALL LIGHT IN REACH, WILL CONTINUE PLAN OF CARE
[2018-10-28 20:00] VITALS: BP 151/73
[2018-10-29 00:08] VITALS: BP 148/78
[2018-10-29 04:00] VITALS: BP 130/58
[2018-10-29 04:56] LABS: BASOPHILS 0.6 % (0-2); EOSINOPHILS 4.4 % (0-7); HEMATOCRIT 30.4 % (42.0-54.0); HEMOGLOBIN 10.2 g/dL (13.5-17.5); IMMATURE GRANULOCYTES 0.6 % (0-5); LYMPHOCYTES 29.3 % (15-50); MCH 28.2 pg (26.0-34.0); MCHC 33.6 g/dL (31.0-37.0); MEAN PLATELET VOLUME 8.9 fL (7.4-10.4); MONOCYTES 9.7 % (2-11); NEUTROPHILS 55.4 % (40-80); PLATELET COUNT 242 10x3/uL (130-400); RBC 3.62 10x6/uL (4.20-6.10); RDW 17.8 % (11.5-14.5); WBC 6.8 10x3/uL (4.8-10.8)
[2018-10-29 05:21] LABS: ALBUMIN 3.2 g/dL (3.4-5.0); ANION GAP 13.6 mmol/L (8-16); BILIRUBIN - TOTAL 0.32 mg/dL (0.2-1.3); CALCIUM 9.3 mg/dL (8.5-10.1); CARBON DIOXIDE 25.3 mmol/L (21.0-32.0); CREATININE - SERUM 1.1 mg/dL (0.6-1.3); PROTEIN - SERUM 7.1 g/dL (6.4-8.2)
[2018-10-29 05:23] LABS: POTASSIUM - SERUM 3.9 mmol/L (3.5-5.1)
--- NOTE | 2018-10-29 05:48 | NUR ---
I have reviewed this patient and I concur with the Shift Assessment completed by the Licensed Practical Nurse today this shift.
--- NOTE | 2018-10-29 07:54 | NUR ---
PT RESTING PEACEFULLY, SNORING SLIGHTLY. NO SIGNS/SYMTPOMS OF ACUTE DISTRESS NTOED AT THIS TIME. BREATHS EVEN, REGULAR, AND UNLABORED. CL IN REACH, SRX2, NO FAMILY PRESENT AT BEDSIDE.
[2018-10-29 09:36] VITALS: BP 157/72
--- NOTE | 2018-10-29 11:28 | MORECARE ---
CASE MANAGEMENT DISCHARGE SUMMARY PATIENT: MIN LEWIS UNIT: [id number] ADM DATE: 10/21/18 AGE: 63 : 54 SEX: M ROOM/BED: D.2112 AUTHOR: JUAN KRUSE PHYSICIAN: REFERRING PHYSICIAN: LEONID CHRIS MD DATE OF SERVICE: 10/29/18 Discharge Plan Patient Name: MIN LEWIS Facility: [facility]:[place] : 1955 Planned Disposition: Home Anticipated Discharge Date: 10/29/18 Discharge Date: Expected LOS: 8 Initial Reviewer: [id number] Initial Review Date: 10/26/2018 Generated: 10/29/18 12:28 pm Comments DCP- Discharge Planning Updated by [id number]: Susan Malagon on 10/29/18 10:[address] CM verified with patient that he has an UD machine at home, from [facility] and obtains UD meds from [facility]. Voices no other needs at this time. Family will drive patient home. Susan Malagon RN DCP- Discharge Planning Updated by [email or web address]: Jc Carpio on 10/28/18 8:[address] Patient Name: MIN LEWIS Encounter No: [id number] : 1955 Primary Insurance: [facility] MEDICARE SOLUTIONS Anticipated DC Date: 10-29-2018 Planned Disposition: Home DCP follow-up note: CM REVIEWED CHART, PHYSICIAN PLANS TO DISCHARGE HOME TOMORROW. CM MET WITH PT AND SPOUSE IN ROOM TO DISCUSS DISCHARGE NEEDS AND PLANNING. CM NOTIIFED OF PHYSICIAN DISCHARGE PLAN FOR TOMORROW. CM DISCUSSED AVAILABILITY OF HOME HEALTH, REHAB SERVICES AND MEDICAL EQUIPMENT. PT DENIES DISCHARGE NEEDS. SPOUSE TO TRANSPORT HOME AT DISCHARGE. IMPORTANT MESSAGE FROM MEDICARE PROVIDED AND EXPLAINED. Jc Carpio CASE MANAGEMENT DCP- Discharge Planning Updated by [email or web address]: Jc Carpio on 10/26/18 2:[address] Patient Name: MIN LEWIS Admission Status: ER Accout number: [id number] Admission Date: 10-21-2018 : 1955 Admission Diagnosis:CHEST PAIN, UNSPECIFIED Attending: LEONID CHRIS Current LOS: 5 Anticipated DC Date: 10-27-2018 Planned Disposition: Home Primary Insurance: [facility] [employer] SOLUTIONS Discharge Planning Comments: CM RECEIVED OXYGEN TESTING, PT DID NOT QUALIFY FOR HOME AND PORTABLE OXYGEN, LOWEST SATURATION WAS 90%. CM MET WITH PT AND SPOUSE IN ROOM TO DISCUSS DISCHARGE PLANNING AND NEEDS. MIN Weaver LEWIS provided verbal consent to discuss current and ongoing needs with/in the presence of: GERARDO LEWIS. PT REPORTS LIVING AT HOME INDEPENDENTLY WITH HIS . PT HAS CANE, GLUCOMETER, NEBULIZER, HOME AND PORTABLE OXYGEN, WALKER, WHEELCHAIR AND PULSE OXIMETER. PT'S MEDICAL EQUIPMENT PROVIDER IS [employer]. PT HAS NO OUTSIDE SERVICES ASSISTING IN THE HOME. CM DISCUSSED AVAILABILITY OF HOME HEALTH, REHAB SERVICES AND MEDICAL EQUIPMENT. PT DENIES DISCHARGE NEEDS, REPORTS HER WILL PICK HIM UP FOR DISCHARGE HOME. IMPORTANT MESSAGE FROM MEDICARE PROVIDED AND EXPLAINED. PT HAS HOME AND PORTABLE OXYGEN AT HOME FROM [facility]. PT DENIES DISCHARGE NEEDS, WILL RETURN HOME WITH FAMILY. SPOUSE TO TRANSPORT HOME AT DISCHARGE. CM TO FOLLOW AND ASSIST IF NEEDED. Lifeguard: [facility]io [facility] - Discharge Planning Initial Assessment Updated by [email or web address]: Jc Carpio on 10/26/18 3:24 pm * Is the patient Alert and Oriented? Yes * How many steps to enter\exit or inside your home? * PCP DR. ZULETA * Pharmacy [facility] * Preadmission Environment Home with Family * ADLs Independent * Equipment Cane Glucometer Nebulizer Other Oxygen Walker Wheelchair * Other Equipment HOME AND PORTABLE OXYGEN - [employer] * List name and contact numbers for known caregivers / representatives who currently or will assist patient after discharge: DEREJE CAMPBELL, * Verbal permission to speak to the caregivers and representatives has been obtained from the patient. Yes * Community resources currently utilized None * Please name any agencies selected above. NONE * Additional services required to return to the preadmission environment? No * Can the patient safely return to the preadmission environment? Yes * Has this patient been hospitalized within the prior 30 days at any hospital? No Coverage Notice Reviewer: [id number] - Jc Carpio Notice Issued Date-Time: 10/26/2018 13:15 Notice Type: IM Discharge Notice Notice Delivered To: Patient Relationship to Patient: Senior Account Director Name: Delivery Method: HAND - Hand Delivered Crissy Days: Prior Verbal Notification: Recipient Understood Notice: Yes Recipient Signature: Yes Med Rec Note Co-signed by Attending: Coverage Notice Comment: NORMA QUICK 2025, TB Reviewer: [id number] Georgi Carpio Notice Issued Date-Time: 10/28/2018 8:45 Notice Type: IM Discharge Notice Notice Delivered To: Patient Relationship to Patient: Senior Account Director Name: Delivery Method: HAND - Hand Delivered Crissy Days: Prior Verbal Notification: Recipient Understood Notice: Yes Recipient Signature: Yes Med Rec Note Co-signed by Attending: Coverage Notice Comment: Last DP export: 10/28/18 8:18 a Patient Name: MIN LEWIS Page [phone] at 1128 All edits/amendments must be made on the electronic document DICTATION DATE: 10/29/18 112 PHOTO PRINT SPECIALIST: CLARKE 10/29/18 1128 RPT#: [id number] DC DATE: STATUS: ADM IN [facility] [address] [place] [address] END OF REPORT
[2018-10-29] MEDS ORDERED: VIBRAMYCIN 100100 MG PO (11:30)
[2018-10-29] MEDS ORDERED: ALBUTEROL1.25 MG/3 INH (11:31)
[2018-10-29] MEDS ORDERED: SYMBICORT 16010.2 GM INH (11:33)
[2018-10-29] MEDS ORDERED: MUCINEX DM ER1 EAC1 PO (11:34)
[2018-10-29] MEDS ORDERED: ALBUTEROL SULF8.5 GM INH (11:34)
--- NOTE | 2018-10-29 11:35 | MORECARE ---
CASE MANAGEMENT DISCHARGE SUMMARY PATIENT: MIN LEWIS UNIT: [id number] ADM DATE: 10/21/18 AGE: 63 : 54 SEX: M ROOM/BED: D.2112 AUTHOR: JUAN KRUSE PHYSICIAN: REFERRING PHYSICIAN: LEONID CHRIS MD DATE OF SERVICE: 10/29/18 Discharge Plan Patient Name: MIN LEWIS Facility: [facility]:[place] : 1955 Planned Disposition: Home Anticipated Discharge Date: 10/29/18 Discharge Date: Expected LOS: 8 Initial Reviewer: [email or web address] Initial Review Date: 10/26/2018 Generated: 10/29/18 12:34 pm Comments DCP- Discharge Planning Updated by [id number]: Susan Malagon on 10/29/18 10:[address] CM verified with patient that he has an UD machine at home, from [facility] and obtains UD meds from [facility]. Voices no other needs at this time. Family will drive patient home. IMM signed 10/28/18 per patient. Susan Malagon RN DCP- Discharge Planning Updated by [id number]: Jc Carpio on 10/28/18 8:[address] Patient Name: MIN LEWIS Encounter No: [id number] : 1955 Primary Insurance: [facility] MEDICARE SOLUTIONS Anticipated DC Date: 10-29-2018 Planned Disposition: Home DCP follow-up note: CM REVIEWED CHART, PHYSICIAN PLANS TO DISCHARGE HOME TOMORROW. CM MET WITH PT AND SPOUSE IN ROOM TO DISCUSS DISCHARGE NEEDS AND PLANNING. CM NOTIIFED OF PHYSICIAN DISCHARGE PLAN FOR TOMORROW. CM DISCUSSED AVAILABILITY OF HOME HEALTH, REHAB SERVICES AND MEDICAL EQUIPMENT. PT DENIES DISCHARGE NEEDS. SPOUSE TO TRANSPORT HOME AT DISCHARGE. IMPORTANT MESSAGE FROM MEDICARE PROVIDED AND EXPLAINED. NA Hook DCP- Discharge Planning Updated by [email or web address]: Jc Carpio on 10/26/18 2:[address] Patient Name: MIN LEWIS Admission Status: ER Accout number: [id number] Admission Date: 10-21-2018 : 1955 Admission Diagnosis:CHEST PAIN, UNSPECIFIED Attending: LEONID CHRIS Current LOS: 5 Anticipated DC Date: 10-27-2018 Planned Disposition: Home Primary Insurance: [facility] MEDICARE SOLUTIONS Discharge Planning Comments: CM RECEIVED OXYGEN TESTING, PT DID NOT QUALIFY FOR HOME AND PORTABLE OXYGEN, LOWEST SATURATION WAS 90%. CM MET WITH PT AND SPOUSE IN ROOM TO DISCUSS DISCHARGE PLANNING AND NEEDS. MIN LEWIS provided verbal consent to discuss current and ongoing needs with/in the presence of: GERARDO LEWIS. PT REPORTS LIVING AT HOME INDEPENDENTLY WITH HIS . PT HAS CANE, GLUCOMETER, NEBULIZER, HOME AND PORTABLE OXYGEN, WALKER, WHEELCHAIR AND PULSE OXIMETER. PT'S MEDICAL EQUIPMENT PROVIDER IS [employer]. PT HAS NO OUTSIDE SERVICES ASSISTING IN THE HOME. CM DISCUSSED AVAILABILITY OF HOME HEALTH, REHAB SERVICES AND MEDICAL EQUIPMENT. PT DENIES DISCHARGE NEEDS, REPORTS HER WILL PICK HIM UP FOR DISCHARGE HOME. IMPORTANT MESSAGE FROM MEDICARE PROVIDED AND EXPLAINED. PT HAS HOME AND PORTABLE OXYGEN AT HOME FROM [facility]. PT DENIES DISCHARGE NEEDS, WILL RETURN HOME WITH FAMILY. SPOUSE TO TRANSPORT HOME AT DISCHARGE. CM TO FOLLOW AND ASSIST IF NEEDED. Breakfast Cook: Jc Carpio [facility] - Discharge Planning Initial Assessment Updated by [id number]: Jc Carpio on 10/26/18 3:24 pm * Is the patient Alert and Oriented? Yes * How many steps to enter\exit or inside your home? * PCP DR. ZULETA * Pharmacy [facility] [place] * Preadmission Environment Home with Family * ADLs Independent * Equipment Cane Glucometer Nebulizer Other Oxygen Walker Wheelchair * Other Equipment HOME AND PORTABLE OXYGEN - [employer] * List name and contact numbers for known caregivers / representatives who currently or will assist patient after discharge: DEREJE CAMPBELL, * Verbal permission to speak to the caregivers and representatives has been obtained from the patient. Yes * Community resources currently utilized None * Please name any agencies selected above. NONE * Additional services required to return to the preadmission environment? No * Can the patient safely return to the preadmission environment? Yes * Has this patient been hospitalized within the prior 30 days at any hospital? No Coverage Notice Reviewer: [id number] - Jc Carpio Notice Issued Date-Time: 10/26/2018 13:15 Notice Type: IM Discharge Notice Notice Delivered To: Patient Relationship to Patient: Pain Medicine Physician Name: Delivery Method: HAND - Hand Delivered Crissy Days: Prior Verbal Notification: Recipient Understood Notice: Yes Recipient Signature: Yes Med Rec Note Co-signed by Attending: Coverage Notice Comment: DC IM 1315, TB Reviewer: [email or web address] - Jc Carpio Notice Issued Date-Time: 10/28/2018 8:45 Notice Type: IM Discharge Notice Notice Delivered To: Patient Relationship to Patient: Pain Medicine Physician Name: Delivery Method: HAND - Hand Delivered Crissy Days: Prior Verbal Notification: Recipient Understood Notice: Yes Recipient Signature: Yes Med Rec Note Co-signed by Attending: Coverage Notice Comment: Last DP export: 10/29/18 10:28 a Patient Name: MIN LEWIS Page [phone] at 1135 All edits/amendments must be made on the electronic document DICTATION DATE: 10/29/18 113 TRAIN CONTROLLER: CLARKE 10/29/18 1134 RPT#: [id number] DC DATE: STATUS: ADM IN [facility] [address] [place] [address] END OF REPORT
--- NOTE | 2018-10-29 13:08 | NUR ---
PT ESCORTED TO ICU WAITING ROOM WITH , FATHER IS IN ICU WAITING ON SURGERY.
--- NOTE | 2018-10-31 08:37 | MORECARE ---
CASE MANAGEMENT DISCHARGE SUMMARY PATIENT: MIN LEWIS UNIT: [id number] ADM DATE: 10/21/18 AGE: 63 : 53 SEX: M ROOM/BED: D.2112 AUTHOR: AIXADOC PHYSICIAN: REFERRING PHYSICIAN: LEONID CHRIS MD DATE OF SERVICE: 10/31/18 Discharge Plan Patient Name: MIN LEWIS Facility: [facility]:[place] : 1955 Planned Disposition: Home Anticipated Discharge Date: 10/29/18 Discharge Date: 10/29/2018 Expected LOS: 8 Initial Reviewer: [email or web address] Initial Review Date: 10/26/2018 Generated: 10/31/18 9:37 am Comments DCP- Discharge Planning Updated by [email or web address]: Susan Malagon on 10/29/18 10:[address] CM verified with patient that he has an UD machine at home, from [facility] and obtains UD meds from [facility]. Voices no other needs at this time. Family will drive patient home. IMM signed 10/28/18 per patient. Susna Malagon RN DCP- Discharge Planning Updated by [email or web address]: Jc Carpio on 10/28/18 8:[address] Patient Name: MIN LEWIS Encounter No: [id number] : 1955 Primary Insurance: [facility] [employer]IC[employer] SOLUTIONS Anticipated DC Date: 10-29-2018 Planned Disposition: Home DCP follow-up note: CM REVIEWED CHART, PHYSICIAN PLANS TO DISCHARGE HOME TOMORROW. CM MET WITH PT AND SPOUSE IN ROOM TO DISCUSS DISCHARGE NEEDS AND PLANNING. CM NOTIIFED OF PHYSICIAN DISCHARGE PLAN FOR TOMORROW. CM DISCUSSED AVAILABILITY OF HOME HEALTH, REHAB SERVICES AND MEDICAL EQUIPMENT. PT DENIES DISCHARGE NEEDS. SPOUSE TO TRANSPORT HOME AT DISCHARGE. IMPORTANT MESSAGE FROM MEDICARE PROVIDED AND EXPLAINED. NA Hook DCP- Discharge Planning Updated by [id number]: Jc Carpio on 10/26/18 2:[address] Patient Name: MIN LEWIS Admission Status: ER Accout number: [id number] Admission Date: 10-21-2018 : 1955 Admission Diagnosis:CHEST PAIN, UNSPECIFIED Attending: LEONID CHRIS Current LOS: 5 Anticipated DC Date: 10-27-2018 Planned Disposition: Home Primary Insurance: [facility] [employer] Discharge Planning Comments: CM RECEIVED OXYGEN TESTING, PT DID NOT QUALIFY FOR HOME AND PORTABLE OXYGEN, LOWEST SATURATION WAS 90%. CM MET WITH PT AND SPOUSE IN ROOM TO DISCUSS DISCHARGE PLANNING AND NEEDS. MIN Owen DEBBIE provided verbal consent to discuss current and ongoing needs with/in the presence of: GERARDO LEWIS. PT REPORTS LIVING AT HOME INDEPENDENTLY WITH HIS . PT HAS CANE, GLUCOMETER, NEBULIZER, HOME AND PORTABLE OXYGEN, WALKER, WHEELCHAIR AND PULSE OXIMETER. PT'S MEDICAL EQUIPMENT PROVIDER IS [employer]. PT HAS NO OUTSIDE SERVICES ASSISTING IN THE HOME. CM DISCUSSED AVAILABILITY OF HOME HEALTH, REHAB SERVICES AND MEDICAL EQUIPMENT. PT DENIES DISCHARGE NEEDS, REPORTS HER WILL PICK HIM UP FOR DISCHARGE HOME. IMPORTANT MESSAGE FROM MEDICARE PROVIDED AND EXPLAINED. PT HAS HOME AND PORTABLE OXYGEN AT HOME FROM [facility]. PT DENIES DISCHARGE NEEDS, WILL RETURN HOME WITH FAMILY. SPOUSE TO TRANSPORT HOME AT DISCHARGE. CM TO FOLLOW AND ASSIST IF NEEDED. Sports Coordinator: Jc Carpio [facility] - Discharge Planning Initial Assessment Updated by [id number]: Jc Carpio on 10/26/18 3:24 pm * Is the patient Alert and Oriented? Yes * How many steps to enter\exit or inside your home? * PCP DR. ZULETA * Pharmacy [facility] IN [place] * Preadmission Environment Home with Family * ADLs Independent * Equipment Cane Glucometer Nebulizer Other Oxygen Walker Wheelchair * Other Equipment HOME AND PORTABLE OXYGEN - [employer] * List name and contact numbers for known caregivers / representatives who currently or will assist patient after discharge: DEREJE CAMPBELL, * Verbal permission to speak to the caregivers and representatives has been obtained from the patient. Yes * Community resources currently utilized None * Please name any agencies selected above. NONE * Additional services required to return to the preadmission environment? No * Can the patient safely return to the preadmission environment? Yes * Has this patient been hospitalized within the prior 30 days at any hospital? No Coverage Notice Reviewer: [id number] - Jc Carpio Notice Issued Date-Time: 10/26/2018 13:15 Notice Type: IM Discharge Notice Notice Delivered To: Patient Relationship to Patient: National Stormwater Leader Name: Delivery Method: HAND - Hand Delivered Crissy Days: Prior Verbal Notification: Recipient Understood Notice: Yes Recipient Signature: Yes Med Rec Note Co-signed by Attending: Coverage Notice Comment: DC IM 1315, TB Reviewer: [id number] Georgi Carpio Notice Issued Date-Time: 10/28/2018 8:45 Notice Type: IM Discharge Notice Notice Delivered To: Patient Relationship to Patient: National Stormwater Leader Name: Delivery Method: HAND - Hand Delivered Crissy Days: Prior Verbal Notification: Recipient Understood Notice: Yes Recipient Signature: Yes Med Rec Note Co-signed by Attending: Coverage Notice Comment: Last DP export: 10/29/18 10:35 a Patient Name: MIN LEWIS Page 34761 at 0837 All edits/amendments must be made on the electronic document DICTATION DATE: 10/31/18836 LICENSED MORTGAGE LOAN OFFICER: CLARKE 10/31/1837 RPT#: [id number] DC DATE:10/29/18 STATUS: DIS IN [facility] [address] [place] [address] END OF REPORT
== END 2018-10-29 13:08 | disposition home or self-care (01) | DRG 177 ==
LOC: D.ER 16:01 → D.M2 17:34
PROVIDERS: Emergency Medicine; Family Medicine; Internal Medicine Interventional Cardiology; ADMIT Internal Medicine Nephrology; ATTEND Internal Medicine Nephrology
PROC: B2151ZZ Fluoroscopy of Left Heart using Low Osmolar Contrast (ICD-10-PCS; 2018-10-21)
PROC: 4A023N7 Measurement of Cardiac Sampling and Pressure, Left Heart, Percutaneous Approach (ICD-10-PCS; 2018-10-21)
PROC: B2111ZZ Fluoroscopy of Multiple Coronary Arteries using Low Osmolar Contrast (ICD-10-PCS; principal; 2018-10-21 16:30)
DX: J15.212 Pneumonia due to Methicillin resistant Staphylococcus aureus (principal); J96.01 Acute respiratory failure with hypoxia; I25.110 Atherosclerotic heart disease of native coronary artery with unstable angina pectoris; J44.0 Chronic obstructive pulmonary disease with (acute) lower respiratory infection; I10 Essential (primary) hypertension; K21.9 Gastro-esophageal reflux disease without esophagitis; E11.51 Type 2 diabetes mellitus with diabetic peripheral angiopathy without gangrene; F32.9 Major depressive disorder, single episode, unspecified; E11.65 Type 2 diabetes mellitus with hyperglycemia; D64.9 Anemia, unspecified; E83.42 Hypomagnesemia; N40.0 Benign prostatic hyperplasia without lower urinary tract symptoms; J98.8 Other specified respiratory disorders; Z86.73 Personal history of transient ischemic attack (TIA), and cerebral infarction without residual deficits; Z87.891 Personal history of nicotine dependence

== ENCOUNTER 2019-02-10 07:59 | Outpatient (CLI) | payer MEDICARE ==
[~2019-02-10] VITALS: Ht 185.4 cm; Wt 111.4 kg
--- NOTE | ~2019-02-10 | HEMODYNAMI ---
PATIENT:MIN LEWIS MEDICAL RECORD: [id number] : 53 LOCATION:[facility] ADMISSION DATE: 02/10/19 Generatedon:02/10/201913:35 Patient name: MIN LEWIS Patient #: [id number] SSN: [id number] : 1955 Date of study: 02/10/2019 Page: Of Hemodynamic Procedure Report Patient Data Patient Demographics Procedure consent was obtained First Name: MIN Gender: Male Last Name: DEBBIE : 1955 [facility] Initial: Owen Age: 63 year(s) Patient #: [id number] Race: SSN: [id number] Additional ID: [id number] Contact details Address: [address] [place] [address] State: [place] City: [place] Zip code: [address] Past Medical History History of disease Date Diagnosis Comments CAD Allergies Allergen Reaction Date Comments Reported Sulfa drugs 05/26/2014 Penicillins 05/26/2014 Other allergy 03/28/2015 nitroglycerin paste, erthromycin base, Darvocet Sulfa drugs 11/21/2015 Penicillins 11/21/2015 Erythromycin 11/21/2015 Other allergy 11/21/2015 Darvocet Other allergy 10/19/2016 Sulfa, Nitrobid, Penicillin, DCN, Isosorbide, Erythromycin Other allergy 04/26/2017 PCN, Sulfa Other allergy 07/20/2017 IMDUR, PCN, SULFA Other allergy 02/14/2018 SULFA, NITRO-BID, PCN, VALIUM, IMDUR, DARVOCET-N 100, ERYTHROMYCINBASE Other allergy 07/27/2018 pcn, sulfa Other allergy 10/21/2018 SULFA, PCN, IMDUR, PROPOXYPHENE NAPSYLATE, ERYTHROMYCIN BASE Other allergy 02/10/2019 PCN, SULFA, DARVOCET, IMDUR Admission Admission Data Admission Date: 02/10/2019 Admission Time: 7:59 Lab Results Lab Result Date: 02/10/2019 Lab Result Time: 0:00 Biochemistry Name Units Result Min Max BUN mg/dl 23 --(----)-* 7 18 Creatinine mg/dl 1.2 --(---*)-- 0.6 1.3 eGFR ml/min 64.25918 *-(----)-- 90 120 NONAFRICAN CBC Name Units Result Min Max Hematocrit % 37 *-(----)-- 42 54 Hemoglobin g/dl 12.1 *-(----)-- 13.5 17.5 Procedure Procedure Types Cath Procedure Diagnostic Procedure LHC LHC w/Coronaries w/Grafts Sedation Charges Moderate Sedation up to 15 minutes PCI Procedure Coronary Stent Coronary Stent Initial Hemochron ACT Test Procedure Description Procedure Date Procedure Date: 02/10/2019 Procedure Start Time: 13:20 Procedure End Time: 13:33 Procedure Staff Name Function Lv Bradshaw MD Performing Physician Madina Gutierrez RT Monitor Daphne Ruano RT Scrub Dafne Figueroa RN Nurse Procedure Data Cath Procedure Fluoroscopy Diagnostic fluoroscopy Total fluoroscopy Time: 4 time: 4 min min Diagnostic fluoroscopy Total fluoroscopy dose: 912 dose: 912 mGy mGy Contrast Material Contrast Material Type Amount (ml) Isovue 300 98 Entry Location Entry Primary Successful Side Size Upsize Upsize Entry Closure Acosta ccessful Closure Location (Fr) 1 (Fr) 2 (Fr) Remarks Device Remarks Radial Right 6 Fr Mechanical artery Short Compression Estimated blood loss: 10 ml Diagnostic catheters Device Type Used For End Catheter Placement DIAGNOSTIC Morton 110cm 5 Procedure Fr catheter ([id number]) Procedure Complications No complications Procedure Medications Medication Administration Route Dosage 0.9% NaCl I.V. 100 ml/hr Oxygen etCO2 Nasal cannula 2 l/min Lidocaine 2% added to field 20 Heparin Flush Bag added to field 2 bags (1000units/500ml NS) Radial Cocktail added to field 1 syringe (Verapamil 2mg/Nitro 400mcg/Heparin 1500units) Versed I.V. 2 mg Fentanyl I.V. 50 mcg Heparin Bolus I.V. 4000 units Hemodynamics Rest HGB: 12.1 (g/dl) Heart Rate: 60 (bpm) Snapshots Pre Cath Intra NCS Post Cath Vital Signs Time Heart Resp SPO2 etCO2 NIBP (mmHg) Rhythm Pain Sedation Rate (ipm) (%) (mmHg) Status Level (bpm) 13:08:24 64 19 95 25 137/83(106) NSR 0 (11) 10(A) , No pain 13:12:44 60 19 94 14.9 136/83(108) NSR 0 (11) 10(A) , No pain 13:17:06 63 10 94 50.6 138/81(109) NSR 0 (11) 10(A) , No pain 13:21:20 69 9 95 34.2 93/60(79) NSR 0 (11) 10(A) , No pain 13:25:26 71 11 94 49.1 112/76(93) NSR 0 (11) 10(A) , No pain 13:29:42 70 12 95 38 119/73(97) NSR 0 (11) 10(A) , No pain Medications Time Medication Route Dose Verified Delivered Reason Not es Effectiveness by by 13:07:21 0.9% NaCl I.V. 100 Lv Dafne used for ml/hr Augustine Figueroa epic ambulatory analyst 13:07:28 Oxygen etCO2 2 l/min Lv Dafne used for Nasal Augustine Figueroa procedure cannula RN 13:07:33 Lidocaine 2% added 20ml Lv Lv for local to vial Augustine Bradshaw MD anesthetic field 13:07:38 Heparin Flush added 2 bags Lv Lv used for Bag to Augustine Bradshaw MD procedure (1000units/500ml field NS) 13:07:49 Radial Cocktail added 1 Lv Lv used for (Verapamil to syringe Augustine Bradshaw MD procedure 2mg/Nitro field 400mcg/Heparin 1500units) 13:18:03 Versed I.V. 2 mg Lv Dafne for sedation Augustine Figueroa RN 13:18:09 Fentanyl I.V. 50 mcg Lv Dafne for sedation Augustine Figueroa RN 13:25:59 Heparin Bolus I.V. 4000 Lv Dafne for danilo ified units Augustine Figueroa anticoagulation with Dr. RICHARD Bradshaw Procedure Log Time Note 12:51:34 Informed consent obtained and on chart 12:52:11 Procedure Status Urgent Heart Cath (IP). 12:52:12 Time tracking: Regular hours (M-F 7:00 - 5:00) 12:52:16 Plan of Care:Hemodynamics will remain stable., Cardiac rhythm will remain stable., Comfort level will be maintained., Respiratory function will remain adequate., Patient/ family verbilizes understanding of procedure., Procedure tolerated without complication., Recovers from procedure without complications.. 12:52:19 Dafne Figueroa RN sent for patient. Start room use. 12:52:23 H&P Date Dictated: 02/10/2019 New H&P dictated by physician.. 12::54 Lab Result : BUN 23 mg/dl 12::54 Lab Result : Creatinine 1.2 mg/dl 12::54 Lab Result : eGFR NONAFRICAN 64.93980 ml/min 12::54 Lab Result : Hemoglobin 12.1 g/dl 12::54 Lab Result : Hematocrit 37 % 12:54:16 Risk of Mortality: .1 12:54:18 Risk of blood transfusion: .6 12:54:21 Risk of OKSANA: .4 12:54:27 Stress Test: no; N/A ? 13:03:39 Patient received from ED to CCL 1 Alert and oriented. Tansferred to table in Supine position. 13:03:40 Warm blankets applied, and luisa hugger turned on for patient comfort. 13:03:40 Correct patient and procedure confirmed by team. 13:03:41 ECG and BP/O2 sat monitors applied to patient. 13:07:12 Vital chart was started 13:07:21 0.9% NaCl 100 ml/hr I.V. was administered by Dafne Figueroa RN; used for procedure; Verbal order read back and verified. 13:07:28 Oxygen 2 l/min etCO2 Nasal cannula was administered by Dafne Figueroa RN; used for procedure; Verbal order read back and verified. 13:07:33 Lidocaine 2% 20ml vial added to field was administered by Lv Bradshaw MD; for local anesthetic; Verbal order read back and verified. 13:07:38 Heparin Flush Bag (1000units/500ml NS) 2 bags added to field was administered by vL Bradshaw MD; used for procedure; Verbal order read back and verified. 13:07:49 Radial Cocktail (Verapamil 2mg/Nitro 400mcg/Heparin 1500units) 1 syringe added to field was administered by Lv Bradshaw MD; used for procedure; Verbal order read back and verified. 13:12:41 Baseline sample Acquired. 13:12:46 Rhythm: sinus bradycardia 13:12:47 Full Disclosure recording started 13:12:47 Pre-procedure instructions explained to patient. 13:12:48 Pre-op teaching completed and patient verbalized understanding. 13:12:55 Family in waiting room. 13:12:57 Patient NPO since Midnight. 13:13:31 Patient allergic to Other allergyPCN, SULFA, DARVOCET, IMDUR 13:13:32 Is the patient allergic to Iodine/contrast media? No. 13:13:34 Is patient on blood thinner?Yes 13:13:40 ACC The patient was administered the following blood thiners within the last 24 hours: ACCEffient 13:13:41 Patient diabetic? Yes. 13:13:42 If diabetic: On Metformin? Yes 13:13:48 If on Metformin: Last Dose? 02/09/2019 13:13:51 Previous problem with sedation/anesthesia? No ? 13:13:52 Snore? Yes 13:13:54 Sleep apnea? No 13:13:55 Deviated septum? No 13:13:55 Opens mouth fully? Yes 13:13:56 Sticks out tongue? Yes 13:13:59 Airway obstruction? Yes COPD 13:14:01 Dentures? No ? 13:14:04 Pre procedure: right dorsailis pedis pulse 1+ Palpable, but thready & weak; easily obliterated 13:14:07 Modified Tacho's test Ulnar < 7 seconds 13:14:10 Patient pain scale 0/10 ?. 13:14:14 IV patent on arrival in right hand with 0.9% NaCl at [facility]. 13:14:19 Lab results completed and on chart. 13:14:23 Right Radial & Right Groin area was prepped with chlora-prep and draped in sterile fashion 13:14:24 Alarms reviewed by R. N. 13:14:24 Sharps counted by scrub and verified by R.N. 13:14:27 Use device set Radial Dx or PCI 13:14:28 ACIST Syringe (78991) opened to sterile field. 13:14:29 Bag Decanter (2002S) opened to sterile field. 13:14:29 ACIST Hand Control (16685) opened to sterile field. 13:14:30 ACIST Manifold (32638) opened to sterile field. 13:14:30 Tegaderm 4 x 4 (1626W) opened to sterile field. 13:14:31 Medline Cath Pack (SZMD67553) opened to sterile field. 13:14:31 MBrace Wrist Support (141973902) opened to sterile field. 13:14:33 EMERALD Guide Wire (336-054) opened to sterile field. 13:14:33 SHEATH 6FR RAIN (1366808) opened to sterile field. 13:14:50 --------ALL STOP TIME OUT------ 13:14:50 Final Timeout: patient, procedure, and site verified with staff and physician. All members of the team are in agreement. 13:14:51 Right Radial & Right Groin site verified by team. 13:14:56 Fire Safety Assessment: A--An alcohol-based skin anteseptic being used preoperatively., C--Open oxygen or nitrous oxide is being used., D--An ESU, laser, or fiber-optic light is being used. 13:14:59 Physical assessment completed. ASA score P 3 - A patient with severe systemic disease as per Lv Bradshaw MD. 13:15:02 2) 60-89 Mildly reduced kidney function, and other findings (as for stage 1) point to kidney disease. 13:15:06 Maximum allowable contrast dose (3.7 X eGFR X 0.75)180 ml. 13:15:11 Sedation plan: IV Moderate Sedation Medication:Versed, Fentanyl 13:18:03 Versed 2 mg I.V. was administered by Dafne Figueroa RN; for sedation; Verbal order read back and verified. 13:18:09 Fentanyl 50 mcg I.V. was administered by Dafne Figueroa RN; for sedation; Verbal order read back and verified. 13:20:43 Procedure started. 13:20:47 Local anesthetic to right radial artery with Lidocaine 2% by Lv Bradshaw MD.INITIAL ACCESS ONLY 13:20:55 A 6 Fr Short sheath was inserted into the Right Radial artery 13:21:04 A DIAGNOSTIC Morton 110cm 5 Fr catheter ([id number]) was advanced over the wire and used for Procedure. 13:21:58 LV gram done using FRAUSTO 13:22:00 Injector settings: Ml/sec: 5, Volume: 15, 13:22:39 EF : 55 % 13:23:32 LCA angiography performed. 13:23:58 RCA angiography performed. 13:24:45 SVG to Diag angiography performed. 13:24:46 Catheter exchanged over wire. 13:25:00 ACCDominant side:Co-Dominant 13:25:15 INFLATOR Merit BasixCompak (LA0922) opened to sterile field. 13:25:16 CHOICE PT Extra Support 182cm wire (3090005S4) opened to sterile field. 13:25:16 GUIDE 6FR XBLAD 3.5 catheter ([id number]) opened to sterile field. 13:25:59 Heparin Bolus 4000 units I.V. was administered by Dafne Figueroa RN; for anticoagulation; verified with Dr. Bradshaw Verbal order read back and verified. 13:26:30 Pre PCI Site: [place] mLAD has 90% stenosis. 13:26:36 6 Fr XBLAD 3.5 guide catheter was inserted over the wire 13:27:20 CHOICE ES 182 wire advanced. 13:28:11 Place stent Inflation Number: 1 A PEPPER RX 3.5 x 15 stent ([id number]) was prepped and advanced across the Mid LAD . The stent was deployed at 19 MONICA for 0:00 (min:sec) . 13:28:34 Inflation number: 2 The stent balloon was then re-inflated across the Mid LAD to 21 MONICA for 0:00 (min:sec) . 13:28:44 Stent catheter was removed intact over wire. 13::57 Wire removed. 13::58 Guide catheter removed. 13::23 ZEPHYR REGULAR TR BAND (891914) opened to sterile field. 13:29:32 Sheath removed intact; hemostasis achieved with Mechanical Compression to the Right Radial artery. 13:29:36 Procedure ended.(Physican Out) 13:31:00 Fluoroscopy time 04.00 minutes. ::03 Fluoroscopy dose: 912 mGy 13:31:03 Flurop Dose total: 912 13:31:10 Dose Area Product 47801 mGy/cm. 13:31:14 Contrast amount:Isovue 300 98ml. 13:31:16 Maximum allowable dose exceeded? No. 13:31:17 Sharps counted by scrub and verified by R.N. 13:31:41 Post-procedure physical assessment completed. ASA score P 3 - A patient with severe systemic disease as per Lv Bradshaw MD. 13:31:44 Post procedure rhythm: sinus rhythm 13::46 Estimated blood loss: 10 ml 13:31:47 Post procedure instruction explained to patient.Patient verbalizes understanding. 13:31:48 Patient needs reinforcement of post procedure teaching. 13:32:17 Procedure type changed to Cath procedure, Diagnostic procedure, LHC, LHC w/Coronaries w/Grafts, Sedation Charges, Moderate Sedation up to 15 minutes, PCI procedure, Coronary Stent, Coronary Stent Initial, Hemochron ACT Test 13:32:28 ACT drawn and resulted at 264 seconds. (normal therapeutic range 180-240 seconds). 13:32:49 Procedure and supply charges have been captured, reviewed, submitted and are correct. 13:32:52 Procedure Complication : No complications 13:32:54 Vital chart was stopped 13:32:55 [facility] Findings: MVD- PCI performed (see procedure note) 13:32:57 Operative report dictated upon procedure completion. 13:33:00 See physician's report for complete and final results. 13:33:01 Report given to Pre/Post Procedure Room. 13:33:04 Patient transfered to Pre/Post Procedure Room with Bed. 13:33:09 Serena band inflated with 8cc of air. 13:33:12 Procedure ended. 13:33:12 Full Disclosure recording stopped 13:33:19 ACC-PCI Only Patient was given prescriptions, or instructed by Lv Bradshaw MD to start/continue the following medications upon discharge: Effient 13:33:20 End room use (Document Last) 13:34:02 End room use (Document Last) 13:34:26 End room use (Document Last) Intervention Summary Intervention Notes Time ActionType Lesion and Equipment Used Action# Pressure Duration Attributes 13:28:11 Place stent Mid LAD PEPPER RX 3.5 x 1 19 00:00 15 stent ([id number]) 13:28:34 Reinflate Mid LAD PEPPER RX 3.5 x 2 21 00:00 stent 15 stent balloon ([id number]) Device Usage Item Name Manufacture Quantity Catalog Number Hospital Part Current M inimal Lot# / Charge Number Stock Stock Serial# Code ACIST Syringe Acist 1 86787 042197 295952 465241 2 0 (56516) Medical Systems Inc Bag Decanter Microtek 1 2001S 823714 75970 226495 5 (2001S) Medical Inc. ACIST Hand Acist 1 98057 467969 309289 339816 5 Control Medical (89353) Systems Inc ACIST Manifold Acist 1 29922 097853 006003 576564 5 (40088) Medical Systems Inc Tegaderm 4 x 4 3M 1 1626W 682931 311136 680036 5 (1626W) Medline Cath Medline 1 [id number] 683482 94064 103185 5 Pack ([id number]) MBrace Wrist Advanced 1 140-0250-00 485666 65760 302330 5 Support Vascular (237742672) Dynamics EMERALD Guide Cardinal 1 502-455 564893 145628 397597 5 Wire (502-455) Health SHEATH 6FR Cardinal 1 9448434 341775 2080694 067691 5 RAIN (2048370) Health DIAGNOSTIC Terumo 1 40-3984 737987 069199 326704 5 Morton 110cm 5 Fr catheter (107702) INFLATOR Merit Merit 1 JL5243 765409 845918 158313 1 5 Creativit Studios (KY8431) CHOICE PT [place] 1 [id number] 887087 099169 656007 5 Extra Support Scientific 182cm wire (6672788L3) GUIDE 6FR Cardinal 1 [id number] 594350 480175 226810 1 0 XBLAD 3.5 Health catheter (36036726) PEPPER RX 3.5 x Medtronic 1 [id number] 962226 0505947 029242 5 [id number] 15 stent ([id number]) ZEPHYR REGULAR Cardinal 1 545361 316158 9257899 621037 5 TR Plurchase (527400) Signature Audit Allen Stage Time Signature Unsigned Intra-Procedure 02/10/2019 Madina Gutierrez 1:34:02 PM RT(R) Intra-Procedure 02/10/2019 Dafne Figueroa 1:34:26 PM RN Intra-Procedure 02/10/2019 Lv Bradshaw 1:35:14 PM [id number] [place] [address]
[~2019-02-10 07:59] MED LIST changes: +ALBUTEROL SULF8.5 GM INH; +ALBUTEROL1.25 MG/3 INH; +MUCINEX DM ER1 EAC1 PO; +SYMBICORT 16010.2 GM INH; +VIBRAMYCIN 100100 MG PO
[2019-02-10 08:20] LABS: BASOPHILS 0.2 % (0-2); EOSINOPHILS 4.8 % (0-7); HEMOGLOBIN 12.1 g/dL (13.5-17.5); LYMPHOCYTES 35.7 % (15-50); MCH 29.9 pg (26.0-34.0); MCHC 32.7 g/dL (31.0-37.0); MCV 91.4 fL (80.0-100.0); MONOCYTES 8.1 % (2-11); NEUTROPHILS 51.2 % (40-80); PLATELET COUNT 217 10x3/uL (130-400); RBC 4.05 10x6/uL (4.20-6.10); RDW 13.4 % (11.5-14.5); WBC 5.8 10x3/uL (4.8-10.8)
[2019-02-10 08:37] LABS: APTT 30.1 SECONDS (22.8-39.4); CALC OSMOLALITY 283 mosm/kg (275-300); CALCIUM 9.9 mg/dL (8.5-10.1); CARBON DIOXIDE 25.7 mmol/L (21.0-32.0); CHLORIDE - SERUM 99 mmol/L (98-107); CREATININE - SERUM 1.2 mg/dL (0.6-1.3); GLUCOSE 285 mg/dL (74-106); INR 1.04 (0.85-1.17); PROTIME 13.1 SECONDS (11.6-15.0); SODIUM 135 mmol/L (136-145); UREA NITROGEN 23 mg/dL (7-18); eGFR NON AFRICAN AMERICAN 65 mL/min (90-120)
[2019-02-10 08:53] LABS: ALBUMIN 3.7 g/dL (3.4-5.0); ALKALINE PHOSPHATASE 63 U/L (46-116); ALT (SGPT) 77 U/L (10-68); BILIRUBIN - TOTAL 0.48 mg/dL (0.2-1.3); CKMB 0.7 U/L (0.0-3.6); CREATINE KINASE 185 UL (21-232); MAGNESIUM - SERUM 1.5 mg/dL (1.8-2.4)
[2019-02-10 08:54] LABS: TROPONIN-I < 0.017 ng/mL (0.000-0.060)
[2019-02-10 10:14] VITALS: Ht 185.4 cm; Wt 111.4 kg
[2019-02-10 13:00] VITALS: BP 132/69
--- NOTE | 2019-02-10 13:34 | CN ---
PATIENT NAME:MIN PELAYO MEDICAL RECORD: [id number] : 53 LOCATION:D.CAT ADMIT DATE: ACCOUNT: [id number] CONSULTING PHYSICIAN: FOX GUPTA MD REFERRING PHYSICIAN: FOX GUPTA MD DATE OF CONSULTATION: 02/10/2019 CARDIOLOGY CONSULTATION DIAGNOSES: 1. Unstable angina class IV. 2. Coronary artery disease. 3. Status post coronary bypass graft surgery. 4. Status post multivessel PTCA and stent. 5. Hypertension. 6. Hyperlipidemia. HISTORY OF PRESENT ILLNESS: Mr. Pelayo is well known to us with a past history of coronary artery disease, extensive cardiac stenting and bypass surgery, who has developed class IV anginal symptomatology over the past 2 weeks. We saw him in the office last week, optimized his medical therapy; however, his chest pain has continued. It is just like that of his previous angina. His EKG is with no acute ST elevation. He does have severe chest pain at this time at 7/10. He was given nitro. He became hypotensive with the nitro. His chest pain worsened. PHYSICAL EXAMINATION: CONSTITUTIONAL/GENERAL APPEARANCE: Well nourished, well developed, appears stated age. EYES: Lids and conjunctivae noninjected. No discharge. No pallor. ENT: Lips within normal limit. No cyanosis. No pallor. NECK: Carotid arteries, bilateral normal upstroke. No bruits. No thrills. No jugular venous pressure or distention. CERVICAL LYMPH NODES: Nontender. Nonenlarged. THYROID: Not enlarged. No nodules. CARDIOVASCULAR: Precordial exam, nondisplaced. No heaves or pericardial thrills. Rate and rhythm, regular. Heart sounds, normal S1, normal S2. No S3, no gallop, no rub. Systolic murmur, not heard. Diastolic murmur, not heard. RESPIRATORY: Respiratory effort, unlabored. Normal curvature. No thoracic deformity. No chest wall tenderness. Percussion, resonant. Auscultation, clear. No wheezes, no rales, no rhonchi. ABDOMEN: Soft, nondistended, nontender. No abdominal pain, no vomiting and normal appetite. MUSCULOSKELETAL: No joint tenderness, normal gait, normal tone. SKIN: Warm and dry. OVERALL IMPRESSION: Unstable angina class IV. At this time, we will proceed with coronary angiography. Further care depends upon findings of the angiography. TRANSINT:[id number] Voice Confirmation ID: [id number] DOCUMENT ID: [id number] CONSULT REPORT [id number] MIN PELAYO JEFFREY MD at 1334 CC: [id number] DICTATION DATE: 02/10/19 1013 BUSINESS RESILIENCY MANAGER: 02/10/19 1302 [facility] [place] [id number] [place] [id number]
--- NOTE | 2019-02-10 13:43 | NUR ---
PT ARRIVED BY STRETCHER. PLACED ON MONITORS. ASSESSMENT COMPLETED. VSS. CALL LIGHT WITHIN REACH. PT'S FAMILY AT BEDSIDE. DR. GUTPA ROUNDED AND SPOKE WITH PT'S FAMILY.
--- NOTE | 2019-02-10 14:00 | NUR ---
RIGHT RADIAL Z BAND IN PLACE. NO BLEEDING/HEMATOMA NOTED. RESTING COMFORTABLY ON LEFT SIDE. VSS. DENIES PAIN/NAUSEA. PT'S FAMILY AT BEDSIDE. NO NEEDS. CALL LIGHT WITHIN REACH.
--- NOTE | 2019-02-10 14:30 | NUR ---
PT RESTING COMFORTABLY. VSS. RIGHT WRIST Z BAND IN PLACE. NO BLEEDING/HEMATOMA. CALL LIGHT WITHIN REACH.
--- NOTE | 2019-02-10 15:00 | NUR ---
RIGHT WRIST Z BAND IN PLACE. NO BLEEDING/HEMATOMA NOTED. CALL LIGHT WITHIN REACH. VSS AT THIS TIME.
--- NOTE | 2019-02-10 15:30 | NUR ---
HEAD OF BED AT 45 DEGREES. PT SET UP WITH SANDWICH TRAY AND DRINK. DENIES NAUSEA/PAIN. VSS. RIGHT WRIST Z BAND IN PLACE. NO BLEEDING/HEMATOMA NOTED.
--- NOTE | 2019-02-10 16:00 | NUR ---
PT RESTING COMFORTABLY. VSS. RIGHT RADIAL Z BAND IN PLACE. NO BLEEDING/HEMATOMA NOTED. CALL LIGHT WITHIN REACH. VSS.
--- NOTE | 2019-02-10 16:27 | NUR ---
2cc OF AIR REMOVED FROM Z BAND. NO BLEEDING/HEMATOMA NOTED. CALL LIGHT WITHIN REACH. FAMILY AT BEDSIDE.
--- NOTE | 2019-02-10 16:49 | NUR ---
4cc OF AIR REMOVED FROM Z BAND. NO BLEEDING/HEMATOMA NOTED. CALL LIGHT WITHIN REACH. VSS. NO NEEDS AT THIS TIME.
--- NOTE | 2019-02-10 17:05 | NUR ---
Z BAND REMOVED AND DRESSING APPLIED. NO BLEEDING/HEMATOMA NOTED. PIV D/C'D WITH CATH TIP INTACT. PT TOLERATED WELL. INSTRUCTED TO GET UP AND DRESSED AT THIS TIME. RIGHT WRIST BRACE IN PLACE.
--- NOTE | 2019-02-10 17:10 | NUR ---
DISCUSSED DISCHARGE INSTRUCTIONS WITH PT AND PT'S FAMILY. THEY VOICED UNDERSTANDING.
--- NOTE | 2019-02-10 17:25 | NUR ---
PT AMBULATED TO RESTROOM. VOIDED WITHOUT DIFFICULTY. RIGHT WRIST Z BAND IN PLACE. NO BLEEDING/HEMATOMA NOTED. PT TAKEN OUT TO VEHICLE BY WHEELCHAIR. NO S/S OF DISTRESS NOTED. ALL BELONGINGS AND PAPERWORK IN HAND.
--- NOTE | 2019-02-13 11:13 | OP ---
PATIENT NAME: MIN LEWIS MEDICAL RECORD: [id number] :53 LOCATION:D.CAT ADMISSION DATE: SURGEON: FOX GUPTA MD DATE OF OPERATION: 02/10/2019 PROCEDURES: 1. PTCA stent LAD. 2. Left heart catheterization. 3. Selective coronary angiography. 4. Vein graft angiography. INDICATION: Unstable angina and coronary artery disease. PROCEDURE IN DETAIL: After informed consent was obtained and after a detailed description of risks, benefits as well as alternative therapies, the patient elected to proceed with angiogram and angioplasty. The right radial area was prepped and draped in normal sterile fashion. Right radial artery was cannulated via modified Seldinger technique with placement of 6-Greek sheath and all catheters exchanged through the sheath. FINDINGS: Left ventriculogram was performed were a standard 30-degree FRAUSTO view, reveals preserved cardiac wall motion, ejection fraction 50%. SELECTIVE CORONARY ANGIOGRAPHY: 1. Left main is with no significant angiographic disease. 2. Left anterior descending has multiple previously placed stents with 90% in-stent restenosis in the mid vessel. 3. Left circumflex has moderate irregularities, but no flow-limiting stenosis. 4. Vein graft to the LAD diagonal is widely patent, previously placed stents in this vein graft are widely patent. Distal diagonal is widely patent. 5. Right coronary is widely patent, previously placed stents in the right coronary artery are widely patent. PTCA STENT OF THE LAD: The stent used was a 3.5 x 15 mm Gregg. Result was 0% residual stenosis. OVERALL IMPRESSION: Successful PTCA stent of the LAD over 90% in-stent restenosis to 0% residual stenosis. TRANSINT:[id number] Voice Confirmation ID: [id number] DOCUMENT ID: [id number] FOX GUPTA MD at 1113 CC: [id number] DICTATION DATE: 02/10/19 1334 RISK MODELER: 02/10/19 1732 DEP CLI 02/10/[address] [address]
== END 2019-02-10 17:25 | disposition home or self-care (01) ==
LOC: D.CATH 07:59 → D.ER 07:59 → EDSTATUS 11:36 → D.CLR 13:41 → D.CATH 17:25
PROVIDERS: Family Medicine; ATTEND Internal Medicine Interventional Cardiology
DX: I25.110 Atherosclerotic heart disease of native coronary artery with unstable angina pectoris (principal); I10 Essential (primary) hypertension; E78.5 Hyperlipidemia, unspecified; E11.40 Type 2 diabetes mellitus with diabetic neuropathy, unspecified; I25.2 Old myocardial infarction; Z79.4 Long term (current) use of insulin; Z79.84 Long term (current) use of oral hypoglycemic drugs; J44.9 Chronic obstructive pulmonary disease, unspecified; Z99.81 Dependence on supplemental oxygen
CPT/HCPCS: 93458; C9600

== ENCOUNTER → 2019-04-21 10:36 | Outpatient (CLI) | payer MEDICARE ==
[2019-02-10 10:14] VITALS: BMI 32.3
[~2019-04-21 10:36] MED LIST changes: +ASPIRIN EC81 M1 PO; +FLOMAX0.4 MG PO
== END | disposition home or self-care (01) ==
LOC: D.RT 04-07 13:00
PROVIDERS: ATTEND Internal Medicine Pulmonary Disease
DX: J44.9 Chronic obstructive pulmonary disease, unspecified (principal)

== ENCOUNTER 2019-04-21 12:03 | Observation (INO) | payer MEDICARE ==
[~2019-04-21] VITALS: Ht 185.4 cm; Wt 113.7 kg
[~2019-04-21 12:03] MED LIST changes: -ASPIRIN EC81 M1 PO; -FLOMAX0.4 MG PO
[2019-04-21 12:53] LABS: BASOPHILS 0.5 % (0-2); EOSINOPHILS 3.9 % (0-7); HEMATOCRIT 35.5 % (42.0-54.0); HEMOGLOBIN 11.2 g/dL (13.5-17.5); IMMATURE GRANULOCYTES 0.2 % (0-5); LYMPHOCYTES 37.7 % (15-50); MCH 30.9 pg (26.0-34.0); MCHC 31.5 g/dL (31.0-37.0); MCV 98.1 fL (80.0-100.0); MEAN PLATELET VOLUME 9.1 fL (7.4-10.4); MONOCYTES 7.3 % (2-11); NEUTROPHILS 50.4 % (40-80); PLATELET COUNT 215 10x3/uL (130-400); RBC 3.62 10x6/uL (4.20-6.10); WBC 6.1 10x3/uL (4.8-10.8)
[2019-04-21 13:04] LABS: CALC OSMOLALITY 274 mosm/kg (275-300); CALCIUM 9.3 mg/dL (8.5-10.1); CARBON DIOXIDE 21.8 mmol/L (21.0-32.0); CHLORIDE - SERUM 100 mmol/L (98-107); CREATININE - SERUM 1.1 mg/dL (0.6-1.3); POTASSIUM - SERUM 4.5 mmol/L (3.5-5.1); SODIUM 133 mmol/L (136-145); UREA NITROGEN 19 mg/dL (7-18); eGFR NON AFRICAN AMERICAN 71 mL/min (90-120)
[2019-04-21 13:05] LABS: GLUCOSE 228 mg/dL (74-106)
[2019-04-21 13:14] LABS: APTT 23.7 SECONDS (22.8-39.4); INR 0.98 (0.85-1.17)
[2019-04-21 13:21] LABS: ALBUMIN 3.7 g/dL (3.4-5.0); ALKALINE PHOSPHATASE 69 U/L (30-120); ALT (SGPT) 114 U/L (10-68); BILIRUBIN - TOTAL 0.42 mg/dL (0.2-1.3); CREATINE KINASE 167 UL (21-232); MAGNESIUM - SERUM 1.7 mg/dL (1.8-2.4)
[2019-04-21 13:22] LABS: TROPONIN-I < 0.017 ng/mL (0.000-0.060)
[2019-04-21 13:45] VITALS: BP 131/64
[2019-04-21] MEDS ORDERED: ASPIRIN EC81 M1 PO (13:47)
[2019-04-21] MEDS ORDERED: FLOMAX0.4 MG PO (13:48)
[2019-04-21] MEDS ORDERED: TOUJEO SOL300 UNIT/1 SC (14:16)
[2019-04-21 14:22] VITALS: BP 132/67
[2019-04-21 14:41] VITALS: BP 128/69
--- NOTE | 2019-04-21 16:15 | NUR ---
CALLED TO MAKE REPORT AND THE ROOM WAS NOT READY. NURSE TO CALL ME BACK.
--- NOTE | 2019-04-21 16:29 | NUR ---
According to the suicide risk assessment the patient does not require a 1:1 observation. Suicide resourcde flyer provided.
--- NOTE | 2019-04-21 16:45 | NUR ---
REPORT TO RICHARD SHETH. BEHAVIORAL CONSULT NEEDED D/T YES ON LIFETIME QUESTION. PT IS NOT WANTING TO NOW AND HAS NOT WANTED TO "IN A LONG TIME"
--- NOTE | 2019-04-21 17:22 | NUR ---
RECEIVED PT VIA W/C TO ROOM 2117 AAOX4 RESP UNLABORED O2 ON 1.5 LPM NC SKIN W/D COLOR WNL TELEMETRY PLACED SR RATE 71 DENIES ANY PAIN AT THIS TIME WILL CONTINUE TO MONITOR
[2019-04-21 18:04] VITALS: BP 123/71; BMI 34.3
[2019-04-21 19:47] LABS: CKMB 0.9 U/L (0.0-3.6); CREATINE KINASE 137 UL (21-232); TROPONIN-I < 0.017 ng/mL (0.000-0.060)
[2019-04-21 20:44] VITALS: BP 122/68
[2019-04-22 01:16] VITALS: BP 155/56
[2019-04-22 01:30] LABS: CKMB 0.7 U/L (0.0-3.6); CREATINE KINASE 114 UL (21-232)
[2019-04-22 02:25] LABS: TROPONIN-I < 0.017 ng/mL (0.000-0.060)
[2019-04-22 05:45] VITALS: BP 127/61
[2019-04-22 06:01] VITALS: BP 107/61
[2019-04-22 07:43] LABS: BASOPHILS 0.2 % (0-2); EOSINOPHILS 6.1 % (0-7); HEMATOCRIT 34.1 % (42.0-54.0); LYMPHOCYTES 34.9 % (15-50); MCH 30.5 pg (26.0-34.0); MCHC 32.3 g/dL (31.0-37.0); MEAN PLATELET VOLUME 8.8 fL (7.4-10.4); MONOCYTES 9.1 % (2-11); NEUTROPHILS 49.7 % (40-80); PLATELET COUNT 174 10x3/uL (130-400); RBC 3.61 10x6/uL (4.20-6.10); RDW 13.9 % (11.5-14.5); WBC 4.9 10x3/uL (4.8-10.8)
[2019-04-22 07:49] LABS: MCV 94.5 fL (80.0-100.0)
[2019-04-22 08:09] LABS: ALBUMIN 3.3 g/dL (3.4-5.0); ALKALINE PHOSPHATASE 61 U/L (30-120); ALT (SGPT) 101 U/L (10-68); BILIRUBIN - TOTAL 0.44 mg/dL (0.2-1.3); CALC OSMOLALITY 280 mosm/kg (275-300); CALCIUM 9.1 mg/dL (8.5-10.1); CHLORIDE - SERUM 103 mmol/L (98-107); CKMB 0.8 U/L (0.0-3.6); CREATINE KINASE 90 UL (21-232); CREATININE - SERUM 1.1 mg/dL (0.6-1.3); POTASSIUM - SERUM 4.4 mmol/L (3.5-5.1); PROTEIN - SERUM 7.4 g/dL (6.4-8.2); SODIUM 137 mmol/L (136-145); TROPONIN-I < 0.017 ng/mL (0.000-0.060); UREA NITROGEN 19 mg/dL (7-18); eGFR NON AFRICAN AMERICAN 71 mL/min (90-120)
[2019-04-22 08:10] LABS: GLUCOSE 180 mg/dL (74-106)
[2019-04-22 08:13] LABS: MAGNESIUM - SERUM 1.8 mg/dL (1.8-2.4); PHOSPHOROUS 4.4 mg/dL (2.5-4.9)
[2019-04-22 09:04] VITALS: BP 120/73
[2019-04-22 11:27] VITALS: Ht 185.4 cm; Wt 113.7 kg
--- NOTE | 2019-04-22 13:35 | NUR ---
IV AND TELEMETRY DCD. DC PLANS GIVEN. UNDERSTANDING VOICED. ESCORTED TO CAR BY W/C.
== END 2019-04-22 13:36 | disposition home or self-care (01) ==
LOC: D.ER 12:03 → D.M2 14:48 → OBSVTIME 15:19 → D.M2 04-22 13:36
PROVIDERS: Family Medicine; ADMIT Internal Medicine Nephrology; ATTEND Internal Medicine Nephrology
DX: R55 Syncope and collapse (principal); D64.9 Anemia, unspecified; N17.9 Acute kidney failure, unspecified; I10 Essential (primary) hypertension; E78.5 Hyperlipidemia, unspecified; E11.9 Type 2 diabetes mellitus without complications; I25.10 Atherosclerotic heart disease of native coronary artery without angina pectoris; K21.9 Gastro-esophageal reflux disease without esophagitis; F41.8 Other specified anxiety disorders; G89.29 Other chronic pain; N40.0 Benign prostatic hyperplasia without lower urinary tract symptoms

== ENCOUNTER → 2019-04-25 13:46 | Outpatient (CLI) | payer MEDICARE ==
[2019-04-22 11:27] VITALS: BMI 34.3
[~2019-04-25 13:46] MED LIST changes: +ASPIRIN EC81 M1 PO; +FLOMAX0.4 MG PO
== END | disposition home or self-care (01) ==
LOC: D.LABREF 13:46
PROVIDERS: ATTEND Internal Medicine Pulmonary Disease
DX: R94.2 Abnormal results of pulmonary function studies (principal)

== ENCOUNTER → 2019-04-26 09:35 | Outpatient (CLI) | payer MEDICARE ==
[2019-04-22 11:27] VITALS: BMI 34.3
[2019-04-27 09:09] LABS: ANA REFLEX - DIRECT Negative (Negative)
== END | disposition home or self-care (01) ==
LOC: D.LABREF 09:35
PROVIDERS: ATTEND Internal Medicine Pulmonary Disease
DX: R94.2 Abnormal results of pulmonary function studies (principal)

== ENCOUNTER 2019-05-12 10:16 | Outpatient (CLI) | payer MEDICARE ==
[~2019-05-12] VITALS: Ht 185.4 cm; Wt 113.6 kg
--- NOTE | ~2019-05-12 | OP ---
PATIENT NAME: MIN LEWIS MEDICAL RECORD: [id number] :53 LOCATION:D.CAT ADMISSION DATE: SURGEON: FOX GUPTA MD DATE OF OPERATION: PROCEDURES: 1. PTCA stent to LAD. 2. Left heart catheterization. 3. Selective coronary angiography. 4. Vein graft angiography. 5. IFR. PROCEDURE: Informed consent was obtained and after a detailed description of risks, benefits as well as alternative therapies, the patient elected to proceed with angiogram and angioplasty. The right femoral area was prepped and draped in normal sterile fashion. Right femoral artery was cannulated via modified Seldinger technique with placement of 6-Kazakh sheath. All catheters exchanged through this sheath. FINDINGS: Left ventriculogram was performed in standard 30-degree FRAUSTO view, reveals good cardiac wall motion, ejection fraction estimated at 60%. SELECTIVE CORONARY ANGIOGRAPHY: 1. Left main is with no significant angiographic disease. 2. Left anterior descending has multiple previously placed stents with 75% in-stent restenosis in the mid vessel. An IFR was abnormal. 3. Left circumflex has moderate irregularities, but no flow-limiting stenosis. 4. Vein graft to the LAD diagonal is patent. 5. Right coronary has mild irregularities, no flow-limiting stenosis. Previously placed stent is widely patent throughout. PTCA STENT OF THE LAD: The stent used was a 3.5 x 38 mm [place]. Result was 0% residual stenosis. OVERALL IMPRESSION: Successful percutaneous transluminal coronary angioplasty stent of the left anterior descending going from 70% to 75% initial in-stent restenosis with abnormal IFR to 0% residual. TRANSINT:[id number] Voice Confirmation ID: [id number] DOCUMENT ID: [id number] FOX GUPTA MD CC: [id number] DICTATION DATE: 05/12/19 1354 AIRPORT RAMP AGENT: 05/12/19 221 DEP CLI 05/12/19 [place] [id number] [place] [id number]
--- NOTE | ~2019-05-12 | HEMODYNAMI ---
PATIENT:MIN LEWIS MEDICAL RECORD: [id number] : 53 LOCATION:[facility] ADMISSION DATE: 05/12/19 Generatedon:05/12/201914:01 Patient name: MIN LEWIS Patient #: [id number] SSN: [id number] : 1955 Date of study: 05/12/2019 Page: Of Hemodynamic Procedure Report Patient Data Patient Demographics Procedure consent was obtained First Name: MIN Gender: Male Last Name: DEBBIE : 1955 [facility] Initial: Owen Age: 63 year(s) Patient #: [id number] Race: SSN: [id number] Additional ID: [id number] Contact details [address]: [address] [place] [address] State: [place] City: [place] Zip code: [address] Past Medical History History of disease Date Diagnosis Comments CAD Allergies Allergen Reaction Date Comments Reported Sulfa drugs 05/26/2014 Penicillins 05/26/2014 Other allergy 03/28/2015 nitroglycerin paste, erthromycin base, Darvocet Sulfa drugs 11/21/2015 Penicillins 11/21/2015 Erythromycin 11/21/2015 Other allergy 11/21/2015 Darvocet Other allergy 10/19/2016 Sulfa, Nitrobid, Penicillin, DCN, Isosorbide, Erythromycin Other allergy 04/26/2017 PCN, Sulfa Other allergy 07/20/2017 IMDUR, PCN, SULFA Other allergy 02/14/2018 SULFA, NITRO-BID, PCN, VALIUM, IMDUR, DARVOCET-N 100, ERYTHROMYCINBASE Other allergy 07/27/2018 pcn, sulfa Other allergy 10/21/2018 SULFA, PCN, IMDUR, PROPOXYPHENE NAPSYLATE, ERYTHROMYCIN BASE Other allergy 02/10/2019 PCN, SULFA, DARVOCET, IMDUR Other allergy 05/12/2019 IMDUR, NITRO, PCN, SULFA Admission Admission Data Admission Date: 05/12/2019 Admission Time: 10:16 Arrival Date: 05/12/2019 Arrival Time: 0:00 Admit Source: Other Insurance Payor: Medicare [facility] #: [id number] Height (in.): 71 BSA: 2.22 (m2) Height (cm.): 180.34 BMI: 31.38 (kg/m2) Weight (lbs.): 225 Weight (kg.): 102.06 Lab Results Lab Result Date: 05/12/2019 Lab Result Time: 0:00 Biochemistry Name Units Result Min Max BUN mg/dl 19 --(----)*- 7 18 Creatinine mg/dl 1.1 --(--*-)-- 0.6 1.3 eGFR ml/min 70.93784 *-(----)-- 90 120 NONAFRICAN CBC Name Units Result Min Max Hemoglobin g/dl 11.2 *-(----)-- 13.5 17.5 Procedure Procedure Types Cath Procedure Diagnostic Procedure [facility] w/Coronaries w/Grafts FFR/IVUS FFR Initial Sedation Charges Moderate Sedation up to 15 minutes PCI Procedure AMI/SVG/BENDER HAND PTCA or Stent SVG-BMS/AARON Initial Hemochron ACT Test Procedure Description Procedure Date Procedure Date: 05/12/2019 Procedure Start Time: 13:40 Procedure End Time: 13:55 Procedure Staff Name Function Lv Bradshaw MD Performing Physician Carmen Lange RT Monitor Madina Gutierrez RT Scrub Dafne Figueroa RN Nurse Procedure Data Cath Procedure Fluoroscopy Diagnostic fluoroscopy Total fluoroscopy Time: 2.8 time: 2.8 min min Diagnostic fluoroscopy Total fluoroscopy dose: 938 dose: 938 mGy mGy Contrast Material Contrast Material Type Amount (ml) Isovue 300 57 Entry Location Entry Primary Successful Side Size Upsize Upsize Entry Closure Succes sful Closure Location (Fr) 1 (Fr) 2 (Fr) Remarks Device Remarks Femoral Right 5 Fr 6 Fr Exoseal artery Short Estimated blood loss: 10 ml Diagnostic catheters Device Type Used For End Catheter Placement MULTIPACK JL 4.0 5Fr catheter MULTIPACK Pigtail 5 Fr catheter MULTIPACK 3DRC 5Fr Procedure catheter Procedure Complications No complications Procedure Medications Medication Administration Route Dosage 0.9% NaCl I.V. 100 ml/hr Oxygen etCO2 Nasal cannula 2 l/min Lidocaine 2% added to field 20 Heparin Flush Bag added to field 2 bags (1000units/500ml NS) Versed I.V. 2 mg Fentanyl I.V. 50 mcg Hemodynamics Rest HGB: 11.2 (g/dl) O2 Consumption: Estimated: 254.52 (ml/min) O2 Consumption index ed: Estimated:114.65 (ml/min/m) Heart Rate: 64 (bpm) Snapshots Pre Cath Intra NCS Post Cath Vital Signs Time Heart Resp SPO2 etCO2 NIBP (mmHg) Rhythm Pain Sedation Rate (ipm) (%) (mmHg) Status Level (bpm) 13:25:56 66 17 94 0 144/76(115) NSR 0 (11) 10(A) , No pain 13:30:19 65 17 97 0 133/72(107) NSR 0 (11) 10(A) , No pain 13:34:39 65 10 96 0 136/77(109) NSR 0 (11) 10(A) , No pain 13:38:55 68 14 96 19.5 126/76(92) NSR 0 (11) 10(A) , No pain 13:43:15 69 14 95 28.5 130/70(93) NSR 0 (11) 9(A) , No pain 13:47:31 70 13 96 31.5 135/74(105) NSR 0 (11) 9(A) , No pain 13:51:49 71 13 96 23.2 135/75(102) NSR 0 (11) 10(A) , No pain Medications Time Medication Route Dose Verified Delivered Reason Notes Eff ectiveness by by 13:24:54 0.9% NaCl I.V. 100 Lv Dafne used for ml/hr Augustine Figueroa client support administrator 13:25:05 Oxygen etCO2 2 Lv Dafne used for Nasal l/min Augustine Figueroa procedure cannula RN 13:25:10 Lidocaine 2% added 20ml Lv Lv for local to vial Augustine Bradshaw MD anesthetic field 13:25:14 Heparin Flush added 2 Lv Lv used for Bag to bags Augustine Bradshaw MD procedure (1000units/500ml field NS) 13:39:36 Versed I.V. 2 mg Lv Dafne for Augustine Figueroa sedation RN 13:39:44 Fentanyl I.V. 50 Lv Leos for [facility] MD Figueroa sedation site promotion agent Log Time Note 13:09:38 Informed consent obtained and on chart 13:09:59 Dafne Figueroa RN sent for patient. Start room use. 13:10:01 Procedure Status Elective Heart Cath (OP). 13:10:02 Time tracking: Regular hours (M-F 7:00 - 5:00) 13:10:05 Plan of Care:Hemodynamics will remain stable., Cardiac rhythm will remain stable., Comfort level will be maintained., Respiratory function will remain adequate., Patient/ family verbilizes understanding of procedure., Procedure tolerated without complication., Recovers from procedure without complications.. 13:10:34 H&P Date Dictated: 05/11/2019 Within 30 days and on chart., H&P Addendum completed by physician on day of procedure. (MUST COMPLETE FOR ALL OUTPATIENTS). 13:12:42 Patient allergic to Other allergyIMDUR, NITRO, PCN, SULFA 13:18:54 Patient Height : 71 inches 13:19:00 Patient Weight : 225 lbs 13:19:08 Admit Source: Other 13:19:12 Arrival Date: 05/12/2019 12:00:00 AM 13:19:21 Insurance Payor : Medicare 13:20:43 Lab Result : eGFR NONAFRICAN 70.40939 ml/min 13:20:43 Lab Result : Hemoglobin 11.2 g/dl 13:20:43 Lab Result : BUN 19 mg/dl 13:20:43 Lab Result : Creatinine 1.1 mg/dl 13:21:01 Warm blankets applied, and luisa hugger turned on for patient comfort. 13:21:02 Correct patient and procedure confirmed by team. 13:21:09 ECG and BP/O2 sat monitors applied to patient. 13:21:11 Pre-procedure instructions explained to patient. 13:21:15 Family unavailable. 13:21:17 Patient NPO since Midnight. 13:21:28 Is the patient allergic to Iodine/contrast media? No. 13:21:30 Was the patient premedicated? Yes 13:24:46 Vital chart was started 13:24:54 0.9% NaCl 100 ml/hr I.V. was administered by Dafne Figueroa RN; used for procedure; Verbal order read back and verified. 13:25:05 Oxygen 2 l/min etCO2 Nasal cannula was administered by Dafne Figueroa RN; used for procedure; Verbal order read back and verified. 13:25:10 Lidocaine 2% 20ml vial added to field was administered by Lv Bradshaw MD; for local anesthetic; Verbal order read back and verified. 13:25:14 Heparin Flush Bag (1000units/500ml NS) 2 bags added to field was administered by Lv Bradshaw MD; used for procedure; Verbal order read back and verified. 13:27:01 Baseline sample Acquired. 13:27:06 Full Disclosure recording started 13:27:29 H&P Date Dictated: 05/11/2019 Within 30 days and on chart., H&P Addendum completed by physician on day of procedure. (MUST COMPLETE FOR ALL OUTPATIENTS). 13:27:34 Is patient on blood thinner?Yes 13:27:39 ACC The patient was administered the following blood thiners within the last 24 hours: ACCEffient 13:27:43 Patient diabetic? Yes. 13:27:45 If diabetic: On Metformin? Yes 13:27:50 If on Metformin: Last Dose? 05/10/2019 13:30:33 Snore? Yes 13:30:35 Sleep apnea? No 13:30:38 Airway obstruction? No ? 13:30:42 Dentures? No ? 13:30:49 Patient pain scale 5/10 ?. 13:30:55 IV patent on arrival in left forearm with 0.9% NaCl at O. 13:31:02 Lab results completed and on chart. 13:31:05 Right groin area was prepped with chlora-prep and draped in sterile fashion 13:31:07 Sharps counted by scrub and verified by R.N. 13:31:07 Alarms reviewed by R. N. 13:31:09 Physician arrived 13:32:02 Use device set Femoral Dx 13:38:25 --------ALL STOP TIME OUT------ 13:38:26 Final Timeout: patient, procedure, and site verified with staff and physician. All members of the team are in agreement. 13:38:28 Right groin site verified by team. 13:38:33 Fire Safety Assessment: A--An alcohol-based skin anteseptic being used preoperatively., C--Open oxygen or nitrous oxide is being used., D--An ESU, laser, or fiber-optic light is being used. 13:38:37 Physical assessment completed. ASA score P 3 - A patient with severe systemic disease as per Lv Bradshaw MD. 13:38:41 2) 60-89 Mildly reduced kidney function, and other findings (as for stage 1) point to kidney disease. 13:38:46 Maximum allowable contrast dose (3.7 X eGFR X 0.75)197 ml. 13:38:50 Sedation plan: IV Moderate Sedation Medication:Versed, Fentanyl 13:38:53 ACIST Syringe (74310) opened to sterile field. 13:38:54 Bag Decanter (2002S) opened to sterile field. 13:38:55 Medline Cath Pack ([id number]) opened to sterile field. 13:38:59 ACIST Hand Control (82991) opened to sterile field. 13:39:00 ACIST Manifold (78712) opened to sterile field. 13:39:01 DIAGNOSTIC Multipack 5Fr catheter set (QM6303) opened to sterile field. 13:39:02 Tegaderm 4 x 4 (1626W) opened to sterile field. 13:39:03 SHEATH 5FR [place] (UBF737) opened to sterile field. 13:39:04 EMERALD Guide Wire (436-303) opened to sterile field. 13:39:36 Versed 2 mg I.V. was administered by Dafne Figueroa RN; for sedation; Verbal order read back and verified. 13:39:44 Fentanyl 50 mcg I.V. was administered by Dafne Figueroa RN; for sedation; Verbal order read back and verified. 13:40:17 Procedure started. 13:40:31 Local anesthetic to right femoral artery with Lidocaine 2% by Lv Bradshaw MD.INITIAL ACCESS ONLY 13:40:42 A 5 Fr sheath was inserted into the Right Femoral artery 13:41:07 A MULTIPACK Pigtail 5 Fr catheter was advanced over the wire and used for . 13:41:12 LCA angiography performed. 13:41:51 EF : 55 % 13:41:53 Catheter removed. 13:42:55 A MULTIPACK JL 4.0 5Fr catheter was advanced over the wire and used for . 13:43:00 LCA angiography performed. 13:43:01 Catheter removed. 13:43:59 A MULTIPACK 3DRC 5Fr catheter was advanced over the wire and used for Procedure. 13:44:25 RCA angiography performed. 13:44:48 SHEATH 6FR [place] (FNG447) opened to sterile field. 13:44:57 Sheath upsized to a 6 Fr Short. 13:45:14 GUIDE 6FR AR 2.0 catheter ([id number]) opened to sterile field. 13:45:26 6 Fr ar2 guide catheter was inserted over the wire 13:46:12 SVG to Circ angiography performed. 13:46:25 Guide catheter removed. 13:46:46 GUIDE 6FR XB 4.0 catheter ([id number]) opened to sterile field. 13:46:47 INFLATOR Merit BasixCompak (XB1926) opened to sterile field. 13:46:55 6 Fr xb guide catheter was inserted over the wire 13:47:06 IFR wire advanced. 13:47:20 SpotFodo Verrata Plus pressure wire (57410B) opened to sterile field. 13:49:06 mLAD lesion measured at .76 with IFR 13:49:45 Place stent Inflation Number: 1 A PEPPER RX 3.5 x 38 stent ([id number]) was prepped and advanced across the Mid LAD 75. The stent was deployed at 21 MONICA for 0:05 (min:sec) 0. 13:50:07 EXOSEAL 6Fr (EX600) opened to sterile field. 13:50:22 Wire removed. 13:50:23 Guide catheter removed. 13:50:32 Sheath removed intact; hemostasis achieved with Exoseal to the Right Femoral artery. 13:50:36 Procedure ended.(Physican Out) 13:52:22 Fluoroscopy time 02.80 minutes. 13:52:28 Fluoroscopy dose: 938 mGy 13:52:28 Flurop Dose total: 938 13:52:36 Dose Area Product 51383 mGy/cm. 13:52:45 Contrast amount:Isovue 300 57ml. 13:52:49 Maximum allowable dose exceeded? No. 13:52:51 Sharps counted by scrub and verified by R.N. 13:52:54 Insertion/operative site no bleeding no hematoma. 13:52:59 Post-op/insertion site Right Femoral artery dressed using a 4 x 4 and Tegaderm. 13:53:02 Post Procedure Pulses reassessed and unchanged 13:53:06 Post-procedure physical assessment completed. ASA score P 3 - A patient with severe systemic disease as per Lv Bradshaw MD. 13:53:11 Post procedure rhythm: unchanged. 13:53:14 Estimated blood loss: 10 ml 13:53:17 Post procedure instruction explained to patient.Patient verbalizes understanding. 13:53:47 ACT drawn and resulted at 160 seconds. (normal therapeutic range 180-240 seconds). 13:54:16 Procedure type changed to Cath procedure, Diagnostic procedure, LHC, LHC w/Coronaries w/Grafts, FFR/IVUS, FFR Initial, Sedation Charges, Moderate Sedation up to 15 minutes, PCI procedure, AMI/SVG/BENDER HAND PTCA or Stent, SVG-BMS/AARON Initial, Hemochron ACT Test 13:54:18 Procedure and supply charges have been captured, reviewed, submitted and are correct. 13:54:47 Procedure Complication : No complications 13:54:50 Vital chart was stopped 13:55:07 [facility] Findings: MVD- PCI performed (see procedure note) 13:55:13 Operative report dictated upon procedure completion. 13:55:14 See physician's report for complete and final results. 13:55:24 Full Disclosure recording stopped 13:55:24 Procedure ended. 13:55:29 End room use (Document Last) Intervention Summary Intervention Notes Time ActionType Lesion and Equipment Used Action# Pressure Duration Attributes 13:49:45 Place stent Mid LAD PEPPER RX 3.5 x 1 21 00:05 38 stent ([id number]) Device Usage Item Name Manufacture Quantity Catalog Hospital Part Current Minimal Lot# / Number Charge Number Stock Stock Serial# Code ACIST Syringe Acist 1 68934 684910 952585 975380 20 (90801) Medical Systems Inc Bag Decanter Microtek 1 460459 06489 320888 5 () Medical Inc. Medline Cath Medline 1 [id number] 190540 80718 866264 5 Pack ([id number]) ACIST Hand Acist 1 20152 615013 498366 674396 5 Control Medical (89840) Systems Inc ACIST Manifold Acist 1 96229 998134 484714 969614 5 (71666) Medical Systems Inc DIAGNOSTIC Cardinal 1 [id number] 188525 94066 258363 30 Multipack 5Fr Health catheter set (XC6401) Tegaderm 4 x 4 3M 1 1626W 787336 492204 807252 5 (1626W) SHEATH 5FR Terumo 1 IUW818 230716 589935 470934 5 [place] (RVH598) EMERALD Guide Cardinal 1 502-455 318739 252230 624058 5 Wire (502-455) Health MULTIPACK JL Cardinal 1 567909 5 4.0 5Fr Health catheter MULTIPACK Cardinal 1 233440 5 Pigtail 5 Fr Health catheter MULTIPACK 3DRC Cardinal 1 281218 5 5Fr catheter Health SHEATH 6FR Terumo 1 UKY967 418606 786617 509361 40 [place] (RZU801) GUIDE 6FR AR Medtronic 1 [id number] 430952 24397 765210 1 2.0 catheter (JK1HW86) GUIDE 6FR XB Cardinal 1 [id number] 513131 246420 367951 2 4.0 catheter [place] ([id number]) INFLATOR Merit Merit 1 VP3778 894453 509442 987233 15 Sensorion Medical (TY6013) [place] 1 74056J 541916 441801333 723073 5 Verrata Plus pressure wire (38560N) PEPPER RX 3.5 x Medtronic 1 [id number] 905272 6752101 176163 5 [id number] 38 stent ([id number]) EXOSEAL 6Fr Cardinal 1 EX600 096635 505506 029866 10 (EX600) Health Signature Audit [place] Stage Time Signature Unsigned Intra-Procedure 05/12/2019 Carmen Lange 1:57:08 PM RT(R); Dafne Figueroa RN; Lv Bradshaw MD [facility] [address] [place] [address]
[2019-05-12 11:21] VITALS: BP 133/80; Ht 185.4 cm; Wt 113.6 kg
[2019-05-12 11:27] LABS: BASOPHILS 0.4 % (0-2); EOSINOPHILS 3.3 % (0-7); HEMOGLOBIN 11.4 g/dL (13.5-17.5); LYMPHOCYTES 31.6 % (15-50); MCHC 32.6 g/dL (31.0-37.0); MCV 95.1 fL (80.0-100.0); MEAN PLATELET VOLUME 9.2 fL (7.4-10.4); MONOCYTES 8.4 % (2-11); NEUTROPHILS 56.3 % (40-80); PLATELET COUNT 199 10x3/uL (130-400); RBC 3.68 10x6/uL (4.20-6.10); RDW 13.1 % (11.5-14.5); WBC 4.9 10x3/uL (4.8-10.8)
[2019-05-12 11:53] LABS: ANION GAP 14.4 mmol/L (8-16); CALCIUM 9.5 mg/dL (8.5-10.1); CARBON DIOXIDE 23.2 mmol/L (21.0-32.0); CHOL - HDL RATIO 3.9 ratio (2.3-4.9); CREATININE - SERUM 1.1 mg/dL (0.6-1.3); LDL-HDL RATIO 2.1 ratio (1.5-3.5); POTASSIUM - SERUM 4.6 mmol/L (3.5-5.1)
--- NOTE | 2019-05-12 14:00 | NUR ---
REC'D TO ROOM 3 VIA STRETCHER FROM PASS WORKER. MONITORS ESTAB. PT AROUSES TO NAME. SEE SECRET SERVICE AGENT.. ALARMS ON AND C/L IN REACH.
--- NOTE | 2019-05-12 14:15 | NUR ---
R GROIN SOFT, NO S/S BLEEDING OR HEMATOMA. VSS. PULSES PALP, R FOOT WARM.
--- NOTE | 2019-05-12 14:38 | NUR ---
FSBS 545, STAT LAB ORDERED PER POLICY - DR. GUPTA NOTIFIED. NEW ORDER FOR 10 UNITS REG INSULIN SUBQ AND NO RECHECK FSBS. OK TO D/C AT 1700 WITH IF PT IS ASYMPTOMATIC.
--- NOTE | 2019-05-12 14:45 | NUR ---
PT RESTING QUIETLY, R GROIN SITE SOFT, NO S/S BLEEDING OR HEMATOMA. ALARMS ON AND C/L IN REACH.
--- NOTE | 2019-05-12 15:00 | NUR ---
PT STILL RESTING QUIETLY. R GROIN SITE C/D/I, NO S/S BLEEDING OR SWELLING. ALARMS ON AND C/L IN REACH.
--- NOTE | 2019-05-12 15:25 | NUR ---
PT VOIDED 450 ML CLEAR YELLOW URINE IN URINAL. R GROIN SITE C/D/I, NO S/S BLEEDING OR HEMATOMA.
--- NOTE | 2019-05-12 16:00 | NUR ---
PT RESTING QUIETLY, R GROIN SITE C/D/I, NO S/S BLEEDING OR SWELLING.
--- NOTE | 2019-05-12 17:00 | NUR ---
R GROIN SITE SOFT, NO S/S BLEEEDING OR HEMATOMA. HOB UP AND SANDWICH TRAY AND WATER PROVIDED. VSS. C/L IN REACH.
--- NOTE | 2019-05-12 17:30 | NUR ---
PIV D/C'D INTACT, DSG APPLIED. R GROIN SITE C/D/I.. PT ALLOWED UP TO GET DRESSED AND GO TO THE BR.
--- NOTE | 2019-05-12 17:57 | NUR ---
ALL DISCHARGE INSTRUCTIONS REVIEWED WITH PT, HE VERBALIZES UNDERSTANDING.
--- NOTE | 2019-05-12 18:05 | NUR ---
PT D/C'D TO PRIVATE VEHICLE WITH . PT HAS ALL BELONGINGS AND PAPER WORK.
== END 2019-05-12 18:05 | disposition home or self-care (01) ==
LOC: D.CATH 10:16
PROVIDERS: ATTEND Internal Medicine Interventional Cardiology
DX: I25.119 Atherosclerotic heart disease of native coronary artery with unspecified angina pectoris (principal); R06.09 Other forms of dyspnea; R07.9 Chest pain, unspecified; I10 Essential (primary) hypertension; E78.5 Hyperlipidemia, unspecified
CPT/HCPCS: 93459; 93571; C9600

== ENCOUNTER → 2020-05-08 09:47 | Outpatient (CLI) | payer MEDICARE ==
[2019-05-12 11:21] VITALS: BMI 33.0
== END | disposition home or self-care (01) ==
LOC: D.RAD 09:47
PROVIDERS: ATTEND Internal Medicine Gastroenterology
DX: R13.10 Dysphagia, unspecified (principal); K21.9 Gastro-esophageal reflux disease without esophagitis

== ENCOUNTER → 2020-05-27 13:26 | Outpatient (CLI) | payer MEDICARE ==
[2019-05-12 11:21] VITALS: BMI 33.0
== END | disposition home or self-care (01) ==
LOC: D.RAD 13:00
PROVIDERS: ATTEND Internal Medicine Gastroenterology
DX: R93.3 Abnormal findings on diagnostic imaging of other parts of digestive tract (principal)